=== PATIENT | male | born 1970 | race Caucasian/White ===

== ENCOUNTER 2022-01-10 11:32 | Outpatient (CLI) | payer OTHER, SELFPAY ==
[2022-01-10 14:01] LABS: Albumin* 4.3 g/dL (3.3-5.0); Chloride* 101 mmol/L (96-114); Sodium* 136 mmol/L (135-149)
[2022-01-10 14:02] LABS: Potassium* 4.6 mmol/L (3.6-5.1)
[2022-01-10 14:03] LABS: Cholesterol* 152 mg/dL (90-199)
[2022-01-10 14:04] LABS: Alanine Aminotransferase* 25 U/L (4-50); Alkaline Phosphatase* 61 U/L (40-150); Aspartate Amino Transferase* 29 U/L (12-35); Blood Urea Nitrogen* 14 mg/dL (7-30); Calcium* 9.6 mg/dL (8.4-10.6); Carbon Dioxide* 29 mmol/L (20-32); Glucose* 123 mg/dL (60-115); Total Protein* 6.8 g/dL (6.0-8.3); Triglycerides* 77 mg/dL (40-149)
[2022-01-10 14:05] LABS: HDL Cholesterol* 57 mg/dL (>=40); LDL Cholesterol Calculated 80 mg/dL (<100)
[2022-01-10 14:16] LABS: Creatinine Urine 93.7 mg/dL
[2022-01-10 14:21] LABS: Microalbumin Creatinine Ratio 10 mg/g (0-30); Microalbumin Urine < 1 mg/dL
== END 2022-01-10 11:33 | disposition home or self-care (01) ==
PROVIDERS: PCP Family Medicine; Visit Provider Family Medicine
DX: E11.9 Type 2 diabetes mellitus without complications (principal); R68.2 Dry mouth, unspecified; R63.5 Abnormal weight gain; I10 Essential (primary) hypertension; R39.15 Urgency of urination
CPT/HCPCS: 80053; 80061; 82043; 82570; 83036

== ENCOUNTER 2022-04-03 16:12 | Outpatient (CLI) | payer OTHER, SELFPAY ==
--- OUTSIDE RECORDS SUMMARY | 2022-04-03 16:15 | XMS_ITS | Encounter Summary ---
:1970 Author Organization [place] Address [address] [place] [address] Care Team Providers Name Role Phone Koby Hill MD Primary Care Provider Eloisa Owusu APRN DIABETES MANAGER Unavailable [phone] Encounter Details Date Type Department Care Team Description 07/31/2019 Travel Social History Tobacco Use Types Packs/Day Years Used Date Former Smoker Quit: 10/06/19 12 Smokeless Tobacco: Current User Chew Alcohol Use Standard Drinks/Week Comments Yes 0 (1 standard drink = 0.6 oz pure alcoho l) 2-3 drinks daily Alcohol Habits Answer Date Recorded How often do you have a drink containing alcohol? Not asked How many drinks containing alcohol do you have on a Not aske d typical day when you are drinking? How often do you have six or more drinks on one Not asked occasion? Comment: 2-3 drinks daily 10/14/2015 Sex Assigned at Date Recorded Not on file documented as of this encounter Plan of Treatment Not on filedocumented as of this encounter Visit Diagnoses Not on filedocumented in this encounter Additional Health Concerns Assessment Noted Time PHQ-9 Depression Total Score: 2 04/17/2016 7:19 AM CDT documented as of this encounter Care Teams Pearl Technician Relationship Specialty Start Date End Date Koby Hill MD PCP - General Internal Medicine 10/14/15 [address] [place] [address] Eloisa Owusu APRN DIABETES MANAGER Assigned PCP 07/16/19 01/11/21 [address] [place] [address] documented as of this encounter
--- OUTSIDE RECORDS SUMMARY | 2022-04-03 16:15 | XMS_ITS | Clinical Summary ---
:1970 Author Organization [place] Address [address] [place] [address] Care Team Providers Name Role Phone Koby Hill MD Primary Care Provider Allergies Active Allergy Reactions Severity Noted Date Comments Nadeem Inhibitors Cough 09/10/2011 Amoxicillin Hives 03/20/2011 Lisinopril Cough 05/03/2013 Penicillins Hives 11/15/2012 Medications Medication Sig Dispensed Refills Start Date End Date Status buPROPion (WELLBUTRIN Take 300 mg by 0 Active SR) 150 MG 12 hr mouth daily tablet omeprazole (PRILOSEC) Take by mouth 0 Active 40 MG capsule daily amphetamine-dextroamph Take by mouth 0 Active etamine (ADDERALL XR) daily 30 MG per capsule ibuprofen Take 200 mg by 0 Activ e (ADVIL,MOTRIN) 200 MG mouth every 4 tablet hours as needed for mild pain ARIPiprazole (ABILIFY) Take 1 tablet (5 30 tablet 1 11/12/2015 Active 5 MG tablet mg) by mouth At Bedtime eszopiclone (LUNESTA) Take 3 mg by mouth 0 6 Active 3 MG tablet At Bedtime VIAGRA 100 MG tablet 0 2016 Active NUVIGIL 250 MG TABS Take 250 mg by 0 01/07/2016 Active mouth as needed fluticasone (FLONASE) Gravelly 1-2 sprays 1 Bottle 11 07/14/2016 Active 50 MCG/ACT into both nostrils sprayIndications: daily Postnasal drip Additional Information Patient not taking. Reported on 01/18/2018 loratadine-pseudoePHEDrine Take 1 tablet by 14 tablet 0 2016 Active (CLARITIN-D 24-HOUR) 10-240 MG per mouth daily 24 hr tabletIndications: Postnasal drip, Dysfunction of Eustachian tube, right valsartan-hydrochlorothiazide TAKE 1 TABLET BY 30 tablet 0 12/2016 Active (DIOVAN-HCT) 320-12.5 MG per MOUTH DAILY tabletIndications: Essential hypertension amLODIPine (NORVASC) 5 MG TAKE 1 TABLET BY 90 tablet 0 017 Active tabletIndications: Essential MOUTH DAILY hypertension multivitamin, therapeutic with Take 1 tablet by 0 Active minerals (MULTI-VITAMIN) TABS tablet mouth daily azithromycin (ZITHROMAX) 250 MG Two tablets first 6 tablet 0 01/05/2018 Active tabletIndications: Upper respiratory day, then one tract infection, unspecified type, tablet daily for Cough four days. guaiFENesin-codeine (ROBITUSSIN AC) Take 10 mLs by 240 mL 1 01/05/2018 Active 100-10 MG/5ML SOLN mouth every 4 solutionIndications: Cough hours as needed Additional Information Patient not taking. Reported on 01/18/2018 amphetamine-dextroamphetamine TK 1 T PO BID 0 2016 Active (ADDERALL) 10 MG per tablet clonazePAM (KLONOPIN) 1 MG tablet 2 2016 Active topiramate (TOPAMAX) 25 MG tablet TK 1 T PO BID 3 Active tamsulosin (FLOMAX) 0.4 MG Take 1 capsule 30 capsule 0 019 Active capsuleIndications: Enlarged (0.4 mg) by prostate, Nocturia, Urinary urgency mouth daily Active Problems Patient Care Coordination Note Formatting of this note might be differe nt from the original. [email or web address] Problem Noted Date Right knee pain 04/16/2016 Major depressive disorder, recurrent episode, mild 10/2015 Essential hypertension 10/14/2015 Gastroesophageal reflux disease without esophagitis Attention deficit hyperactivity disorder (ADHD), combi ness type 10/14/2015 Immunizations Name Administration Dates Next Due Influenza Vaccine IM > 6 months Valent IIV4 04/16/2016 (Alfuria,Fluzone) Tdap (Adacel,Boostrix) 03/20/2013 Family History Medical History Relation Comments Hypertension Father Hypertension Mother Diabetes Sister Relation Status Comments Father Mother Alive Sister Social History Tobacco Use Types Packs/Day Years Used Date Former Smoker Quit: 10/06/19 12 Smokeless Tobacco: Current User Chew Tobacco Cessation: Ready to Quit: No; Co unseling Given: Yes Alcohol Use Standard Drinks/Week Comments Yes 0 [...] Assigned at Date Recorded Not on file Last Filed Vital Signs Vital Sign Reading Time Taken Comments Blood Pressure 130/80 01/18/2018 8:09 AM CDT Pulse 72 01/18/2018 8:09 AM CDT Temperature 37 ??C (98.6 ??F) 01/05/2018 10:45 AM CDT Respiratory Rate 20 01/05/2018 10:45 AM CDT Oxygen Saturation 95% 01/05/2018 10:45 AM CDT Inhaled Oxygen Concentration - - Weight 120.2 kg (265 lb) 01/18/2018 8:09 AM CDT Height 193 cm (6' 4) 01/18/2018 8:09 AM CDT Body Mass Index 32.26 01/18/2018 8:09 AM CDT Plan of Treatment Health Maintenance Due Date Last Done Comments ADVANCE CARE PLANNING 1968 ANNUAL REVIEW OF HM ORDERS 1968 CT COLONOGRAPHY 1968 FIT-DNA (Cologuard) 1968 FIT 1968 FLEX SIG 1968 PREVENTIVE CARE VISIT 1968 COVID-19 Vaccine (#1) 1968 COLONOSCOPY 1978 COLORECTAL CANCER SCREENING 1978 HIV SCREENING 1983 HEPATITIS C SCREENING 1986 PHQ-9 10/15/2016 04/16/2016, 11/12/2015 LUNG CANCER SCREENING 2018 ZOSTER IMMUNIZATION (1 of 2018 2) LIPID 10/17/2020 10/18/2015 INFLUENZA VACCINE (#1) 2022 03/29/2018, 04/16/2016, 05/07/2015, Additional history exists DTAP/TDAP/TD IMMUNIZATION 03/20/2023 03/20/2013, 09/03/2010 , (4 - Td or Tdap) 10/11/2006 HEPATITIS B IMMUNIZATION Aged Out 09/03/2010, 07/13/2008 No longer eligible based on patient 's age to complete this topic DEPRESSION ACTION PLAN Completed 02/18/2016 IPV IMMUNIZATION Aged Out No longer eligi ble based on patient 's age to complete this topic MENINGITIS IMMUNIZATION Aged Out No longe r eligible based on patient 's age to complete this topic Pneumococcal Vaccine: Aged Out No longer eligible Pediatrics (0 to 5 Years) based on patient's age and At-Risk Patients (6 to to co mplete this topic 64 Years) Insurance Payer Benefit Plan / Subscriber ID Effective Phone Address T ype Group Dates [facility] [id number] 2018-Pres [phone] [address] [facility] [phone] [place] [address] (Home) W [phone] [place] (Work) [phone] Care Teams General Ledger Bookkeeper Relationship Specialty Start Date End Date Koby Hill MD PCP - General Internal Medicine 10/14/15 [address] [place] [address]
--- OUTSIDE RECORDS SUMMARY | 2022-04-03 16:15 | XMS_ITS | Encounter Summary ---
:1970 Author Organization [place] Address [address] [place] [address] Care Team Providers Name Role Phone Koby Hill MD Primary Care Provider Koby Hill MD Unavailable Reason for Visit Reason Comments Medication Refill Encounter Details Date Type Department Care Team Description 04/25/2019 Refill [facility] Urology Arianne Vasquez, Medication Refill Clinic Fariha GRANT [address] [place] [address] [place] [address] [place] [id number] (Wo rk) Social History Tobacco Use Types Packs/Day Years [...] filedocumented as of this encounter Visit Diagnoses Diagnosis Enlarged prostate Hypertrophy of prostate without urinary obstruction and other lower urinary tract symptoms (LUTS) Nocturia Urinary urgency Urgency of urination documented in this encounter Additional Health Concerns Assessment Noted Time PHQ-9 Depression Total Score: 2 04/17/2016 7:19 AM CDT documented as of this encounter Care Teams Occupational Therapy Program Director Relationship Specialty Start Date End Date Koby Hill MD PCP - General Internal Medicine 10/14/15 [address] [address] oKby Hill MD Assigned PCP 04/02/19 07/15/19 [address] [address] documented as of this encounter
--- OUTSIDE RECORDS SUMMARY | 2022-04-03 16:15 | XMS_ITS | Encounter Summary ---
:1970 Author Organization [place] Address [address] [place] [address] Care Team Providers Name Role Phone Koby Hill MD Primary Care Provider Eloisa Owusu APRN VOIP TECHNICIAN Unavailable [phone] Encounter Details Date Type Department Care Team Description 08/07/2019 [facility] Lucy Mccray l segment dysfunction (Primary Dx); EDISON Garber DC Cervicalgia; [address] [facility] [employer] [facility] Thoracic segment dysfunction; [address] Right shoulder pain; [place], [place] [address] [address] Somatic dysfunction of upper extremities [address] [place] [address] Social History Tobacco Use Types Packs/Day Years [...] on file documented as of this encounter Progress Notes Lucy Mccray DC - 08/07/2019 3:00 PM CST Visit #: 2 of 4, based on treatment plan Subjective: Rubens Prieto is a 49 year old male who is seen in f/u up for: presenting with right shoulder, lower neck, upper back/shoulder blade pain. Patient reports that the onset was 8-9 months ago after falling on his back/shoulder blade region. Patient reports having difficulty raising his right arm over his head, states having achy/dull pain over the top and anterior shoulder and stiffness mid-back and neck Data Unavailable. Since last visit on 07/31/2019, Rubens Prieto reports the following changes: Pain immediately after last treatment: 08/21 and their pain level today 07/21. Patient reports a 80% improvement in neck andright shoulder pain. States he is able to easily reach above his head now. Driving is much easier. Area of chief complaint: Cervical and right shoulder : Symptoms are graded at 1/10. The quality is described as stiff, achey.Motion has increased, but is still not normal, C5, C6, T3, T5. Patient feels that they are improved due to a reduction in symptoms. Objective: The following was observed: P: palpatory tendernessTraps and supraspinatus, bicep tendon-mild now: R>>L A: static palpation demonstrates intersegmental asymmetry , cervical, right shoulder R: motion palpation notes restricted motion, C5 , C6 , T3 and T5 T: muscle spasm at level(s): T-spine paraspinal and Traps R>>L Assessment: Segmental spinal dysfunction/restrictions found at: C5 C6 T3 T4 T5 Diagnoses: No diagnosis found. Patient's condition: Patient had restrictions pre-manipulation Treatment effectiveness: Post manipulation there is better intersegmental movement and Patient claims to feel looser post manipulation Procedures: CMT: [id number] Chiropractic manipulative treatment 1-2 regions performed [id number] Chiropractic manipulative treatment extraspinal dysfunction/restriction Cervical: Diversified and Activator, C5 , C6, Supine Thoracic: Diversified, T3, T4, T5, Prone Extra-spinal: Extra-spinal, AtoP x3, Seated to right shoulder Modalities: Hypervolt to mid-thoracic paraspinals, pectoralis 3-4 minutes Therapeutic procedures: None Prognosis: Good Progress towards Goals: Patient is making progress towards the goal Response to Treatment: Reduction in symptoms as reported by patient Recommendations: Instructions: ice 20 minutes every other hour as needed Follow-up: Continue treatment PRN. GER TECHNICAL SALES documented in this encounter Plan of Treatment Not on filedocumented as of this encounter Procedures Procedure Name Priority Date/Time Associated Diagnosis Comme nts [facility] Routine 08/07/2019 4:25 PM MANAGER TECHNICAL SALES Right guanaco ulder pain MANIP,EXTRASPINAL,1+ Somatic dysfunction of REGNS upper extremities [facility] Routine 08/07/2019 4:25 PM MANAGER TECHNICAL SALES Cervical segment MANIP,SPINAL,1-2 dysfunction [facility]IONS Cervicalgia Thoracic segment dysfunction documented in this encounter Visit Diagnoses Diagnosis Cervical segment dysfunction - Primary Nonallopathic lesion of cervical region, not elsewhere classified Cervicalgia Thoracic segment dysfunction Nonallopathic lesion of thoracic region, not elsewhere classified Right shoulder pain Pain in joint, shoulder region Somatic dysfunction of upper extremities Nonallopathic lesion of upper extremitie s, not elsewhere classified documented in this encounter Additional Health Concerns Assessment Noted Time PHQ-9 Depression Total Score: 2 04/17/2016 7:19 AM CDT documented as of this encounter Care Teams As400 Developer Relationship Specialty Start Date End Date Koby Hill MD PCP - General Internal Medicine 10/14/[address] [place], [place] [address] Eloisa Owusu APRN VOIP TECHNICIAN Assigned PCP 07/16/19 01/11/21 [address] [place] [address] documented as of this encounter
--- OUTSIDE RECORDS SUMMARY | 2022-04-03 16:15 | XMS_ITS | Encounter Summary ---
:1970 Author Organization [facility] Address [address] [place] [address] Care Team Providers Name Role Phone Koby Hill MD Primary Care Provider Reason for Referral Diagnostic Imaging XR - Closed Specialty Diagnoses / Procedures Referred By Contact Refer red To Contact Diagnoses Decreased breath sounds at left lung base Cough Eloisa Owusu APRN Procedures XR Chest 2 Views RN DELIVERY [address] [place] [address] Referral ID Status Reason Start Date Expiration Date Visits Requ ested Visits Authorized [id number] Closed 01/05/2018 01/05/2019 1 1 Reason for Visit Reason Comments Cough patient c/o of cough x 3 day s. Per patient, coughing up once in awhile, no fever, feels achy and weak, cough is worse at night, complaining of chest pain from coughing Encounter Details Date Type Department Care Team Description 01/05/2018 Office Visit [facility] Eloisa Owusu Upper res piratory tract infection, unspecified type (Primary Dx); Clinic Chris Das APRN RN DELIVERY Decreased breath sounds at left lung bas e; [address] [place] [address] [place] [address] [phone] Social History Tobacco Use Types Packs/Day Years [...] on file documented as of this encounter Last Filed Vital Signs Vital Sign Reading Time Taken Comments Blood Pressure 120/72 01/05/2018 10:45 AM CDT Pulse 71 01/05/2018 10:45 AM CDT Temperature 37 ??C (98.6 ??F) 01/05/2018 10:45 AM CDT Respiratory Rate 20 01/05/2018 10:45 AM CDT Oxygen Saturation 95% 01/05/2018 10:45 AM CDT Inhaled Oxygen Concentration - - Weight 124.4 kg (274 lb 4.8 oz) 01/05/2018 10:45 AM CDT Height - - Body Mass Index 34.29 12/31/2017 11:21 AM CDT documented in this encounter Patient Instructions Patient InstructionsEloisa Owusu APRN CNP - 01/05/2018 11:00 AM CDT Chest x ray in [address] Will treat with Zithromax 250mg, 2 tabs by mouth day 1, then 1 tab by mouth days 2-5. He is to watchfor GI upset, diarrhea or rash. Robitussin with codeine as needed for cough Please, call or return to clinic if signs or symptoms worsen or fail to improve as anticipated documented in this encounter Progress Notes Eloisa Owusu APRN CNP - 01/05/2018 11:00 AM CDT SUBJECTIVE: Rubens Prieto is a 47 year old male who presents to clinic today for the following health issues: Chief complaint- Cough patient c/o of cough x 3 days. Per patient, coughing up once in awhile, no fever, feels achy and weak, cough is worse at night, complaining of chest pain from coughing Productive of whitish secretions No fever No history allergies Feels SOB - even talking is SOB Happened last year and was given a z pack for similar symptoms Negative chest x ray at the time Problem list and histories reviewed & adjusted, as indicated. Additional history: as documented Patient Active Problem List Diagnosis ??? Major depressive disorder, recurrent episode, mild (H) ??? Essential hypertension ??? Gastroesophageal reflux disease without esophagitis ??? Attention deficit hyperactivity disorder (ADHD), combined type ??? Right knee pain Past Surgical History: Procedure Laterality Date ??? ARTHROSCOPY KNEE Right 05/27/2016 Procedure: Arthroscopic partial medial meniscectomy, right knee. Surgeon: Dale Gambino MD Location: [facility] ??? KNEE SURGERY Left 2015 knee arthroplasty - total Social History Substance Use Topics ??? Smoking status: Former Smoker Quit date: 10/06/2011 ??? Smokeless tobacco: Current User Types: Chew ??? Alcohol use 0.0 oz/week 0 Standard drinks or equivalent per week Comment: 2-3 drinks daily Family History Problem Relation Age of Onset ??? Hypertension Mother ??? Hypertension Father ??? Diabetes Sister Reviewed and updated as needed this visit by clinical staff Tobacco Allergies Meds Med Hx Surg Hx Fam Hx Soc Hx Reviewed and updated as needed this visit by Provider ROS: Constitutional, HEENT, cardiovascular, pulmonary, gi and gu systems are negative, except as otherwise noted. OBJECTIVE: BP 120/72 (BP Location: Right arm, Patient Position: Sitting, Cuff Size: Adult Large) Pulse 71 Temp 98.6 ??F (37 ??C) (Oral) Resp 20 Wt 274 lb 4.8 oz (124.4 kg) SpO2 95% BMI 34.29 kg/m2 Body mass index is 34.29 kg/(m^2). GENERAL:alert and no distress HENT: ear canals and TM's normal, nose and mouth without ulcers or lesions RESP: lungs with decreased breath sounds LLL Cough with deep breath CV: regular rate and rhythm MS: no gross musculoskeletal defects noted, no edema NEURO: Normal strength and tone, mentation intact and speech normal PSYCH: mentation appears normal, affect normal/bright Diagnostic Test Results: CXR - negative ASSESSMENT/PLAN: 1. Upper respiratory tract infection, unspecified type - azithromycin (ZITHROMAX) 250 MG tablet; Two tablets first day, then one tablet daily for four days. Dispense: 6 tablet; Refill: 0 2. Decreased breath sounds at left lung base - XR Chest 2 Views; Future 3. Cough - XR Chest 2 Views; Future - azithromycin (ZITHROMAX) 250 MG tablet; Two tablets first day, then one tablet daily for four days. Dispense: 6 tablet; Refill: 0 - guaiFENesin-codeine (ROBITUSSIN AC) 100-10 MG/5ML SOLN solution; Take 10 mLs by mouth every 4 hours as needed Dispense: 240 mL; Refill: 1 Patient Instructions Chest x ray in [address] Will treat with Zithromax 250mg, 2 tabs by mouth day 1, then 1 tab by mouth days 2-5. He is to watchfor GI upset, diarrhea or rash. Robitussin with codeine as needed for cough Please, call or return to clinic if signs or symptoms worsen or fail to improve as anticipated Eloisa Owusu APRN CNP [facility] documented in this encounter Plan of Treatment Not on filedocumented as of this encounter Results XR Chest 2 Views (01/05/2018 11:31 AM CDT) Anatomical Region Laterality Modality Chest Computed Radiography Specimen (Source) Anatomical Location Collection Method / Collectio n Time Received Time / Laterality Volume Impressions 01/05/2018 1:33 PM CDT IMPRESSION: Since November 21, 2016, heart size is normal. No pleural effusion, pneumothorax, or abnormal area of consolidation. LAW HAINES MD Narrative 01/05/2018 1:33 PM CDT CHEST TWO VIEWS ??01/05/2018 11:31 AM HISTORY: 47-year-old with decreased lung sounds in left lower lobe. Patient also has cough. Procedure Note Law Haines MD - 01/05/2018 CHEST TWO VIEWS 01/05/2018 11:31 AM HISTORY: 47-year-old with decreased lung sounds in left lower lobe. Patient also has cough. IMPRESSION: Since November 21, 2016, heart si ze is normal. No pleural effusion, pneumothorax, or abnormal area of consolidation. LAW HAINES MD Eloisa Owusu ROUNDING AND BACKING MACHINE OPERATOR RN DELIVERY IMG DIAGNOSTIC IMAGING ORD ERABLES documented in this encounter Visit Diagnoses Diagnosis Upper respiratory tract infection, unspe cified type - Primary Decreased breath sounds at left lung bas e Cough Decreased breath sounds at left lung bas e Cough documented in this encounter Additional Health Concerns Assessment Noted Time PHQ-9 Depression Total Score: 2 04/17/2016 7:19 AM CDT documented as of this encounter Care Teams Computer Analyst Supervisor Relationship Specialty Start Date End Date Koby Hill MD PCP - General Internal Medicine 10/14/15 [address] [place] [address] documented as of this encounter
--- OUTSIDE RECORDS SUMMARY | 2022-04-03 16:15 | XMS_ITS | Encounter Summary ---
:1970 Author Organization [place] Address [address] [place] [address]. [place] [address] Care Team Providers Name Role Phone Koby Hill MD Primary Care Provider CreagaEloisa larkin APRN ELECTRICIAN APPRENTICE Unavailable [phone] ReyesagaEloisa larkin APRN ELECTRICIAN APPRENTICE Unavailable [phone] Encounter Details Date Type Department Care Team Description 2018 Orders Only [facility] [place] Vasquez y frequency Urology Clinic Fariha Maya MD (Primary Dx) [address] [place] [address] [place] [address] [place] [id number] Social History Tobacco Use Types Packs/Day Years [...] as of this encounter Visit Diagnoses Diagnosis Urinary frequency - Primary documented in this encounter Additional Health Concerns Assessment Noted Time PHQ-9 Depression Total Score: 2 04/17/2016 7:19 AM CDT documented as of this encounter Care Teams Director Broadcast Relationship Specialty Start Date End Date Koby Hill MD PCP - General Internal Medicine 10/14/15 [address] [place] [place] [address] Eloisa Owusu APRN PCP - Assigned PCP 01/16/18 09/13/18 ELECTRICIAN APPRENTICE [address] [place] [address] Eloisa Owusu APRN Assigned PCP 01/16/18 ELECTRICIAN APPRENTICE [address] [place] [address] documented as of this encounter
--- OUTSIDE RECORDS SUMMARY | 2022-04-03 16:15 | XMS_ITS | Encounter Summary ---
:1970 Author Organization [facility] Address [address] [place] [address] Care Team Providers Name Role Phone Koby Hill MD Primary Care Provider Reason for Visit Reason Onset Date Comments Refill Request 11/30/2016 valsartan-hydrochlor othiazide Encounter Details Date Type Department Care Team Description 11/30/2016 Refill [facility] Koby Hill, Ref ill Request Clinic Chris GRANT (valsartan-hydrochlorot [address] [place] [address] hiazide ) [place] [address] [place], [place] [phone] (Wo rk) [address] [phone] Social History Tobacco Use Types Packs/Day Years [...] on file documented as of this encounter Miscellaneous Notes Telephone Encounter - Magy Bragg - 11/30/2016 3:01 PM CDT Prescription approved per [facility] Refill Protocol, until due for labs in May. Telephone Encounter - Zoya He - 11/30/2016 12:20 PM CDT valsartan-hydrochlorothiazide Last Written Prescription Date: 10/14/15 Last Fill Quantity: 90, # refills: 3 Last Office Visit with [facility] or [facility] prescribing provider: 07/14/16 Potassium Date Value Ref Range Status 05/25/2016 3.8 3.4 - 5.3 mmol/L Final Creatinine Date Value Ref Range Status 05/25/2016 1.06 0.66 - 1.25 mg/dL Final BP Readings from Last 3 Encounters: 11/21/16 126/80 07/14/16 132/70 06/05/16 132/82 documented in this encounter Plan of Treatment Not on filedocumented as of this encounter Visit Diagnoses Diagnosis Essential hypertension Unspecified essential hypertension documented in this encounter Additional Health Concerns Assessment Noted Time PHQ-9 Depression Total Score: 2 04/17/2016 7:19 AM CDT documented as of this encounter Care Teams Weeder Relationship Specialty Start Date End Date Koby Hill MD PCP - General Internal Medicine 10/14/15 [place] [address] documented as of this encounter
--- OUTSIDE RECORDS SUMMARY | 2022-04-03 16:15 | XMS_ITS | Encounter Summary ---
:1970 Author Organization [facility] Address [address] [place] [address]. [place] [address] Care Team Providers Name Role Phone Koby Hill MD Primary Care Provider Eloisa Owusu APRN WORK STATION SUPPORT SPECIALIST Unavailable [phone] Reason for Visit Reason Onset Date Comments Refill Request 01/02/2019 tamsulosin Refill Request 01/02/2019 Encounter Details Date Type Department Care Team Description 01/02/2019 Refill M [facility] Ana Zarco Refi ll Request Urology Clinic Fariha GUY (tamsulosin); Refill [address] [facility] [address] [place] [address] Social History Tobacco Use Types Packs/Day Years [...] documented as of this encounter Miscellaneous Notes Addendum Note - Ana Zarco RN - 01/02/2019 1:46 PM CDT Addended by: ANA ZARCO on: 01/02/2019 01:59 PM Modules accepted: Orders documented in this encounter Plan of Treatment Not on filedocumented as of this encounter Visit Diagnoses Diagnosis Nocturia - Primary Enlarged prostate Hypertrophy of prostate without urinary obstruction and other lower urinary tract symptoms (LUTS) Urinary urgency Urgency of urination documented in this encounter Additional Health Concerns Assessment Noted Time PHQ-9 Depression Total Score: 2 04/17/2016 7:19 AM CDT documented as of this encounter Care Teams Flight Service Specialist Relationship Specialty Start Date End Date Koby Hill MD PCP - General Internal Medicine 10/14/15 [address] [place], [place] [id number] Eloisa Owusu APRN WORK STATION SUPPORT SPECIALIST Assigned PCP 01/16/18 01/07/19 [address] [place], [place] [id number] documented as of this encounter
--- OUTSIDE RECORDS SUMMARY | 2022-04-03 16:15 | XMS_ITS | Encounter Summary ---
:1970 Author Organization [facility] Address [address] [place] [address] Care Team Providers Name Role Phone Koby Hill MD Primary Care Provider Eloisa Owusu APRN DIVISION CONTROLLER Unavailable [phone] Eloisa Owusu APRN DIVISION CONTROLLER Unavailable [phone] Encounter Details Date Type Department Care Team Description 09/05/2018 Travel Social History Tobacco Use Types Packs/Day [...] documented as of this encounter Care Teams Field Care Coordinator Relationship Specialty Start Date End Date Koby Hill MD PCP - General Internal Medicine 10/14/15 [address] [place] [address] Eloisa Owusu APRN PCP - Assigned PCP 01/16/18 09/13/18 DIVISION CONTROLLER [address] [place], [place] [id number] Eloisa Owusu APRN Assigned PCP 01/16/18 DIVISION CONTROLLER [address] [place], [place] [id number] documented as of this encounter
--- OUTSIDE RECORDS SUMMARY | 2022-04-03 16:15 | XMS_ITS | Encounter Summary ---
:1970 Author Organization [facility] Address [address] [facility] [place] [address] Care Team Providers Name Role Phone Koby Hill MD Primary Care Provider CreaganEloisa APRN FINISHED GOODS PLANNER Unavailable [phone] CreaganEloisa APRN FINISHED GOODS PLANNER Unavailable [phone] Reason for Visit Reason Comments Consult New pt. is here due to urina ry frequecy and urgency Encounter Details Date Type Department Care Team Description 01/18/2018 Office Visit [facility] Vasquez, Leonard Melanie ed prostate (Primary Dx); Urology Clinic Dilcia Maya MD Urinary frequency; [address] Urinary urgency [address] [place] [address] [place] [address] [phone] Social History Tobacco Use Types Packs/Day Years [...] Pulse 72 01/18/2018 8:09 AM CDT Temperature - - Respiratory Rate - - Oxygen Saturation - - Inhaled Oxygen Concentration - - Weight 120.2 kg (265 lb) 01/18/2018 8:09 AM CDT Height 193 cm (6' 4) 01/18/2018 8:09 AM CDT Body Mass Index 32.26 01/18/2018 8:09 AM CDT documented in this encounter Progress Notes Leonard Vasquez MD - 01/18/2018 8:00 AM CDT [facility] Main Office: [address] [facility] [address] [place] [address] CHIEF COMPLAINT: Urinary urgency and nocturia HISTORY: This is a healthy 47-year-old gentleman who complains of bothersome urinary urgency and nocturia. Hesays that this has slowly progressed over the past year. His main complaint is that during the day he will suddenly have a strong urge to urinate and will need to find a bathroom immediately. He has some frequency during the day but he attributes this to high water intake. At night he gets up twice and this is a new development for him as well. He reports normal urinary stream. No history of gross hematuria or infections. There is no family history of prostate cancer to his knowledge. He has no smoking history but does use chewing tobacco PAST MEDICAL HISTORY: Past Medical History: Diagnosis Date ??? ADHD (attention deficit hyperactivity disorder) ??? Depression ??? GERD (gastroesophageal reflux disease) ??? Hernia, abdominal ??? HTN (hypertension) PAST SURGICAL HISTORY: Past Surgical History: Procedure Laterality Date ??? ARTHROSCOPY KNEE Right 05/27/2016 Procedure: Arthroscopic partial medial meniscectomy, right knee. Surgeon: Dale Gambino MD Location: [facility] ??? KNEE SURGERY Left 2014 knee arthroplasty - total ??? VASECTOMY FAMILY HISTORY: Family History Problem Relation Age of Onset ??? Hypertension Mother ??? Hypertension Father ??? Diabetes Sister SOCIAL HISTORY: Social History Substance Use Topics ??? Smoking status: Former Smoker Quit date: 10/06/2011 ??? Smokeless tobacco: Current User Types: Chew ??? Alcohol use 0.0 oz/week 0 Standard drinks or equivalent per week Comment: 2-3 drinks daily Allergies Allergen Reactions ??? Amoxicillin Current Outpatient Prescriptions: ??? amLODIPine (NORVASC) 5 MG tablet, TAKE 1 TABLET BY MOUTH DAILY, Disp: 90 tablet, Rfl: 0 ??? amphetamine-dextroamphetamine (ADDERALL XR) 30 MG per capsule, Take by mouth daily, Disp: , Rfl: ??? amphetamine-dextroamphetamine (ADDERALL) 10 MG per tablet, TK 1 T PO BID, Disp: , Rfl: 0 ??? azithromycin (ZITHROMAX) 250 MG tablet, Two tablets first day, then one tablet daily for four days., Disp: 6 tablet, Rfl: 0 ??? buPROPion (WELLBUTRIN SR) 150 MG 12 hr tablet, Take 300 mg by mouth daily, Disp: , Rfl: ??? clonazePAM (KLONOPIN) 1 MG tablet, , Disp: , Rfl: 2 ??? eszopiclone (LUNESTA) 3 MG tablet, Take 3 mg by mouth At Bedtime, Disp: , Rfl: 0 ??? ibuprofen (ADVIL,MOTRIN) 200 MG tablet, Take 200 mg by mouth every 4 hours as needed for mild pain, Disp: , Rfl: ??? loratadine-pseudoePHEDrine (CLARITIN-D 24-HOUR) 10-240 MG per 24 hr tablet, Take 1 tablet by mouth daily, Disp: 14 tablet, Rfl: 0 ??? multivitamin, therapeutic with minerals (MULTI-VITAMIN) TABS tablet, Take 1 tablet by mouth daily, Disp: , Rfl: ??? NUVIGIL 250 MG TABS, Take 250 mg by mouth as needed, Disp: , Rfl: 0 ??? omeprazole (PRILOSEC) 40 MG capsule, Take by mouth daily, Disp: , Rfl: ??? topiramate (TOPAMAX) 25 MG tablet, TK 1 T PO BID, Disp: , Rfl: 3 ??? valsartan-hydrochlorothiazide (DIOVAN-HCT) 320-12.5 MG per tablet, TAKE 1 TABLET BY MOUTH DAILY,Disp: 30 tablet, Rfl: 0 ??? ARIPiprazole (ABILIFY) 5 MG tablet, Take 1 tablet (5 mg) by mouth At Bedtime, Disp: 30 tablet, Rfl: 1 ??? fluticasone (FLONASE) 50 MCG/ACT spray, [place] 1-2 sprays into both nostrils daily (Patient not taking: Reported on 01/18/2018), Disp: 1 Bottle, Rfl: 11 ??? guaiFENesin-codeine (ROBITUSSIN AC) 100-10 MG/5ML SOLN solution, Take 10 mLs by mouth every 4 hours as needed (Patient not taking: Reported on 01/18/2018), Disp: 240 mL, Rfl: 1 ??? VIAGRA 100 MG tablet, , Disp: , Rfl: Review Of Systems: Skin: negative Eyes: negative Ears/Nose/Throat: negative Respiratory: No shortness of breath, dyspnea on exertion, cough, or hemoptysis Cardiovascular: negative Gastrointestinal: negative Genitourinary: negative Musculoskeletal: negative Neurologic: negative Psychiatric: negative Hematologic/Lymphatic/Immunologic: negative Endocrine: negative PHYSICAL EXAM: Pulse 72 Ht 1.93 m (6' 4) Wt 120.2 kg (265 lb) BMI 32.26 kg/m2 General appearance: In NAD, conversant HEENT: Normocephalic and atraumatic, anicteric sclera Cardiovascular: Not examined Respiratory: normal, non-labored breathing Gastrointestinal: negative, Abdomen soft, non-tender, and non-distended. Musculoskeletal: Not Examined Peripheral Vascular/extremity: No peripheral edema Skin: Normal temperature, turgor, and texture. No rash Psychiatric: Appropriate affect, alert and oriented to person, place, and time Penis: Normal Scrotal skin: Normal, no lesions Testicles: Normal to palpation bilaterally Epididymis: Normal to palpation bilaterally Lymphatic: Normal inguinal lymph nodes Digital Rectal Exam: his prostate is somewhat enlarged, benign and symmetric to palpation Cystoscopy: Not done PSA: UA RESULTS: Recent Labs Lab Test 12/31/17 1136 COLOR Yellow APPEARANCE Clear URINEGLC Negative URINEBILI Negative URINEKETONE Negative SG 1.010 UBLD Negative URINEPH 7.0 PROTEIN Negative UROBILINOGEN 0.2 NITRITE Negative LEUKEST Negative Bladder Scan: 35mL Other Labs: Imaging Studies: None CLINICAL IMPRESSION: Enlarged prostate, urinary urgency, nocturia PLAN: His symptoms are likely attributable to an enlarged prostate. His urinalysis is negative and he is emptying his bladder well. We discussed treatment options for enlarged prostate. I recommended a trialof Flomax. I prescribed medication and discussed essential side effects. He will take Flomax daily and I will see him back in 1 month. We will check a PSA at that point. If he shows no improvement withthe Flomax we will need to proceed with a cystoscopy. Leonard Vasquez MD documented in this encounter Plan of Treatment Not on filedocumented as of this encounter Procedures Procedure Name Priority Date/Time Associated Comments Diagnosis URINE MACROSCOPIC Routine 01/18/2018 8:14 AM Urinary frequency Results for this ONLY CDT procedure are i n the results section. documented in this encounter Results UA without Microscopic (01/18/2018 8:14 AM CDT) [facility] Method Time Signature Color Urine Yellow 01/18/2018 [facility] 8:18 AM CDT [facility] Appearance Urine Clear 01/18/2018 [facility] 8:18 AM CDT [facility] Glucose Urine Negative NEG^Negat 01/18/2018 [facility] [place] mg/dL 8:18 AM CDT [facility] Bilirubin Urine Negative NEG^Negat 01/18/2018 [facility] [place] 8:18 AM CDT [facility] Ketones Urine Negative NEG^Negat 01/18/2018 [facility] [place] mg/dL 8:18 AM CDT [facility] Specific [place] 1.020 1.003 - 01/18/2018 [facility] Urine 1.035 8:18 AM CDT [facility] Blood Urine Negative NEG^Negat 01/18/2018 [facility] [place] 8:18 AM CDT [facility] pH Urine 5.5 5.0 - 7.0 01/18/2018 [facility] pH 8:18 AM CDT [facility] Protein Albumin Negative NEG^Negat 01/18/2018 [facility] Urine [place] mg/dL 8:18 AM CDT [facility] Urobilinogen 0.2 0.2 - 1.0 01/18/2018 [facility] Urine EU/dL 8:18 AM CDT [facility] Nitrite Urine Negative NEG^Negat 01/18/2018 [facility] [place] 8:18 AM CDT [facility] Leukocyte Negative NEG^Negat 01/18/2018 [facility] Esterase Urine [place] 8:18 AM CDT [facility] Source Midstream 01/18/2018 [facility] Urine 8:18 AM CDT [facility] Specimen (Source) Anatomical Collection Method Collection Time Re ceived Time Location / / Volume Laterality Examination of 01/18/2018 8:14 01/18/2018 8:15 midstream urine AM CDT AM CDT specimen (procedure) Leonard Vasquez MD LAB - URINE ORDERABLES Performing Organization Address City/State/ZIP Code Phon e Number [facility] [address] [place] [address] CL[address] documented in this encounter Visit Diagnoses Diagnosis Enlarged prostate - Primary Hypertrophy of prostate without urinary obstruction and other lower urinary tract symptoms (LUTS) Urinary frequency Urinary urgency Urgency of urination documented in this encounter Additional Health Concerns Assessment Noted Time PHQ-9 Depression Total Score: 2 04/17/2016 7:19 AM CDT documented as of this encounter Care Teams Science Center Display Builder Relationship Specialty Start Date End Date Koby Hill MD PCP - General Internal Medicine 10/14/15 [address] [place] [address] Eloisa Owusu APRN PCP - Assigned PCP 01/16/18 09/13/18 FINISHED GOODS PLANNER [address] [place] [address] Eloisa Owusu APRN Assigned PCP 01/16/18 FINISHED GOODS PLANNER [address] [place] [address] documented as of this encounter
--- OUTSIDE RECORDS SUMMARY | 2022-04-03 16:15 | XMS_ITS | Encounter Summary ---
:1970 Author Organization [facility] Address [address] [place] [address] Care Team Providers Name Role Phone Koby Hill MD Primary Care Provider Eloisa Owusu APRN BUSINESS SOLUTIONS ANALYST Unavailable [phone] Eloisa Owusu APRN BUSINESS SOLUTIONS ANALYST Unavailable [phone] Reason for Visit Reason Comments Medication Refill [facility] Encounter Details Date Type Department Care Team Description 06/17/2017 Refill [facility] Koby Hill, Med ication Refill Clinic Chris GRANT (norvas) [address] [place] [address] [place], [place] [phone] (Wo rk) [address] [phone] Social History Tobacco Use Types Packs/Day Years [...] this encounter Miscellaneous Notes Telephone Encounter - Ashley Batista RN - 06/21/2017 10:30 AM CST Potassium Date Value Ref Range Status 05/25/2016 3.8 3.4 - 5.3 mmol/L Final Creatinine Date Value Ref Range Status 05/25/2016 1.06 0.66 - 1.25 mg/dL Final BP Readings from Last 3 Encounters: 11/21/16 126/80 07/14/16 132/70 06/05/16 132/82 Medication is being filled for 1 time refill only due to: Patient needs labs --bmp. Future labs ordered in chart. Getaround message sent. TH AND [employer]ARLAND MAKER HAND documented in this encounter Plan of Treatment Not on filedocumented as of this encounter Visit Diagnoses Diagnosis Essential hypertension Unspecified essential hypertension documented in this encounter Additional Health Concerns Assessment Noted Time PHQ-9 Depression Total Score: 2 04/17/2016 7:19 AM CDT documented as of this encounter Care Teams Carpentry Foreman Relationship Specialty Start Date End Date Koby Hill MD PCP - General Internal Medicine 10/14/15 [address] [place] [address] Eloisa Owusu APRN PCP - Assigned PCP 01/16/18 09/13/18 BUSINESS SOLUTIONS ANALYST [address] [place] [address] Eloisa Owusu APRN Assigned PCP 01/16/18 BUSINESS SOLUTIONS ANALYST [address] [place] [address] documented as of this encounter
--- OUTSIDE RECORDS SUMMARY | 2022-04-03 16:15 | XMS_ITS | Encounter Summary ---
:1970 Author Organization [facility] Address [address] [place] [address]. [place] [address] Care Team Providers Name Role Phone Koby Hill MD Primary Care Provider CreagaEloisa larkin APRN AIRCRAFT ORDNANCE SYSTEMS MECHANIC Unavailable [phone] ReyesagaEloisa larkin APRN AIRCRAFT ORDNANCE SYSTEMS MECHANIC Unavailable [phone] Encounter Details Date Type Department Care Team Description 01/17/2018 Orders Only M [facility] Leonard Vasquez Urinar y frequency Urology Clinic Dilcia Maya MD (Primary Dx) [address] [place] [address] [place] [address] Social History Tobacco Use Types Packs/Day Years [...] on filedocumented as of this encounter Results UA without Microscopic (01/18/2018 8:14 AM CDT) [facility] gist Method Time Signature Color Urine Yellow 01/18/2018 [...] 8:18 AM CDT [facility] Specific [place] 1.020 1.003 - 01/18/2018 [facility] Urine 1.035 [...] Number [facility] [address] [place] [id number] CLINIC [address] documented in this encounter Visit Diagnoses Diagnosis Urinary frequency - Primary documented in this encounter Additional Health Concerns Assessment Noted Time PHQ-9 Depression Total Score: 2 04/17/2016 7:19 AM CDT documented as of this encounter Care Teams Formulation Technician Relationship Specialty Start Date End Date Koby Hill MD PCP - General Internal Medicine 10/14/15 [address] [place], [place] [address] Eloisa Owusu APRN PCP - Assigned PCP 01/16/18 09/13/18 AIRCRAFT ORDNANCE SYSTEMS MECHANIC [address] [place], [place] [address] Eloisa Owusu APRN Assigned PCP 01/16/18 AIRCRAFT ORDNANCE SYSTEMS MECHANIC [address] [place], [place] [address] documented as of this encounter
--- OUTSIDE RECORDS SUMMARY | 2022-04-03 16:15 | XMS_ITS | Encounter Summary ---
:1970 Author Organization [facility] Address [address] [place] [address] Care Team Providers Name Role Phone Koby Hill MD Primary Care Provider Eloisa Owusu APRN CAR SHAKEOUT OPERATOR Unavailable [phone] Encounter Details Date Type Department Care Team Description 07/31/2019 Therapy Visit [facility] Lucy Mccray l segment dysfunction (Primary Dx); EDISON Garber DC Cervicalgia; [address] [place] [address] [employer] [facility] Thoracic segment dysfunction; [address] Chronic right shoulder pain; [place], [place] [address] Somatic dysfunction of upper extremities [id number] [place] [address] Social History Tobacco Use Types [...] encounter Progress Notes Lucy Mccray DC - 07/31/2019 3:00 PM CST Chiropractic Clinic Visit PCP: Koby Hill Rubens Prieto is a 49 year old male who is seen as a self referral presenting with right shoulder, lower neck, upper back/shoulder blade pain. Patient reports that the onset was 8-9 months ago afterfalling on his back/shoulder blade region. Patient reports having difficulty raising his right arm over his head, states having achy/dull pain over the top and anterior shoulder and stiffness mid-back and neck. Prior to onset, the patient was able to do activities over his head. Able to sleep 6-7 hours without right shoulder pain Patient notes that due to symptoms, they have difficulty sleeping on his right side. Rubens Prieto notes sleeping rated at a 3/10 difficulty and prior to this incident it was 0/10. Injury: Fell on his back 8-9 months ago Location of Pain: right superior and anterior shoulder, stiffness through the shoulder blade/mid-thoracic spine, and right lower neck at the following level(s) C5 , C6 , C7 , T2 , T3 and T5 Duration of Pain: 8-9 months Rating of Pain at worst: 6/10 Rating of Pain Currently: 3/10 Symptoms are better with: Rest Symptoms are worse with: overhead motions: reaching, lifting Additional Features: denies UE weakness or numbness Health History as reported by the patient: How does the patient rate their own health: Good Current or past medical history: Depression and High blood pressure Medical allergies None Past Traumas/Surgeries Orthopedic: knee replacement Family History This patient has no significant family history Medications: Anti-depressants, High blood pressure and Sleep 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 Past Medical History: Diagnosis Date ??? ADHD (attention deficit hyperactivity disorder) ??? Depression ??? GERD (gastroesophageal reflux disease) ??? Hernia, abdominal ??? HTN (hypertension) Past Surgical History: Procedure Laterality Date ??? ARTHROSCOPY KNEE Right 05/27/2016 Procedure: Arthroscopic partial medial meniscectomy, right knee. Surgeon: Dale Gambino MD Location: [facility] ??? KNEE SURGERY Left 2014 knee arthroplasty - total ??? VASECTOMY Objective There were no vitals taken for this visit. GENERAL APPEARANCE: healthy, alert and no distress GAIT: NORMAL SKIN: no suspicious lesions or rashes NEURO: Normal strength and tone, mentation intact and speech normal PSYCH: mentation appears normal and affect normal/bright Cervical Spine Exam Range of Motion: Full to slight reduction active and passive ROM forward flexion, extension, lateral rotation, lateral flexion. Mild neck pain in right lateral flexion, left rotation Shoulder ROM: Abduction slight limited- with right shoulder pain, int rotation mildly decreased with increased right shoulder soreness, all other motions were full and pain free Thoracic ROM: Left-slight reduction with stiffness noted. Right-full and pain free Inspection: No visible deformity normal lordotic curvature maintained Tender: upper border of trapezius Right supraspinatus Right bicep tendon Non-Tender: remainder of cervical spine area Muscle strength: C5 (shoulder abduction) symmetric 5/5 Normal C6 (elbow flexion) symmetric 5/5 Normal C7 (elbow extension) symmetric 5/5 Normal C8 (finger abduction, thumb flexion) symmetric 5/5 Normal Reflexes: C5 (biceps) symmetric 2 bilaterally C6 (supinator) symmetric 2 bilaterally C7 (triceps) symmetric 2 bilaterally Sensation: grossly intact througout bilateral upper extremities Special Tests: Cervical compression-Neg, foraminal compression left and right-Neg Distraction - negative Shoulder test: Painful arc-positive, empty can test-mildly painful Lymphatics: no edema noted in the upper extremities Segmental spinal dysfunction/restrictions found at: C5 , C6 , T3 and T5 The following soft tissue hypotonicities were observed:Traps: ache and stiff, referred pain: no Trigger points were found in:supraspinatus-right: Muscle spasm found in:Traps and supraspinatus, bicep: Radiology: none Assessment: 1. Cervical segment dysfunction 2. Cervicalgia 3. Thoracic segment dysfunction 4. Chronic right shoulder pain 5. Somatic dysfunction of upper extremities RX ordered/plan of care Anticipated outcomes Possible risks and side effects After discussing the risk and benefits of care, patient consented to treatment Patient's condition: Patient had restrictions pre-manipulation Treatment effectiveness: Post manipulation there is better intersegmental movement and Patient claims to feel looser post manipulation Plan: Procedures: Evaluation and Management: 36243 Moderate level exam 30 min CMT: [id number] Chiropractic manipulative treatment 3-4 regions performed Cervical: Diversified, C5 , C6, Supine-right side only Thoracic: Diversified, T3, T5, Prone Extra-spinal: PtoA mob's-x3, hypervolt STM to pectoralis minor, right shoulder, Supine Modalities: 32736: US: 2.0 Barahona/cm squared for 8 minutes at 1mhz cont pulsed, Location: right anterior shoulder Hypervolt massage to thoracic paraspinals, supraspinatus, pectoralis 3-4 minutes Therapeutic procedures: None Response to Treatment Patient tolerated the treatment well today Prognosis: Good Treatment plan and goals: Goals: SLEEPING: the patient specific goal is to attain his pre-injury status of 6-7 hours comfortably PAIN: the patient specific goal of thier symptoms is to attain the pre-inury state of 0-1/10 on the VAS Able to abduct his right arm fully without pain Frequency of care Duration of care is estimated to be 4 weeks, from the initial treatment. It is estimated that the patient will need a total of 3-4 visits to resolve this episode. For the initial therapeutic trial of care, the frequency is recommended at 1 X week, once daily. A reevaluation would be clinically appropriate in 4-5 visits, to determine progress and further course of care. In-Office Treatment Evaluation 53389 Chiropractic manipulative treatment 3-4 regions performed Cervical: Diversified, C5 , C6, Supine-right side only Thoracic: Diversified, T3, T5, Prone Extra-spinal: PtoA mob's-x3, hypervolt STM to pectoralis minor, right shoulder, Supine Modalities: 35487: US: 2.0 Barahona/cm squared for 8 minutes at 1mhz cont pulsed, Location: right anterior shoulder Hypervolt massage to thoracic paraspinals, supraspinatus, pectoralis 3-4 minutes Recommendations: Instructions: ice 20 minutes every other hour as needed Follow-up: Return to care in one week. Disclaimer: This note consists of symbols derived from keyboarding, dictation and/or voice recognition software. As a result, there may be errors in the script that have gone undetected. Please consider this when interpreting information found in this chart. PROJECT MANAGER documented in this encounter Plan of Treatment Not on filedocumented as of this encounter Procedures Procedure Name Priority Date/Time Associated Diagnosis Comme [facility] ULTRASOUND THERAPY Routine 07/31/2019 3:45 PM Cervical seg ment ERP PROJECT MANAGER dysfunction Cervicalgia Thoracic segment dysfunction Chronic right shoulder pain Somatic dysfunction of upper extremities [facility] CHIROPRAC Routine 07/31/2019 3:45 PM Chronic right shoulde r MANIP,EXTRASPINAL,1+ ERP PROJECT MANAGER pain REGNS Somatic dysfunction of upper extremities [facility] CHIROPRAC Routine 07/31/2019 3:45 PM Cervical segment MANIP,SPINAL,1-2 ERP PROJECT MANAGER dysfunction REGIONS Cervicalgia Thoracic segment dysfunction documented in this encounter Visit Diagnoses Diagnosis Cervical segment dysfunction - Primary Nonallopathic lesion of cervical region, not elsewhere classified Cervicalgia Thoracic segment dysfunction Nonallopathic lesion of thoracic region, not elsewhere classified Chronic right shoulder pain Pain in joint, shoulder region Somatic dysfunction of upper extremities Nonallopathic lesion of upper extremitie s, not elsewhere classified documented in this encounter Additional Health Concerns Assessment Noted Time PHQ-9 Depression Total Score: 2 04/17/2016 7:19 AM CDT documented as of this encounter Care Teams Tie Puller Relationship Specialty Start Date End Date Koby Hill MD PCP - General Internal Medicine 10/14/15 [address] [place] [address] Eloisa Owusu APRN CAR SHAKEOUT OPERATOR Assigned PCP 07/16/19 01/11/21 [address] [place] [address] documented as of this encounter
--- OUTSIDE RECORDS SUMMARY | 2022-04-03 16:15 | XMS_ITS | Encounter Summary ---
:1970 Author Organization [place] Address [address] [place] [address] Care Team Providers Name Role Phone Koby Hill MD Primary Care Provider Reason for Visit Reason Onset Date Comments Patient Request 03/24/2017 REFERRAL FOR SEXUAL MEDICINE Encounter Details Date Type Department Care Team Description 03/24/2017 Telephone [facility] Koby Hill, Pat ient Request Clinic Chris GRANT (REFERRAL FOR SEXUAL [address] [facility]) [place] [address] [place], [place] [phone] (Wo rk) [address] [phone] Social History Tobacco Use Types Packs/Day Years [...] Telephone Encounter - Ashley Batista RN - 03/24/2017 9:57 AM CDT Spoke with pt. [facility] needs referral to Taina Miles--therapist @ [place] with [facility]. States he's been seeing her x 3 yrs for sexual dysfunction and now this therapist/clinic will be out of network for him. Pt will call referral dept to see if can get a referral to a [facility] facility. Telephone Encounter - Tessa Howard - 03/24/2017 8:56 AM CDT (Reason for Call: Request for an order or referral: Order or referral being requested: SEXUAL MEDICINE [facility] Date needed: as soon as possible Has the patient been seen by the PCP for this problem? NO Additional comments: *NO Phone number Patient can be reached at: Cell number on file: Telephone Information: Best Time: ANY Can we leave a detailed message on this number? YES Call taken on 03/24/2017 at 8:56 AM by Tessa Howard documented in this encounter Plan of Treatment Not on filedocumented as of this encounter Visit Diagnoses Not on filedocumented in this encounter Additional Health Concerns Assessment Noted Time PHQ-9 Depression Total Score: 2 04/17/2016 7:19 AM CDT documented as of this encounter Care Teams Manager Employee Relations Relationship Specialty Start Date End Date Koby Hill MD PCP - General Internal Medicine 10/14/15 [place] [address] documented as of this encounter
--- OUTSIDE RECORDS SUMMARY | 2022-04-03 16:15 | XMS_ITS | Encounter Summary ---
:1970 Author Organization [facility] Address [address] [place] [address] Care Team Providers Name Role Phone Koby Hill MD Primary Care Provider Koby Hill MD Unavailable Reason for Visit Reason Comments Medication Refill Encounter Details Date Type Department Care Team Description 02/01/2019 Refill [facility] Urology Arianne Vasquez, Medication Refill Clinic Fariha GRANT [address] [place] [place] [address] [place] [id number] (Wo rk) Social History Tobacco Use Types [...] documented as of this encounter Care Teams Aerial Photogrammetrist Relationship Specialty Start Date End Date Koby Hill MD PCP - General Internal Medicine 10/14/15 [address] [place] [address] Koby Hill MD Assigned PCP 01/08/19 02/18/19 [address] [id number] documented as of this encounter
--- OUTSIDE RECORDS SUMMARY | 2022-04-03 16:15 | XMS_ITS | Encounter Summary ---
:1970 Author Organization [facility] Address [address] [place] [address] Care Team Providers Name Role Phone Koby Hill MD Primary Care Provider Reason for Visit Diagnostic Imaging XR - Closed Specialty Diagnoses / Procedures Referred By Contact Refer red To Contact Diagnoses Decreased breath sounds at left lung base Cough Eloisa Owusu APRN Procedures XR Chest 2 Views HAND GLASS CUTTER [address] [place] [address] Referral ID Status Reason Start Date Expiration Date Visits Requ ested Visits Authorized [id number] Closed 01/05/2018 01/05/2019 1 1 Encounter Details Date Type Department Care Team Description 01/05/2018 Radiant Appointment [facility] Eloisa Owusu creased breath sounds at left lung base; Clinic Chris Das APRN HAND GLASS CUTTER Cough [address] [place] [address] [phone] Social History Tobacco Use Types Packs/Day Years [...] Name Priority Date/Time Associated Diagnosis Comme nts XR CHEST 2 VIEWS Routine 01/05/2018 11:31 AM Decreased breath Results for this CDT sounds at left lung procedur e are in base the results Cough section. documented in this encounter Results XR Chest 2 Views [...] of consolidation. LAW HAINES MD Eloisa Owusu APRN HAND GLASS CUTTER IMG DIAGNOSTIC IMAGING ORD ERABLES documented in this encounter Visit Diagnoses Diagnosis Decreased breath sounds at left lung bas e Cough documented in this encounter Additional Health Concerns Assessment Noted Time PHQ-9 Depression Total Score: 2 04/17/2016 7:19 AM CDT documented as of this encounter Care Teams Career Technical Education Instructor Relationship Specialty Start Date End Date Koby Hill MD PCP - General Internal Medicine 10/14/15 [address] [place] [address] documented as of this encounter
--- OUTSIDE RECORDS SUMMARY | 2022-04-03 16:15 | XMS_ITS | Encounter Summary ---
:1970 Author Organization [facility] Address [address] [place] [address] Care Team Providers Name Role Phone Koby Hill MD Primary Care Provider Reason for Visit Reason Comments Medication Refill Encounter Details Date Type Department Care Team Description 06/07/2017 Refill [facility] Koby Hill MD Medication Refill [place] [address] [address] [facility] [place] [address] [phone] Social History Tobacco Use Types Packs/Day Years [...] this encounter Miscellaneous Notes Telephone Encounter - Susu Grider RN - 06/08/2017 10:00 AM CST Refill to soon and pt past due for appt P CLERK documented in this encounter Plan of Treatment Not on filedocumented as of this encounter Visit Diagnoses Diagnosis Essential hypertension Unspecified essential hypertension documented in this encounter Additional Health Concerns Assessment Noted Time PHQ-9 Depression Total Score: 2 04/17/2016 7:19 AM CDT documented as of this encounter Care Teams Brick Mason Relationship Specialty Start Date End Date Koby Hill MD PCP - General Internal Medicine 10/14/15 [address] [place] [address] documented as of this encounter
--- OUTSIDE RECORDS SUMMARY | 2022-04-03 16:15 | XMS_ITS | Encounter Summary ---
:1970 Author Organization [facility] Address [address] [place] [address] Care Team Providers Name Role Phone Koby Hill MD Primary Care Provider Eloisa Owusu APRN EMERGENCY DISPATCHER Unavailable [phone] Encounter Details Date Type Department Care Team Description 08/07/2019 Travel Social History Tobacco Use Types Packs/Day [...] documented as of this encounter Care Teams Production Sound Mixer Relationship Specialty Start Date End Date Koby Hill MD PCP - General Internal Medicine 10/14/15 [address] [place] [address] Eloisa Owusu APRN EMERGENCY DISPATCHER Assigned PCP 07/16/19 01/11/21 [address] [place] [address] documented as of this encounter
--- OUTSIDE RECORDS SUMMARY | 2022-04-03 16:15 | XMS_ITS | Encounter Summary ---
:1970 Author Organization [facility] Address [address] [place] [address] Care Team Providers Name Role Phone Koby Hill MD Primary Care Provider Reason for Visit Reason Comments Medication Refill Encounter Details Date Type Department Care Team Description 05/14/2017 Refill [facility] Koby Hill MD Medication Refill [place] [address] [facility] [address] [place] [address] [facility] [place] [address] [phone] Social History Tobacco Use Types Packs/Day Years [...] Telephone Encounter - Susu Grider RN - 05/17/2017 12:28 PM CST Pt past due for yearly appt/labs-sent pt a my chart message PRESSER documented in this encounter Plan of Treatment Not on filedocumented as of this encounter Visit Diagnoses Diagnosis Essential hypertension Unspecified essential hypertension documented in this encounter Additional Health Concerns Assessment Noted Time PHQ-9 Depression Total Score: 2 04/17/2016 7:19 AM CDT documented as of this encounter Care Teams Power Lineman Technician Relationship Specialty Start Date End Date Koby Hill MD PCP - General Internal Medicine 10/14/15 [address] [place] [address] documented as of this encounter
--- OUTSIDE RECORDS SUMMARY | 2022-04-03 16:15 | XMS_ITS | Encounter Summary ---
:1970 Author Organization [facility] Address [address] [place] [address] Care Team Providers Name Role Phone Koby Hill MD Primary Care Provider Reason for Referral Consultation - Closed Specialty Diagnoses / Procedures Referred By Contact Refer red To Contact Diagnoses Lower urinary tract symptoms Urinary urgency Raz Kaur, [facility] ([facility] [address] Physician) [place] [address] [address] [facility] [address] [place] [phone] Phone: [phone] Referral ID Status Reason Start Date Expiration Date Visits Requ ested Visits Authorized [id number] Closed 12/31/2017 12/31/2018 1 1 Reason for Visit Reason Comments UTI Encounter Details Date Type Department Care Team Description 12/31/2017 Office Visit [facility] [place], Lower urin arlette tract symptoms (Primary Dx); Clinic [facility] Raz Hearn MD Urinary urgency [address] [place] [address] [place], [place] [phone] (Wo rk) [address] [phone] Social History Tobacco Use Types Packs/Day Years [...] Sign Reading Time Taken Comments Blood Pressure 124/80 12/31/2017 11:21 AM CDT Pulse 77 12/31/2017 11:21 AM CDT Temperature 36.4 ??C (97.6 ??F) 12/31/2017 11:21 AM CDT Respiratory Rate 16 12/31/2017 11:21 AM CDT Oxygen Saturation 98% 12/31/2017 11:21 AM CDT Inhaled Oxygen Concentration - - Weight 123.4 kg (272 lb) 12/31/2017 11:21 AM CDT Height 190.5 cm (6' 3) 12/31/2017 11:21 AM CDT Body Mass Index 34 12/31/2017 11:21 AM CDT documented in this encounter Progress Notes Raz Kaur MD - 12/31/2017 11:20 AM CDT SUBJECTIVE: Rubens Prieto is a 47 year old male who presents to clinic today for the following health issues: Genitourinary symptoms ?? Duration: 6 mths ?? Description: frequency and urgency , no dysuria , has slow stream at times ?? Intensity: mode rate ?? Accompanying signs and symptoms (fever/discharge/nausea/vomiting/back or abdominal pain): None ?? History (frequent UTI's/kidney stones/prostate problems): None Sexually active: YES ?? Precipitating or alleviating factors: None ?? Therapies tried and outcome: none Outcome: Patient Active Problem List Diagnosis ??? Major depressive disorder, recurrent episode, mild (H) ??? Essential hypertension ??? Gastroesophageal reflux disease without esophagitis ??? Attention deficit hyperactivity disorder (ADHD), combined type ??? Right knee pain Past Surgical History: Procedure Laterality Date ??? ARTHROSCOPY KNEE Right 05/27/2016 Procedure: Arthroscopic partial medial meniscectomy, right knee. Surgeon: Dale Gambino MD Location: [facility] ??? KNEE SURGERY Left 2015 knee arthroplasty - total Social History Substance Use Topics ??? Smoking status: Former Smoker Quit date: 10/06/2011 ??? Smokeless tobacco: Current User Types: Chew ??? Alcohol use 0.0 oz/week 0 Standard drinks or equivalent per week Comment: 2-3 drinks daily Family History Problem Relation Age of Onset ??? Hypertension Mother ??? Hypertension Father ??? Diabetes Sister Current Outpatient Prescriptions Medication Sig Dispense Refill ??? amLODIPine (NORVASC) 5 MG tablet TAKE 1 TABLET BY MOUTH DAILY 90 tablet 0 ??? amphetamine-dextroamphetamine (ADDERALL XR) 30 MG per capsule Take by mouth daily ??? ARIPiprazole (ABILIFY) 5 MG tablet Take 1 tablet (5 mg) by mouth At Bedtime 30 tablet 1 ??? buPROPion (WELLBUTRIN SR) 150 MG 12 hr tablet Take 300 mg by mouth daily ??? eszopiclone (LUNESTA) 3 MG tablet Take 3 mg by mouth At Bedtime 0 ??? fluticasone (FLONASE) 50 MCG/ACT spray [place] 1-2 sprays into both nostrils daily 1 Bottle 11 ??? ibuprofen (ADVIL,MOTRIN) 200 MG tablet Take 200 mg by mouth every 4 hours as needed for mild pain ??? loratadine-pseudoePHEDrine (CLARITIN-D 24-HOUR) 10-240 MG per 24 hr tablet Take 1 tablet by mouth daily (Patient not taking: Reported on 12/31/2017) 14 tablet 0 ??? multivitamin, therapeutic with minerals (MULTI-VITAMIN) TABS tablet Take 1 tablet by mouth daily ??? NUVIGIL 250 MG TABS Take 250 mg by mouth as needed 0 ??? omeprazole (PRILOSEC) 40 MG capsule Take by mouth daily ??? valsartan-hydrochlorothiazide (DIOVAN-HCT) 320-12.5 MG per tablet TAKE 1 TABLET BY MOUTH DAILY 30 tablet 0 ??? VIAGRA 100 MG tablet Reviewed and updated as needed this visit by clinical staff Tobacco Allergies Meds Med Hx Surg Hx Fam Hx Soc Hx Reviewed and updated as needed this visit by Provider ROS: CONSTITUTIONAL: NEGATIVE for fever, chills, change in weight : frequency and urgency OBJECTIVE: BP 124/80 (BP Location: Right arm, Patient Position: Sitting, Cuff Size: Adult Large) Pulse 77 Temp 97.6 ??F (36.4 ??C) (Oral) Resp 16 Ht 6' 3 (1.905 m) Wt 272 lb (123.4 kg) SpO2 98% BMI34 kg/m2 Body mass index is 34 kg/(m^2). GENERAL: healthy, alert, well nourished, well hydrated, no distress ABDOMEN: soft, no tenderness, normal bowel sounds BACK: no CVA tenderness, no paralumbar tenderness UA; negative ASSESSMENT/PLAN: (R39.9) Lower urinary tract symptoms (primary encounter diagnosis) Plan: Most likely related to prostate, patient has been referred to see urologist UROLOGY ADULT REFERRAL (R39.15) Urinary urgency Plan: UA reflex to Microscopic and Culture- UA - negative, patient UROLOGY ADULT REFERRAL Raz Kaur MD [facility] documented in this encounter Plan of Treatment Scheduled Referrals Name Type Priority Associated Diagnoses Order S [facility] UROLOGY ADULT REFERRAL Referral Routine Lower urinary trac t Ordered: 12/31/2017 symptoms Urinary urgency documented as of this encounter Procedures Procedure Name Priority Date/Time Associated Comments Diagnosis UA MACROSCOPIC WITH MEENU 12/31/2017 11:36 Urinary urgency R esults for this REFLEX TO MICROSCOPIC AM CDT proced ure are in AND CULTURE the results section. documented in this encounter Results UA reflex to Microscopic and Culture (12/31/2017 11:36 AM CDT) [facility] Method Time Signature Color Urine Yellow 12/31/2017 [place] 11:52 AM [facility] Appearance Urine Clear 12/31/2017 [place] 11:52 AM [facility] Glucose Urine Negative NEG^Negat 12/31/2017 [place] mg/dL 11:52 AM [facility] Bilirubin Urine Negative NEG^Negat 12/31/2017 [place] 11:52 AM [facility] Ketones Urine Negative NEG^Negat 12/31/2017 [place] mg/dL 11:52 AM [facility] Specific [place] 1.010 1.003 - 12/31/2017 [place] Urine 1.035 11:52 AM [facility] Blood Urine Negative NEG^Negat 12/31/2017 [place] 11:52 AM [facility] pH Urine 7.0 5.0 - 7.0 12/31/2017 [place] pH 11:52 AM [facility] Protein Albumin Negative NEG^Negat 12/31/2017 [place] Urine [place] mg/dL 11:52 AM [facility] Urobilinogen 0.2 0.2 - 1.0 12/31/2017 [place] Urine EU/dL 11:52 AM [facility] Nitrite Urine Negative NEG^Negat 12/31/2017 [place] 11:52 AM [facility] Leukocyte Negative NEG^Negat 12/31/2017 [place] Esterase Urine [place] 11:52 AM [facility] Source Midstream 12/31/2017 [place] Urine 11:52 AM [facility] Specimen (Source) Anatomical Collection Method Collection Time Re ceived Time Location / / Volume Laterality Examination of 12/31/2017 11:36 8 midstream urine AM CDT 11:41 AM CDT specimen (procedure) Raz Kaur MD LAB - URINE ORDERABLES Performing Organization Address City/State/ZIP Code Phon e Number [facility] [address] [place] [address] [address] documented in this encounter Visit Diagnoses Diagnosis Lower urinary tract symptoms - Primary Other symptoms involving urinary system Urinary urgency Urgency of urination documented in this encounter Additional Health Concerns Assessment Noted Time PHQ-9 Depression Total Score: 2 04/17/2016 7:19 AM CDT documented as of this encounter Care Teams Plater Helper Relationship Specialty Start Date End Date Koby Hill MD PCP - General Internal Medicine 10/14/15 [address] [place] [address] documented as of this encounter
--- OUTSIDE RECORDS SUMMARY | 2022-04-03 16:15 | XMS_ITS | Encounter Summary ---
:1970 Author Organization [facility] Address [address] [place] [address]. [place] [address] Care Team Providers Name Role Phone Koby Hill MD Primary Care Provider Eloisa Owusu APRN FAMILY PHYSICIAN Unavailable [phone] Eloisa Owusu APRN FAMILY PHYSICIAN Unavailable [phone] Encounter Details Date Type Department Care Team Description 02/17/2018 Orders Only [facility] ed prostate Urology Clinic Fariha Maya MD (Primary Dx) [address] [place] [address] [place] [address] Social History Tobacco Use Types Packs/Day Years [...] and other lower urinary tract symptoms (LUTS) documented in this encounter Additional Health Concerns Assessment Noted Time PHQ-9 Depression Total Score: 2 04/17/2016 7:19 AM CDT documented as of this encounter Care Teams Slubber Frame Changer Relationship Specialty Start Date End Date Koby Hill MD PCP - General Internal Medicine 10/14/15 [address] [place], [place] [address] Eloisa Owusu APRN PCP - Assigned PCP 01/16/18 09/13/18 FAMILY PHYSICIAN [address] [place], [place] [address] Eloisa Owusu APRN Assigned PCP 01/16/18 FAMILY PHYSICIAN [address] [place], [place] [address] documented as of this encounter
--- OUTSIDE RECORDS SUMMARY | 2022-04-03 16:15 | XMS_ITS | Encounter Summary ---
:1970 Author Organization [place] Address [address] [place] [address] Care Team Providers Name Role Phone Koby Hill MD Primary Care Provider Reason for Visit Reason Onset Date Comments Refill Request 12/03/2016 Amlodipine Encounter Details Date Type Department Care Team Description 12/03/2016 Refill [facility] [place], Ref ill Request Clinic Chris GRANT (Amlodipine) [address] [place] [address] [place], [place] [phone] (Wo rk) [address] [phone] Social History Tobacco Use Types Packs/Day Years [...] this encounter Miscellaneous Notes Telephone Encounter - Anna Emery RN - 12/04/2016 4:35 PM CDT Prescription approved per [facility] Refill Protocol. Telephone Encounter - Zoya He - 12/03/2016 1:52 PM CDT Amlodipine Last Written Prescription Date: 10/14/15 Last Fill Quantity: 90, # refills: 3 Last Office Visit with G, P or [facility] prescribing provider: 07/14/16 Future Office Visit: BP Readings from Last 3 Encounters: 11/21/16 126/80 07/14/16 132/70 06/05/16 132/82 documented in this encounter Plan of Treatment Not on filedocumented as of this encounter Visit Diagnoses Diagnosis Essential hypertension Unspecified essential hypertension documented in this encounter Additional Health Concerns Assessment Noted Time PHQ-9 Depression Total Score: 2 04/17/2016 7:19 AM CDT documented as of this encounter Care Teams Auto Overhauler Relationship Specialty Start Date End Date Koby Hill MD PCP - General Internal Medicine 10/14/15 [place] [address] documented as of this encounter
--- OUTSIDE RECORDS SUMMARY | 2022-04-03 16:15 | XMS_ITS | Encounter Summary ---
:1970 Author Organization [facility] Address [address] [place] [address] Care Team Providers Name Role Phone Koby Hill MD Primary Care Provider ReyesagaEloisa larkin APRN PRODUCTION ADMINISTRATIVE ASSISTANT Unavailable [phone] Eloisa Owusu APRN PRODUCTION ADMINISTRATIVE ASSISTANT Unavailable [phone] Reason for Visit Reason Onset Date Comments Referral 03/07/2018 Encounter Details Date Type Department Care Team Description 03/07/2018 Telephone [facility] Luis Kaur, Referral [facility] [address] [place] [address] [place] [address] [phone] Social History Tobacco Use Types Packs/Day Years [...] this encounter Miscellaneous Notes Telephone Encounter - Sushila Palacios RN - 03/29/2018 7:24 AM CDT Patient advised. He isn't sure if he requested to change primary clinic to [facility] but it does state on his insurance card that [facility] is his current primary clinic. He will contact [facility] to resolve this issue and will call us back if he needs further assistance. Offered the [facility] reference number but patient declined. Roberto Palacios R.N. Telephone Encounter - Liza Zapata RN - 03/28/2018 1:47 PM CDT Patient calls, states that [facility] never received referral from Dr. Kaur for Urology Clinic. He states another RN told him the urology Clinic would be responsible for submitting insurance referral, but he called them and they said to call PCP clinic. This RN is unfamiliar with this process but will call [facility] to find out how to do this. Spoke to Jv at [facility], he states patient's primary care clinic changed from [facility] to [facility] on 08/12/2017, patient initiated this request (they show an additionalupdate on 12/10/17, but this still lists [facility] as primary care clinic). He states patient would have to request to have [facility] listed as primary care clinic to change this. Since [facility] is listed as the Primary Care Clinic, the Urology referral would have to come from [facility], our clinic is not authorized to make referrals for patient. He states 12/31/[address] Kaur was not covered under insurance plan. He states that if patient feels that [facility] incorrectly changed Primary Care Clinic to [facility] and it should be [facility], he would need to contact insurance. Member services phone number on back of form. Or patient would need to obtain a referral from [facility] to [facility] and then we would need to submit a copy of the Urology referral along with the referral from [facility]. [facility] Call Reference#: [id number] Attempted to contact patient. Left voice message to call back. Telephone Encounter - Judy Nails RN - 03/15/2018 10:20 AM CDT See message below. Will route to Referrals, for assistance. Telephone Encounter - Saundra Wang - 03/07/2018 4:05 PM CDT Reason for Call: Other Insurance referral Detailed comments: need [facility] . Ptsays insurance needs copy of referral because no referral wassent and pt was billed for specialty clinic (urology). Claim# [id number]. Pt called business office and was directed to our clinic for information. Phone Number Patient can be reached at: Other phone number: [facility] REGISTERED NURSE STEP DOWN , pt [phone] any further questions. Best Time: business hours Can we leave a detailed message on this number? NO Call taken on 03/07/2018 at 4:06 PM by Saundra Wang documented in this encounter Plan of Treatment Not on filedocumented as of this encounter Visit Diagnoses Not on filedocumented in this encounter Additional Health Concerns Assessment Noted Time PHQ-9 Depression Total Score: 2 04/17/2016 7:19 AM CDT documented as of this encounter Care Teams Teacher Cclc Relationship Specialty Start Date End Date Koby Hill MD PCP - General Internal Medicine 10/14/15 [address] [place], [place] [address] Eloisa Owusu APRN PCP - Assigned PCP 01/16/18 09/13/18 PRODUCTION ADMINISTRATIVE ASSISTANT [address] [place] [address] Eloisa Owusu APRN Assigned PCP 01/16/18 PRODUCTION ADMINISTRATIVE ASSISTANT [address] [place] [address] documented as of this encounter
--- OUTSIDE RECORDS SUMMARY | 2022-04-03 16:16 | XMS_ITS | Encounter Summary ---
:1970 Author Organization [place] Address [address] [place] [address] Care Team Providers Name Role Phone Koby Hill MD Primary Care Provider Reason for Visit Reason Comments Knee Pain Right knee Encounter Details Date Type Department Care Team Description 05/20/2016 Office Visit [facility] Dale Gambino Acute meniscal tear [facility] [id number] [facility] (Primary Dx) [address] [place] [address] [address] [place] [address] [place], [place] [phone] (Wo rk) Social History Tobacco Use Types [...] Sign Reading Time Taken Comments Blood Pressure 118/66 05/20/2016 1:07 PM PREPARATION PLANT SUPERVISOR Pulse - - Temperature - - Respiratory Rate - - Oxygen Saturation - - Inhaled Oxygen Concentration - - Weight 128.4 kg (283 lb) 05/20/2016 1:07 PM PREPARATION PLANT SUPERVISOR Height 193 cm (6' 4) 05/20/2016 1:07 PM PREPARATION PLANT SUPERVISOR Body Mass Index 34.45 05/20/2016 1:07 PM PREPARATION PLANT SUPERVISOR documented in this encounter Progress Notes Dale Gambino MD - 05/20/2016 1:07 PM CST HISTORY OF PRESENT ILLNESS: Rubens Prieto is a 46 year old male who is seen in consultation at the request of Dr. Brown for right knee pain. Present symptoms: Pt states right knee pain has been present for 3-4 months, pt does not recall any specific injury to the knee. Pt states pain is over the anterior-medial aspect of the knee, describespain as aching, sharp. Pt states standing, running will increase pain. Treatments tried to this point: MRI, ibuprofen, ice Orthopedic PMH: L TKA - 2014 Past Medical History Diagnosis Date ??? HTN (hypertension) ??? GERD (gastroesophageal reflux disease) ??? ADHD (attention deficit hyperactivity disorder) ??? Depression Past Surgical History Procedure Laterality Date ??? Knee surgery Left 2015 knee arthroplasty - total Family History Problem Relation Age of Onset ??? Hypertension Mother ??? DIABETES Sister ??? Hypertension Father Social History Social History ??? Marital Status: Spouse Name: N/A ??? Number of Children: N/A ??? Years of Education: N/A Occupational History ??? Not on file. Social History Main Topics ??? Smoking status: Former Smoker Quit date: 10/06/2011 ??? Smokeless tobacco: Current User Types: Chew ??? Alcohol Use: 0.0 oz/week 0 Standard drinks or equivalent per week Comment: 2-3 drinks daily ??? Drug Use: No ??? Sexual Activity: Partners: Female Other Topics Concern ??? Not on file Social History Narrative Current Outpatient Prescriptions Medication Sig Dispense Refill ??? eszopiclone (LUNESTA) 3 MG tablet Take 3 mg by mouth At Bedtime 0 ??? amLODIPine (NORVASC) 5 MG tablet Take 1 tablet (5 mg) by mouth daily 90 tablet 3 ??? valsartan-hydrochlorothiazide (DIOVAN-HCT) 320-12.5 MG per tablet Take 1 tablet by mouth daily 90 tablet 3 ??? buPROPion (WELLBUTRIN SR) 150 MG 12 hr tablet Take 300 mg by mouth daily ??? omeprazole (PRILOSEC) 40 MG capsule Take by mouth daily ??? amphetamine-dextroamphetamine (ADDERALL XR) 30 MG per capsule Take by mouth daily ??? VIAGRA 100 MG tablet ??? NUVIGIL 250 MG TABS Take 250 mg by mouth as needed 0 ??? order for DME Equipment being ordered: right knee sleeve-open patella. 1 Device 0 ??? ARIPiprazole (ABILIFY) 5 MG tablet Take 1 tablet (5 mg) by mouth At Bedtime 30 tablet 1 ??? ibuprofen (ADVIL,MOTRIN) 200 MG tablet Take 200 mg by mouth every 4 hours as needed for mild pain Allergies Allergen Reactions ??? Amoxicillin REVIEW OF SYSTEMS: CONSTITUTIONAL: NEGATIVE for fever, chills, change in weight INTEGUMENTARY/SKIN: NEGATIVE for worrisome rashes, moles or lesions EYES: NEGATIVE for vision changes or irritation ENT/MOUTH: NEGATIVE for ear, mouth and throat problems RESP: NEGATIVE for significant cough or SOB BREAST: NEGATIVE for masses, tenderness or discharge CV: NEGATIVE for chest pain, palpitations or peripheral edema GI: NEGATIVE for nausea, abdominal pain, heartburn, or change in bowel habits : Negative MUSCULOSKELETAL: See HPI above NEURO: NEGATIVE for weakness, dizziness or paresthesias ENDOCRINE: NEGATIVE for temperature intolerance, skin/hair changes HEME/ALLERGY/IMMUNE: NEGATIVE for bleeding problems PSYCHIATRIC: NEGATIVE for changes in mood or affect PHYSICAL EXAM: BP 118/66 mmHg Ht 6' 4 (1.93 m) Wt 283 lb (128.368 kg) BMI 34.46 kg/m2 Body mass index is 34.46 kg/(m^2). GENERAL APPEARANCE: healthy, alert and no distress SKIN: no suspicious lesions or rashes NEURO: Normal strength and tone, mentation intact and speech normal VASCULAR: Good pulses, and capillary refill LYMPH: no lymphadenopathy PSYCH: mentation appears normal and affect normal/bright MSK: A&OX3, NAD Neck supple, no lymphadenopathy The patient ambulates without an antalgic gait. The patient is able to get on and off the exam tablewithout difficulty. Examination of the spine reveals a normal lordosis to the cervical and lumbar spine, and a normal kyphosis to the thoracic spine. There is no clinical evidence of scoliosis. The pelvis is clinically level. Trendelenberg is negative. The patient is non- tender to palpation over the greater trochanteric bursal region or piriformis fossa. With the hip flexed to 90 degrees, internal and external rotation is 30/60 respectively, with no pain . KNEE: Examination of the right knee reveals the lower extremity to have a Normal anatomic alignment.There is no erythema, ecchymosis nor edema. There is minimal effusion present clinically. There is no significant warmth. Range of motion is 0 to 130 degrees, without crepitus. There is mild tendernessto palpation at the medial joint line. Juan's is positive without crepitus. The knee is ligamentously stable. Patello-femoral grind test is positive. The calves and thighs are symmetric, without atrophy and non-tender to palpation. Pete's sign is negative, bilaterally. CMS is intact to the toes. ASSESSMENT / PLAN: Right knee medial meniscus tear. I offered him an arthroscopic examination and possible partial medial meniscectomy. I described the potential risks as well as benefits of this including the possibility that some of his pain is due to a chondromalacia, which would not specifically be addressed by an arthroscopic procedure. He understands this and we'll proceed and schedule this at his convenience. Imaging Interpretation: Recent Results (from the past 744 hour(s)) MR Knee Right w/o Contrast Narrative MR KNEE RIGHT WITHOUT CONTRAST 04/24/2016 8:43 AM HISTORY: Pain in right knee. TECHNIQUE: Axial and coronal T2 with fat suppression. Coronal T1. Sagittal dual echo T2. FINDINGS: Medial Meniscus: There is tearing of the posterior horn and posterior portion of the body segment, with extension of both surfaces. There is moderate extrusion of the body segment. Lateral Meniscus: No tear, displaced fragment, or extrusion. Anterior Cruciate Ligament: Intact. Posterior Cruciate Ligament: Intact. Medial Collateral Ligament: Intact. Lateral Collateral Ligament Complex, Popliteus Tendon: The iliotibial band, fibular collateral ligament, biceps femoris tendon, and popliteus tendon are intact. Osseous and Cartilaginous Structures: There is mild-moderate subchondral edema of the medial tibial plateau and mild subchondral edema of the medial femoral condyle. The patient did not describe a recent injury and, therefore, this is felt to represent reactive edema. Within the distal femoral metadiaphyseal region, there is a 1.8 cm lesion. The appearance is typical for a low-grade cartilaginous tumor (often enchondroma), and has some endosteal scalloping posteriorly. This is not well appreciated on recent radiograph. There is grade II chondromalacia at the lateral aspect of the medial femoral condyle. There is patellar chondromalacia including a mild focal area of grade 4 involvement at the lateral aspect of the patellar apex. Extensor Mechanism: The quadriceps and patellar tendons are intact. The medial and lateral patellar retinacula appear unremarkable. Joint Space: Mild joint effusion. No definite loose bodies appreciated. Additional Findings: Synovitis. Mild Crawford's cyst. There is adjacent edema consistent with recent leakage/rupture. There is some nonspecific soft tissue edema. No semimembranosus-tibial collateral ligament or pes anserine bursitis. Impression IMPRESSION: 1. Medial meniscal tearing posteriorly. Adjacent reactive bone marrow edema. 2. 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 If the patient has increased symptoms in this region, follow-up imaging would be recommended. 3. Patellar and medial femoral condyle chondromalacia. 4. Synovitis and mild effusion. 5. Mild Crawford's cyst with leakage/rupture. MD Gino SOTO MD Department of Orthopedic Surgery Disclaimer: This note consists of symbols derived from keyboarding, dictation and/or voice recognition software. As a result, there may be errors in the script that have gone undetected. Please consider this when interpreting information found in this chart. ARATION PLANT SUPERVISOR documented in this encounter Nursing Notes Radha Valadez ATC - 05/20/2016 1:13 PM CST Chief Complaint Patient presents with ??? Knee Pain Right knee Initial BP 118/66 mmHg Ht 6' 4 (1.93 m) Wt 283 lb (128.368 kg) BMI 34.46 kg/m2 Estimated bodymass index is 34.46 kg/(m^2) as calculated from the following: Height as of this encounter: 6' 4 (1.93 m). Weight as of this encounter: 283 lb (128.368 kg). BP completed using cuff size: large ARATION PLANT SUPERVISOR documented in this encounter Plan of Treatment Not on filedocumented as of this encounter Visit Diagnoses Diagnosis Acute meniscal tear of right knee, initi al encounter - Primary documented in this encounter Additional Health Concerns Assessment Noted Time PHQ-9 Depression Total Score: 2 04/17/2016 7:19 AM CDT documented as of this encounter Care Teams Liquor Bridge Operator Helper Relationship Specialty Start Date End Date Koby Hill MD PCP - General Internal Medicine 10/14/15 [address] [place] [address] documented as of this encounter
--- OUTSIDE RECORDS SUMMARY | 2022-04-03 16:16 | XMS_ITS | Encounter Summary ---
:1970 Author Organization [facility] Address [address] [place] [address] Care Team Providers Name Role Phone Koby Hill MD Primary Care Provider Reason for Visit Reason Onset Date Comments Forms 05/28/2016 [facility] Encounter Details Date Type Department Care Team Description 05/28/2016 Telephone [facility] Emmanuel Gambino MD Forms ([facility]) Orthopedic Clinic [facility] OR[facility] [place] [id number] [address] [address] [place] [address] [phone] Social History Tobacco Use Types Packs/Day Years [...] this encounter Miscellaneous Notes Telephone Encounter - Briseida Campos RN - 05/29/2016 3:16 PM CST Received call from Angeline stating she received all 6 pages of the forms. Will let patient know. Phone call to patient and informed. He was appreciative of call and assistance. Damion Campos RN LOADER Telephone Encounter - Briseida Campos RN - 05/29/2016 2:57 PM CST Attempted to re-fax forms and they are not going through per [employer]. Contacted HR Angeline and she states she did receive the first 2 pages only. She asks if we can try to send back the last 4 pages, 2 at a time. Attempted to re-fax last 4 pages and rightfax shows it is not going through. Left message for Angeline to call if she does get them, otherwise will contact patient to pick them up. Phone call to patient and informed. He states he will come and get them. Forms left at front edger and copies sent to scan. Damion Campos RN LOADER Telephone Encounter - Briseida Campos RN - 05/29/2016 2:14 PM CST Fax came back as transmission error. Phone call to HR Angeline and she states they occasionally have trouble with their fax for an unknown reason. She will shut their machine off and turn back on andasks that we try to re-fax. Damion Campos RN LOADER Telephone Encounter - Briseida Campos RN - 05/29/2016 2:01 PM CST RICKY on forms already. Forms faxed to attn: nAgeline Howard [phone]. Patient informed. Damion Campos RN LOADER Telephone Encounter - Sivakumar Dewitt PA-C - 05/29/2016 1:44 PM PVC LOADER Forms completed for RTW 06/02/16 Without restrictions. Left with triage, check for RICKY? Sivakumar Dewitt PA-C [facility] - Surgery LOADER Telephone Encounter - Briseida Campos RN - 05/29/2016 11:27 AM CST Patient calls again checking status of forms. Informed Ivan Dewitt PA-C has been seeing patients this am and will be checking with him at the end of the morning. Will call patient back after speaking with Ivan Dewitt PA-C. He states his employer has been repeatedly contacting him for paperwork and is under the gun to get it to them. Damion Campos RN LOADER Telephone Encounter - Briseida Campos RN - 05/28/2016 2:38 PM CST Patient left another message at 2:23 pm. Phone call to patient and informed Ivan Dewitt PA-C had to leave early today. Will have him review tomorrow and complete meenu. Reminded we do ask for a 5-7 business day notice on forms. He states he is supposed to go back to work on 06/02/16 without restrictions. Type of form Requested: FMLA/workability/Fitness for Duty Certification Form requested by (include company): Juliana Wong Phone number for requestor: [phone] Date form is requested by: MEENU How will form be returned?: fax to [phone] Has the patient signed a consent form for release of information (may be included with form)? Yes Form was started and place in [facility] folder for provider review/ completion at [facility]. Routing to Ivan Dewitt PA-C. Damion Campos RN LOADER Telephone Encounter - Briseida Campos RN - 05/28/2016 11:35 AM CST Patient left voicemail stating he had surgery yesterday by Dr. Balderas. Gave FMLA forms to Ivan Dewitt PA-C yesterday for employer and is checking status of those. Please call meenu. Damion Campos RN LOADER documented in this encounter Plan of Treatment Not on filedocumented as of this encounter Visit Diagnoses Not on filedocumented in this encounter Additional Health Concerns Assessment Noted Time PHQ-9 Depression Total Score: 2 04/17/2016 7:19 AM CDT documented as of this encounter Care Teams Community Center Worker Relationship Specialty Start Date End Date Koby Hill MD PCP - General Internal Medicine 10/14/15 [address] [place] [address] documented as of this encounter
--- OUTSIDE RECORDS SUMMARY | 2022-04-03 16:16 | XMS_ITS | Encounter Summary ---
:1970 Author Organization [facility] Address [address] [place] [address] Care Team Providers Name Role Phone Koby Hill MD Primary Care Provider Reason for Visit Reason Onset Date Comments Referral 05/13/2016 Encounter Details Date Type Department Care Team Description 05/13/2016 Telephone [facility] Koby Hill MD Referral [place] [address] [place] [address] [place] [address] [phone] Social History Tobacco Use Types Packs/Day Years [...] this encounter Miscellaneous Notes Telephone Encounter - Betsy Hernandez RN - 05/13/2016 11:22 AM CDT Call from Keira Taveras requesting a referral. Pt was seen at [facility] previously and Jayy Taveras is requesting a referral for that visit. Advised that we generally refer within [facility] system. Outside referral requests are sent to the social media content specialist. resource protection specialist always advises that we are unable to do a retroactive referral as this is considered falsifying documents. documented in this encounter Plan of Treatment Not on filedocumented as of this encounter Visit Diagnoses Not on filedocumented in this encounter Additional Health Concerns Assessment Noted Time PHQ-9 Depression Total Score: 2 04/17/2016 7:19 AM CDT documented as of this encounter Care Teams Groundsman Relationship Specialty Start Date End Date Koby Hill MD PCP - General Internal Medicine 10/14/15 [address] [place] [address] documented as of this encounter
--- OUTSIDE RECORDS SUMMARY | 2022-04-03 16:16 | XMS_ITS | Encounter Summary ---
:1970 Author Organization [facility] Address [address] [place] [address] Care Team Providers Name Role Phone Koby Hill MD Primary Care Provider Encounter Details Date Type Department Care Team Description 2016 Radiant Appointment [facility] Trae Clayton cute pain of right [facility] MARY Loaiza knee [address] [place] [id number] [phone] Social History Tobacco Use Types Packs/Day Years [...] Priority Date/Time Associated Diagnosis Comme nts XR KNEE RIGHT 3 Routine 2016 12:01 PM Acute pain of righ t Results for this VIEWS CDT knee procedure are i n the results section. documented in this encounter Results XR Knee Right 3 Views (2016 12:01 PM CDT) Anatomical Region Laterality Modality Thigh, Knee, Leg Right Computed Radiography Specimen (Source) Anatomical Location Collection Method / Collectio n Time Received Time / Laterality Volume Impressions 2016 2:24 PM CDT IMPRESSION: No fractures identified in the right knee. Joint spaces are preserved. No significant soft tissu e swelling or knee effusion. CARLTON MOREIRA Narrative 2016 2:24 PM CDT XR KNEE RT 3 VW 2016 12:01 PM HISTORY: Right knee pain. COMPARISON: None Procedure Note Carlton Moreira MD - 2016 XR KNEE RT 3 VW 2016 12:01 PM HISTORY: Right knee pain. COMPARISON: None IMPRESSION: No fractures identified in t he right knee. Joint spaces are preserved. No significant soft tissu e swelling or knee effusion. CARLTON MOREIRA Trae Clayton PA-C [facility] DIAGNOSTIC IMAGING ORDER AZALIA documented in this encounter Visit Diagnoses Diagnosis Acute pain of right knee documented in this encounter Additional Health Concerns Assessment Noted Time PHQ-9 Depression Total Score: 2 11/13/2015 7:20 AM CDT documented as of this encounter Care Teams Torch Brazer Relationship Specialty Start Date End Date Koby Hill MD PCP - General Internal Medicine 10/14/15 [address] [place] [address] documented as of this encounter
--- OUTSIDE RECORDS SUMMARY | 2022-04-03 16:16 | XMS_ITS | Encounter Summary ---
:1970 Author Organization [facility] Address [address] [place] [address] Care Team Providers Name Role Phone Koby Hill MD Primary Care Provider Reason for Visit Reason Comments Surgical Followup Right knee scope, DOS 2015 - 11 days Encounter Details Date Type Department Care Team Description 06/05/2016 Office Visit [facility] Dale Gambino Acute meniscal tear Orthopedic Clinic MD Francesco of right knee, [facility] ORTHOPEDICS subsequent encounter [id number] [facility] (Primary Dx) [address] [facility] [address] [place] [address] [place], [place] [phone] (Wo rk) Social History Tobacco Use [...] Sign Reading Time Taken Comments Blood Pressure 132/82 06/05/2016 8:46 AM METAL FABRICATING SUPERVISOR Pulse - - Temperature - - Respiratory Rate - - Oxygen Saturation - - Inhaled Oxygen Concentration - - Weight 126.6 kg (279 lb) 06/05/2016 8:46 AM METAL FABRICATING SUPERVISOR Height 193 cm (6' 4) 06/05/2016 8:46 AM METAL FABRICATING SUPERVISOR Body Mass Index 33.96 06/05/2016 8:46 AM METAL FABRICATING SUPERVISOR documented in this encounter Progress Notes Dale Gambino MD - 06/05/2016 8:46 AM CST HISTORY OF PRESENT ILLNESS: Rubens Prieto is a 46 year old male who is seen in follow up for right knee scope, DOS 05/25/2016- 11 days ago. Present symptoms: Pt states knee is feeling good, pt states knee gets a little tight after standing for a few hours but overall has had very little pain. PHYSICAL EXAM: BP 132/82 mmHg Ht 6' 4 (1.93 m) Wt 279 lb (126.554 kg) BMI 33.98 kg/m2 Body mass index is 33.98 kg/(m^2). GENERAL APPEARANCE: healthy, alert and no distress SKIN: no suspicious lesions or rashes NEURO: Normal strength and tone, mentation intact and speech normal VASCULAR: good pulses, and cappillary refill LYMPH: no lymphadenopathy PSYCH: mentation appears normal and affect normal/bright MSK: Examination of his right knee reveals this surgical portals are well-healed. His sutures were removed without incident. His calves and thighs are soft and nontender and CMS is intact to his toes. IMAGING INTERPRETATION: ASSESSMENT / PLAN:2 weeks status post right knee arthroscopy, doing well. He is going to gradually resume his activities of daily living and return to see us on an as-needed basis. Return to clinic p.r.n. Gino Gambino MD Dept. Orthopedic Surgery [facility] L FABRICATING SUPERVISOR documented in this encounter Nursing Notes Radha Valadez ATC - 06/05/2016 8:50 AM CST Chief Complaint Patient presents with ??? Surgical Followup Right knee scope, DOS 05/25/2016 - 11 days Initial BP 132/82 mmHg Ht 6' 4 (1.93 m) Wt 279 lb (126.554 kg) BMI 33.98 kg/m2 Estimated bodymass index is 33.98 kg/(m^2) as calculated from the following: Height as of this encounter: 6' 4 (1.93 m). Weight as of this encounter: 279 lb (126.554 kg). BP completed using cuff size: large L FABRICATING SUPERVISOR documented in this encounter Plan of Treatment Not on filedocumented as of this encounter Visit Diagnoses Diagnosis Acute meniscal tear of right knee, subse quent encounter - Primary documented in this encounter Additional Health Concerns Assessment Noted Time PHQ-9 Depression Total Score: 2 04/17/2016 7:19 AM CDT documented as of this encounter Care Teams Strategic Development Manager Relationship Specialty Start Date End Date Koby Hill MD PCP - General Internal Medicine 10/14/[address] [place] [address] documented as of this encounter
--- OUTSIDE RECORDS SUMMARY | 2022-04-03 16:16 | XMS_ITS | Encounter Summary ---
:1970 Author Organization [facility] Address [address] [place] [address] Care Team Providers Name Role Phone Koby Hill MD Primary Care Provider Reason for Referral Consultation - Closed Specialty Diagnoses / Procedures Referred By Contact Refer red To Contact Diagnoses Acute pain of right knee Koby Hill MD [facility] [address] [place] [phone] Referral ID Status Reason Start Date Expiration Date Visits Requ ested Visits Authorized [id number] Closed 10/20/2016 10/20/2017 1 1 Reason for Visit Reason Onset Date Comments Patient Request 10/20/2016 ORDER - Referral Encounter Details Date Type Department Care Team Description 10/20/2016 Telephone [facility] Koby Hill Pat ient Request (ORDER [facility] MD - Referral) [address] [place] [address] [place], [place] [phone] (Wo rk) [phone] Social History Tobacco Use Types Packs/Day Years [...] this encounter Miscellaneous Notes Telephone Encounter - Judy Nails, RN - 10/21/2016 3:44 PM CDT Call to pt and left message that referral has been done. Left message to let clinic know if we need to fax referral to them. 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 Please advise, thanks. Telephone Encounter - Shivam Alamo - 10/20/2016 11:04 AM CDT Reason for Call: Request for an order or referral:Referral Order or referral being requested: Orthopaedic Keira Garg Date needed: as soon as possible Has the patient been seen by the PCP for this problem? YES Additional comments: Pt needs referral, previous TCOP no longer in patient's insurance plan. Need for 2yr f/u for L kneef Phone number Patient can be reached at: Cell number on file: Telephone Information: Best Time: anytime Can we leave a detailed message on this number? YES Call taken on 10/20/2016 at 11:04 AM by SHIVAM ALAMO documented in this encounter Plan of Treatment Pending Results Name Type Priority Associated Diagnoses Date/Ti la ORTHOPEDICS ADULT REFERRAL Referral Routine Acute pain of right knee 10/22/2016 documented as of this encounter Visit Diagnoses Diagnosis Acute pain of right knee - Primary documented in this encounter Additional Health Concerns Assessment Noted Time PHQ-9 Depression Total Score: 2 04/17/2016 7:19 AM CDT documented as of this encounter Care Teams Concessions Manager Relationship Specialty Start Date End Date Koby Hill MD PCP - General Internal Medicine 10/14/15 [address] [place] [address] documented as of this encounter
--- OUTSIDE RECORDS SUMMARY | 2022-04-03 16:16 | XMS_ITS | Encounter Summary ---
:1970 Author Organization [place] Address [address] [place] [address] Care Team Providers Name Role Phone Koby Hill MD Primary Care Provider Encounter Details Date Type Department Care Team Description 10/24/2015 Orders Only [facility] vated fasting glucose [facility] [address] [place] [address] Social History Tobacco Use Types Packs/Day Years [...] Name Priority Date/Time Associated Diagnosis Comme nts HEMOGLOBIN A1C Routine 10/24/2015 8:21 AM Elevated fasting Res ults for this CDT glucose procedure are i n the results section . documented in this encounter Results Hemoglobin A1c (10/24/2015 8:21 AM CDT) athologist Signature Hemoglobin A1C 5.6 4.3 - 6.0 [facility] Specimen Anatomical Collection Method Collection Time Receive d Time (Source) Location / / Volume Laterality Blood specimen 10/24/2015 8:21 AM 016 8:26 (specimen) CDT AM CDT Koby Hill MD LAB - BLOOD ORDERABLES Performing Organization Address City/State/[facility] Code Phon e Number [facility] [address] [place], [place] [address] [address] documented in this encounter Visit Diagnoses Diagnosis Elevated fasting glucose Impaired fasting glucose documented in this encounter Care Teams Volunteer Recruiter Relationship Specialty Start Date End Date Koby Hill MD PCP - General Internal Medicine 10/14/15 [address] [place] [address] documented as of this encounter
--- OUTSIDE RECORDS SUMMARY | 2022-04-03 16:16 | XMS_ITS | Encounter Summary ---
:1970 Author Organization [facility] Address [address] [place] [address] Care Team Providers Name Role Phone Koby Hill MD Primary Care Provider Reason for Visit Reason Comments RECHECK f/u on labs Encounter Details Date Type Department Care Team Description 11/12/2015 Office Visit [facility] Koby Hill hypertension (Primary Dx); Clinic Chris Hearn MD Gastroesophageal reflux disease without esophagitis; [address] Major depress bahman disorder, recurrent episode, mild (H) [place] [address] [phone] Social History Tobacco Use Types Packs/Day Years [...] Sign Reading Time Taken Comments Blood Pressure 122/70 11/12/2015 3:03 PM CDT Pulse 70 11/12/2015 3:03 PM CDT Temperature 36.7 ??C (98.1 ??F) 11/12/2015 3:03 PM CDT Respiratory Rate 16 11/12/2015 3:03 PM CDT Oxygen Saturation 100% 11/12/2015 3:03 PM CDT Inhaled Oxygen Concentration - - Weight 123.5 kg (272 lb 3.2 oz) 11/12/2015 3:03 PM CDT Height 188 cm (6' 2) 11/12/2015 3:03 PM CDT Body Mass Index 34.95 11/12/2015 3:03 PM CDT documented in this encounter Patient Instructions Patient InstructionsNicky Haywood LPN - 11/12/2015 3:07 PM CDT You can reach your [facility] Care Team any time of the day by calling [phone]. This number will put you in touch with the 24 hour nurse line even if the clinic is closed. The clinic hours for [facility] are: Wednesday through 7am to 6pm Wednesday 7am to 5pm Wednesday 8am to 12p for Pediatrics only. To contact your Sybase Developer please call [phone]. This is a direct number for your care team during clinic hours. [facility] is now open for your convenience: Wednesday through Wednesday 7:30am to 7pm Wednesday and Wednesday 9am to 3pm They are closed on all major holidays. documented in this encounter Progress Notes Koby Hill MD - 11/12/2015 3:06 PM CDT SUBJECTIVE: Rubens Prieto is a 45 year old male who presents to clinic today for the following health issues: F/U: on labs No acute complaints, no medication change or new medical conditions. Has h/o HTN. on medical treatment. BP has been controlled. No side effects from medications. No CP, FOSETR, dizziness. good compliance with medications and low salt diet. Has h/o GERD on PPI treatment. symptoms are controlled. No nausea, vomiting, heartburns, bloating. Has h/o depression. On medical treatment, controlled, no side effects. No depressive symptoms or suicidal ideation. Discussed recent results from lab work, normal. Problem list and histories reviewed & adjusted, as indicated. Additional history: as documented Problem list, Medication list, Allergies, and Medical/Social/Surgical histories reviewed in EPIC andupdated as appropriate. ROS: Constitutional, HEENT, cardiovascular, pulmonary, gi and gu systems are negative, except as otherwise noted. OBJECTIVE: BP 122/70 mmHg Pulse 70 Temp(Src) 98.1 ??F (36.7 ??C) (Oral) Resp 16 Ht 6' 2 (1.88 m) Wt 272 lb 3.2 oz (123.469 kg) BMI 34.93 kg/m2 SpO2 100% Body mass index is 34.93 kg/(m^2). GENERAL: healthy, alert and no distress MS: no gross musculoskeletal defects noted, no edema Diagnostic Test Results: none ASSESSMENT/PLAN: Problem List Items Addressed This Visit Major depressive disorder, recurrent episode, mild (HCC) Essential hypertension - Primary Gastroesophageal reflux disease without esophagitis Continue treatment Follow up with psychiatry Follow-Up: in 6 months Koby Hill MD [facility] documented in this encounter Nursing Notes Nicky Haywood LPN - 11/12/2015 3:06 PM CDT Chief Complaint Patient presents with ??? RECHECK f/u on labs Initial BP 122/70 mmHg Pulse 70 Temp(Src) 98.1 ??F (36.7 ??C) (Oral) Resp 16 Ht 6' 2 (1.88 m) Wt 272 lb 3.2 oz (123.469 kg) BMI 34.93 kg/m2 SpO2 100% Estimated body mass index is 34.93 kg/(m^2) as calculated from the following: Height as of this encounter: 6' 2 (1.88 m). Weight as of this encounter: 272 lb 3.2 oz (123.469 kg). BP completed using cuff size: large documented in this encounter Plan of Treatment Not on filedocumented as of this encounter Visit Diagnoses Diagnosis Essential hypertension - Primary Unspecified essential hypertension Gastroesophageal reflux disease without esophagitis Esophageal reflux Major depressive disorder, recurrent epi sode, mild (H) Major depressive disorder, recurrent epi sode, mild documented in this encounter Additional Health Concerns Assessment Noted Time PHQ-9 Depression Total Score: 2 11/13/2015 7:20 AM CDT documented as of this encounter Care Teams Coal Bagger Relationship Specialty Start Date End Date Koby Hill MD PCP - General Internal Medicine 10/14/15 [address] [place] [address] documented as of this encounter
--- OUTSIDE RECORDS SUMMARY | 2022-04-03 16:16 | XMS_ITS | Encounter Summary ---
:1970 Author Organization [facility] Address [address] [place] [address] Care Team Providers Name Role Phone Koby Hill MD Primary Care Provider Reason for Visit Reason Onset Date Comments Erroneous encounter-disregard 05/20/2016 Encounter Details Date Type Department Care Team Description 05/20/2016 Telephone [facility] Dale Gambino [facility] MD Francesco encounter-disregard [facility] ORTHOPEDICS [id number] [place] [address] [address] [place] [address] [place] [address] [place], [place] [phone] (Wo rk) Social History Tobacco Use [...] documented as of this encounter Care Teams Research Director Relationship Specialty Start Date End Date Koby Hill MD PCP - General Internal Medicine 10/14/15 [address] [place] [address] documented as of this encounter
--- OUTSIDE RECORDS SUMMARY | 2022-04-03 16:16 | XMS_ITS | Encounter Summary ---
:1970 Author Organization [facility] Address [address] [place] [address]. [place] [address] Care Team Providers Name Role Phone Koby Hill MD Primary Care Provider Reason for Visit (Routine) - Closed Specialty Diagnoses / Procedures Referred By Contact Refer red To Contact Radiology / Radiology. Diagnoses sb pt [place] [address] [address] [place] [address] Phone: Fax: Referral ID Status Reason Start Date Expiration Date Visits Requ ested Visits Authorized [id number] Closed 04/24/2016 04/16/2017 1 1 Encounter Details Date Type Department Care Team Description 04/24/2016 Hospital Encounter [facility] Trae Clayton ght knee pain, [facility] MARY Loaiza unspecified [id number] [facility] [address] [facility] [employer] [address] [place], [place] [phone] Social History Tobacco Use Types Packs/Day Years [...] on file documented as of this encounter Medications at Time of Discharge Medication Sig Dispensed Refills Start Date End Date amphetamine-dextroamphet Take by mouth daily 0 amine (ADDERALL XR) 30 MG per capsule ARIPiprazole (ABILIFY) 5 Take 1 tablet (5 mg) 30 tablet 1 0 11/12/2015 MG tablet by mouth At Bedtime buPROPion (WELLBUTRIN Take 300 mg by mouth 0 SR) 150 MG 12 hr tablet daily eszopiclone (LUNESTA) 3 Take 3 mg by mouth 0 02/10 MG tablet At Bedtime ibuprofen (ADVIL,MOTRIN) Take 200 mg by mouth 0 200 MG tablet every 4 hours as needed for mild pain NUVIGIL 250 MG TABS Take 250 mg by mouth 0 2015 as needed omeprazole (PRILOSEC) 40 Take by mouth daily 0 MG capsule VIAGRA 100 MG tablet 0 2016 amLODIPine (NORVASC) 5 Take 1 tablet (5 mg) 90 tablet 3 10/201512/03/2016 MG tabletIndications: by mouth daily Essential hypertension clindamycin (CLEOCIN) Take 1 capsule (150 15 capsule 0 02/1705/20/2016 150 MG mg) by mouth 3 times capsuleIndications: daily Major depressive disorder, recurrent episode, mild (H) diclofenac (VOLTAREN) 50 Take 1 tablet (50 60 tablet 1 03/1305/20/2016 MG EC tabletIndications: mg) by mouth 3 times Acute pain of right knee daily order for Equipment being 1 Device 0 2016 8 DMEIndications: Acute ordered: right knee pain of right knee sleeve-open patella. valsartan-hydrochlorothi Take 1 tablet by 90 tablet 3 10/1311/30/2016 azide (DIOVAN-HCT) mouth daily 320-12.5 MG per tabletIndications: Essential hypertension documented as of this encounter Plan of Treatment Not on filedocumented as of this encounter Procedures Procedure Name Priority Date/Time Associated Diagnosis Comme nts MR KNEE RIGHT W/O Routine 04/24/2016 8:43 AM Right knee pain, Results for this CONTRAST CDT unspecified procedure are i n chronicity the results section. documented in this encounter Results MR Knee Right w/o Contrast (04/24/2016 8:43 AM CDT) Anatomical Region Laterality Modality Right Knee, SUBRAD MR DIONNE, UMP MR DIONNE Ma gnetic Resonance Specimen (Source) Anatomical Location Collection Method / Collectio n Time Received Time / Laterality Volume Impressions 04/24/2016 11:32 AM CDT IMPRESSION: 1. Medial meniscal tearing posteriorly. Adjacent reactive bone marrow edema. 2. 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 If the patient has increased symptoms in this region, f ollow-up imaging would be recommended. 3. 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 4. Synovitis and mild effusion. 5. Mild Crawford's cyst with leakage/ruptur e. MJ VAUGHAN MD Narrative 04/24/2016 11:32 AM CDT MR KNEE RIGHT WITHOUT CONTRAST 04/24/2016 8:43 AM HISTORY: Pain in right knee. TECHNIQUE: Axial and coronal T2 with fat suppression. Coronal T1. Sagittal dual echo T2. FINDINGS: Medial Meniscus: There is tearing of the posterior horn and posterior portion of the body segment, with extens ion of both surfaces. There is moderate extrusion of the body segment. ?? Lateral Meniscus: No tear, displaced fra gment, or extrusion. ? Anterior Cruciate Ligament: Intact. Posterior Cruciate Ligament: Intact. Medial Collateral Ligament: Intact. Lateral Collateral Ligament Complex, Pop liteus Tendon: The iliotibial band, fibular collateral ligament, bicep s femoris tendon, and popliteus tendon are intact. Osseous and Cartilaginous Structures: Th ere is mild-moderate subchondral edema of the medial tibial p lateau and mild subchondral edema of the medial femoral condyle. The patient did not describe a recent injury and, therefore, this is fe lt to represent reactive edema. Within the distal femoral metadia physeal region, there is a 1.8 cm lesion. The appearance is typical for a low-grade cartilaginous tumor (often enchondroma), and has some endosteal scalloping posteriorly. This is not well appreciate d on recent radiograph. There is grade II chondromalacia at the latera l aspect of the medial femoral condyle. There is patellar chondromalaci a including a mild focal area of grade 4 involvement at the lateral as pect of the patellar apex. Extensor Mechanism: The quadriceps and p atellar tendons are intact. The medial and lateral patellar retinacu la appear unremarkable. Joint Space: Mild joint effusion. No def inite loose bodies appreciated. Additional Findings: Synovitis. Mild Xiang er's cyst. There is adjacent edema consistent with recent leakage/rup ture. There is some nonspecific soft tissue edema. No semime mbranosus-tibial collateral ligament or pes anserine bursitis. Procedure Note Mj Vaughan MD - 04/24/2016Formatting o f this note might be different from the original. MR KNEE RIGHT WITHOUT CONTRAST 6 8:43 AM HISTORY: Pain in right knee. TECHNIQUE: Axial and coronal T2 with fat suppression. Coronal T1. Sagittal dual echo T2. FINDINGS: Medial Meniscus: There is tearing of the posterior horn and posterior portion of the body segment, with extens ion of both surfaces. There is moderate extrusion of the body segment. Lateral Meniscus: No tear, displaced fra gment, or extrusion. Anterior Cruciate Ligament: Intact. Posterior Cruciate Ligament: Intact. Medial Collateral Ligament: Intact. Lateral Collateral Ligament Complex, Pop liteus Tendon: The iliotibial band, fibular collateral ligament, bicep s femoris tendon, and popliteus tendon are intact. Osseous and Cartilaginous Structures: Th ere is mild-moderate subchondral edema of the medial tibial p lateau and mild subchondral edema of the medial femoral condyle. The patient did not describe a recent injury and, therefore, this is fe lt to represent reactive edema. Within the distal femoral metadia physeal region, there is a 1.8 cm lesion. The appearance is typical for a low-grade cartilaginous tumor (often enchondroma), and has some endosteal scalloping posteriorly. This is not well appreciate d on recent radiograph. There is grade II chondromalacia at the latera l aspect of the medial femoral condyle. There is patellar chondromalaci a including a mild focal area of grade 4 involvement at the lateral as pect of the patellar apex. Extensor Mechanism: The quadriceps and p atellar tendons are intact. The medial and lateral patellar retinacu la appear unremarkable. Joint Space: Mild joint effusion. No def inite loose bodies appreciated. Additional Findings: Synovitis. Mild Xiang er's cyst. There is adjacent edema consistent with recent leakage/rup ture. There is some nonspecific soft tissue edema. No semime mbranosus-tibial collateral ligament or pes anserine bursitis. IMPRESSION: 1. Medial meniscal tearing posteriorly. Adjacent reactive bone marrow edema. 2. 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 If the patient has increased symptoms in this region, f ollow-up imaging would be recommended. 3. 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 4. Synovitis and mild effusion. 5. Mild Crawford's cyst with leakage/ruptur eCait VAUGHAN MD Trae Clayton PA-C [facility] ORDERABLES documented in this encounter Visit Diagnoses Diagnosis Right knee pain, unspecified chronicity documented in this encounter Additional Health Concerns Assessment Noted Time PHQ-9 Depression Total Score: 2 04/17/2016 7:19 AM CDT documented as of this encounter Care Teams Barrelhead Inspector Relationship Specialty Start Date End Date Koby Hill MD PCP - General Internal Medicine 10/14/15 [place] [address] documented as of this encounter
--- OUTSIDE RECORDS SUMMARY | 2022-04-03 16:16 | XMS_ITS | Encounter Summary ---
:1970 Author Organization [place] Address [address] [place] [id number] Care Team Providers Name Role Phone Koby Hill MD Primary Care Provider Reason for Visit Reason Comments ER F/U Encounter Details Date Type Department Care Team Description 10/14/2015 Office Visit [facility] Koby Hill hypertension (Primary Dx); Clinic Chris Hearn MD Chronic fatigue; [address] Major depress bahman disorder, recurrent episode, mild (H); [facility] Gastroesophageal reflux disease without esophagitis; [place], [place] Attention d eficit hyperactivity disorder (ADHD), combined type [id number] [phone] Social History Tobacco Use Types Packs/Day Years [...] Sign Reading Time Taken Comments Blood Pressure 110/60 10/14/2015 9:50 AM CDT Pulse 60 10/14/2015 9:50 AM CDT Temperature 36.8 ??C (98.2 ??F) 10/14/2015 9:50 AM CDT Respiratory Rate 12 10/14/2015 9:50 AM CDT Oxygen Saturation 98% 10/14/2015 9:50 AM CDT Inhaled Oxygen Concentration - - Weight 122.5 kg (270 lb) 10/14/2015 9:50 AM CDT Height 193 cm (6' 4) 10/14/2015 9:50 AM CDT Body Mass Index 32.87 10/14/2015 9:50 AM CDT documented in this encounter Progress Notes Koby Hill MD - 10/14/2015 9:49 AM CDT SUBJECTIVE: Rubens Prieto is a 45 year old male who presents to clinic today for the following health issues: ED/UC Followup: Facility: [facility] ED Date of visit: 10/09/15 Reason for visit: Peritonsillar Abscess Current Status: Improving Patient is seen for a follow up visit. No acute complaints, no medication change or new medical conditions. Has h/o HTN. on medical treatment. BP has been controlled. No side effects from medications. No CP, FOSTER, dizziness. good compliance with medications and low salt diet. Has h/o depression. On medical treatment, controlled, no side effects. No depressive symptoms or suicidal ideation. Has h/o ADHD- seeing psychiatry for follow up and medications. Has h/o GERD on PPI treatment. symptoms are controlled. No nausea, vomiting, heartburns, bloating. Has had recent peritonsillar abscess, seen ENT- has aspiration, worse the next day and went to ED, aspirated again with larger quantity of exudate removed, on Clindamycin. Improved, no fever, no pain. Problem list and histories reviewed & adjusted, as indicated. Additional history: none Problem list, Medication list, Allergies, and Medical/Social/Surgical histories reviewed in [facility] andupdated as appropriate. ROS: Constitutional, HEENT, cardiovascular, pulmonary, gi and gu systems are negative, except as otherwise noted. OBJECTIVE: BP 110/60 mmHg Pulse 60 Temp(Src) 98.2 ??F (36.8 ??C) (Oral) Resp 12 Ht 6' 4 (1.93 m) Wt 270 lb (122.471 kg) BMI 32.88 kg/m2 SpO2 98% Body mass index is 32.88 kg/(m^2). GENERAL: healthy, alert and no distress NECK: no adenopathy, no asymmetry, masses, or scars and thyroid normal to palpation RESP: lungs clear to auscultation - no rales, rhonchi or wheezes CV: regular rate and rhythm, normal S1 S2, no S3 or S4, no murmur, click or rub, no peripheral edemaand peripheral pulses strong ABDOMEN: soft, nontender, no hepatosplenomegaly, no masses and bowel sounds normal MS: no gross musculoskeletal defects noted, no edema Diagnostic Test Results: none ASSESSMENT/PLAN: Problem List Items Addressed This Visit Major depressive disorder, recurrent episode, mild (HCC) Essential hypertension - Primary Relevant Medications amLODIPine (NORVASC) tablet valsartan-hydrochlorothiazide (DIOVAN-HCT) 320-12.5 MG per tablet Other Relevant Orders Lipid panel reflex to direct LDL Comprehensive metabolic panel CBC with platelets Testosterone Free and Total TSH with free T4 reflex Gastroesophageal reflux disease without esophagitis Attention deficit hyperactivity disorder (ADHD), combined type Other Visit Diagnoses Chronic fatigue Relevant Orders Testosterone Free and Total TSH with free T4 reflex Controlled HTN Assess lab work Cont treatment Follow up with psychiatry Follow-Up:in 6 months Koby Hill MD [facility] documented in this encounter Nursing Notes Rachelle Castillo - 10/14/2015 9:52 AM CDT Chief Complaint Patient presents with ??? ER F/U Initial BP 110/60 mmHg Pulse 60 Temp(Src) 98.2 ??F (36.8 ??C) (Oral) Resp 12 Ht 6' 4 (1.93 m) Wt 270 lb (122.471 kg) BMI 32.88 kg/m2 SpO2 98% Estimated body mass index is 32.88 kg/(m^2) as calculated from the following: Height as of this encounter: 6' 4 (1.93 m). Weight as of this encounter: 270 lb (122.471 kg). BP completed using cuff size: bishop Chapa LPN documented in this encounter Plan of Treatment Not on filedocumented as of this encounter Results TSH with free T4 reflex (10/18/2015 8:56 AM CDT) athologist Signature TSH 2.32 0.40 - 4.00 [facility] mU/L [facility] Specimen Anatomical Collection Method Collection Time Receive d Time (Source) Location / / Volume Laterality Blood specimen 10/18/2015 8:56 AM 016 9:02 (specimen) CDT AM CDT Koby Hill MD LAB - BLOOD ORDERABLES Performing Organization Address City/State/ZIP Code Phon e Number [facility] [address] [place] [address] Testosterone Free and Total (10/18/2015 8:56 AM CDT) Analysis Performed At Patho logist Time Signature Testosterone 473 240 - 950 [facility] Total ng/dL [facility] Comment: This test was developed and its performa nce characteristics determined by the [facility], ??Special Chemistry Laboratory. It has not been cleared or approved by the FDA . The laboratory is regulated under CLIA as qualified to perform high-complexity testing. This test is used for clinical purposes. It should not be regarded as investigational or for research. Sex Hormone Binding Globulin 29 11 - 80 nmol/L [facility] Free Testosterone Calculated 10.59 4.7 - 24.4 ng/dL [facility] Specimen Anatomical Collection Method Collection Time Receive d Time (Source) Location / / Volume Laterality Blood specimen 10/18/2015 8:56 AM 016 9:02 (specimen) CDT AM CDT Koby Hill MD LAB - BLOOD ORDERABLES Performing Organization Address City/[facility]/ZIP Code Phon e Number [facility] [address] [place] [address] [facility] [address] [place] [address] [facility] CBC with platelets (10/18/2015 8:56 AM CDT) athologist Signature WBC 8.1 4.0 - 11.0 [place] [id number] [facility] RBC Count 4.86 4.4 - 5.9 [place] 10e12/L [facility] Hemoglobin 14.9 13.3 - [place] 17.7 g/dL [facility] Hematocrit 44.4 40.0 - [place] 53.0 % [facility] MCV 91 78 - [address] [place] [address] [facility] MCH 30.7 26.5 - [place] 33.[address] [facility] MCHC 33.6 31.5 - [place] 36.5 g/dL [facility] RDW 12.3 10.0 - [place] 15.0 % [facility] Platelet Count 229 150 - 450 [place] 10e9/L [facility] Specimen Anatomical Collection Method Collection Time Receive d Time (Source) Location / / Volume Laterality Blood specimen 10/18/2015 8:56 AM 016 9:02 (specimen) CDT AM CDT Koby Hill MD LAB - BLOOD ORDERABLES Performing Organization Address City/State/ZIP Code Phon e Number [facility] [address] [place], [place] [address] [address] (ABNORMAL) Comprehensive metabolic panel (10/18/2015 8:56 AM CDT) [facility] Method Time Signature Sodium 138 133 - 144 [place] mmol/L [facility] Potassium 4.2 3.4 - 5.3 [place] mmol/L [facility] Chloride 103 94 - 109 [place] mmol/L [facility] Carbon Dioxide 31 20 - 32 [place] mmol/L [facility] Anion Gap 4 3 - 14 [place] mmol/L [facility] Glucose 108 (H) 70 - 99 [place] mg/dL [facility] Urea Nitrogen 17 7 - 30 [place] mg/dL [facility] Creatinine 1.09 0.66 - [place] 1.25 mg/dL [facility] GFR Estimate 72 >60 [place] mL/min/1.7 [facility] m2 [facility] Comment: Non GFR Calc GFR Estimate If Black 88 >60 mL/min/1.7m2 F [facility] Comment: GFR Calc Calcium 9.1 8.5 - 10.1 mg/dL [place] CLIN ICS [facility] Bilirubin Total 0.7 0.2 - 1.3 mg/dL [facility] Albumin 4.0 3.4 - 5.0 g/dL [facility] S [facility] Protein Total 6.4 (L) 6.8 - 8.8 g/dL [place] [facility] INICS [facility] Alkaline Phosphatase 58 40 - 150 U/L [facility] ALT 56 0 - 70 U/L [facility] AST 20 0 - 45 U/L [facility] Specimen Anatomical Collection Method Collection Time Receive d Time (Source) Location / / Volume Laterality Blood specimen 10/18/2015 8:56 AM 016 9:02 (specimen) CDT AM CDT Koby Hill MD LAB - BLOOD ORDERABLES Performing Organization Address City/[facility]/ZIP Code Phon e Number [facility] [address] [place] [address] (ABNORMAL) Lipid panel reflex to direct LDL (10/18/2015 8:56 AM CDT) Analysis Performed At Patho logist Time Signature Cholesterol 180 <200 mg/dL [facility] Triglycerides 182 (H) <150 mg/dL [facility] Comment: Borderline high: ??150-199 mg/dl High: ? 200-499 mg/dl Very high: ? >499 mg/dl Fasting specimen HDL Cholesterol 59 >39 mg/dL [place] [facility] CS [facility] LDL Cholesterol Calculated 85 <100 mg/dL [facility] Comment: Desirable: <100 mg/dl Non HDL Cholesterol 121 <130 mg/dL [facility] Specimen Anatomical Collection Method Collection Time Receive d Time (Source) Location / / Volume Laterality Blood specimen 10/18/2015 8:56 AM 016 9:02 (specimen) CDT AM CDT Koby Hill MD LAB - BLOOD ORDERABLES Performing Organization Address City/[facility] Code Phon e Number [facility] [address] [place] [address] documented in this encounter Visit Diagnoses Diagnosis Essential hypertension - Primary Unspecified essential hypertension Chronic fatigue Other malaise and fatigue Major depressive disorder, recurrent epi sode, mild (H) Major depressive disorder, recurrent epi sode, mild Gastroesophageal reflux disease without esophagitis Esophageal reflux Attention deficit hyperactivity disorder (ADHD), combined type documented in this encounter Care Teams Motor Lodge Clerk Relationship Specialty Start Date End Date Koby Hill MD PCP - General Internal Medicine 10/14/[address] [place] [address] documented as of this encounter
--- OUTSIDE RECORDS SUMMARY | 2022-04-03 16:16 | XMS_ITS | Encounter Summary ---
:1970 Author Organization [place] Address [address] [place] [address] Care Team Providers Name Role Phone Koby Hill MD Primary Care Provider Encounter Details Date Type Department Care Team Description 11/21/2016 Radiant Appointment [facility] Jared Lara Cough [place] [id number] [phone] [place], [place] [phone] Social History Tobacco Use Types Packs/Day Years [...] Comme nts XR CHEST 2 VIEWS Routine 11/21/2016 11:51 AM Cough Resu lts for this CDT procedure are i n the results section. documented in this encounter Results XR Chest 2 Views (11/21/2016 11:51 AM CDT) Anatomical Region Laterality Modality Chest Computed Radiography Specimen (Source) Anatomical Location Collection Method / Collectio n Time Received Time / Laterality Volume Impressions 11/21/2016 4:21 PM CDT IMPRESSION: Heart size is normal. No pleural effusion, pneumothorax, or abnormal area of consolidation. No ac sisi osseous abnormality. JARET HAINES MD Narrative 11/21/2016 4:21 PM CDT CHEST TWO VIEWS ??11/21/2016 11:51 AM HISTORY: 46-year-old with cough. COMPARISON: None Procedure Note Jaret Haines MD - 11/21/2016 CHEST TWO VIEWS 11/21/2016 11:51 AM HISTORY: 46-year-old with cough. COMPARISON: None IMPRESSION: Heart size is normal. No ple ural effusion, pneumothorax, or abnormal area of consolidation. No ac sisi osseous abnormality. JARET HAINES MD Jared Lara MD IMG DIAGNOSTIC IMAGING ORDER [place]AL[place] documented in this encounter Visit Diagnoses Diagnosis Cough documented in this encounter Additional Health Concerns Assessment Noted Time PHQ-9 Depression Total Score: 2 04/17/2016 7:19 AM CDT documented as of this encounter Care Teams Dedicated Regional Driver Relationship Specialty Start Date End Date Koby Hill MD PCP - General Internal Medicine 10/14/15 [place] [address] documented as of this encounter
--- OUTSIDE RECORDS SUMMARY | 2022-04-03 16:16 | XMS_ITS | Encounter Summary ---
:1970 Author Organization [place] Address [address] [place] [address] Care Team Providers Name Role Phone Koby Hill MD Primary Care Provider Reason for Visit Reason Comments Musculoskeletal Problem Flu Shot Encounter Details Date Type Department Care Team Description 04/16/2016 Office Visit [facility] Trae Clayton Right kn ee pain, unspecified chronicity (Primary Dx); Clinic [place] MARY Loaiza Need for prophylactic vaccination and in oculation against influenza [address] [place] [phone] Social History Tobacco Use Types Packs/Day Years [...] Reading Time Taken Comments Blood Pressure 124/80 04/16/2016 9:01 AM CDT Pulse 76 04/16/2016 9:01 AM CDT Temperature 36.5 ??C (97.7 ??F) 04/16/2016 9:01 AM CDT Respiratory Rate 18 04/16/2016 9:01 AM CDT Oxygen Saturation - - Inhaled Oxygen Concentration - - Weight 128.4 kg (283 lb) 04/16/2016 9:01 AM CDT Height - - Body Mass Index 34.45 02/18/2016 3:21 PM CDT documented in this encounter Patient Instructions Patient InstructionsTrae Clayton PA-C - 04/16/2016 9:18 AM CDT Images from the original note were not included. Knee Pain with Possible Torn Meniscus The??meniscus??is a tough cartilage pad that cushions the inside of the knee joint. It helps absorb the shock from movement. It also spreads the weight of your body evenly across the knee joint. This prevents excess wear and tear to the bones of that joint. The most common causes of meniscal tears are injuries, especially related to sports and degenerativedisease that happens with aging. A meniscus tear commonly happens during a twisting injury when the knee is bent. This causes pain, swelling, reduced movement of the knee, and trouble walking. There may be popping, clicking, joint locking or inability to completely straighten the knee. Ligaments of the knee may also be injured. A torn meniscus is diagnosed by physical exam and X-rays. In the case of a severe injury, the knee may be too painful to examine fully. A more accurate exam can be done after the initial swelling goes down. An MRI may be ordered to make a final diagnosis. If your healthcare provider suspects a meniscal injury, you will treat your knee with ice and rest and preventing movement of the knee. A splint or??knee brace that keeps your leg straight??may be put on to protect the joint. Depending on the severity of the injury, surgery may be needed. A cartilage injury may take 4-12 weeks to heal depending on how bad it is. Home care ?? Stay off the injured leg as much as possible until you can walk on it without pain. If you have alot of pain when walking, crutches or a walker may be prescribed. (These can be rented or bought at many pharmacies and surgical or orthopedic supply stores). Follow your healthcare provider's advice about when to begin putting weight on that leg. ?? Keep your leg elevated to reduce pain and swelling. When sleeping, place a pillow under the injured leg. When sitting, support the injured leg so it is level with your waist. This is very important during the first 48 hours. ?? Apply an ice pack over the injured area for 15 to 20 minutes every??3 to 6??hours. You should do this for??the first??24 to 48 hours.??You can make an ice pack by filling a plastic bag that seals atthe top with ice cubes and then wrapping it with a thin towel. Continue to use ice packs for relief of pain and swelling as needed. As the ice melts, be careful to avoid getting your wrap, splint, or cast wet. After 48 hours, apply heat??(warm shower or??warm bath)??for 15 to 20 minutes several times a day, or alternate ice and heat.??You can place the ice pack directly over the splint. If you have to wear a qnvo-cpz-irag??knee brace, you can open it to apply the ice pack, or heat, directly to the knee. Never put ice directly on the skin. Always wrap the ice in a towel or other type of cloth. ?? You may use??nyew-xnv-ysrgbvu pain medicine??to control pain, unless another pain medicine was prescribed.??If you have chronic liver or kidney disease or ever had a stomach ulcer, talk with your healthcare provider??before??using these medicines. ?? If you were given a splint, keep it dry at all times. Bathe with your splint out of the water. Protect it with a large plastic bag that is rubber-banded at the top end. If a fiberglass splint gets wet, you can dry it with a electronics technology department chair. If you have a??cxhd-obl-ryep??knee brace, you can remove this to bathe, unless told otherwise. ?? Check with your healthcare provider before returning to sports or full work duties. Follow-up care Follow up with your healthcare provider, or as advised. This is usually within 1-2 weeks. Further testing may be required to check the extent of your injury. If X-rays were taken,??you will be??told??of any new findings that may affect your care. Call 911 Call 911 if you have:? Shortness of breath ?? Chest pain When to seek medical advice Call your healthcare provider right away if any of these occur: ?? Toes or foot gets swollen, cold, blue, numb, or tingly ?? Pain or swelling spreads over the knee or calf ?? Warmth or redness appears over the knee or calf ?? Fever of 100.4??F (38??C) or above lasting for 24 to 48 hours ?? [id number] [employer]. [address] [place] [address]. All rights reserved. This information is not intended as a substitute for professional medical care. Always follow your healthcare professional's instructions. documented in this encounter Progress Notes Irasema Laurent CMA - 04/16/2016 9:29 AM CDT Injectable Influenza Immunization Documentation 1. Is the person to be vaccinated sick today? No 2. Does the person to be vaccinated have an allergy to eggs or to a component of the vaccine? No 3. Has the person to be vaccinated today ever had a serious reaction to influenza vaccine in the past? No 4. Has the person to be vaccinated ever had Guillain-Ancram syndrome? No Form completed by pt Trae Clayton PA-C - 04/16/2016 9:01 AM CDT SUBJECTIVE: Rubens Prieto is a 46 year old male who presents to clinic today for the following health issues: Musculoskeletal problem/pain ?? Duration: follow up from 2016 visit ?? Description Location: R knee ?? Intensity: Severe-worsening. ?? Accompanying signs and symptoms: none ?? History Previous similar problem: YES Previous evaluation: x-ray ?? Precipitating or alleviating factors: Trauma or overuse: no Aggravating factors include: none ?? Therapies tried and outcome: physical therapy, knee brace, nsaids. No improvement. Problem list and histories reviewed & adjusted, as indicated. Additional history: as documented Problem list, Medication list, Allergies, and Medical/Social/Surgical histories reviewed in [facility] andupdated as appropriate. ROS: Constitutional, HEENT, cardiovascular, pulmonary, gi and gu systems are negative, except as otherwise noted. OBJECTIVE: BP 124/80 mmHg Pulse 76 Temp(Src) 97.7 ??F (36.5 ??C) (Oral) Resp 18 Wt 283 lb (128.368 kg) Body mass index is 34.46 kg/(m^2). GENERAL APPEARANCE: healthy, alert and no distress MS: full rom of right knee. Tenderness to palpation over medial joint line and mcl. No joint swelling. PSYCH: mentation appears normal, affect normal/bright and frustrated Diagnostic Test Results: none ASSESSMENT/PLAN: (M25.561) Right knee pain, unspecified chronicity (primary encounter diagnosis) Comment: Persistent pain. No clear history of trauma and exam from today and last visit unhelpful indiagnosis. Was orginally thought to be sprain of mcl vs arthritic flare. Last vist's radiographs were negative for arthritis, but mild flare is possible. Meniscal tear is also possible. Given extent ofpain, will order MRI for further evaluation. If arthritic, will consider joint injection. If normal or tear noted, will have patient see ortho for further evaluation. He would prefer to follow up with Dr. Zimmerman through porter abel who did his previous knee replacement. Plan: MR Knee Right w/o Contrast (Z23) Need for prophylactic vaccination and inoculation against influenza Comment: Plan: FLU VAC, SPLIT VIRUS IM > 3 YO (QUADRIVALENT) [86466], Vaccine Administration, Initial [44974] Follow up: pending mri. Trae Clayton PA-C [facility] documented in this encounter Nursing Notes Irasema Laurent, COMMUNICATIONS LEAD - 04/16/2016 9:05 AM CDT Chief Complaint Patient presents with ??? Musculoskeletal Problem ??? Flu Shot Initial BP 124/80 mmHg Pulse 76 Temp(Src) 97.7 ??F (36.5 ??C) (Oral) Resp 18 Wt 283 lb (128.368 kg) Estimated body mass index is 34.46 kg/(m^2) as calculated from the following: Height as of 16: 6' 4 (1.93 m). Weight as of this encounter: 283 lb (128.368 kg). BP completed using cuff size: large Irasema Laurent CMA documented in this encounter Plan of Treatment Not on filedocumented as of this encounter Results MR Knee Right w/o Contrast (04/24/2016 8:43 AM CDT) Anatomical Region Laterality Modality Right Knee, SUBRAD MR MSK, UMP MR MSK Ma gnetic Resonance Specimen (Source) Anatomical Location [...] cyst with leakage/ruptur e. MJ VAUGHAN MD Trae Clayton PA-C IMG MRI ORDERABLES documented in this encounter Visit Diagnoses Diagnosis Right knee pain, unspecified chronicity - Primary Need for prophylactic vaccination and in oculation against influenza Right knee pain, unspecified chronicity documented in this encounter Additional Health Concerns Assessment Noted Time PHQ-9 Depression Total Score: 2 04/17/2016 7:19 AM CDT documented as of this encounter Care Teams Grocery Associate Relationship Specialty Start Date End Date Koby Hill MD PCP - General Internal Medicine 10/14/15 [place] [address] documented as of this encounter
--- OUTSIDE RECORDS SUMMARY | 2022-04-03 16:16 | XMS_ITS | Encounter Summary ---
:1970 Author Organization [facility] Address [address] [place] [address] Care Team Providers Name Role Phone Koby Hill MD Primary Care Provider Reason for Visit Reason Comments Ear Problem right ear feels plugged Encounter Details Date Type Department Care Team Description 07/14/2016 Office Visit [facility] Koby Hill Postna betzaida drip (Primary Dx); Clinic Chris Hearn MD Dysfunction of eustachian tube, right; [address] Essential [place] [address] [id number] Social History Tobacco Use Types Packs/Day Years [...] Sign Reading Time Taken Comments Blood Pressure 132/70 07/14/2016 10:01 AM CAFETERIA ASSOCIATE Pulse 70 07/14/2016 10:01 AM CAFETERIA ASSOCIATE Temperature 36.8 ??C (98.2 ??F) 07/14/2016 10:01 AM CAFETERIA ASSOCIATE Respiratory Rate 16 07/14/2016 10:01 AM CAFETERIA ASSOCIATE Oxygen Saturation 100% 07/14/2016 10:01 AM CAFETERIA ASSOCIATE Inhaled Oxygen Concentration - - Weight 126.7 kg (279 lb 6.4 oz) 07/14/2016 10:01 AM CAFETERIA ASSOCIATE Height 190.5 cm (6' 3) 07/14/2016 10:01 AM CAFETERIA ASSOCIATE Body Mass Index 34.92 07/14/2016 10:01 AM CAFETERIA ASSOCIATE documented in this encounter Patient Instructions Patient InstructionsNicky Haywood LPN - 07/14/2016 10:03 AM CST You can reach your [facility] Care Team any time of the day by calling [phone]. This number will put you in touch with the 24 hour nurse line even if the clinic is closed. The clinic hours for [facility] are: Wednesday through 7am to 6pm Wednesday 7am to 5pm Wednesday 8am to 12p for Pediatrics only. To contact your Nursing Educator please call [phone]. This is a direct number for your care team during clinic hours. [facility] is now open for your convenience: Wednesday through Wednesday 7:30am to 7pm Wednesday and Wednesday 9am to 3pm They are closed on all major holidays. TERIA ASSOCIATE documented in this encounter Progress Notes Koby Hill MD - 07/14/2016 10:03 AM CST SUBJECTIVE: Rubens Prieto is a 46 year old male who presents to clinic today for the following health issues: Right ear plugged for last 5 days. Presents with feeling of right ear being plugged for 5 days. Has postnasal drainage of mucus, nasal congestion. No fever. No sore throat or cough. No ear Pain or ringing. Has h/o HTN. on medical treatment. BP has been controlled. No side effects from medications. No CP, FOSTER, dizziness. good compliance with medications and low salt diet. PROBLEMS TO ADD ON... Problem list and histories reviewed & adjusted, as indicated. Additional history: none Problem list, Medication list, Allergies, and Medical/Social/Surgical histories reviewed in [facility] andupdated as appropriate. ROS: Constitutional, HEENT, cardiovascular, pulmonary, gi and gu systems are negative, except as otherwise noted. OBJECTIVE: BP 132/70 mmHg Pulse 70 Temp(Src) 98.2 ??F (36.8 ??C) (Oral) Resp 16 Ht 6' 3 (1.905 m) Wt279 lb 6.4 oz (126.735 kg) BMI 34.92 kg/m2 SpO2 100% Body mass index is 34.92 kg/(m^2). GENERAL: healthy, alert and no distress HENT: ear canals- right with erythema and TM erythema, nose and mouth without ulcers or lesions, posterior pharyngeal wall thick mucus secretions NECK: no adenopathy, no asymmetry, masses, or [...] ASSESSMENT/PLAN: Problem List Items Addressed This Visit Essential hypertension Other Visit Diagnoses Postnasal drip - Primary Relevant Medications fluticasone (FLONASE) 50 MCG/ACT spray loratadine-pseudoePHEDrine (CLARITIN-D 24-HOUR) 10-240 MG per 24 hr tablet Dysfunction of eustachian tube, right Relevant Medications fluticasone (FLONASE) 50 MCG/ACT spray loratadine-pseudoePHEDrine (CLARITIN-D 24-HOUR) 10-240 MG per 24 hr tablet Start on decongestant and nasal steroid Reassess if signs of infection, fever, colored d/c Follow-Up: as needed Koby Hill MD [facility] TERIA ASSOCIATE documented in this encounter Nursing Notes Nicky Haywood LPN - 07/14/2016 10:03 AM CST Chief Complaint Patient presents with ??? Ear Problem right ear feels plugged Initial BP 132/70 mmHg Pulse 70 Temp(Src) 98.2 ??F (36.8 ??C) (Oral) Resp 16 Ht 6' 3 (1.905m) Wt 279 lb 6.4 oz (126.735 kg) BMI 34.92 kg/m2 SpO2 100% Estimated body mass index is 34.92 kg/(m^2) as calculated from the following: Height as of this encounter: 6' 3 (1.905 m). Weight as of this encounter: 279 lb 6.4 oz (126.735 kg). BP completed using cuff size: X-large TERIA ASSOCIATE documented in this encounter Plan of Treatment Not on filedocumented as of this encounter Visit Diagnoses Diagnosis Postnasal drip - Primary Dysfunction of Eustachian tube, right Essential hypertension Unspecified essential hypertension documented in this encounter Additional Health Concerns Assessment Noted Time PHQ-9 Depression Total Score: 2 04/17/2016 7:19 AM CDT documented as of this encounter Care Teams Electric Truck Operator Relationship Specialty Start Date End Date Koby Hill MD PCP - General Internal Medicine 10/14/15 [address] [place] [address] documented as of this encounter
--- OUTSIDE RECORDS SUMMARY | 2022-04-03 16:16 | XMS_ITS | Encounter Summary ---
:1970 Author Organization [facility] Address [address] [place] [address] Care Team Providers Name Role Phone Koby Hill MD Primary Care Provider Reason for Referral Consultation - Closed Specialty Diagnoses / Procedures Referred By Contact Refer red To Contact Diagnoses Sore of penis Koby Hill MD [facility] [address] [facility] [address] [place] [address] [address] [place] [address] Phone: [phone] Referral ID Status Reason Start Date Expiration Date Visits Requ ested Visits Authorized [id number] Closed 02/14/2016 02/13/2017 1 1 Reason for Visit Reason Comments Other feels raw around head of pen is x1 month Encounter Details Date Type Department Care Team Description 02/14/2016 Office Visit [facility] Koby Hill, Sor e of penis Clinic Chris GRANT (Primary Dx) [address] [place] [id number] [phone] Social History Tobacco Use Types Packs/Day Years [...] Sign Reading Time Taken Comments Blood Pressure 136/84 02/14/2016 10:45 AM CDT Pulse 89 02/14/2016 10:45 AM CDT Temperature 37.2 ??C (98.9 ??F) 02/14/2016 10:45 AM CDT Respiratory Rate - - Oxygen Saturation 99% 02/14/2016 10:45 AM CDT Inhaled Oxygen Concentration - - Weight 123.4 kg (272 lb 1.6 oz) 02/14/2016 10:45 AM CDT Height 193 cm (6' 4) 02/14/2016 10:45 AM CDT Body Mass Index 33.12 02/14/2016 10:45 AM CDT documented in this encounter Progress Notes Koby Hill MD - 02/14/2016 10:44 AM CDT SUBJECTIVE: Rubens Prieto is a 45 year old male who presents to clinic today for the following health issues: PT is here c/o rawness around the head of the penis x1 month no burning when urinating, no discharge, pain when it gets to raw. Presents with a sore on the penis. For a month , unable to heal. Gets open with pulling of the foreskin, on the right base of the penis head. No urethral discharge, no LA. PROBLEMS TO ADD ON... Problem list and histories reviewed & adjusted, as indicated. Additional history: none Problem list, Medication list, Allergies, and Medical/Social/Surgical histories reviewed in [facility] andupdated as appropriate. ROS: Constitutional, HEENT, cardiovascular, pulmonary, gi and gu systems are negative, except as otherwise noted. OBJECTIVE: BP 136/84 mmHg Pulse 89 Temp(Src) 98.9 ??F (37.2 ??C) (Oral) Ht 6' 4 (1.93 m) Wt 272 lb 1.6oz (123.424 kg) BMI 33.13 kg/m2 SpO2 99% Body mass index is 33.13 kg/(m^2). GENERAL: healthy, alert and no distress (male): normal male genitalia , no urethral discharge, no hernia, ulcer on the right penis side at the joya of the head area MS: no gross musculoskeletal defects noted, no edema Diagnostic Test Results: none ASSESSMENT/PLAN: Problem List Items Addressed This Visit None Visit Diagnoses Sore of penis - Primary Relevant Orders UROLOGY ADULT REFERRAL Anti Treponema (Completed) NEISSERIA GONORRHOEA PCR (Completed) CHLAMYDIA TRACHOMATIS PCR (Completed) Assess for STD Refer to urology Symptomatic topical vaseline application Follow-Up:as needed Koby Hill MD [facility] documented in this encounter Nursing Notes Anshu Tyler - 02/14/2016 10:46 AM CDT Chief Complaint Patient presents with ??? Other feels raw around head of penis x1 month Initial BP 136/84 mmHg Pulse 89 Temp(Src) 98.9 ??F (37.2 ??C) (Oral) Ht 6' 4 (1.93 m) Wt 272 lb 1.6 oz (123.424 kg) BMI 33.13 kg/m2 SpO2 99% Estimated body mass index is 33.13 kg/(m^2) as calculated from the following: Height as of this encounter: 6' 4 (1.93 m). Weight as of this encounter: 272 lb 1.6 oz (123.424 kg). BP completed using cuff size: large Anshu Tyler MA documented in this encounter Plan of Treatment Scheduled Referrals Name Type Priority Associated Diagnoses Order S chedule UROLOGY ADULT REFERRAL Referral Routine Sore of penis Orde red: 02/14/2016 documented as of this encounter Procedures Procedure Name Priority Date/Time Associated Comments Diagnosis NEISSERIA GONORRHOEAE Routine 02/14/2016 11:11 Sore of penis R esults for this PCR AM CDT procedure are i n the results section. CHLAMYDIA TRACHOMATIS Routine 02/14/2016 11:11 Sore of penis R esults for this PCR AM CDT procedure are i n the results section. ANTI TREPONEMA Routine 02/14/2016 11:11 Sore of penis Results for this AM CDT procedure are i n the results section. documented in this encounter Results CHLAMYDIA TRACHOMATIS PCR (02/14/2016 11:11 AM CDT) Component Value Ref Test Analysis Performed At [facility] Method Time Signature Specimen Urine [facility] Chlamydia Negative NEG [facility] Trachomatis Negative for C. trachomatis rRNA by open hearth helper mediated amplification. [facility] A negative result by transc ription mediated amplification does not preclude the [facility] presence of C. trachomatis infection because re sults are dependent on proper BANK and adequate collection, absence of inhibitors, and suffici ent rRNA to be detected. Specimen Anatomical Collection Method Collection Time Receive d Time (Source) Location / / Volume Laterality Urine specimen 02/14/2016 11:11 6 (specimen) AM CDT 11:17 AM CDT Koby Hill MD LAB - MICRO GENERAL ORDERABL ES Performing Organization Address City/[facility]/ZIP Code Phon e Number [place] [address] [place], [place] [address] [address] NEISSERIA GONORRHOEA PCR (02/14/2016 11:11 AM CDT) Component Value Ref Test Analysis Performed At [facility] Method Time Signature Specimen Urine [facility] N Gonorrhea Negative NEG [facility] PCR Negative for N. gonorrhoeae rRNA by transcripti on mediated amplification. [facility] A negative result by transc ription mediated amplification does not preclude the [facility] presence of N. gonorrhoeae infection because re sults are dependent on proper BANK and adequate collection, absence of inhibitors, and suffici ent rRNA to be detected. Specimen Anatomical Collection Method Collection Time Receive d Time (Source) Location / / Volume Laterality Urine specimen 02/14/2016 11:11 6 (specimen) AM CDT 11:17 AM CDT Koby Hill MD LAB - MICRO GENERAL ORDERABL ES Performing Organization Address City/[facility] Phon e Number [id number] [place] [address] [address] [place], [place] [address] [address] Anti Treponema (02/14/2016 11:11 AM CDT) Analysis Performed At Patho logist Time Signature Treponema Negative NEG [facility] Specimen Anatomical Collection Method Collection Time Receive d Time (Source) Location / / Volume Laterality Blood specimen 02/14/2016 11:11 6 (specimen) AM CDT 11:16 AM CDT Koby Hill MD LAB - BLOOD ORDERABLES Performing Organization Address City/State/ZIP Code Phon e Number [facility] [address] [place], [place] [phone] [place] [address] documented in this encounter Visit Diagnoses Diagnosis Sore of penis - Primary Other specified disorder of penis documented in this encounter Additional Health Concerns Assessment Noted Time PHQ-9 Depression Total Score: 2 11/13/2015 7:20 AM CDT documented as of this encounter Care Teams Hood Maker Relationship Specialty Start Date End Date Koby Hill MD PCP - General Internal Medicine 10/14/15 [address] [place] [address] documented as of this encounter
--- OUTSIDE RECORDS SUMMARY | 2022-04-03 16:16 | XMS_ITS | Encounter Summary ---
:1970 Author Organization [facility] Address [address] [place] [address] Care Team Providers Name Role Phone Koby Hill MD Primary Care Provider Encounter Details Date Type Department Care Team Description 10/18/[address] [facility] vated fasting glucose (Primary Dx); [facility] Essential hypertension; [address] [place] [address] Social History Tobacco Use [...] this encounter Miscellaneous Notes Addendum Note - Polly Warner CMA - 10/22/2015 3:36 PM CDT Addended by: POLLY WARNER on: 10/22/2015 03:36 PM Modules accepted: Orders documented in this encounter Plan of Treatment Not on filedocumented as of this encounter Procedures Procedure Name Priority Date/Time Associated Diagnosis Comme nts TESTOSTERONE FREE AND Routine 10/18/2015 8:56 Essential Res ults for this TOTAL AM CDT hypertension procedure are in Chronic fatigue the results section. TSH WITH FREE T4 Routine 10/18/2015 8:56 Essential Results for this REFLEX AM CDT hypertension procedure are in Chronic fatigue the results section. LIPID REFLEX TO DIRECT Routine 10/18/2015 8:56 Essential Re sults for this LDL PANEL AM CDT hypertension procedure are i n the results section. COMPREHENSIVE Routine 10/18/2015 8:56 Essential Results for this METABOLIC PANEL AM CDT hypertension procedure ar e in the results section. CBC WITH PLATELETS Routine 10/18/2015 8:56 Essential Result s for this AM CDT hypertension procedure are i n the results section. documented in this encounter Results Hemoglobin A1c (10/24/2015 8:21 AM CDT) athologist Signature Hemoglobin A1C 5.6 4.3 - 6.0 [facility] Specimen Anatomical Collection Method Collection Time Receive d Time (Source) Location / / Volume Laterality Blood specimen 10/24/2015 8:21 AM 016 8:26 (specimen) CDT AM CDT Koby Hill MD LAB - BLOOD ORDERABLES Performing Organization Address City/[facility]/ZIP Code Phon e Number [facility] [address] [place], [place] [address] [address] TSH with free T4 reflex (10/18/2015 8:56 AM CDT) athologist Signature TSH 2.32 0.40 - 4.00 [facility] mU/L [facility] Specimen Anatomical Collection Method Collection Time Receive d Time (Source) Location / / Volume Laterality Blood specimen 10/18/2015 8:56 AM 016 9:02 (specimen) CDT AM CDT Koby Hill MD LAB - BLOOD ORDERABLES Performing Organization Address City/[facility]/ZIP Code Phon e Number [facility] [address] [place] [address] Testosterone Free and Total (10/18/2015 8:56 AM CDT) Analysis Performed At [facility] logist Time Signature Testosterone 473 240 - 950 [facility] Total ng/dL [facility] Comment: This test was developed and its performa nce characteristics determined by the [facility], ??Special Chemistry Laboratory. It has not been cleared or approved by the FDA . The laboratory is regulated under CLIA as qualified to perform high-complexity testing. This test is used for clinical purposes. It should not be regarded as investigational or for research. Sex Hormone Binding Globulin 29 11 - 80 nmol/L [facility] Free Testosterone Calculated 10.59 4.7 - 24.4 ng/dL [facility] Specimen Anatomical Collection Method Collection Time Receive d Time (Source) Location / / Volume Laterality Blood specimen 10/18/2015 8:56 AM 016 9:02 (specimen) CDT AM CDT Koby Hill MD LAB - BLOOD ORDERABLES Performing Organization Address City/State/ZIP Code Phon e Number [address] [address] [facility] CBC with platelets (10/18/2015 8:56 AM CDT) athologist Signature WBC 8.1 4.0 - 11.0 [place] 10e9/L [facility] RBC Count 4.86 4.4 - 5.9 [place] 10e12/L [facility] Hemoglobin 14.9 13.3 - [place] 17.7 g/dL [facility] Hematocrit 44.4 40.0 - [facility] 53.0 % [facility] MCV 91 78 - 100 [place] fl [facility] MCH 30.7 26.5 - [facility] 33.0 pg [facility] MCHC 33.6 31.5 - [facility] 36.5 g/dL [facility] RDW 12.3 10.0 - [facility] 15.0 % [facility] Platelet Count 229 150 - 450 [place] 10e9/L [facility] Specimen Anatomical Collection Method Collection Time Receive d Time (Source) Location / / Volume Laterality Blood specimen 10/18/2015 8:56 AM 016 9:02 (specimen) CDT AM CDT Koby Hill MD LAB - BLOOD ORDERABLES Performing Organization Address City/State/ZIP Code Phon e Number [facility] [address] [place], [place] [address] [address] (ABNORMAL) Comprehensive metabolic panel (10/18/2015 8:56 AM CDT) [facility] Method Time Signature Sodium 138 133 - 144 [place] mmol/L [facility] Potassium 4.2 3.4 - 5.3 [place] mmol/L [facility] Chloride 103 94 - 109 [place] mmol/L [facility] Carbon Dioxide 31 20 - 32 [place] mmol/L [facility] Anion Gap 4 3 - 14 [place] mmol/L [facility] Glucose 108 (H) 70 - 99 [place] mg/dL [facility] Urea Nitrogen 17 7 - 30 [place] mg/dL [facility] Creatinine 1.09 0.66 - [place] 1.25 mg/dL [facility] GFR Estimate 72 >60 [place] mL/min/1.7 CLINICS m2 [facility] Comment: Non GFR Calc GFR Estimate If Black 88 >60 mL/min/1.7m2 [facility] Comment: GFR Calc Calcium 9.1 8.5 - 10.1 mg/dL [place] CLIN ICS [facility] Bilirubin Total 0.7 0.2 - 1.3 mg/dL [facility] Albumin 4.0 3.4 - 5.0 g/dL [facility] Protein Total 6.4 (L) 6.8 - 8.8 g/dL [place] CL INICS [facility] Alkaline Phosphatase 58 40 - 150 U/L [facility] ALT 56 0 - 70 U/L [facility] AST 20 0 - 45 U/L [facility] Specimen Anatomical Collection Method Collection Time Receive d Time (Source) Location / / Volume Laterality Blood specimen 10/18/2015 8:56 AM 016 9:02 (specimen) CDT AM CDT Koby Hill MD LAB - BLOOD ORDERABLES Performing Organization Address City/State/ZIP Code Phon e Number [facility] [address] [place] [address] (ABNORMAL) Lipid panel reflex to direct LDL (10/18/2015 8:56 AM CDT) Analysis Performed At Patho logist Time Signature Cholesterol 180 <200 mg/dL [facility] Triglycerides 182 (H) <150 mg/dL [facility] Comment: Borderline high: ??150-199 mg/dl High: ? 200-499 mg/dl Very high: ? >499 mg/dl Fasting specimen HDL Cholesterol 59 >39 mg/dL [place] CLINI CS [facility] LDL Cholesterol Calculated 85 <100 mg/dL FA [facility] Comment: Desirable: <100 mg/dl Non HDL Cholesterol 121 <130 mg/dL [facility] Specimen Anatomical Collection Method Collection Time Receive d Time (Source) Location / / Volume Laterality Blood specimen 10/18/2015 8:56 AM 016 9:02 (specimen) CDT AM CDT Koby Hill MD LAB - BLOOD ORDERABLES Performing Organization Address City/State/ZIP Code Phon e Number [facility] [address] [place] [address] documented in this encounter Visit Diagnoses Diagnosis Elevated fasting glucose - Primary Impaired fasting glucose Essential hypertension Unspecified essential hypertension Chronic fatigue Other malaise and fatigue documented in this encounter Care Teams Stone Sawyer Relationship Specialty Start Date End Date Koby Hill MD PCP - General Internal Medicine 10/14/15 [address] [place] [address] documented as of this encounter
--- OUTSIDE RECORDS SUMMARY | 2022-04-03 16:16 | XMS_ITS | Encounter Summary ---
:1970 Author Organization [place] Address [address] [place] [id number] Care Team Providers Name Role Phone [facility] Primary Care Provider Unavailable Reason for Visit Reason Comments Wound Infection Encounter Details Date Type Department Care Team Description 10/09/2015 Emergency [facility] Estuardo Soto P eritonsillar abscess [facility] Emergency Dep t [address] [facility] [id number] [address] [facility] [phone] [place], [place] [address] (Wo rk) Social History Tobacco Use Types Packs/Day Years Used Date Former Smoker Quit: 10/06/19 12 Smokeless Tobacco: Current User Chew Alcohol Use Standard Drinks/Week Comments Yes 0 (1 standard drink = 0.6 oz pure alcoho l) Sex Assigned at Date Recorded Not on file documented as of this encounter Last Filed Vital Signs Vital Sign Reading Time Taken Comments Blood Pressure 146/92 10/09/2015 8:45 PM CDT Pulse 83 10/09/2015 9:00 PM CDT Temperature 36.4 ??C (97.6 ??F) 10/09/2015 8:46 PM CDT Respiratory Rate 18 10/09/2015 9:27 PM CDT Oxygen Saturation 96% 10/09/2015 8:46 PM CDT Inhaled Oxygen Concentration - - Weight - - Height - - Body Mass Index - - documented in this encounter Discharge Instructions Discharge InstructionsMattEstuardo domínguez MD - 10/09/2015 9:22 PM CDT Images from the original note were not included. Please make an appointment to follow up with [facility] in 2 days even if entirely better. Peritonsillar Abscess A peritonsillar abscess is a collection of pus that forms near the tonsils. It is a complication of bacterial infection of the tonsils (tonsillitis). The abscess causes one or both tonsils to swell. The infection and swelling may spread to nearby tissues. If tissues swell enough to block the throat, the condition can become life threatening. It is also dangerous if the abscess bursts and the infection spreads or is breathed into the lungs. The goal is to treat a peritonsillar abscess before it worsens and threatens your health. Signs and Symptoms of Peritonsillar Abscess ?? Severe sore throat (often worse on one side) ?? Swollen and enlarged tonsils ?? Fever and chills ?? Pain when swallowing or trouble opening the mouth ?? Voice changes? Drooling ?? Swollen or tender glands in the neck Diagnosing Peritonsillar Abscess Your doctor will examine you and look inside your mouth and throat. You will be asked about your symptoms and health history. Tests or procedures may be done as well, including those listed below. ?? Throat swab. This test checks for infection. It is done by wiping a sterile cotton swab in the back of the throat. The swab is then sent to a lab for study. ?? Blood tests. These might be done to check how your body is responding to the infection. ?? Ultrasound or computed tomography (CT) scans. These tests provide images of the abscess. They also help rule out other problems. ?? Needle aspiration. This procedure removes a sample of pus from the abscess with a needle. The sample is then sent to a lab to check for infection. In some cases, all of the pus is removed from the abscess. Treating Peritonsillar Abscess The abscess itself can be treated. Treatment of the underlying infection is also needed. Common treatments are listed below. ?? Medications. Antibiotics are needed to treat the underlying infection. These may be taken by mouth or given by IV. Pain relievers may also be given, if needed. ?? Drainage of the abscess. A procedure may be needed to drain the pus from the abscess. Pus may be removed from the abscess with a needle (needle aspiration). Or, a small incision is made in the abscess. The pus is then drained and suctioned from the throat and mouth. This is called incision and drainage. ?? Tonsillectomy. This is surgery to remove the tonsils. It may be done if the abscess does not improve with medications. It may also be done if you have frequent tonsil infections or abscesses. Recovery and Follow-Up Treating the bacterial infection generally relieves the problem. Once the infection resolves you should recover completely. Follow up with your doctor as directed. And if you develop another throat infection, see your doctor promptly. ?? [id number] [employer]. [address] [place] [address], [place] [address]. All rights reserved. This information is not intended as a substitute for professional medical care. Always follow your healthcare professional's instructions. Opioid Medication You have been given a prescription for an opioid (narcotic) pain medicine and/or have received a pain medicine while here in the emergency department. These medicines can make you drowsy or impaired. You must not drive, operate dangerous equipment, or engage in any other dangerous activities while taking these medications. If you drive while taking these medications, you could be arrested for DUI, ordriving under the influence. Do not drink any alcohol while you are taking these medications. Opioid pain medications can cause addiction. If you have a history of chemical dependency of any type, you are at a higher risk of becoming addicted to pain medications. Only take these prescribed medications to treat your pain when all other options have been tried. Take it for as short a time and asfew doses as possible. Store your pain pills in a secure place, as they are frequently stolen and provide a dangerous opportunity for children or visitors in your house to start abusing these powerful medications. We will not replace any lost or stolen medicine. As soon as your pain is better, you should flush all your remaining medication. Many prescription pain medications contain Tylenol (acetaminophen), including Vicodin, Tylenol #3, Donie, Lortab, and Percocet. You should not take any extra pills of Tylenol if you are using these prescription medications or you can get very sick. Do not ever take more than 4000 mg of acetaminophen in any 24 hour period. All opioids tend to cause constipation. Drink plenty of water and eat foods that have a lot of fiber, such as fruits, vegetables, prune juice, apple juice and high fiber cereal. Take a laxative if you don???t move your bowels at least every other day. Miralax, Milk of Magnesia, Colace, or Senna can beused to keep you regular. documented in this encounter Medications at Time of Discharge Medication Sig Dispensed Refills Start Date End Date amphetamine-dextroampheta Take by mouth daily 0 mine (ADDERALL XR) 30 MG per capsule buPROPion (WELLBUTRIN SR) Take 300 mg by 0 150 MG 12 hr tablet mouth daily ibuprofen (ADVIL,MOTRIN) Take 200 mg by 0 200 MG tablet mouth every 4 hours as needed for mild pain omeprazole (PRILOSEC) 40 Take by mouth daily 0 MG capsule amLODIPine (NORVASC) 5 MG Take 5 mg by mouth 0 10/14/2015 tablet daily clindamycin (CLEOCIN) 300 Take 1 capsule (300 30 capsule 0 0 10/06/2015 11/12/2015 MG capsuleIndications: mg) by mouth 3 Peritonsillar abscess times daily HYDROcodone-acetaminophen Take 1 tablet by 20 tablet 0 09/1011/12/2015 (NORCO) 5-325 MG per mouth every 6 hours tabletIndications: as needed Peritonsillar abscess oxyCODONE-acetaminophen Take 1-2 tablets by 15 tablet 0 10/14/2015 (PERCOCET) 5-325 MG per mouth every 4 hours tablet as needed for pain predniSONE (DELTASONE) 20 Take two tablets (= 10 tablet 0 0 10/09/2015 11/12/2015 MG tablet 40mg) each day for 5 (five) days valsartan-hydrochlorothia Take 1 tablet by 0 10/14/2015 zide (DIOVAN-HCT) mouth daily 320-12.5 MG per tablet documented as of this encounter ED Notes Kailyn Carlisle RN - 10/09/2015 8:45 PM CDT Pt with sore throat since Wednesday, has known peritonsillar abscess, saw ENT Wednesday and last night in ED for drainage. Pain initially better but worse throughout the day. Denies fevers. ABC's intact, alert and oriented X3. Estuardo Soto MD - 10/09/2015 8:45 PM CDT History Chief Complaint: Sore Throat HPI Rubens Prieto is a 45 year old male who presents with sore throat. The patient states he began experiencing a sore throat on 10/04/2015. He states he went to an urgent care clinic on 10/05 and was told he had an abscessed tonsil. He was given antibiotics and steroids. The patient went to his ENT on 10/06 and states they were able to drain a small amount of his abscess but not too much. He states thatyesterday his pain was so unbearable and that swallowing was so difficult that he presented to the ED last night. The patient states they drained a syringe full of fluid from the abscess. He was given decadron last night and states that he felt better last night and this morning. The patient states that at 1530 today his sore throat returned. He stated that his pain is about fpc to where it waslast night but decided to present to the ED before it got as bad as it did last night. The patient states he is having some difficulty swallowing and can only swallow foods that are soft. The patient st ates he could taste some drainage this morning, but denies any current drainage. The patient denies fever and chills. Allergies: Amoxicillin/ Penicillins Medications: Percocet Norvasc Diovan Wellbutrin Prilosec Adderall Ibuprofen Cleocin Donie Deltasone Past Medical History: History reviewed. No significant past medical history. Past Surgical History: History reviewed. No significant past surgical history. Family History: Mother: HTN Social History: Relationship status: The patient is a former smoker. Quit date 2011. The patient current uses chewing tobacco. The patient denies alcohol use. Review of Systems Constitutional: Negative for fever and chills. HENT: Positive for mouth sores, sore throat and trouble swallowing. All other systems reviewed and are negative. Physical Exam First Vitals: Patient Vitals for the past 24 hrs: BP Temp Temp src Pulse Heart Rate Resp SpO2 10/09/15 2127 - - - - - 18 - 10/09/15 2100 - - - 83 - - - 10/09/152045 - 97.6 ??F (36.4 ??C) Oral 103 103 18 96 % 10/09/152044 (!) 146/92 mmHg - - - - - 98 % Physical Exam GEN: Pleasant, age appropriate. Resting comfortably in the bed. HEENT: Tympanic membranes are clear bilaterally. Oropharynx is moist. Bilateral tonsillar erythema without exudate. Mild asymmetric edema of the left tonsil; no active drainage. No deviation of the uvula. Left tonsil palpated with tenderness but no fluctuance or focal mass. No pooling of secretions, trismus or sublingual edema. Eyes: Conjunctiva normal, PERRL Neck: Supple, no meningismus. No pain with manipulation of the hyoid. CV: Regular rate and rhythm, no murmurs, rubs or gallops. PULM: Clear to auscultation bilaterally. No respiratory distress. No stridor. ABD: Soft, non-tender, non-distended. No rebound or guarding. No splenomegaly. MSK: No gross deformity to all four extremities. LYMPH: No cervical lymphadenopathy. NEURO: Alert. Normal muscular tone, no atrophy. Skin: Warm, dry and intact. PSYCH: Mood is good and affect is appropriate. Emergency Department Course Procedures: [facility] Procedure Note Limited Bedside ED Ultrasound of Soft Tissue: PROCEDURE: PERFORMED BY: Dr. Estuardo Soto INDICATIONS/SYMPTOM: Sore throat PROBE: High frequency linear probe BODY LOCATION: Soft tissue located on Left tonsil FINDINGS: Cobblestoning of soft tissue: absent Hypoechoic fluid (ie abscess) identified: absent INTERPRETATION: The soft tissue and muscle layers were evaluated. Findings indicate No residual abscess IMAGE DOCUMENTATION: Images were archived to hard drive. Interventions: 2100 Lidocaine, 3 mL, Nebulization ED Course: Nursing notes and vitals reviewed. I performed an exam of the patient as documented above. I explained the plan with the patient who consents to this. A bedside ultrasound was performed as documented above I personally reviewed the imaging results with the Patient and answered all related questions prior to discharge. Findings and plan explained to the Patient. Patient discharged home with instructions regarding supportive care, medications, and reasons to return. The importance of close follow-up was reviewed. Impression & Plan Medical Decision Making: Rubens Prieto is a 45 year old male with recent diagnosis of left peritonsillar abscess. The patient was recently in the ED in which he underwent incision and drainage. The patient returns because his pain has worsened but is certainly not back at the level for which he presented yesterday. He doeshave some mild asymmetric edema to the left tonsillar pillar. I recommended ultrasound to evaluate for residual abscess. The patient underwent soft tissue ultrasound which reveals no residual or recurrent abscess at this time. Thus there is no indication for a repeat incision and drainage or aspiration. The patient will have his steroids continued for an additional few days along with a refill of hispercocet. The patient is encouraged to urgently follow up with ENT Diagnosis: ICD-10-CM 1. Peritonsillar abscess J36 Disposition: Discharge to home with ENT follow up. Mina Presley, olvin serving as a scribe on 10/09/2015 at 8:45 PM to personally document services performed by Estuardo Soto MD, based on my observations and the provider's statements to me. Estuardo Soto MD 10/10/15 0002 documented in this encounter Plan of Treatment Not on filedocumented as of this encounter Visit Diagnoses Diagnosis Peritonsillar abscess documented in this encounter Administered Medications Inactive Administered Medications - up to 3 most recent administrations Medication Order MAR Action Action Date Dose Rate Site lidocaine inhalant 4% nebulizer Given 10/09/2015 9:00 PM CDT 3 m Ls solution 3 mL 3 mL, Nebulization, ONCE, On Wed10/09/15 at 2054, For 1 dose documented in this encounter Active and Recently Administered Medications Times are shown in CDT. Scheduled Medication Order 10/07/2015 10/08/2015 10/09/2015 lidocaine inhalant 4% nebulizer solution 3 mL (COMPLETED) 2100 (Given - Provider: Can Luis RN) 3 mL, Nebulization, ONCE, Wed10/09/15 at 2054, For 1 dose documented in this encounter Care Teams Computer Network Engineer Relationship Specialty Start Date End Date [facility] PCP - General 10/09/15 documented as of this encounter
--- OUTSIDE RECORDS SUMMARY | 2022-04-03 16:16 | XMS_ITS | Encounter Summary ---
:1970 Author Organization [place] Address [address] [place] [address] Care Team Providers Name Role Phone Koby Hill MD Primary Care Provider Reason for Visit Reason Comments Hand Injury Puncture wound left index fi nger, drill slipped while he was using it (see 02/17/[address]). Finger is sore, swollen, and was weeping this morning. Encounter Details Date Type Department Care Team Description 02/18/[address] [facility] Koby Hill, Nadir nd infection (Primary Dx); Clinic [facility] Major depressive disorder, recurrent epi sode, mild (H) [address] [place] [address] [place] [phone] Social History Tobacco Use Types Packs/Day Years [...] Sign Reading Time Taken Comments Blood Pressure 132/74 02/18/2016 3:21 PM CDT Pulse 84 02/18/2016 3:21 PM CDT Temperature 37.1 ??C (98.8 ??F) 02/18/2016 3:21 PM CDT Respiratory Rate - - Oxygen Saturation 97% 02/18/2016 3:21 PM CDT Inhaled Oxygen Concentration - - Weight 125.2 kg (276 lb) 02/18/2016 3:21 PM CDT Height 193 cm (6' 4) 02/18/2016 3:21 PM CDT Body Mass Index 33.6 02/18/2016 3:21 PM CDT documented in this encounter Progress Notes Koby Hill MD - 02/18/2016 3:18 PM CDT SUBJECTIVE: Rubens Prieto is a 45 year old male who presents to clinic today for the following health issues: Finger injury Presents with left index finger puncture wound. Sustained 2 days ago , drilled his finger incidentally while working with wood. Has pain, swelling. No wound drainage, no fever Had an X ray done , no evidence of foreign bodies or bone involvement. Up to date on Td. PROBLEMS TO ADD ON... Has h/o depression. On medical treatment, controlled, no side effects. No depressive symptoms or suicidal ideation. Problem list and histories reviewed & adjusted, as indicated. Additional history: none Problem list, Medication list, Allergies, and Medical/Social/Surgical histories reviewed in [facility] andupdated as appropriate. ROS: Constitutional, HEENT, cardiovascular, pulmonary, gi and gu systems are negative, except as otherwise noted. OBJECTIVE: BP 132/74 mmHg Pulse 84 Temp(Src) 98.8 ??F (37.1 ??C) (Oral) Ht 6' 4 (1.93 m) Wt 276 lb (125.193 kg) BMI 33.61 kg/m2 SpO2 97% Body mass index is 33.61 kg/(m^2). GENERAL: healthy, alert and no distress MS: no gross musculoskeletal defects noted, no edema Left index finger distal phalanx , adjacent to the DIP joint skin perforation on the flexor surface,surrounding erythema, mild edema. Palpatory tender, no drainage. Diagnostic Test Results: Results for orders placed or performed in visit on 02/17/16 XR Finger Left G/E 2 Views Narrative XR FINGER LT G/E 2 VW 02/17/2016 2:57 PM HISTORY: Unspecified injury of unspecified wrist, hand and finger(s), initial encounter Impression IMPRESSION: No apparent fracture or dislocation. CATHY PINEDA MD ASSESSMENT/PLAN: Problem List Items Addressed This Visit Major depressive disorder, recurrent episode, mild (H) Relevant Medications clindamycin (CLEOCIN) 150 MG capsule Other Relevant Orders DEPRESSION ACTION PLAN (DAP) (Completed) Other Visit Diagnoses Wound infection - Primary Clinically mild cellulitis, start on antibiotic, topical dressing/ bacitracin, watch for increased redness, swelling, drainage. Cont rest of medications Medications side effects advised Follow-Up:if not improved in 2-3 days Koby Hill MD [facility] documented in this encounter Nursing Notes Polly Garcia CMA - 02/18/2016 3:24 PM CDT Chief Complaint Patient presents with ??? Hand Injury Puncture wound left index finger, drill slipped while he was using it (see 02/17/16 telephone encounter). Finger is sore, swollen, and was weeping this morning. Initial BP 132/74 mmHg Pulse 84 Temp(Src) 98.8 ??F (37.1 ??C) (Oral) Ht 6' 4 (1.93 m) Wt 276 lb (125.193 kg) BMI 33.61 kg/m2 SpO2 97% Estimated body mass index is 33.61 kg/(m^2) as calculated from the following: Height as of this encounter: 6' 4 (1.93 m). Weight as of this encounter: 276 lb (125.193 kg). BP completed using cuff size: large Polly Garcia CMA documented in this encounter Plan of Treatment Not on filedocumented as of this encounter Visit Diagnoses Diagnosis Wound infection - Primary Posttraumatic wound infection not elsewh ere classified Major depressive disorder, recurrent epi sode, mild (H) Major depressive disorder, recurrent epi sode, mild documented in this encounter Additional Health Concerns Assessment Noted Time PHQ-9 Depression Total Score: 2 11/13/2015 7:20 AM CDT documented as of this encounter Care Teams Sound Mixer Relationship Specialty Start Date End Date Koby Hill MD PCP - General Internal Medicine 10/14/15 [address] [place] [address] documented as of this encounter
--- OUTSIDE RECORDS SUMMARY | 2022-04-03 16:16 | XMS_ITS | Encounter Summary ---
:1970 Author Organization [facility] Address [address] [place] [address] Care Team Providers Name Role Phone Koby Hill MD Primary Care Provider Reason for Visit Reason Comments Pre-Op Exam rt knee Encounter Details Date Type Department Care Team Description 05/25/[address] [facility] Daya Salcido Preop [facility] PAIGE Carlos physical exam [address] (Primary Dx) [place] [id number] [phone] Social History Tobacco Use Types Packs/Day Years Used Date Former Smoker Quit: 10/06/19 12 Smokeless Tobacco: Current User Chew Tobacco Cessation: Ready to Quit: No; Co unseling Given: No Alcohol Use Standard Drinks/Week Comments Yes 0 [...] Sign Reading Time Taken Comments Blood Pressure 128/72 05/25/2016 9:59 AM BLANKET WINDER OPERATOR Pulse 101 05/25/2016 9:59 AM BLANKET WINDER OPERATOR Temperature 36.8 ??C (98.3 ??F) 05/25/2016 9:59 AM BLANKET WINDER OPERATOR Respiratory Rate 16 05/25/2016 9:59 AM BLANKET WINDER OPERATOR Oxygen Saturation 99% 05/25/2016 9:59 AM BLANKET WINDER OPERATOR Inhaled Oxygen Concentration - - Weight 126.8 kg (279 lb 8 oz) 05/25/2016 9:59 AM BLANKET WINDER OPERATOR Height 193 cm (6' 4) 05/25/2016 9:59 AM BLANKET WINDER OPERATOR Body Mass Index 34.02 05/25/2016 9:59 AM BLANKET WINDER OPERATOR documented in this encounter Patient Instructions Patient InstructionsAntonieta Mercado MA - 05/25/2016 10:00 AM CST Before Your Surgery ??? Call your surgeon if there is any change in your health. This includes signs of a cold or flu (such as a sore throat, runny nose, cough, rash or fever). ??? Do not smoke, drink alcohol or take over the counter medicine (unless your surgeon or primary care doctor tells you to) for the 24 hours before and after surgery. ??? If you take prescribed drugs: Follow your doctor???s orders about which medicines to take and which to stop until after surgery. ??? Eating and drinking prior to surgery: follow the instructions from your surgeon ??? Take a shower or bath the night before surgery. Use the soap your surgeon gave you to gently clean your skin. If you do not have soap from your surgeon, use your regular soap. Do not shave or scrubthe surgery site. Wear clean pajamas and have clean sheets on yo ??? ur bed. Daya Salcido OUTSIDE LABORER KET WINDER OPERATOR documented in this encounter Progress Notes Daya Salcido NP - 05/25/2016 10:00 AM CST [address] [address] Dept: [phone] PRE-OP EVALUATION: Today's date: 05/25/2016 Rubens Prieto (: 1970) presents for pre-operative evaluation assessment as requested by Dr. Gambino. He requires evaluation and anesthesia risk assessment prior to undergoing surgery/procedure for treatment of Rt knee meniscus tear. Proposed procedure: R knee arthroscopy Date of Surgery/ Procedure: 05/27/16 Time of Surgery/ Procedure: 940am Hospital/Surgical Facility: [facility] Specialty Primary Physician: Koby Hill Type of Anesthesia Anticipated: General Patient has a Health Care Directive or Living Will: NO 1. NO - Do you have a history of heart attack, stroke, stent, bypass or surgery on an artery in the head, neck, heart or legs? 2. NO - Do you ever have any pain or discomfort in your chest? 3. NO - Do you have a history of Heart Failure? 4. NO - Are you troubled by shortness of breath when: walking on the level, up a slight hill or at night? 5. NO - Do you currently have a cold, bronchitis or other respiratory infection? 6. NO - Do you have a cough, shortness of breath or wheezing? 7. NO - Do you sometimes get pains in the calves of your legs when you walk? 8. NO - Do you or anyone in your family have previous history of blood clots? 9. NO - Do you or does anyone in your family have a serious bleeding problem such as prolonged bleeding following surgeries or cuts? 10. NO - Have you ever had problems with anemia or been told to take iron pills? 11. NO - Have you had any abnormal blood loss such as black, tarry or bloody stools, or abnormal vaginal bleeding? 12. NO - Have you ever had a blood transfusion? 13. NO - Have you or any of your relatives ever had problems with anesthesia? 14. NO - Do you have sleep apnea, excessive snoring or daytime drowsiness? 15. NO - Do you have any prosthetic heart valves? 16. Yes - Do you have prosthetic joints? L knee total replacement 17. NO - Is there any chance that you may be ? HPI: Brief HPI related to upcoming procedure: R knee meniscal tear HYPERTENSION - Patient has longstanding history of mod-severe HTN , currently denies any symptoms referable to elevated blood pressure. Specifically denies chest pain, palpitations, dyspnea, orthopnea,PND or peripheral edema. Blood pressure readings have been in normal range. Current medication regimen is as listed below. Patient denies any side effects of medication. . MEDICAL HISTORY: Patient Active Problem List Diagnosis Date Noted ??? Right knee pain 04/16/2016 Priority: Medium ??? Major depressive disorder, recurrent episode, mild (H) 10/14/2015 Priority: Medium ??? Essential hypertension 10/14/2015 Priority: Medium ??? Gastroesophageal reflux disease without esophagitis 10/14/2015 Priority: Medium ??? Attention deficit hyperactivity disorder (ADHD), combined type 10/14/2015 Priority: Medium Past Medical History Diagnosis Date ??? HTN (hypertension) ??? GERD (gastroesophageal reflux disease) ??? ADHD (attention deficit hyperactivity disorder) ??? Depression Past Surgical History Procedure Laterality Date ??? Knee surgery Left 2015 knee arthroplasty - total Current Outpatient Prescriptions Medication Sig Dispense Refill ??? eszopiclone (LUNESTA) 3 MG tablet Take 3 mg by mouth At Bedtime 0 ??? VIAGRA 100 MG tablet ??? NUVIGIL 250 MG TABS Take 250 mg by mouth as needed 0 ??? ARIPiprazole (ABILIFY) 5 MG tablet Take 1 tablet (5 mg) by mouth At Bedtime 30 tablet 1 ??? amLODIPine (NORVASC) 5 MG tablet Take [...] per capsule Take by mouth daily ??? ibuprofen (ADVIL,MOTRIN) 200 MG tablet Take 200 mg by mouth every 4 hours as needed for mild pain ??? order for DME Equipment being ordered: right knee sleeve-open patella. 1 Device 0 OTC products: None, except as noted above Allergies Allergen Reactions ??? Amoxicillin Latex Allergy: NO Social History Substance Use Topics ??? Smoking status: Former Smoker Quit date: 10/06/2011 ??? Smokeless tobacco: Current User Types: Chew ??? Alcohol Use: 0.0 oz/week 0 Standard drinks or equivalent per week Comment: 2-3 drinks daily History Drug Use No REVIEW OF SYSTEMS: C: NEGATIVE for fever, chills, change in weight E/M: NEGATIVE for ear, mouth and throat problems R: NEGATIVE for significant cough or SOB CV: NEGATIVE for chest pain, palpitations or peripheral edema GI: NEGATIVE for nausea, abdominal pain, heartburn, or change in bowel habits M: NEGATIVE for significant arthralgias or myalgia H: NEGATIVE for bleeding problems EXAM: BP 128/72 mmHg Pulse 101 Temp(Src) 98.3 ??F (36.8 ??C) (Oral) Resp 16 Ht 6' 4 (1.93 m) Wt279 lb 8 oz (126.78 kg) BMI 34.04 kg/m2 SpO2 99% GENERAL APPEARANCE: healthy, alert and no distress HENT: ear canals and TM's normal and nose and mouth without ulcers or lesions NECK: no adenopathy, no asymmetry, masses, or scars and thyroid normal to palpation RESP: lungs clear to auscultation - no rales, rhonchi or wheezes CV: regular rates and rhythm, normal S1 S2, no S3 or S4 and no murmur, click or rub - ABDOMEN: soft, nontender, no HSM or masses and bowel sounds normal MS: extremities normal- no gross deformities noted, no evidence of inflammation in joints, FROM in all extremities. NEURO: Normal strength and tone, sensory exam grossly normal, mentation intact and speech normal PSYCH: mentation appears normal. and affect normal/bright LYMPHATICS: No axillary, cervical, inguinal, or supraclavicular nodes DIAGNOSTICS: EKG: Not indicated due to non-vascular surgery and low risk of event (age <65 and without cardiacrisk factors) Recent Labs Lab Test 10/24/15 0821 10/18/15 0856 HGB -- 14.9 PLT -- 229 NA -- 138 POTASSIUM -- 4.2 CR -- 1.09 A1C 5.6 -- IMPRESSION: Reason for surgery/procedure: R knee meniscal tear The proposed surgical procedure is considered LOW risk. REVISED CARDIAC RISK INDEX The patient has the following serious cardiovascular risks for perioperative complications such as (FL, PE, VFib and 3?? AV Block): No serious cardiac risks INTERPRETATION: 0 risks: Class I (very low risk - 0.4% complication rate) The patient has the following additional risks for perioperative complications: No identified additional risks (Z01.818) Preop general physical exam (primary encounter diagnosis) Comment: Plan: CBC with platelets, Basic metabolic panel RECOMMENDATIONS: Signed Electronically by: Daya Salcido NP Copy of this evaluation report is provided to requesting physician. Mac Preop Guidelines KET WINDER OPERATOR documented in this encounter Nursing Notes Antonieta Mercado MA - 05/25/2016 10:00 AM CST Chief Complaint Patient presents with ??? Pre-Op Exam rt knee Initial BP 128/72 mmHg Pulse 101 Temp(Src) 98.3 ??F (36.8 ??C) (Oral) Resp 16 Ht 6' 4 (1.93m) Wt 279 lb 8 oz (126.78 kg) BMI 34.04 kg/m2 SpO2 99% Estimated body mass index is 34.04 kg/(m^2) as calculated from the following: Height as of this encounter: 6' 4 (1.93 m). Weight as of this encounter: 279 lb 8 oz (126.78 kg). BP completed using cuff size: large KET WINDER OPERATOR documented in this encounter Plan of Treatment Not on filedocumented as of this encounter Procedures Procedure Name Priority Date/Time Associated Diagnosis Comme nts BASIC METABOLIC Routine 05/25/2016 10:39 AM Preop general Resu lts for this PANEL BLANKET WINDER OPERATOR physical exam procedure are in the results section. CBC WITH PLATELETS Routine 05/25/2016 10:39 AM Preop general R esults for this BLANKET WINDER OPERATOR physical exam procedure are in the results section. documented in this encounter Results (ABNORMAL) Basic metabolic panel (05/25/2016 10:39 AM BLANKET WINDER OPERATOR) Analysis Performed At [facility] logis Time Signature Sodium 139 133 - 144 [place] mmol/L [facility] Potassium 3.8 3.4 - 5.3 [place] mmol/L [facility] Chloride 105 94 - 109 [place] mmol/L [facility] Carbon Dioxide 27 20 - 32 [place] mmol/L [facility] Anion Gap 7 3 - 14 [place] mmol/L [facility] Glucose 164 (H) 70 - 99 [place] mg/dL [facility] Comment: Non Fasting Urea Nitrogen 12 7 - 30 mg/dL [place] [facility] Creatinine 1.06 0.66 - 1.25 mg/dL [place] [facility] GFR Estimate 75 >60 mL/min/1.7m2 [facility] C [facility] Comment: Non GFR Calc GFR Estimate If >90 >60 mL/min/1.7m2 [facility] Black GFR Calc [facility] Calcium 9.3 8.5 - 10.1 mg/dL [place] [facility] Specimen Anatomical Collection Method Collection Time Receive d Time (Source) Location / / Volume Laterality Blood specimen 05/25/2016 10:39 6 (specimen) AM BLANKET WINDER OPERATOR 10:44 AM BLANKET WINDER OPERATOR Daya Salcido QA SOFTWARE TESTER LAB - BLOOD ORDERABLES Performing Organization Address City/State/ZIP Code Phon e Number [facility] [address] [place] [address] CBC with platelets (05/25/2016 10:39 AM BLANKET WINDER OPERATOR) P athologist Signature WBC 6.5 4.0 - 11.0 [place] 10e9/L [facility] RBC Count 4.93 4.4 - 5.9 [place] 10e12/L [facility] Hemoglobin 15.3 13.3 - [place] 17.7 g/dL [facility] Hematocrit 44.9 40.0 - [place] 53.0 % [facility] MCV 91 78 - 100 [facility] MCH 31.0 26.5 - [place] 33.0 pg [facility] MCHC 34.1 31.5 - [place] 36.5 g/dL [facility] RDW 12.6 10.0 - [place] 15.0 % [facility] Platelet Count 192 150 - 450 [place] 10e9/L [facility] Specimen Anatomical Collection Method Collection Time Receive d Time (Source) Location / / Volume Laterality Blood specimen 05/25/2016 10:39 6 (specimen) AM BLANKET WINDER OPERATOR 10:44 AM BLANKET WINDER OPERATOR Daya Salcido QA SOFTWARE TESTER LAB - BLOOD ORDERABLES Performing Organization Address City/[facility]/ZIP Code Phon e Number [facility] [address] [place], [place] [address] [address] documented in this encounter Visit Diagnoses Diagnosis Preop general physical exam - Primary Other specified pre-operative examinatio n documented in this encounter Additional Health Concerns Assessment Noted Time PHQ-9 Depression Total Score: 2 04/17/2016 7:19 AM CDT documented as of this encounter Care Teams Mason Apprentice Relationship Specialty Start Date End Date Koby Hill MD PCP - General Internal Medicine 10/14/15 [address] [place] [address] documented as of this encounter
--- OUTSIDE RECORDS SUMMARY | 2022-04-03 16:16 | XMS_ITS | Encounter Summary ---
:1970 Author Organization [facility] Address [address] [place] [address] Care Team Providers Name Role Phone Koby Hill MD Primary Care Provider Reason for Referral Consultation - Closed Specialty Diagnoses / Procedures Referred By Contact Refer red To Contact Diagnoses Other unilateral secondary osteoarthritis of knee Acute medial meniscus tear of left knee, initial encounter Hany Brown DO NON [facility] [address] [place] [phone] [place] [address] Referral ID Status Reason Start Date Expiration Date Visits Requ ested Visits Authorized [id number] Closed 04/29/2016 04/29/2017 1 1 Reason for Visit Reason Comments Musculoskeletal Problem right knee pain Encounter Details Date Type Department Care Team Description 04/29/2016 Office Visit [facility] Hany Brown Acute medi al meniscus tear of left knee, initial encounter (Primary Dx); Sports Medicine DO Gustavo Other unilateral secondary osteoarthriti s of knee; [facility] [place] [address] [place] [address] Non morbid obesity, unspecified obesity type [address] [place], [place] [address] [phone] [place] [address] Social History Tobacco Use Types Packs/Day Years [...] Reading Time Taken Comments Blood Pressure 124/80 04/29/2016 10:16 AM CDT Pulse - - Temperature - - Respiratory Rate - - Oxygen Saturation - - Inhaled Oxygen Concentration - - Weight 128.4 kg (283 lb) 04/29/2016 10:16 AM CDT Height 193 cm (6' 4) 04/29/2016 10:16 AM CDT Body Mass Index 34.45 04/29/2016 10:16 AM CDT documented in this encounter Patient Instructions Patient InstructionsBoPravin venegas - 04/29/2016 10:41 AM CDT We addressed the following today: 1. Right knee arthritis 2. Right medial meniscus tear 3. Obesity Activity modification as discussed Topical Treatments: Ice Over the counter medication: Acetaminophen (Tylenol) 1000 mg every 6 hours with food (Maximum of 3000 mg/day) Ibuprofen (Advil) maximum of 800 mg four times a day with food Discussed importance of weight loss, including decreased oral intake and increased physical activityincluding aqua therapy, biking activities as tolerated, etc. Referral to Dr. Zimmerman at [facility] for consideration of surgical intervention for further treatment purposes Follow-up as needed for further evaluation/medical care (call direct clinic number [[phone]] atany time with questions or concerns) documented in this encounter Progress Notes Hany Brown DO - 04/29/2016 10:15 AM CDT [facility] Visit s Apr 29, 2016 Subjective: Rubens Prieto is a 46 year old male who is seen in consultation at the request of Dr. Alonso for evaluation of right knee pain. Symptoms began 2 months ago. Reports insidious onset without acute precipitating event. Reports right knee pain that is located medial with radiation absent. Pain is 6/10 in maximal severity and 4/10 currently. Symptoms are worse with any physical activities, kneeling, and at night and better with activity modification. Other treatment has consisted of ice and Voltaren with no relief. Reports weakness of the right knee. Denies any locking, popping, catching, clicking, bruising, or swelling of the right knee. Denies any previous right knee injuries/surgeries. Reports history of left total knee replacement with Dr. Chace Zimmerman at [facility] approximately 1.5 years ago. Patient's past medical, surgical, social, and family histories are reviewed today. Significant medical history includes obesity Past Medical History Diagnosis Date ??? HTN (hypertension) ??? GERD (gastroesophageal reflux disease) ??? ADHD (attention deficit hyperactivity disorder) ??? Depression Review of Systems: Constitutional: NEGATIVE for fever, chills, or change in weight Skin: NEGATIVE for worrisome rashes, moles, or lesions Neuro: POSITIVE for weakness of the right knee MSK: see HPI Additional 10 point ROS is negative other than symptoms noted above and in HPI Objective: BP 124/80 mmHg Ht 6' 4 (1.93 m) Wt 283 lb (128.368 kg) BMI 34.46 kg/m2 General: healthy, alert, obese, and in no distress Skin: no suspicious lesions or rashes Psych: mentation appears normal and affect normal/bright HEENT: no scleral icterus CV: no pedal edema Resp: normal respiratory effort without conversational dyspnea Neuro: motor strength as noted below Lymph: no palpable lymphadenopathy MSK: RIGHT KNEE Inspection: Swelling present with no erythrema or ecchymosis Palpation: Not tender over the patellar tendon, distal quadriceps insertion, prepatellar bursa, medial joint line, lateral joint line, medial tibial plateau, lateral tibial plateau, medial femoral condyle, lateral femoral condyle, or pes bursa. Patellofemoral crepitus is absent Active Range of Motion: 00 extension to 1300 flexion Strength: Quadriceps: 5/5 Hamstrings: 5/5 Extensor mechanism intact Special Tests: Positive: Patellar grind, patellar apprehension, quadriceps active test , Juan's, ballottement,and bounce home Negative: Apley's Contralateral knee: no overlying skin change, observable deformity, or effusion Imaging: No x-rays indicated during today's clinical visit Previous films were reviewed today, independent visualization of images was performed, and results were discussed with the patient MRI of the Right Knee without Contrast - 04/24/2016 IMPRESSION: 1. Medial meniscal tearing posteriorly. Adjacent reactive bone marrow edema. 2. 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 If the patient has increased symptoms in this region, follow-up imaging would be recommended. 3. Patellar and medial femoral condyle chondromalacia. 4. Synovitis and mild effusion. 5. Mild Crawford's cyst with leakage/rupture. ASSESSMENT: 1. Right medial meniscal tear 2. Secondary right knee osteoarthrosis 3. Obesity PLAN: 1. Acetaminophen/Ibuprofen/ice as needed for improved pain control. 2. Activity modification as discussed, including limitation of activities that cause pain/discomfort. 3. Discussed importance of weight loss, including decreased oral intake and increased physical activity including aqua therapy, biking activities as tolerated, etc. 4. Referral to orthopedic surgery for consideration of right knee arthroscopy (recommended) versus total knee arthroplasty for further treatment purposes. 5. Follow-up as needed for further evaluation/medical care. Instructed to follow-up if change of symptoms arise. If no improvement of symptoms consider right knee intra-articular corticosteroid injection/aspiration with ultrasound guidance, knee brace, formal physical therapy, etc as deemed appropriate moving forward.?? Instructed to contact our office should the condition evolve or worsen. Patient's conditions were thoroughly discussed during today's visit with greater than 50% of the visit spent counseling the patient with total time spent [id number] with the patient being 15 minutes. Hany Brown DO, [facility] Disclaimer: This note consists of symbols derived from keyboarding, dictation and/or voice recognition software. As a result, there may be errors in the script that have gone undetected. Please consider this when interpreting information found in this chart. This document serves as a record of the services and decisions personally performed and made by Hany Brown DO. It was created on his behalf by Pravin Rueda, a trained medical staff services manager. The creation of this document is based on the provider's statements to the medical staff services manager. Pravin Rueda April 29, 2016 10:37 AM documented in this encounter Nursing Notes Rubens Juarez ATC - 04/29/2016 10:17 AM CDT Chief Complaint Patient presents with ??? Musculoskeletal Problem right knee pain Initial BP 124/80 mmHg Ht 6' 4 (1.93 m) Wt 283 lb (128.368 kg) BMI 34.46 kg/m2 Estimated bodymass index is 34.46 kg/(m^2) as calculated from the following: Height as of this encounter: 6' 4 (1.93 m). Weight as of this encounter: 283 lb (128.368 kg). BP completed using cuff size: regular Rubens Juarez ATC/R documented in this encounter Plan of Treatment Pending Results Name Type Priority Associated Diagnoses Date/Ti ny ORTHO TIMBER FRAMER HELPER REFERRAL Referral Routine Other unilateral secondary 05/12/2016 osteoarthritis o f knee Acute medial meniscus tear o f left knee, initial encounter documented as of this encounter Visit Diagnoses Diagnosis Acute medial meniscus tear of left knee, initial encounter - Primary Other unilateral secondary osteoarthriti s of knee Non morbid obesity, unspecified obesity type documented in this encounter Additional Health Concerns Assessment Noted Time PHQ-9 Depression Total Score: 2 04/17/2016 7:19 AM CDT documented as of this encounter Care Teams Plaster Maker Relationship Specialty Start Date End Date Koby Hill MD PCP - General Internal Medicine 10/14/15 [address] [place] [address] documented as of this encounter
--- OUTSIDE RECORDS SUMMARY | 2022-04-03 16:16 | XMS_ITS | Encounter Summary ---
:1970 Author Organization [facility] Address [address] [place] [id number] Care Team Providers Name Role Phone Koby Hill MD Primary Care Provider Reason for Referral Consultation - Closed Specialty Diagnoses / Procedures Referred By Contact Refer red To Contact Orthopedics Diagnoses Acute medial meniscus tear of left knee, initial encounter Other unilateral secondary osteoarthritis of knee Hany Brown DO [facility] [address] [phone] [facility] [address] [place] [address] Phone: Fax: Referral ID Status Reason Start Date Expiration Date Visits Requ ested Visits Authorized [id number] Closed 05/07/2016 05/07/2017 1 1 Reason for Visit Reason Onset Date Comments Referral 05/06/2016 Encounter Details Date Type Department Care Team Description 05/06/2016 Telephone [facility] [place] Brown DO Referral Medicine Clinic [facility] [address] [facility] [place] [address] [place] [address] [address] [place] [address] Social History Tobacco Use Types [...] this encounter Miscellaneous Notes Telephone Encounter - Rubens Juarez ATC - 05/11/2016 10:17 AM CDT Appointment has been made with Dr. Gambino on the 20 of May. Rubens Juarez ATC/R Telephone Encounter - Rubens Juarez ATC - 05/07/2016 1:13 PM CDT Called and left message with the below information. Will call again in a couple days if an appointment has not been made. Rubens Juarez ATC/R Telephone Encounter - Hany Brown DO - 05/07/2016 1:04 PM CDT Referral placed to see Dr. Gambino for consideration of surgical intervention for further treatment purposes. Please call patient to inform. Hany Brown DO, CAM [facility] Telephone Encounter - Briseida Campos RN - 05/07/2016 11:44 AM CDT Patient returned call. He previously saw Dr. Lopez and he had examined his right knee, but has not done surgery on it. He did however, perform left TKA. Patient wants to insure that insurance is going to pay for out of network provider, possible surgeryand after care and that the proper referral is done. He had previous issues last year when he had seen Dr. Lopez after his insurance changed to [facility] and had to get a retro active referral as he did not realize Dr. Lopez was out of network. He is trying to avoid that from happening again. If it is not possible for him to see Dr. Lopez, he wants a referral to an in network provider within [facility]. Discussed with Angeline Chin. If patient requested he return to see Dr. Lopez, patient shouldcontact PCP to see if they are willing to do referral. Otherwise if not, patient should consider [facility] provider. Phone call to patient and he has an appointment scheduled next week with Dr. Lopez. He is feeling atthis point it is going to take another appointment with PCP and with timeframe and cost would like Dr. Brown to refer to in network surgeon. Suggested he could also call PCP to see if they would do referral over the phone as an option as well. He states he would like the referral. Patient is best reached today before 1:45 pm at [phone] , ok to leave message. Please advise. Do you want him to see Dr. Balderas or Dr. Gambino? Damion Campos RN Telephone Encounter - Briseida Campos RN - 05/07/2016 8:25 AM CDT Attempted to reach patient on home phone. A male answered but was not able to hear selling underwriter. Call disconnected. Called back and left voicemail (consent to communicate on file) for patient to return call regarding his question about the referral from Dr. Brown to Dr. Lopez. Damion Campos RN Telephone Encounter - Hany Brown DO - 05/06/2016 10:26 PM CDT Referral placed to patient's requested orthopedic surgical provider at clinical appointment at [facility]. Please call patient to obtain additional information regarding request. Hany Brown DO, [facility] Telephone Encounter - Monty Ennis - 05/06/2016 2:54 PM CDT Fredis called and was wondering on the status of his referral to his insurance company for the surgeonthat Dr. Brown wanted Fredis to see at [facility]. I called him back and left a brief message indicating that there is a difference between a referral from one doctor to another and an insurance referral. I explained that typically insurance require a referral from the Primary Care Physician that he chose to the provider that he needs to see. I requested that he call back and discuss this in more depth with myself or Fredis Ennis ATC documented in this encounter Plan of Treatment Pending Results Name Type Priority Associated Diagnoses Date/Ti al ORTHO RED CROSS EXECUTIVE DIRECTOR REFERRAL Referral Routine Acute medial men iscus tear of 05/13/2016 left knee, initi al encounter Other unilateral secondary osteoarthritis of knee documented as of this encounter Visit Diagnoses Diagnosis Acute medial meniscus tear of left knee, initial encounter - Primary Other unilateral secondary osteoarthriti s of knee documented in this encounter Additional Health Concerns Assessment Noted Time PHQ-9 Depression Total Score: 2 04/17/2016 7:19 AM CDT documented as of this encounter Care Teams Group Work Program Director Relationship Specialty Start Date End Date Koby Hill MD PCP - General Internal Medicine 10/14/15 [address] [place] [address] documented as of this encounter
--- OUTSIDE RECORDS SUMMARY | 2022-04-03 16:16 | XMS_ITS | Encounter Summary ---
:1970 Author Organization [facility] Address [address] [place] [address]. [place] [address] Care Team Providers Name Role Phone Koby Hill MD Primary Care Provider Reason for Visit [facility] (Routine) - Closed Specialty Diagnoses / Procedures Referred By Contact Refer red To Contact Trae Clayton M [facility] Physical Therapy - [address] [place] [address] [phone] [facility] [place] [address] Phone: Fax: Referral ID Status Reason Start Date Expiration Date Visits V isits Requested Authorized SAT[facility]/NAGI/DEBORAH Closed 04/13/2016 07/11/2016 20 18 E Encounter Details Date Type Department Care Team Description 04/16/2016 Therapy Visit [facility] de[facility]ah [facility] Yuri Nash PT (Primary Dx) [address] [phone] Social History Tobacco Use Types Packs/Day Years [...] documented as of this encounter Progress Notes Yuri Nova, PT - 05/29/2016 7:32 AM CST Subjective: HPI Knee Activity of Daily Living Score: 41.43 Objective: System Physical Exam General ROS Assessment/Plan: DISCHARGE REPORT Progress reporting period is from 04/16/2016 to 05/29/2016. SUBJECTIVE Patient's current status is unknown. He did not complete therapy as planned. He has not returned since the initial evaluation and treatment on 04/16/2016. Medical record indicates he is scheduled to have knee surgery. OBJECTIVE Changes noted in objective findings: Patient has failed to return to therapy so current objective findings are unknown. ASSESSMENT/PLAN Updated problem list and treatment plan: Diagnosis 1: Knee pain Assessment of Progress: The patient has not returned to therapy. Current status is unknown. Self Management Plans: Patient has been instructed in a home treatment program. D/C PT since Rubens has not returned. HOUSE ATTENDANT Maya Carvajal PTA - 04/16/2016 8:31 AM CDT Subjective: Pertinent medical history includes: Overweight, high blood pressure and depression. Medical allergies: amoxicillin. Other surgeries include: Orthopedic surgery (knee replacement). Current medications:Sleep medication, anti- inflammatory and high blood pressure medication. 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 Primary job tasks include: Prolonged standing. Red flags: walking, running. Objective: System Physical Exam General ROS Assessment/Plan: Yuri Nova, PT - 04/16/2016 7:37 AM CDT [facility] Initial Evaluation Subjective: Rubens Prieto is a 46 year old male with a right knee condition. Condition occurred with: Insidious onset. Condition occurred: for unknown reasons. This is a new condition Patient reports onset on knee pain possibly from running at work 2 months ago. No specific injury. Patient c/o pain with walking, standing, running, and stairs. Patient had the left knee replaced 1.5 years ago, and it is doing well. Patient reports pain: Medial. Pain is described as sharp, aching and stabbing (like someone is driving a knife in the side of my knee) and is constant and reported as 5/10. Associated symptoms: Loss of motion/stiffness and loss of strength. Pain is the same all the time (varies). Symptoms are exacerbated by activity, walking, ascending stairs, descending stairs, standing and running and relieved byrest (ice, brace, and NSAID have not helped). Since onset symptoms are unchanged. Special tests: X-ray (normal). Previous treatment: none. General health as reported by patient is fair. Objective: Standing Alignment: Knee: Normal Gait: Gait Type: Antalgic Assistive Devices: None Knee Evaluation: ROM: AROM Extension: Left: Right: 0 Flexion: Left: Right: 120 PROM Extension: Left: Right: 0 Flexion: Left: Right: 120 Endfeel: Flexion - Empty Strength: Extension: Right: 5/5 Pain:- Flexion: Right: 5/5 Pain:- Quad Set Right: Good Pain: - Ligament Testing: Normal Palpation: Palpation of knee: (+) Tenderness medial tibial plateau. Right knee tenderness not present at: Medial Joint Line; Lateral Joint Line; Patellar Tendon; Popliteal; Patellar Medial; Patellar Lateral; Patellar Superior and Patellar Inferior Edema: Edema of the knee: Mini-effusion. General ROS Assessment/Plan: Patient is a 46 year old male with right side knee complaints. Patient has the following significant findings with corresponding treatment plan. Diagnosis 1: Knee pain - early stage degenerative changes Pain - self management, education and homeprogram Decreased ROM/flexibility - therapeutic exercise, therapeutic activity and home program Edema - self management/home program Impaired muscle performance - neuro re-education and home program Decreased function - therapeutic activities and home program Previous and current functional limitations: (See Goal Flow Sheet for this information) Short term and intermediate frame tender goals: (See Goal Flow Sheet for this information) Communication ability: Patient appears to be able to clearly communicate and understand verbal and written communication and follow directions correctly. Treatment Explanation - The following has been discussed with the patient: RX ordered/plan of care Anticipated outcomes Possible risks and side effects This patient would benefit from PT intervention to resume normal activities. Rehab potential is good. Frequency: 1 X week, once daily Duration: for 6 weeks Discharge Plan: Achieve all LTG. Independent in home treatment program. Reach maximal therapeutic benefit. Please refer to the daily flowsheet for treatment today, total treatment time and time spent performing 1:1 timed codes. documented in this encounter Miscellaneous Notes Addendum Note - Yuri Nova, PT - 05/29/2016 7:35 AM CLUBHOUSE ATTENDANT Addended by: YURI NOVA on: 05/29/2016 07:35 AM Modules accepted: Orders HOUSE ATTENDANT documented in this encounter Plan of Treatment Not on filedocumented as of this encounter Procedures Procedure Name Priority Date/Time Associated Diagnosis Comme [facility] THERAPEUTIC Routine 04/16/2016 8:07 AM CDT Right knee pain EXERCISES documented in this encounter Visit Diagnoses Diagnosis Right knee pain - Primary Pain in joint, lower leg documented in this encounter Additional Health Concerns Assessment Noted Time PHQ-9 Depression Total Score: 2 04/17/2016 7:19 AM CDT documented as of this encounter Care Teams Composition Floor Setter Relationship Specialty Start Date End Date Koby Hill MD PCP - General Internal Medicine 10/14/15 [address] [place] [address] documented as of this encounter
--- OUTSIDE RECORDS SUMMARY | 2022-04-03 16:16 | XMS_ITS | Encounter Summary ---
:1970 Author Organization [facility] Address [address] [place] [address] Care Team Providers Name Role Phone Koby Hill MD Primary Care Provider Reason for Referral [facility] - Closed Specialty Diagnoses / Procedures Referred By Contact Refer red To Contact Diagnoses Acute pain of right knee Trae Clayton [facility] [id number] [place] [address] [phone] [place] [address] Phone: [phone] Referral ID Status Reason Start Date Expiration Date Visits Requ ested Visits Authorized [id number] Closed 2016 2017 1 1 Reason for Visit Reason Comments Knee Pain Encounter Details Date Type Department Care Team Description 2016 Office Visit [facility] Trae Clayton pa in of right Clinic [place] [address] [facility] [id number] [place] [id number] Social History Tobacco Use Types Packs/Day Years [...] Sign Reading Time Taken Comments Blood Pressure 129/80 2016 11:14 AM CDT Pulse 81 2016 11:14 AM CDT Temperature 36.8 ??C (98.2 ??F) 2016 11:14 AM CDT Respiratory Rate 14 2016 11:14 AM CDT Oxygen Saturation - - Inhaled Oxygen Concentration - - Weight 125.6 kg (277 lb) 2016 11:14 AM CDT Height - - Body Mass Index 33.72 02/18/2016 3:21 PM CDT documented in this encounter Patient Instructions Patient InstructionsTrae Clayton PA-C - 2016 12:18 PM CDT Images from the original note were not included. Knee Sprain of the Collateral Ligaments The knee is a hinge joint supported by four strong ligaments. The two ligaments inside the knee protect this joint from excess forward and backward movement. The ligaments on the outside of the joint prevent pzay-bi-ftzv motion. These are called the collateral ligaments. The medial collateral ligament is located on the inner side of the joint; and the lateral collateralligament is on the outer side of the joint. You have sprained one or both collateral ligaments. A sprain is a tearing of a ligament. The tear may be partial or complete. Diagnosis is made by physical exam. In the case of an acute injury, the knee may be too swollen or painful to examine fully. A more accurate exam can be done after the initial swelling goes down. Symptoms of a knee sprain include immediate knee swelling, pain, and difficulty walking.??Initial treatment includes rest, splinting the knee to reduce movement of the joint, and icing the knee to reduce swelling and pain.??You may use??suud-icy-pphucxh pain medicine??to control pain, unless another medicine was prescribed.??Most sprains will heal in??3 to 6??weeks.??A severe injury can take 3 to 4 months to heal. You will also need rehab exercises. Surgery is usually not required for sprains involving only the collateral ligaments. Home care ?? Stay off the injured leg as much as possible until you can walk on it without pain. If you have alot of pain while walking, crutches, or a walker may be prescribed. These can be rented or purchasedat many pharmacies and surgical or orthopedic supply stores. Follow your healthcare provider???s advice about when to begin bearing weight on that leg.? If you were given a axzg-ryd-jnxd closure knee brace, you can remove it to bathe. But leave it inplace when walking, sitting, or lying down unless told otherwise. ?? Apply an ice pack over the injured area for 15 to 20 minutes every??3 to 6??hours. You should do this for??the first??24 to 48 hours.??You can make an ice pack by filling a plastic bag that seals atthe top with ice cubes and then wrapping it with a thin towel.??Continue to use ice packs for reliefof pain and swelling as needed. As the ice melts, be careful to avoid getting your wrap, splint, or cast wet. After 48 hours, apply heat??(warm shower or??warm bath)??for 15 to 20 minutes several timesa day, or alternate ice and heat.??You can place the ice pack directly over the splint. If you have to wear a oexk-xzv-resn??knee brace, you can open it to apply the ice pack, or heat, directly to the knee. Never put ice directly on the skin. Always wrap the ice in a towel or other type of cloth. ?? You may use??cofm-jkk-wgpcxzk pain medicine??to control pain, unless another pain medicine was prescribed.??Anti-inflammatory pain medicines, such as ibuprofen or naproxen may be more effective thanacetaminophen.??If you have chronic liver or kidney disease or ever had a stomach ulcer or GI bleeding, talk with your healthcare provider before??using these medicines. Follow-up care Follow up with your healthcare provider as advised. Any X-rays you had today don???t show any brokenbones, breaks, or fractures. Sometimes fractures don???t show up on the first X-ray. Bruises and sprains can sometimes hurt as much as a fracture. These injuries can take time to heal completely. If your symptoms don???t improve or they get worse, talk with your healthcare provider. You may need a repeat X-ray.??If X-rays were taken, you will be told of any new findings that may affect your care. Call 911 Call 911 if you have: ?Shortness of breath ?Chest pain When to seek medical advice Call your healthcare provider right away??if any of these occur: ?? Pain or swelling increases ?? Swelling, redness, or pain in the calf or thigh ?? [phone] [employer]. [address] [place] [address]. All rights reserved. This information is not intended as a substitute for professional medical care. Always follow your healthcare professional's instructions. documented in this encounter Progress Notes Trae Clayton PA-C - 2016 9:36 AM CDT SUBJECTIVE: Rubens Prieto is a 46 year old male who presents to clinic today for the following health issues: Joint Pain ?? Onset: 2 wks ?? Description: Location: right knee Character: Sharp and Gnawing ?? Intensity: 4/10 ?? Progression of Symptoms: worse ?? Accompanying Signs & Symptoms: Other symptoms: none ?? History: Previous similar pain: no ?? Precipitating factors: Trauma or overuse: no ?? Alleviating factors: Improved by: rest/inactivity ?? Therapies Tried and outcome: advil, ice Problem list and histories reviewed & adjusted, as indicated. Additional history: as documented Problem list, Medication list, Allergies, and Medical/Social/Surgical histories reviewed in EPIC andupdated as appropriate. ROS: Constitutional, HEENT, cardiovascular, pulmonary, gi and gu systems are negative, except as otherwise noted. OBJECTIVE: BP 129/80 mmHg Pulse 81 Temp(Src) 98.2 ??F (36.8 ??C) (Oral) Resp 14 Wt 277 lb (125.646 kg) Body mass index is 33.73 kg/(m^2). GENERAL APPEARANCE: healthy, alert and no distress ORTHO: R Knee Exam: Inspection: small effusion Tender: MCL Non-tender: lateral patellar facet, medial patellar facet, inferior pole patella, patella tendon, quadriceps insertion, LCL, lateral joint line, medial joint line, medial tibial plateau, lateral tibialplateau, medial femoral condyle, lateral femoral condyle, distal IT band, prepatellar bursa, popliteal region, pes anserine bursa Active Range of Motion: full flexion, full extension Strength: quad 5/5, Hamstrings 5/5, Gastroc 5/5, Tibialis anterior 5/5 and Peroneals 5/5 Special tests: normal Valgus stress test, normal Varus, negative Maureen's test, negative posterior drawer, negative Juan's , no apprehension with lateral stress of the patella PSYCH: mentation appears normal and affect normal/bright Diagnostic Test Results: Xray - right knee 3 views. AP weightbearing: negative. ASSESSMENT/PLAN: (M25.561) Acute pain of right knee Comment: unclear cause of symptoms. Radiographs normal. Patient's pain localized over MCL. Without known trauma and normal valgus stress, a tear is less likely. Exam also makes a meniscal tear less likely. A MCL sprain is felt the most likely differential. With severity of symptoms, will attempt bracing, scheduled nsaids, ice, and physical therapy. If symptoms fail to improve in 2-4 weeks, will consider MRI. Plan: XR Knee Right 3 Views, diclofenac (VOLTAREN) 50 MG EC tablet, order for DME, [facility] PT, HAND, AND CHIROPRACTIC REFERRAL -Medication use and side effects discussed with the patient. Patient is in complete understanding and agreement with plan. Follow up: as above Trae Clayton PA-C [facility] documented in this encounter Nursing Notes Lesly Virk, LUIS ANTONIO - 2016 11:14 AM CDT Chief Complaint Patient presents with ??? Knee Pain Initial BP 129/80 mmHg Pulse 81 Temp(Src) 98.2 ??F (36.8 ??C) (Oral) Resp 14 Wt 277 lb (125.646 kg) Estimated body mass index is 33.73 kg/(m^2) as calculated from the following: Height as of 02/18/16: 6' 4 (1.93 m). Weight as of this encounter: 277 lb (125.646 kg).. BP completed using cuff size large HEALTH MAINTENANCE REVIEWED. Lesly Virk CMA documented in this encounter Plan of Treatment Scheduled Referrals Name Type Priority Associated Diagnoses Order S chedule [facility] PT, HAND, AND Referral Routine Acute pain of right Ord ered: 2016 CHIROPRACTIC REFERRAL knee documented as of this encounter Results XR Knee Right 3 [...] Diagnoses Diagnosis Acute pain of right knee Acute pain of right knee documented in this encounter Additional Health Concerns Assessment Noted Time PHQ-9 Depression Total Score: 2 11/13/2015 7:20 AM CDT documented as of this encounter Care Teams Cuff Slitter Relationship Specialty Start Date End Date Koby Hill MD PCP - General Internal Medicine 10/14/15 [address] [place] [address] documented as of this encounter
--- OUTSIDE RECORDS SUMMARY | 2022-04-03 16:16 | XMS_ITS | Encounter Summary ---
:1970 Author Organization [place] Address [address] [place] [address] Care Team Providers Name Role Phone Koby Hill MD Primary Care Provider Reason for Visit Reason Onset Date Comments Finger 02/17/2016 Encounter Details Date Type Department Care Team Description 02/17/2016 Telephone [facility] Koby Hill MD [facility] [address] [facility] [address] [place] [address] [place] [address] [phone] Social History Tobacco Use Types Packs/Day Years [...] Telephone Encounter - Susu Grider RN - 02/17/2016 2:14 PM CDT Cld pt-relayed below. Transferred to [facility] Telephone Encounter - Koby Hill MD - 02/17/2016 2:10 PM CDT No need for Td. If he punctured the skin suggest to get an X rays for possible foreign bodies. Monitor for infection. Telephone Encounter - Susu Grider RN - 02/17/2016 9:47 AM CDT Pt transferred to triage-Yesterday pt was drilling something and the drill slipped and hit his pointer finger on L hand. Pt stated it bleed a lot and it did puncture his finger. Pt cleaned area out andthis am would is closed, but still very sore. Pt can bend finger, and no temp change. Pt wanted to know if he should get a tetanus-relayed he had a TDAP on 03/20/13, but relayed I will send message to Sergio to see if he rec anything. Sergio-just monitor? I will go over signs of infect, and when he should be seen when I call him back, ,but just wanted to see if you rec anything? documented in this encounter Plan of Treatment Not on filedocumented as of this encounter Results XR Finger Left G/E 2 Views (02/17/2016 2:57 PM CDT) Anatomical Region Laterality Modality Left Hand Left Computed Radiography Specimen (Source) Anatomical Location Collection Method / Collectio n Time Received Time / Laterality Volume Impressions 02/17/2016 3:37 PM CDT IMPRESSION: No apparent fracture or dislocation. CATHY PINEDA MD Narrative 02/17/2016 3:37 PM CDT XR FINGER LT G/E 2 VW 02/17/2016 2:57 PM HISTORY: Unspecified injury of unspecifi ed wrist, hand and finger(s), initial encounter Procedure Note Dominguez Pineda MD - 02/17/2016Formatt ing of this note might be different from the original. XR FINGER LT G/E 2 VW 02/17/2016 2:57 PM HISTORY: Unspecified injury of unspecifi ed wrist, hand and finger(s), initial encounter IMPRESSION: No apparent fracture or disl ocation. CATHY PINEDA MD Koby Hill MD IMG DIAGNOSTIC IMAGING ORDER AZALIA documented in this encounter Visit Diagnoses Diagnosis Finger injury - Primary Injury, other and unspecified, finger Finger injury Injury, other and unspecified, finger documented in this encounter Additional Health Concerns Assessment Noted Time PHQ-9 Depression Total Score: 2 11/13/2015 7:20 AM CDT documented as of this encounter Care Teams Automotive Light Mechanic Relationship Specialty Start Date End Date Koby Hill MD PCP - General Internal Medicine 10/14/15 [address] [place] [address] documented as of this encounter
--- OUTSIDE RECORDS SUMMARY | 2022-04-03 16:16 | XMS_ITS | Encounter Summary ---
:1970 Author Organization [facility] Address [address] [place] [address] Care Team Providers Name Role Phone Koby Hill MD Primary Care Provider Reason for Visit Reason Comments Urgent Care URI Encounter Details Date Type Department Care Team Description 11/21/2016 Office Visit [facility] Jared Lara, Cough (Primary Dx); Urgent Care Jay Jay jorge MD Acute bronchitis, unspecified organism [address] [address] [place] [address] [phone] Social History Tobacco Use Types Packs/Day Years [...] Sign Reading Time Taken Comments Blood Pressure 126/80 11/21/2016 11:19 AM CDT Pulse 85 11/21/2016 11:19 AM CDT Temperature 36.7 ??C (98 ??F) 11/21/2016 11:19 AM CDT Respiratory Rate - - Oxygen Saturation 95% 11/21/2016 11:19 AM CDT Inhaled Oxygen Concentration - - Weight 126.6 kg (279 lb) 11/21/2016 11:19 AM CDT Height - - Body Mass Index 34.87 07/14/2016 10:01 AM CORRECTIONAL NURSE documented in this encounter Progress Notes Jared Lara MD - 11/21/2016 11:15 AM CDT SUBJECTIVE: Rubens Prieto is a 46 year old male who presents to clinic today for the following health issues: RESPIRATORY SYMPTOMS ?? Duration: 5-6 days ?? Description Nasal drip, cough that's worse at night, hoarse voice ?? Severity: moderate ?? Accompanying signs and symptoms: headache, sore throat, post-nasal drip, SOB, fatigue, blood-tinged nasal drainage ?? History (predisposing factors): none ?? Precipitating or alleviating factors: None ?? Therapies tried and outcome: Antihistamine, nasal spray/wash, flonase, claritin ROS: Constitutional, HEENT, cardiovascular, pulmonary, gi and gu systems are negative, except as otherwise noted. OBJECTIVE: BP 126/80 Pulse 85 Temp 98 ??F (36.7 ??C) (Oral) Wt 279 lb (126.6 kg) SpO2 95% BMI 34.87 kg/m2 Body mass index is 34.87 kg/(m^2). GENERAL: healthy, alert and no distress HENT: ear canals and TM's normal, nose and mouth without ulcers or lesions, rhinorrhea white, oropharynx clear and oral mucous membranes moist NECK: no adenopathy RESP: lungs clear to auscultation - no rales, rhonchi or wheezes and decreased breath sounds throughout CV: regular rate and rhythm, normal S1 S2, no S3 or S4, no murmur, click or rub Diagnostic Test Results: CXR - unremarkable ASSESSMENT/PLAN: ICD-10-CM 1. Cough R05 INHALATION/NEBULIZER TREATMENT, INITIAL XR Chest 2 Views azithromycin (ZITHROMAX) 250 MG tablet albuterol (PROAIR HFA/PROVENTIL HFA/VENTOLIN HFA) 108 (90 BASE) MCG/ACT Inhaler guaiFENesin-codeine (ROBITUSSIN AC) 100-10 MG/5ML SOLN solution 2. Bronchitis 3. Bloody nose Plan: 1) Nebulizer given in clinic, patient reexamined and breath sounds increased, patient reports feeling less short of breath 2) Prescriptions sent as ordered 3) Follow up if symptoms worsen or do not improve Jared Lara MD [facility] documented in this encounter Nursing Notes Pattie Cage MA - 11/21/2016 11:15 AM CDT Chief Complaint Patient presents with ??? Urgent Care ??? URI Initial BP 126/80 Pulse 85 Temp 98 ??F (36.7 ??C) (Oral) Wt 279 lb (126.6 kg) SpO2 95% BMI34.87 kg/m2 Estimated body mass index is 34.87 kg/(m^2) as calculated from the following: Height as of 07/14/16: 6' 3 (1.905 m). Weight as of this encounter: 279 lb (126.6 kg). Medication Reconciliation: complete Pattie Cage LABOR ARBITRATOR HEARING OFFICE documented in this encounter Plan of Treatment Not on filedocumented as of this encounter Procedures Procedure Name Priority Date/Time Associated Diagnosis Comme nts HC INHALATION/NEBULIZER Routine 11/21/2016 11:39 AM CDT Cough TREATMENT, INITIAL documented in this encounter Results XR Chest 2 Views (11/21/2016 11:51 AM CDT) Anatomical Region Laterality Modality Chest Computed Radiography Specimen (Source) Anatomical Location Collection Method / Collectio n Time Received Time / Laterality Volume Impressions 11/21/2016 4:21 PM CDT IMPRESSION: Heart size is normal. No pleural effusion, pneumothorax, or abnormal area of consolidation. No ac kiana osseous abnormality. JARET HAINES MD Narrative 11/21/2016 4:21 PM CDT CHEST TWO VIEWS ??11/21/2016 11:51 AM HISTORY: 46-year-old with cough. COMPARISON: None Procedure Note Jaret Haines MD - 11/21/2016 CHEST TWO VIEWS 11/21/2016 11:51 AM HISTORY: 46-year-old with cough. COMPARISON: None IMPRESSION: Heart size is normal. No ple ural effusion, pneumothorax, or abnormal area of consolidation. No ac kiana osseous abnormality. JARET HAINES MD Jared Lara MD IMG DIAGNOSTIC IMAGING ORDER AZALIA documented in this encounter Visit Diagnoses Diagnosis Cough - Primary Acute bronchitis, unspecified organism Cough documented in this encounter Additional Health Concerns Assessment Noted Time PHQ-9 Depression Total Score: 2 04/17/2016 7:19 AM CDT documented as of this encounter Care Teams Honey Extractor Relationship Specialty Start Date End Date Koby Hill MD PCP - General Internal Medicine 10/14/15 [address] [place] [address] documented as of this encounter
--- OUTSIDE RECORDS SUMMARY | 2022-04-03 16:16 | XMS_ITS | Encounter Summary ---
:1970 Author Organization [facility] [place] Address [address] [place] [address] Care Team Providers Name Role Phone Koby Hill MD Primary Care Provider Encounter Details Date Type Department Care Team Description 02/17/2016 Radiant Appointment [facility] Koby Hill, Finger injury Clinic [place] [address] [place] [address] [place], [place] [address] [phone] Social History Tobacco Use Types Packs/Day Years [...] Priority Date/Time Associated Diagnosis Comme nts XR FINGER LEFT G/E Routine 02/17/2016 2:57 PM Finger injury Re sults for this 2 VIEWS CDT procedure are i n the results section. documented in this encounter Results XR Finger Left G/E [...] this encounter Visit Diagnoses Diagnosis Finger injury Injury, other and unspecified, finger documented in this encounter Additional Health Concerns Assessment Noted Time PHQ-9 Depression Total Score: 2 11/13/2015 7:20 AM CDT documented as of this encounter Care Teams X Ray Equipment Servicer Relationship Specialty Start Date End Date Koby Hill MD PCP - General Internal Medicine 10/14/15 [address] [place] [address] documented as of this encounter
--- OUTSIDE RECORDS SUMMARY | 2022-04-03 16:16 | XMS_ITS | Encounter Summary ---
:1970 Author Organization [facility] Address [address] [place] [address] Care Team Providers Name Role Phone Koby Hill MD Primary Care Provider Reason for Visit Reason Onset Date Comments Schedule Surgery 05/20/2016 Encounter Details Date Type Department Care Team Description [facility] [place] [id number] [place] [address] [place] [phone] (Wo rk) Social History Tobacco Use Types [...] this encounter Miscellaneous Notes Telephone Encounter - Susan King - 05/20/2016 2:36 PM CST Scheduled a right knee arthroscopy 05/27/[address] Gambino at [facility]. CAPPER documented in this encounter Plan of Treatment Not on filedocumented as of this encounter Visit Diagnoses Not on filedocumented in this encounter Additional Health Concerns Assessment Noted Time PHQ-9 Depression Total Score: 2 04/17/2016 7:19 AM CDT documented as of this encounter Care Teams Snack Bar Attendant Relationship Specialty Start Date End Date Koby Hill MD PCP - General Internal Medicine 10/14/15 [address] [place] [address] documented as of this encounter
--- OUTSIDE RECORDS SUMMARY | 2022-04-03 16:16 | XMS_ITS | Encounter Summary ---
:1970 Author Organization [facility] Address [address] [place] [address]. [place] [address] Care Team Providers Name Role Phone Koby Hill MD Primary Care Provider Reason for Referral Consultation - Closed Specialty Diagnoses / Procedures Referred By Contact Refer red To Contact Orthopedics and Sports Diagnoses Peripheral tear of medial meniscus of right knee, unspecified whether old or current tear, initial encounter Nayan Alonso MD [facility] [address] [facility] [address] [facility] [address] [place] [address] Phone: Fax: Referral ID Status Reason Start Date Expiration Date Visits Requ ested Visits Authorized [id number] Closed 04/24/2016 04/24/2017 1 1 Encounter Details Date Type Department Care Team Description 04/24/2016 Orders Only [facility] Nayan Alonso MD Peripheral tear of [facility] [place] [address] [facility] [place] [place] [address] [place], [place] right [place], [place] [address] whether old or current [phone] tear, initial encounter (Primary Dx) Social History Tobacco Use Types Packs/Day Years [...] as of this encounter Visit Diagnoses Diagnosis Peripheral tear of medial meniscus of ri ght knee, unspecified whether old or current tear, initial encounter - Primary documented in this encounter Additional Health Concerns Assessment Noted Time PHQ-9 Depression Total Score: 2 04/17/2016 7:19 AM CDT documented as of this encounter Care Teams Travel Writer Relationship Specialty Start Date End Date Koby Hill MD PCP - General Internal Medicine 10/14/[address] [place] [address] documented as of this encounter
--- OUTSIDE RECORDS SUMMARY | 2022-04-03 16:17 | XMS_ITS | Encounter Summary ---
:1970 Author Organization [facility] Address [address] [place] [address] Care Team Providers Name Role Phone Konstantin Milian MD Primary Care Provider Reason for Visit Reason Comments Knee Problem Encounter Details Date Type Department Care Team Description 10/29/2014 Office Visit [facility] Lavon Leblanc Pr imarlette osteoarthritis of left knee (Primary Dx); Therapy PT Knee joint replacement by other means [address] [place] [address] [place], [place] [phone] [address] Social History Tobacco Use Types Packs/Day Years Used Date Smoking Tobacco: Never Assessed Sex Assigned at Date Recorded Not on file documented as of this encounter Progress Notes Lavon Leblanc, PT - 10/29/2014 1:49 PM CDT Encounter date: 10/29/2014 Pt : 1970 [facility] [facility] Progress Note Visit Number: 3 Initial Certification Period: 10/19/2014 - 12/18/2014 Referring Provider: Chace Zimmerman Visit Diagnosis: Diagnosis (ICD9) ICD-9-CM ICD-10-CM 1. Primary osteoarthritis of left knee 715.16 M17.12 2. Knee joint replacement by other means V43.65 [id number] Precautions: none SUBJECTIVE: Reports improvement in symptoms since OBJECTIVE Current Objective Findings: Knee score: (initial 11.4%) CGI: (initial 4) Ambulating with a cane with an obvious limp AROM: knee flexion: 105 degrees, extension: missing 12 degrees Treatment/Education Today: 1. Therapeutic exercise (27 minutes): - passive stretching into flexion and extension AROM post Rx: ext: missing 8 degrees, flexion: 115 degrees. Passive was missing 5 degrees of extension - bike: resistance of 10 - standing knee extension against T-band 3 x 10 - bilateral hamstring curls: 70 lbs 3 x 10 - bilateral leg presses: 7 bands 3 x 10 Rx was tolerated well. Timed Code Treatment Minutes: 27 Total Treatment Minutes: 27 Current Home Exercise Program List: ?? ankle pumps x 10 reps ?? quad sets x 10 reps; education on 50% max contraction with 8 second hold ?? hamstring set x 5 reps; education on 50% max contraction with 8 second hold ?? short arc quads x 10 reps ?? long arc quads x 10 reps ?? straight leg raises with no assist x 10 reps ?? heel slides x 5 reps ?? instruction on seated knee flexion and extension stretches Discussed importance of icing to help control edema and pain ASSESSMENT/PROGRESS TOWARD GOALS: Improvement in pain, function and ROM. Functional Goals/Outcomes: HEP/Independent Management: Demonstrate independence with HEP and self- management following each treatment session ADL's: Resume previous sleep pattern without awakening due to symptoms in 2-4 weeks. Perform home management tasks with ease in 4-6 weeks. Driving: Drive with ease and safety in 4-6 weeks. Ambulation: Ambulate unlimited distances with minimal to no symptoms/limp in 6-8 weeks. Ascend/descend stairs independently with reciprocal pattern with minimal to no symptoms and improvedlower extremity alignment in 6-8 weeks. Work: Return to work with restrictions in 4-8 weeks. Plan: Con't to work on improving strength and function. documented in this encounter Plan of Treatment Not on filedocumented as of this encounter Visit Diagnoses Diagnosis Primary osteoarthritis of left knee - Pr imary Primary localized osteoarthrosis, lower leg Knee joint replacement by other means documented in this encounter Care Teams Gardener Relationship Specialty Start Date End Date Konstantin Milian MD PCP - General 08/03/13 [address] [address] [place] [phone] documented as of this encounter
--- OUTSIDE RECORDS SUMMARY | 2022-04-03 16:17 | XMS_ITS | Encounter Summary ---
:1970 Author Organization [facility] Address [address], [place] [address] Care Team Providers Name Role Phone Konstantin Singh MD Primary Care Provider Reason for Visit Reason Comments Refill Encounter Details Date Type Department Care Team Description 05/15/2015 Refill [facility] iciKonstantin Mary MD Refill [address] [address] [place] [address] [place], [place] [phone] (Wo rk) Social History Tobacco Use Types Packs/Day Years Used Date Smoking Tobacco: Never Assessed Sex Assigned at Date Recorded Not on file documented as of this encounter Nursing Notes Julia Anguiano RN - 05/16/2015 12:01 PM CST Renewed medication per medication refill protocol. Requested Prescriptions Signed Prescriptions Disp Refills ??? vardenafil (LEVITRA) 20 mg tablet 6 tablet 5 Sig: Take 1 tablet by mouth as needed (TAKE 1 HOUR PRIOR TO SEXUAL INTERCOURSE. MAX 1 DOSE/24 HOURS). Authorizing Provider: KONSTANTIN SINGH Ordering User: JULIA ANGUIANO RAPHY FACULTY MEMBER User, Nely - 05/16/2015 12:01 PM CST LEVITRA 20 mg tablet [Pharmacy Med Name: LEVITRA 20MG TABLETS] - MEDICATION STARTED: 03/20/2013 - LAST REFILLED ON: 05/28/2014, QTY: 6, Refills: 5, Sig: take 1 tablet by mouth as needed. take 1 hour prior to sexual intercourse. max 1 dose/24 hours. (changed) - WARNING: This medication may not have been authorized by the requested provider. - REFILL: 6 months (if warnings resolved; manual update required, due to unreadable sig) - RATIONALE: This refill should last until the patient is due for an office visit. - LAST QUALIFYING VISIT WITH KONSTANTIN SINGH: 10/24/2014 - NEXT SCHEDULED VISIT: None Powered by [employer], Reference: [id number], 05/15/2015 4:23:33 PM [place]: REJI REFILL ([id number]) documented in this encounter Plan of Treatment Not on filedocumented as of this encounter Visit Diagnoses Not on filedocumented in this encounter Care Teams Police Department Secretary Relationship Specialty Start Date End Date Konstantin Singh MD PCP - General 08/03/13 [address] [place] [address] documented as of this encounter
--- OUTSIDE RECORDS SUMMARY | 2022-04-03 16:17 | XMS_ITS | Encounter Summary ---
:1970 Author Organization [facility] Address [address], [place] [address] Care Team Providers Name Role Phone Konstantin Milian MD Primary Care Provider Reason for Visit Reason Comments Knee Problem Encounter Details Date Type Department Care Team Description 10/26/2014 Office Visit [facility] Lavon Leblanc Pr imarlette osteoarthritis of left knee (Primary Dx); Therapy PT Knee joint replacement by other means [address] [place] [address] [place], [place] [phone] [address] Social History Tobacco Use Types Packs/Day Years Used Date Smoking Tobacco: Never Assessed Sex Assigned at Date Recorded Not on file documented as of this encounter Progress Notes Lavon Leblanc, PT - 10/26/2014 12:55 PM CDT Encounter date: 10/26/2014 Pt : 1970 [facility] Physical Therapy Progress Note Visit Number: 2 Initial Certification Period: 10/19/2014 - 12/18/2014 Referring Provider: Chace Zimmerman Visit Diagnosis: Diagnosis (ICD9) ICD-9-CM ICD-10-CM 1. Primary osteoarthritis of left knee 715.16 M17.12 2. Knee joint replacement by other means V43.65 [id number] Precautions: none SUBJECTIVE: The patient returns for his follow up visit. I am in a lot of pain. States that has been active and walking quite a bit. I try to move around and be active. The patient was instructed to avoid prolong WB as the knee is still sensitive and very easily irritable. For that reason he shoulder be walking, but avoiding too much activity and listen to his body. The patient has been stretching the knee and icing it as instructed. OBJECTIVE Current Objective Findings: Knee score: (initial 11.4%) CGI: (initial 4) Ambulating with a cane with an obvious limp AROM: knee flexion: 105 degrees, extension: missing 20 degrees Treatment/Education Today: 1. Therapeutic exercise (25 minutes): - reviewing patient's symptoms, advised to work on improving especially knee extension and avoid prolong WB to allow the knee to heal properly - passive stretching into flexion and extension AROM post Rx: ext: missing 15 degrees, flexion: 115 degrees. Passive was missing 10 degrees of extension Rx was tolerated well. Timed Code Treatment Minutes: 25 Total Treatment Minutes: 27 Current Home Exercise [...] control edema and pain ASSESSMENT/PROGRESS TOWARD GOALS: Some improvement in ROM, but the knee con't to be irritable and sensitive to prolong WB. Functional Goals/Outcomes: HEP/Independent Management: Demonstrate independence with [...] means documented in this encounter Care Teams Underwater Welder Relationship Specialty Start Date End Date Konstantin Milian MD PCP - General 08/03/13 [address] [place] [address] documented as of this encounter
--- OUTSIDE RECORDS SUMMARY | 2022-04-03 16:17 | XMS_ITS | Encounter Summary ---
:1970 Author Organization [employer] Address [address], [place] [address] Care Team Providers Name Role Phone Konstantin Milian MD Primary Care Provider Reason for Visit Reason Comments Cough Encounter Details Date Type Department Care Team Description 10/10/2014 Hospital Encounter [facility] Reuben Gutierrez MD Acute pharyngitis, Care [address] Brad unspecified [address] [facility] [place] [address] [phone] Social History Tobacco Use Types Packs/Day Years Used Date Smoking Tobacco: Never Assessed Sex Assigned at Date Recorded Not on file documented as of this encounter Last Filed Vital Signs Vital Sign Reading Time Taken Comments Blood Pressure 132/87 10/10/2014 8:53 AM CDT Pulse 79 10/10/2014 8:53 AM CDT Temperature 36.9 ??C (98.4 ??F) 10/10/2014 8:53 AM CDT Respiratory Rate 18 10/10/2014 8:53 AM CDT Oxygen Saturation 97% 10/10/2014 8:53 AM CDT Inhaled Oxygen Concentration - - Weight - - Height - - Body Mass Index - - documented in this encounter Medications at Time of Discharge Medication Sig Dispensed Refills Start Date End Date buPROPion Take 450 mg by mouth 0 03/20/2013 (WELLBUTRINXL) 150 MG every morning. 24 hour release tablet omeprazole (PRILOSEC) Take 40 mg by mouth 0 03/20 40 MG capsule daily (every 24 hours). amLODIPine (AKA Take 1 tablet by mouth 90 tablet 3 08/06/19 15 07/17/2015 NORVASC) 5 MG daily (every 24 tabletIndications: hours). Indications: Essential HYPERTENSION hypertension (HRC) amphetamine-dextroamp Take 20 mg by mouth 0 03/2003/25/2017 hetamine (ADDERALL every morning. XR) 20 MG 24 hour release capsule ARIPiprazole Indications: PN: 3 07/19/20142016 (ABILIFY) 2 MG MECHE CLARK Wed tabletIndications: Jul 27, 2014 10:15 AM MECHE CLARK Received from: WedJul 27, 2014 External Pharmacy 10:15 AM Received from: External Pharmacy COMPOUNDED Take as instructed as 5 mL 8 08/03/201303/2015 PRESCRIPTION needed for Other. Prostin 20 mcg/ml and phentolamine 5 mg/5ml. Inject 4- 40 units as directed. Insulin Inject subcutaneously 100 Syringe 8 09/26/2013 Syringe-Needle U-100 as needed. (INSULIN SYRINGE .5CC/29GX1/2) 29G X 1/2 0.5 ML Tadalafil (AKA Take 1 tablet by mouth 30 tablet 0 5 01/17/2015 CIALIS) 5 MG tablet nightly. Valsartan-Hydrochloro Take 1 tablet by mouth 90 tablet 1 03/17/2015 thiazide (AKA daily (every 24 DIOVAN-HCT) 320-12.5 hours). MG tablet vardenafil (AKA Take 1 tablet by mouth 6 tablet 5 05/28/20 14 05/15/2015 LEVITRA) 20 MG as needed. Take 1 hour tabletIndications: ED prior to sexual (erectile intercourse. Max 1 dysfunction) dose/24 hours. documented as of this encounter ED Notes Jeniffer Gutierrez MD - 10/10/2014 2:45 PM CDT ED Provider Notes signed by Jeniffer Gutierrez MD at 10/11/14 5026 Author: Jeniffer Gutierrez MD Service: (none) Author Type: Physician Filed: 10/11/14 3481 Note Time: 10/10/14 2843 Status: Signed Carpenter Supervisor [employer] Ship: Jeniffer Gutierrez MD (Physician) NAME: MAYA FU MR#: [id number] CSN: [id number] AUTHENTICATING CLINICIAN: Jeniffer Gutierrez MD CONFIRM #: [id number] LOC: 520 URGENT CARE PROGRESS NOTE DATE OF VISIT: 10/10/2014 : 1970 SUBJECTIVE: Rfljh-[id number]-[id number]-old male is coming today to clinic. He has kind of cough, congestion, postnasal drip. He lost his voice, and according to patient, and he will have surgery in the next 2 days. He wants to be sure that he does not have strep. He denies any fever or chills. REVIEW OF SYSTEMS: As above. Otherwise, his HEENT, neck, lungs, cardiovascular, GI, skeletal, muscle, urinary tract, skin, lymph node, neurological negative. OBJECTIVE: VITAL SIGNS: Stable. His blood pressure is 132/87. Temperature 98.5. O2 saturation room air 97. Respiration 18. Alert, oriented, no distress. The patient generally obese. He has also large neck. He admits possible sleep apnea. HEENT: Negative. NECK: Supple. LUNGS: Clear. HEART: S1, S2 without murmur. ABDOMEN: Benign. Rapid strep negative. ASSESSMENT: Nonspecific symptoms, possible viral. I do not see indication of any infection. PLAN: At this time, supportive care. Watch and see. If he develops fever, he will call and inform his primary doctor regarding to his surgery. If no problem, no further evaluation needed and follow up as needed. He agreed. YO:MEDQ C: CONFIRM #: [id number] documented in this encounter Plan of Treatment Not on filedocumented as of this encounter Procedures Procedure Name Priority Date/Time Associated Diagnosis Comme nts BETA STREP FOLLOWUP Routine 10/10/2014 10:30 AM R esults for this CDT procedure are i n the results section. GROUP A STREP STAT 10/10/2014 9:57 AM Acute pharyngitis, Re sults for this ANTIGEN SCREEN CDT unspecified procedure are in pharyngitis type the results section. documented in this encounter Results BETA STREP FOLLOWUP (10/10/2014 10:30 AM CDT) Patholo gist Method Time Signature Source Throat HP CONVERSION Site HP CONVERSION Strep Screen No beta HP CONVERSION hemolytic Strep Group A isolated. Specimen (Source) Anatomical Collection Method Collection Time Re ceived Time Location / / Volume Laterality Throat: 10/10/2014 10:30 AM CDT Narrative HP CONVERSION - 10/11/2014 9:07 AM CDT Performed at [facility] , ??[address] [place] [address], [place] [address], ?? CLIA Number [id number] Jeniffer Gutierrez MD LAB_1 Performing Organization Address [facility] Code Phon e Number HP CONVERSION RAPID STREP GROUP A WAIVED (10/10/2014 9:57 AM CDT) Analysis Performed At Patho logist Time Signature Strep A Negative Negative HP CONVERSION Antigen Strep A Source Throat: HP CONVERSION Specimen Anatomical Collection Method Collection Time Receive d Time (Source) Location / / Volume Laterality 10/10/2014 9:57 AM 5 CDT 10:30 AM CDT Narrative HP CONVERSION - 10/10/2014 10:41 AM CDT Performed at [facility], [address] [place] [address] Jeniffer Gutierrez MD LAB_1 Performing Organization Address City/[facility] Code Phon e Number HP CONVERSION documented in this encounter Visit Diagnoses Diagnosis Acute pharyngitis, unspecified pharyngit is type Triage Assessment Note - Harish Samayoa RN - 10/10/2014 8:52 AM CDT Pt c/o cough, fever, and loss of voice, onset x 2 days. documented in this encounter Care Teams Cognos Bi Administrator Relationship Specialty Start Date End Date Konstantin Milian MD PCP - General 08/03/[address] [place] [address] [place] [address] documented as of this encounter
--- OUTSIDE RECORDS SUMMARY | 2022-04-03 16:17 | XMS_ITS | Encounter Summary ---
:1970 Author Organization [employer] Address [address] [address] Care Team Providers Name Role Phone Konstantin Milian MD Primary Care Provider Reason for Visit Reason Comments Medication Request Encounter Details Date Type Department Care Team Description 10/24/2014 Telephone [facility] Chace Zimmerman Joe, Medication Request [address] [place] [address] [phone] FLOOR [place], [place] [address] (Wo rk) Social History Tobacco Use Types Packs/Day Years Used Date Smoking Tobacco: Never Assessed Sex Assigned at Date Recorded Not on file documented as of this encounter Nursing Notes Justin Wang OA - 10/24/2014 11:[address] Zimmerman printed out a new pres, and he picked it up at [facility] today. Sonia Victor RN - 10/24/2014 9:27 AM CDT DOS=10/16/14 L TKA. Pt calling to request a refill of oxycodone stating he took his last tablet this a.m. If approved, he would like to pick this up in [place] this morning. Please call him at [phone] updates. Thanks! documented in this encounter Plan of Treatment Not on filedocumented as of this encounter Visit Diagnoses Not on filedocumented in this encounter Care Teams Seeing Eye Dog Trainer Relationship Specialty Start Date End Date Konstantin Milian MD PCP - General 08/03/13 [address] [place] [phone] documented as of this encounter
--- OUTSIDE RECORDS SUMMARY | 2022-04-03 16:17 | XMS_ITS | Encounter Summary ---
:1970 Author Organization [employer] Address [address] [place] [address] Care Team Providers Name Role Phone Konstantin Milian MD Primary Care Provider Reason for Visit Reason Comments Knee Problem Encounter Details Date Type Department Care Team Description 11/08/2014 Office Visit [facility] Lavon Leblanc Pr imary osteoarthritis of left knee (Primary Dx); Therapy PT Knee joint replacement by other means [address] [place] [address] [place], [place] [phone] [address] Social History Tobacco Use Types Packs/Day Years Used Date Smoking Tobacco: Never Assessed Sex Assigned at Date Recorded Not on file documented as of this encounter Progress Notes Lavon Leblanc, PT - 11/08/2014 11:24 AM CDT Encounter date: 11/08/2014 Pt : 1970 [facility] Physical Therapy Progress Note Visit Number: 6 Initial Certification Period: 10/19/2014 - 12/18/2014 Referring Provider: Chace Zimmerman Visit Diagnosis: Diagnosis (ICD9) ICD-9-CM ICD-10-CM 1. Primary osteoarthritis of left knee 715.16 M17.12 2. Knee joint replacement by other means V43.65 [id number] Precautions: none SUBJECTIVE: Reports slow, but steady improvement. Still some pain and weakness, but improving. The patient went to the gym the other day and spent a few minutes on the bike. Has not done any strengthening yet. OBJECTIVE Current Objective Findings: Knee score: 50% (initial 11.4%) CGI: 3 (initial 4) Ambulating with a cane with a slight limp Treatment/Education Today: 1. Therapeutic exercise (28 minutes): - bike: resistance of 15 - standing knee extension against T-band 3 x 10 - bilateral hamstring curls: 70 lbs 3 x 10 - bilateral leg presses: 7 bands 3 x 10 - bike: resistance of 15 Rx was tolerated well. Timed Code Treatment Minutes: 25 Total Treatment Minutes: 25 Current Home Exercise Program List: ?? ankle [...] icing to help control edema and pain - CKC strengthening: stepping up/down and bilateral mini-squats. ASSESSMENT/PROGRESS TOWARD GOALS: Slow, but steady improvement. Good ROM, but still some weakness and pain. Functional Goals/Outcomes: HEP/Independent Management: Demonstrate independence with [...] work with restrictions in 4-8 weeks. Plan: Recheck in a week. documented in this encounter Plan of Treatment Not on filedocumented as of this encounter Visit Diagnoses Diagnosis Primary osteoarthritis of left knee - Pr imary Primary localized osteoarthrosis, lower leg Knee joint replacement by other means documented in this encounter Care Teams Manager Graphic Relationship Specialty Start Date End Date Konstantin Milian MD PCP - General 08/03/[address] [place] [address] documented as of this encounter
--- OUTSIDE RECORDS SUMMARY | 2022-04-03 16:17 | XMS_ITS | Encounter Summary ---
:1970 Author Organization [employer] Address [address] [place] [address] Care Team Providers Name Role Phone Konstantin Singh MD Primary Care Provider Reason for Visit Reason Comments Refill VIAGRA 100 MG tablet [Pharma cy Med Name: VIAGRA 100MG TABLETS] Encounter Details Date Type Department Care Team Description 10/05/2016 Refill [facility] Konstantin Singh MD Refill (VIAGRA 100 MG Medicine [address] [facility] tablet [Pharmacy Med [address] [place] [address] Name: [place] 100[place] [address] TABLETS]) [phone] Social History Tobacco Use Types Packs/Day Years Used Date Smoking Tobacco: Former Cigarettes 4 07/2000 - 07/12/2010 Smokeless Tobacco: Current Chew Comments: chews tobacco Alcohol Use Standard Drinks/Week Comments Yes 0 (1 standard drink = 0.6 oz pure alcoho l) 12-15 beers/week Alcohol Habits Answer Date Recorded How often do you have a drink containing alcohol? Not asked How many drinks containing alcohol do you have on a Not aske d typical day when you are drinking? How often do you have six or more drinks on one Not asked occasion? Comment: 12-15 beers/week 02/29/2016 Sex Assigned at Date Recorded Not on file documented as of this encounter Nursing Notes Olivia Forbes LPN - 10/07/2016 10:50 AM CDT I will forward note to Dr. Niño. I left a for pharmacy letting them know you are not prescribing MD. Konstantin Singh MD - 10/07/2016 10:47 AM CDT I did not refill the Viagra, as I have not seen the patient in 2 years. He should direct us refill request to Dr. Niño, as he has been seeing her in the sexual health clinic, most recently in February. Additionally, his medication list indicates he is taking daily Cialis. I'm not sure whether heis still taking that at present. Mari Ellsworth RN - 10/07/2016 10:27 AM CDT Further assistance needed to complete refill request Reason: Pt overdue for qualifying visit. Next Steps: Review pended order for accuracy. Sign. Route to frontline pool to schedule appt. Requested Prescriptions Pending Prescriptions Disp Refills ??? VIAGRA 100 MG tablet [Pharmacy Med Name: VIAGRA 100MG TABLETS] 6 Tab 0 Sig: TAKE 1/2 TO 1 TABLET BY MOUTH NEEDED FOR ERECTILE DYSFUNCTION Interface, Out Surescripts Prov Query - 10/05/2016 10:46 AM CDT VIAGRA 100 MG tablet [Pharmacy Med Name: VIAGRA 100MG TABLETS] Medication started: 09/10/2015 Last ordered by KONSTANTIN SINGH: 09/10/2015 (391 days ago) QTY: 6, Refills: 12, Sig: take 0.5-1 tablets by mouth as needed for erectile dysfunction. (changed) -> This medication may not have been authorized by the requested provider. -> The requested sig has changed from the last order. -> An office visit is overdue (performed 24 months ago, required every 12 months). Last qualifying visit: 10/24/2014 (with KONSTANTIN SINGH) Next scheduled visit: None Powered by [employer], Reference: [id number], 10/05/2016 10:46:28 AM CDT, Pool: [facility] REFILL ([id number]) documented in this encounter Plan of Treatment Not on filedocumented as of this encounter Visit Diagnoses Not on filedocumented in this encounter Care Teams Truck Rental Manager Relationship Specialty Start Date End Date Konstantin Singh MD PCP - General 08/03/[address] [place], [place] [address] documented as of this encounter
--- OUTSIDE RECORDS SUMMARY | 2022-04-03 16:17 | XMS_ITS | Encounter Summary ---
:1970 Author Organization [employer] Address [address] [address] Care Team Providers Name Role Phone Konstantin Singh MD Primary Care Provider Reason for Visit Reason Comments Refill Encounter Details Date Type Department Care Team Description 07/17/2015 Refill [facility] Konstantin Singh MD Refill [address] [facility] . [address] [place] [address] [place], [place] 3[address] (Wo rk) Social History Tobacco Use Types Packs/Day Years Used Date Smoking Tobacco: Never Assessed Sex Assigned at Date Recorded Not on file documented as of this encounter Nursing Notes Julia Anguiano, RN - 07/17/2015 3:37 PM CST Renewed medication per medication refill protocol. Requested Prescriptions Signed Prescriptions Disp Refills ??? amLODIPine (NORVASC) 5 mg tablet 90 tablet 1 Sig: TAKE 1 TABLET BY MOUTH DAILY( EVERY 24 HOURS) Authorizing Provider: KONSTANTIN SINGH Ordering User: JULIA ANGUIANO WATER HEATER INSTALLER User, Nely - 07/17/2015 3:37 PM CST amLODIPine (NORVASC) 5 mg tablet [Pharmacy Med Name: AMLODIPINE BESYLATE 5MG TABLETS] - MEDICATION STARTED: 06/10/2014 - LAST REFILLED ON: 08/06/2014, QTY: 90, Refills: 3, Sig: take 1 tablet by mouth daily (every 24 hours). indications: hypertension (changed but equivalent) - REFILL: 6 months - RATIONALE: This refill should last until the patient is due for an office visit. - LAST QUALIFYING VISIT WITH KONSTANTIN SINGH: 10/24/2014 - NEXT SCHEDULED VISIT: None - SBP: 112.0mm Hg on 10/24/2014 - DBP: 68.0mm Hg on 10/24/2014 Powered by [employer], Reference: [id number], 07/17/2015 12:08:53 PM HOT WATER HEATER INSTALLER, Pool: [place]O REFILL ([id number]) WATER HEATER INSTALLER documented in this encounter Plan of Treatment Not on filedocumented as of this encounter Visit Diagnoses Not on filedocumented in this encounter Care Teams Dovetailer Relationship Specialty Start Date End Date Konstantin Singh MD PCP - General 08/03/13 [address] [place] [address] documented as of this encounter
--- OUTSIDE RECORDS SUMMARY | 2022-04-03 16:17 | XMS_ITS | Encounter Summary ---
:1970 Author Organization [employer] Address [address], [place] [address] Care Team Providers Name Role Phone Konstantin Milian MD Primary Care Provider Reason for Referral Specialty Diagnoses / Procedures Referred By Contact Refer [place] [address] [place] [address] Referral ID Status Reason Start Date Expiration Date Visits Requ ested Visits Authorized Reason for Visit Reason Comments Knee Problem Encounter Details Date Type Department Care Team Description 10/19/2014 Initial Consult [facility], Left knee pain (Primary Dx); Therapy Hay Garber, PT Primary osteoarthritis of left knee [address] [address] [place] [id number] Social History Tobacco Use Types Packs/Day Years Used Date Smoking Tobacco: Never Assessed Sex Assigned at Date Recorded Not on file documented as of this encounter Progress Notes Hay Puentes, PT - 10/19/2014 12:43 PM CDT Date of Service: 10/19/2014 Pt : 1970 [facility] Physical Therapy-operative Knee Evaluation/Plan of Care Initial Certification Period: 10/19/2014 to 12/18/14 Referring Provider: Chace Zimmerman Surgical Procedure: Left TKA Surgical Date: 10/16/14 Visit Diagnosis: Diagnosis (ICD9) ICD-9-CM ICD-10-CM 1. 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 Original plan, per patient, was partial knee replacement, but it was found that patient did not have enough good cartilage for only a partial. Patient Therapy Goals:Return to work, biking, and ADLs without pain Past Medical History: Past medical history, medication, and allergies were reviewed in the electronic medical record. History is unremarkable. 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 OBJECTIVE Observation: Patient presents to clinic with front wheeled walker, accompanied by spouse. Tubi-him tech on lower leg and knee on left. Gait Exam: Antalgic, Decreased heel strike, Decreased terminal knee extension and increased use of upper extremities on walker Edema:Circumference: 47.8 cm - left; 44.7 cm - right ROM: PROM Left Extension ROM: lacking 12 degrees Flexion ROM: 96 degrees Strength: Quad set: Good SLR: Good, without extensor lag Joint Mobility: Not tested Knee Outcome Score: 11.4% Today's Intervention/Charges: Physical Therapy Evaluation was completed and the patient was educated on the condition, planned therapy intervention and expectations from treatment. Therapeutic exercise x 28 minutes: Patient instructed in TKA exercises: ankle pumps x 10 reps quad sets x 10 reps; education on 50% max contraction with 8 second hold hamstring set x 5 reps; education on 50% max contraction with 8 second hold short arc quads x 10 reps long arc quads x 10 reps straight leg raises with no assist x 10 reps heelslides x 5 reps instruction on seated knee flexion and extension stretches Discussed importance of icing to help control edema and pain Education/Handouts: Diagnosis Education, Post-op restrictions, RICE principles Timed Code Treatment Minutes: 28 minutes Total Treatment Minutes: 45 minutes ASSESSMENT Therapist Impression/Summary: Exam findings consistent with referral diagnosis of left TKA. Skilled services of a physical therapist required to decrease pain, increase strength, and increase ROM to obtain optimal level of function. Patient is at risk for ongoing pain, decreased ability to perform work, ADLs, and household duties. Recommendations/Equipment: No additional recommendations at this time Significant Impairments: Pain, Muscle tightness/decreased flexibility, Muscle weakness, Edema, ROM Limitation, Proprioception deficits, Joint replacement aftercare Functional Limitations: difficulty sleeping, difficulty dressing, difficulty with household tasks, difficulty meeting work demands, difficulty with sports/leisure activities, difficulty with driving, difficulty with gait and difficulty with stairs Goals/Functional Outcomes: HEP/Independent Management: Demonstrate independence with HEP and [...] to work with restrictions in 4-8 weeks. Barriers to Goal Achievement or Learning: none Prognosis: Good PLAN Planned Intervention/Education: ADL/Self Management, Education, Electrical Stimulation, Gait training, Heat/ice, Manual Therapy, Neuromuscular Re- education, Therapeutic Activities, Therapeutic Exercise Frequency: 2 x week Duration: 60 days Discharge Plan: Patient will be discharged from therapy when goals are achieved or patient plateaus in progress. Informed Consent: Patient and/or family in agreement with the care plan. Plan for Next Treatment: Progress home program and in-clinic strengthening as appropriate The oxyacetylene burner is completed by the therapist and the referring clinician's electronic signature certifies medical necessity for the plan above. documented in this encounter Plan of Treatment Scheduled Referrals Name Type Priority Associated Diagnoses [facility] Referral Routine Primary osteoarthritis o f Ordered: 10/19/2014, left knee Expires: 2014 documented as of this encounter Visit Diagnoses Diagnosis Left knee pain - Primary Pain in joint, lower leg Primary osteoarthritis of left knee Primary localized osteoarthrosis, lower leg documented in this encounter Care Teams Electrical Transmission Engineer Relationship Specialty Start Date End Date Konstantin Milian MD PCP - General 08/03/[address] [place] [address] documented as of this encounter
--- OUTSIDE RECORDS SUMMARY | 2022-04-03 16:17 | XMS_ITS | Encounter Summary ---
:1970 Author Organization [facility] Address [address], [place] [address] Care Team Providers Name Role Phone Konstantin Milian MD Primary Care Provider Encounter Details Date Type Department Care Team Description 03/05/2015 Notes/Orders [facility] [address] [facility] [address] [place] [address] Social History Tobacco Use Types Packs/Day Years Used Date Smoking Tobacco: Never Assessed Sex Assigned at Date Recorded Not on file documented as of this encounter Plan of Treatment Not on filedocumented as of this encounter Visit Diagnoses Not on filedocumented in this encounter Care Teams Dental Appliance Mechanic Relationship Specialty Start Date End Date Konstantin Milian MD PCP - General 08/03/13 [address] [place] [address] documented as of this encounter
--- OUTSIDE RECORDS SUMMARY | 2022-04-03 16:17 | XMS_ITS | Encounter Summary ---
:1970 Author Organization [employer] Address [address], [place] [address] Care Team Providers Name Role Phone Konstantin Milian MD Primary Care Provider Reason for Visit Procedure/Equipment (Routine) - Incomplete Specialty Diagnoses / Procedures Referred By Contact Refer red To Contact Diagnoses History of total knee arthroplasty, left Chace Zimmerman MD Procedures XR Knee Lt 3 Views [id number] [place] [address] Referral ID Status Reason Start Date Expiration Date Visits V isits Requested Authorized [id number] Incomplete 10/26/2016 01/25/2018 1 1 Encounter Details Date Type Department Care Team Description 10/26/2016 Imaging [facility] Chace Zimmerman, History of total knee [address] arthroplasty, [place] [address] [phone] [address] [place], [place] [address] (Wo rk) Social History [...] Date/Time Associated Diagnosis Comme nts XR KNEE LT 3 VIEWS Routine 10/26/2016 3:44 PM History of tota l Results for this CDT knee arthroplasty, procedure are in left the results section. documented in this encounter Results XR Knee Lt 3 Views (10/26/2016 3:44 PM CDT) Anatomical Region Laterality Modality Lower Extremity, Knee Computed Radiograp hy Specimen (Source) Anatomical Collection Method Collection Time Re ceived Time Location / / Volume Laterality 10/26/2016 3:29 PM CDT Narrative 10/26/2016 3:59 PM CDT COMPARISON: ??None. FINDINGS: ??Left total knee replacement in good alignment and position. Procedure Note Tavo Wagner MD - 10/26/2016 COMPARISON: None. FINDINGS: Left total knee replacement in good alignment and position. Chace Zimmerman MD RAD GD documented in this encounter Visit Diagnoses Diagnosis History of total knee arthroplasty, left documented in this encounter Care Teams Rn Flight Relationship Specialty Start Date End Date Konstantin Milian MD PCP - General 08/03/13 [address] [place] [phone] documented as of this encounter
--- OUTSIDE RECORDS SUMMARY | 2022-04-03 16:17 | XMS_ITS | Encounter Summary ---
:1970 Author Organization [employer] Address [address] [place] [address] Care Team Providers Name Role Phone Konstantin Milian MD Primary Care Provider Reason for Visit Reason Comments Knee Problem Encounter Details Date Type Department Care Team Description 11/14/2014 Office Visit [facility] Lavon Leblanc Pr imarlette osteoarthritis of left knee (Primary Dx); Therapy PT Knee joint replacement by other means [address] [place] [address] [place], [place] [phone] [address] Social History Tobacco Use Types Packs/Day Years Used Date Smoking Tobacco: Never Assessed Sex Assigned at Date Recorded Not on file documented as of this encounter Progress Notes Lavon Leblanc, PT - 03/13/2015 9:40 AM CDT Encounter Date: 11/14/2014 Pt : 1970 [facility] Services Physical Therapy Discharge Summary Patient was seen for therapy from 10/10/14 through 11/14/14. Patient was compliant with attendance and therapy recommendations. Outcomes: PT Program:Musculoskeletal - Knee Knee Outcome Survey - ADL (0-100%, 100 being best): 63 % (11) Goal Achievement: Overall doing quite well. No longer uses a cane for ambulation. Started going to the gym and that isgoing well. Still some pain, but improving. He is still having some difficulty with doing stairs, but has been doing CKC strengthening and that has been helping. Only slight limitations in ROM. Discharge Summary Total Visits: 7 Reason for discharge: Therapy goals met, or therapist expects patient to meet goals through home program. Primary Therapist: Discharging therapist Discharge recommendations: Patient will continue to work independently with home program/self management strategies. Lavon Leblanc, PT - 11/14/2014 2:23 PM CDT Encounter date: 11/14/2014 Pt : 1970 [facility] Physical Therapy Progress Note Visit Number: 7 Initial Certification Period: 10/19/2014 - 12/18/2014 Referring Provider: Chace Zimmerman Visit Diagnosis: Diagnosis (ICD9) ICD-9-CM ICD-10-CM 1. Primary osteoarthritis of left knee 715.16 M17.12 2. Knee joint replacement by other means V43.65 [id number] Precautions: none SUBJECTIVE: Overall doing quite well. No longer uses a cane for ambulation. Started going to the gym and that isgoing well. Still some pain, but improving. He is still having some difficulty with doing stairs, but has been doing CKC strengthening and that has been helping. OBJECTIVE Current Objective Findings: Knee score: 63% (initial 11.4%) CGI: 2 (initial 4) Still ambulating with a slight limp; AROM: full extension, flexion: 115 degrees. Treatment/Education Today: 1. Therapeutic exercise (28 minutes): - bike: resistance of 15 - standing knee extension against T-band 3 x 10 - bilateral hamstring curls: 70 lbs 3 x 10 - bilateral leg presses: 8 bands 3 x 10 - stepping up on a 4 inch step 3 x 10 - stepping down on a 3 inch step 3 x 10 - bike: resistance of [...] up/down and bilateral mini-squats. ASSESSMENT/PROGRESS TOWARD GOALS: Good ROM and improving function. Still some difficulty with doing stairs. Functional Goals/Outcomes: HEP/Independent Management: Demonstrate independence with [...] work with restrictions in 4-8 weeks. 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 documented in this encounter Plan of Treatment Not on filedocumented as of this encounter Visit Diagnoses Diagnosis Primary osteoarthritis of left knee - Pr imary Primary localized osteoarthrosis, lower leg Knee joint replacement by other means documented in this encounter Care Teams Repeater Chief Relationship Specialty Start Date End Date Konstantin Milian MD PCP - General 08/03/13 [address] [place] [phone] documented as of this encounter
--- OUTSIDE RECORDS SUMMARY | 2022-04-03 16:17 | XMS_ITS | Encounter Summary ---
:1970 Author Organization [employer] Address [address], [place] [address] Care Team Providers Name Role Phone Konstantin Milian MD Primary Care Provider Reason for Visit Reason Comments Refill Encounter Details Date Type Department Care Team Description 11/27/2014 Telephone [facility] Chace Zimmerman MD Refill [address] [address] FLO[address] [phone] [place], [place] [address] (Wo rk) Social History Tobacco Use Types Packs/Day Years Used Date Smoking Tobacco: Never Assessed Sex Assigned at Date Recorded Not on file documented as of this encounter Nursing Notes Justin Wang OA - 11/28/2014 3:51 PM CDT I called and left a message for him to page me so I can speak to him about his pain pill management. Aquilino Barriga LPN - 11/27/2014 10:39 AM CDT Pt was last seen on november 15. Pt wondering if provider would refill his oxycodone for pain. Pt only uses normally 1-3 a day if needed but not everyday. please advise documented in this encounter Plan of Treatment Not on filedocumented as of this encounter Visit Diagnoses Not on filedocumented in this encounter Care Teams Inpatient Services Director Relationship Specialty Start Date End Date Konstantin Milian MD PCP - General 08/03/13 [address] [address] [place] [phone] documented as of this encounter
--- OUTSIDE RECORDS SUMMARY | 2022-04-03 16:17 | XMS_ITS | Encounter Summary ---
:1970 Author Organization [employer] Address [address] [place] [address] Care Team Providers Name Role Phone Konstantin Milian MD Primary Care Provider Reason for Visit Reason Comments Knee Problem Encounter Details Date Type Department Care Team Description 11/05/2014 Office Visit [facility] Lavon Leblanc Pr imary osteoarthritis of left knee (Primary Dx); Therapy PT Knee joint replacement by other means [address] [place] [address] [place], [place] [phone] [address] Social History Tobacco Use Types Packs/Day Years Used Date Smoking Tobacco: Never Assessed Sex Assigned at Date Recorded Not on file documented as of this encounter Progress Notes Lavon Leblanc, PT - 11/05/2014 12:00 PM CDT Encounter date: 11/05/2014 Pt : 1970 [facility] Services Physical Therapy Progress Note Visit Number: 5 Initial Certification Period: 10/19/2014 - 12/18/2014 Referring Provider: Chace Zimmerman Visit Diagnosis: Diagnosis (ICD9) ICD-9-CM ICD-10-CM 1. Primary osteoarthritis of left knee 715.16 M17.12 2. Knee joint replacement by other means V43.65 [id number] Precautions: none SUBJECTIVE: Still some pain, but improving. Biggest issue is still stiffness and weakness. The patient did go to the gym over the weekend where he did a stationary bike and some weights. OBJECTIVE Current Objective Findings: Knee score: 33% (initial 11.4%) CGI: 3 (initial 4) Ambulating with a cane with a slight limp Treatment/Education Today: 1. Therapeutic exercise (28 minutes): - passive stretching into extension - bike: resistance of 15 - standing knee extension against T-band 3 x 10 - bilateral hamstring curls: 70 lbs 3 x 10 - bilateral leg presses: 7 bands 3 x 10 - provided with CKC strengthening: stepping up/down and bilateral mini-squats. Rx was tolerated well. Timed Code Treatment Minutes: 28 Total Treatment Minutes: 28 Current Home Exercise Program List: ?? ankle [...] up/down and bilateral mini-squats. ASSESSMENT/PROGRESS TOWARD GOALS: Overall improving ROM and pain, but still difficulty with stiffness and strength. Functional Goals/Outcomes: HEP/Independent Management: Demonstrate independence with [...] with restrictions in 4-8 weeks. Plan: Recheck later this week. documented in this encounter Plan of Treatment Not on filedocumented as of this encounter Visit Diagnoses Diagnosis Primary osteoarthritis of left knee - Pr imary Primary localized osteoarthrosis, lower leg Knee joint replacement by other means documented in this encounter Care Teams Strain Technician Relationship Specialty Start Date End Date Konstantin Milian MD PCP - General [id number] [place] [phone] documented as of this encounter
--- OUTSIDE RECORDS SUMMARY | 2022-04-03 16:17 | XMS_ITS | Encounter Summary ---
:1970 Author Organization [employer] Address [address], [place] [address] Care Team Providers Name Role Phone Konstantin Milian MD Primary Care Provider Reason for Visit Reason Comments Refill Encounter Details Date Type Department Care Team Description 11/08/2014 Refill [facility] Chace Zimmerman MD Refill [address] [address] FLOOR [phone] [place], [place] [address] (Wo rk) Social History Tobacco Use Types Packs/Day Years Used Date Smoking Tobacco: Never Assessed Sex Assigned at Date Recorded Not on file documented as of this encounter Nursing Notes Ana Wang PA-C - 11/08/2014 2:00 PM CDT Rx refilled. Put rx at urgent care. Pt notified. Sonia Whitmore OA - 11/08/2014 10:26 AM CDT Patient had left TKA on 10/[address] Zimmerman. He is calling requesting a refill of his oxycodone. last fill was 60 tabs on 10/29/14. Patient states he is weaning off, he is taking 1 sometimes 2 every 8 hours or as needed. Patient does have a PT appt in [place] from 11-11:45am. Patient was hoping to pickup script around this time, I did tell him that Ana Wang is not in until this afternoon. He is ok coming back to get script. Please call [phone], it is ok to leave a message. documented in this encounter Plan of Treatment Not on filedocumented as of this encounter Visit Diagnoses Diagnosis Primary osteoarthritis of both knees - P rimary Primary localized osteoarthrosis, lower leg documented in this encounter Care Teams Compressor Technician Relationship Specialty Start Date End Date Konstantin Milian MD PCP - General 08/03/13 [address] [address] [place] [phone] documented as of this encounter
--- OUTSIDE RECORDS SUMMARY | 2022-04-03 16:17 | XMS_ITS | Encounter Summary ---
:1970 Author Organization [email or web address] Address [address], [place] [address] Care Team Providers Name Role Phone Konstantin Milian MD Primary Care Provider Encounter Details Date Type Department Care Team Description 11/15/2014 Imaging [place] [facility] [place] [address] [facility] [address] Social History Tobacco Use Types Packs/Day Years Used Date Smoking Tobacco: Never Assessed Sex Assigned at Date Recorded Not on file documented as of this encounter Plan of Treatment Not on filedocumented as of this encounter Procedures Procedure Name Priority Date/Time Associated Diagnosis Comme nts XR KNEE LT 3 VIEWS Routine 11/15/2014 10:11 Primary osteoarthr itis Results for this AM CDT of left knee procedure are i n the results section. documented in this encounter Results XR Knee Lt 3 Views (11/15/2014 10:11 AM CDT) Anatomical Region Laterality Modality Lower Extremity, Knee Other Specimen (Source) Anatomical Location Collection Method / Collectio n Time Received Time / Laterality Volume Narrative 11/15/2014 10:29 AM CDT COMPARISON: ??09/10/2014. FINDINGS: ??There is a new left total kn ee prosthesis. There is very minimal lucency adjacent to the medial tibial component. Elsewhere there is no loosening. There is no fracture or other acute complication. Procedure Note Bladimir Decker MD - 12/29/2015Forma tting of this note might be different from the original. COMPARISON: 09/10/2014. FINDINGS: There is a new left total knee prosthesis. There is very minimal lucency adjacent to the medial tibial component. Elsewhere there is no loosening. There is no fracture or other acute complication. Chace Zimmerman MD RAD GD documented in this encounter Visit Diagnoses Diagnosis Primary osteoarthritis of left knee Primary localized osteoarthrosis, lower leg documented in this encounter Care Teams Manager Access Relationship Specialty Start Date End Date Konstantin Milian MD PCP - General 08/03/13 [address] [place] [address] [place] [phone] documented as of this encounter
--- OUTSIDE RECORDS SUMMARY | 2022-04-03 16:17 | XMS_ITS | Encounter Summary ---
:1970 Author Organization [employer] Address [address], [place] [address] Care Team Providers Name Role Phone Konstantin Singh MD Primary Care Provider Reason for Referral Procedure/Equipment (Routine) - Incomplete Specialty Diagnoses / Procedures Referred By Contact Refer red To Contact Diagnoses History of total knee arthroplasty, left Chace Zimmerman MD Procedures XR Knee Lt 3 Views [address] [place] [address] Referral ID Status Reason Start Date Expiration Date Visits V isits Requested Authorized [id number] Incomplete 10/26/2016 01/25/2018 1 1 Reason for Visit Reason Comments Knee Pain or Injury Encounter Details Date Type Department Care Team Description 10/26/2016 Office Visit Chace Sears History of to helder knee arthroplasty, left (Primary Dx); Orthopedics MD Joe Primary osteoarthritis of left knee [address] [place] [address] [address] FLO[address] [phone] [place] [address] Social History Tobacco Use Types [...] documented as of this encounter Progress Notes Chace Zimmerman MD - 10/28/2016 6:40 PM CDT NAME: MAYA FU MR#: [id number] CSN: [id number] AUTHENTICATING CLINICIAN: Chace Zimmerman MD CONFIRM #: [id number] LOC: 511 CLINIC PROGRESS NOTE DATE OF VISIT: 10/26/2016 : 1970 CHIEF COMPLAINT: Left knee pain. HISTORY OF PRESENT ILLNESS: Fredis is here for followup of his left total knee arthroplasty. He is doing fairly well with that. Hehas occasional mild discomfort, but nothing dramatic. He feels like his strength is coming along fine. Range of motion is 0-135. Mild AP laxity, but nothing dramatic. Radiographs taken today reveal good alignment and fixation of left total knee arthroplasty with no evidence for complications. DIAGNOSIS: Two years status post left total knee arthroplasty, doing well. PLAN: Fredis can follow up at the 5-year vinicius. No antibiotic prophylaxis is required any longer unless he develops diabetes. I will wait to hear from him if he has any difficulty in the interim. He is pleased with the results of the operation to date. CC: [place] [address] [place] [address] KDO:MEDQ C: CONFIRM #: [id number] documented in this encounter Plan of Treatment Not on filedocumented as of this encounter Results XR Knee Lt 3 [...] Diagnosis History of total knee arthroplasty, left - Primary Primary osteoarthritis of left knee Primary localized osteoarthrosis, lower leg History of total knee arthroplasty, left documented in this encounter Care Teams Quality Control Scientist Relationship Specialty Start Date End Date Konstantin Singh MD PCP - General 08/03/13 [address] [place] [phone] documented as of this encounter
--- OUTSIDE RECORDS SUMMARY | 2022-04-03 16:17 | XMS_ITS | Encounter Summary ---
:1970 Author Organization [facility] Address [address], [place] [address] Care Team Providers Name Role Phone Konstantin Milian MD Primary Care Provider Encounter Details Date Type Department Care Team Description 10/24/2014 Notes/Orders Chace Sears Primary osteo arthritis Orthopedics JoeMD of both knees (Primary [address] [address] [place] Dx) [place] [address] [address] FLOOR [phone] [place], [place] 5[address]67 Social History Tobacco Use Types Packs/Day Years Used Date Smoking Tobacco: Never Assessed Sex Assigned at Date Recorded Not on file documented as of this encounter Plan of Treatment Not on filedocumented as of this encounter Visit Diagnoses Diagnosis Primary osteoarthritis of both knees - P rimary Primary localized osteoarthrosis, lower leg documented in this encounter Care Teams Material Manager Relationship Specialty Start Date End Date Konstantin Milian MD PCP - General 08/03/[address] [place] [address] documented as of this encounter
--- OUTSIDE RECORDS SUMMARY | 2022-04-03 16:17 | XMS_ITS | Encounter Summary ---
:1970 Author Organization [employer] Address [address] [place] [address] Care Team Providers Name Role Phone Unavailable Primary Care Provider Unavailable Reason for Referral Consultation - Closed Specialty Diagnoses / Procedures Referred By Contact Refer red To Contact Diagnoses Tonsillitis Koby Hill MD [facility] [address] [address] [place] [address] Fax: Referral ID Status Reason Start Date Expiration Date Visits Requ ested Visits Authorized [id number] Closed 10/07/2015 10/06/2016 1 1 Reason for Visit Reason Comments RECHECK uc f/u Encounter Details Date Type Department Care Team Description 10/07/2015 Office Visit [facility] Koby Hill Ton sillitis (Primary [facility] [place] Dx) [address] [place] [address] [phone] Social History Tobacco Use Types Packs/Day Years Used Date Former Smoker Quit: 10/06/19 12 Smokeless Tobacco: Current User Chew Alcohol Use Standard Drinks/Week Comments Yes 0 (1 standard drink = 0.6 oz pure alcoho l) Sex Assigned at Date Recorded Not on file documented as of this encounter Last Filed Vital Signs Vital Sign Reading Time Taken Comments Blood Pressure 126/70 10/07/2015 11:17 AM CDT Pulse 88 10/07/2015 11:17 AM CDT Temperature 36.6 ??C (97.8 ??F) 10/07/2015 11:17 AM CDT Respiratory Rate - - Oxygen Saturation 93% 10/07/2015 11:17 AM CDT Inhaled Oxygen Concentration - - Weight 123.5 kg (272 lb 3.2 oz) 10/07/2015 11:17 AM CDT Height 195.6 cm (6' 5) 10/07/2015 11:17 AM CDT Body Mass Index 32.28 10/07/2015 11:17 AM CDT documented in this encounter Progress Notes Koby Hill MD - 10/07/2015 11:19 AM CDT SUBJECTIVE: Rubens Prieto is a 45 year old male who presents to clinic today for the following health issues: ED/UC Followup: Facility: [facility] Date of visit: 10/06/15 Reason for visit: cyst near tonsils Current Status: still in pain needs referral to ent Patient is seen for a follow up visit. Seen in UC for left peritonsillar abscess, started on Clindamycin, Prednisone. Improved. Still has pain with swallowing. No fever, no difficulty breathing. Has h/o strep infections as a child , but no recent infections. Strep test was negative. Needs ENT referral. Problem list and histories reviewed & adjusted, as indicated. Additional history: none Problem list, Medication list, Allergies, and Medical/Social/Surgical histories reviewed in [facility] andupdated as appropriate. ROS: C: NEGATIVE for fever, chills, change in weight ENT/MOUTH: POSITIVE for sore throat and swollen glands R: NEGATIVE for significant cough or SOB CV: NEGATIVE for chest pain, palpitations or peripheral edema OBJECTIVE: BP 126/70 mmHg Pulse 88 Temp(Src) 97.8 ??F (36.6 ??C) (Oral) Ht 6' 5 (1.956 m) Wt 272 lb 3.2 oz (123.469 kg) BMI 32.27 kg/m2 SpO2 93% Body mass index is 32.27 kg/(m^2). GENERAL: healthy, alert and no distress HENT: ear canals and TM's normal, nose and mouth without ulcers or lesions, left tonsillar erythema and edema, posterior pharyngeal yellow exudate NECK: no adenopathy, no asymmetry, masses, or scars and thyroid normal to palpation, palpatory tender left submandibular area RESP: lungs clear to auscultation - no [...] Items Addressed This Visit None Visit Diagnoses Tonsillitis - Primary Relevant Orders OTOLARYNGOLOGY REFERRAL Cont current treatment,ENT will see in am Follow-Up:as needed Koby Hill MD [facility] documented in this encounter Nursing Notes Anshu Tyler - 10/07/2015 11:19 AM CDT Chief Complaint Patient presents with ??? RECHECK uc f/u Initial BP 126/70 mmHg Pulse 88 Temp(Src) 97.8 ??F (36.6 ??C) (Oral) Ht 6' 5 (1.956 m) Wt 272 lb 3.2 oz (123.469 kg) BMI 32.27 kg/m2 SpO2 93% Estimated body mass index is 32.27 kg/(m^2) ascalculated from the following: Height as of this encounter: 6' 5 (1.956 m). Weight as of this encounter: 272 lb 3.2 oz (123.469 kg). BP completed using cuff size: large Anshu Tyler MA documented in this encounter Plan of Treatment Scheduled Referrals Name Type Priority Associated Diagnoses Order S chedule OTOLARYNGOLOGY REFERRAL Referral Routine Tonsillitis Orde red: 10/07/2015 documented as of this encounter Visit Diagnoses Diagnosis Tonsillitis - Primary Acute tonsillitis documented in this encounter
--- OUTSIDE RECORDS SUMMARY | 2022-04-03 16:17 | XMS_ITS | Encounter Summary ---
:1970 Author Organization [place] Address [address] [place] [address] Care Team Providers Name Role Phone [facility] Primary Care Provider Unavailable Reason for Visit Reason Comments Other peritonsilar abscess Encounter Details Date Type Department Care Team Description 10/08/2015 - Emergency [facility] Teja Costello MD Peritonsillar abscess 10/09/2015 [facility] Emergency EMERGENCY Dept PHYSICIANS CECILE Finley E Nitin [facility] [address] [place] [id number] [phone] (Wo rk) Social History Tobacco Use Types Packs/Day Years Used Date Former Smoker Quit: 10/06/19 12 Smokeless Tobacco: Current User Chew Alcohol Use Standard Drinks/Week Comments Yes 0 (1 standard drink = 0.6 oz pure alcoho l) Sex Assigned at Date Recorded Not on file documented as of this encounter Last Filed Vital Signs Vital Sign Reading Time Taken Comments Blood Pressure 129/82 10/09/2015 12:42 AM CDT Pulse 81 10/09/2015 12:42 AM CDT Temperature 37.4 ??C (99.4 ??F) 10/08/2015 11:45 PM CDT Respiratory Rate 18 10/09/2015 12:42 AM CDT Oxygen Saturation 99% 10/09/2015 12:42 AM CDT Inhaled Oxygen Concentration - - Weight 122.5 kg (270 lb) 10/08/2015 11:45 PM CDT Height 193 cm (6' 3.98) 10/08/2015 11:45 PM CDT Body Mass Index 32.88 10/08/2015 11:45 PM CDT documented in this encounter Discharge Instructions Discharge InstructionsTeja Costello MD - 10/09/2015 12:28 AM CDT Images from the original note were not included. Peritonsillar Abscess A peritonsillar abscess is a [...] throat infection, see your doctor promptly. ?? [id number] [employer]. [address] [place] [address], [place] [address]. All rights reserved. This information is not intended as a substitute for professional medical care. Always follow your healthcare professional's instructions. documented in this encounter Medications at Time [...] Take 1-2 tablets by 15 tablet 0 10/09/2015 (PERCOCET) 5-325 MG per mouth every 4 hours tablet as needed for pain predniSONE (DELTASONE) 20 Take 2 tablets (40 10 tablet 0 10/09/2015 MG tabletIndications: mg) by mouth daily Peritonsillar abscess for 5 days valsartan-hydrochlorothia Take 1 tablet by 0 10/14/2015 zide (DIOVAN-HCT) mouth daily 320-12.5 MG per tablet documented as of this encounter ED Notes Teja Costello MD - 10/08/2015 11:59 PM CDT History Chief Complaint: Throat Pain HPI Rubens Prieto is a 45 year old male, accompanied by his , with a history of GERD, hypertension, and ADD and a recently diagnosed peritonsillar abscess who presents for evaluation of throat pain.On 10/03, the patient began to develop left-sided throat pain. On 10/05, he was seen in an Urgent Carefor this and diagnosed with a peritonsillar abscess based on exam and prescribed a course of clindamycin, prednisone, and norco. On 10/06, he was seen by an ENT physician who drained the abscess with a needle but was unable to get much drainage. Currently, the patient complains primarily of pain in histhroat, which he rates at a severity of 4/10, as well as difficulty swallowing secondary to pain. He denies any fever in association with his current pain. Allergies: Amoxicillin Medications: amLODIPine (NORVASC) 5 MG tablet valsartan-hydrochlorothiazide (DIOVAN-HCT) 320-12.5 MG per tablet buPROPion (WELLBUTRIN SR) 150 MG 12 hr tablet omeprazole (PRILOSEC) 40 MG capsule amphetamine-dextroamphetamine (ADDERALL XR) 30 MG per capsule Rx 10/06/15: clindamycin (CLEOCIN) 300 MG capsule HYDROcodone-acetaminophen (NORCO) 5-325 MG per tablet predniSONE (DELTASONE) 20 MG tablet Past Medical History: ADD GERD Hypertension Past Surgical History: History reviewed. No pertinent past surgical history. Family History: Hypertension - Mother Social History: Tobacco use: Former smoker, quit 10/06/2011, current chewing tobacco use Alcohol use: Positive Marital status: Accompanied to ED by: Review of Systems Constitutional: Negative for fever. HENT: Positive for sore throat and trouble swallowing (secondary to pain). All other systems reviewed and are negative. Physical Exam First Vitals: BP: 139/87 mmHg Pulse: 99 Temp: 99.4 ??F (37.4 ??C) Resp: 17 Height: 193 cm (6' 3.98) Weight: 122.471 kg (270 lb) SpO2: 99 % Physical Exam Nursing note and vitals reviewed. Constitutional: Cooperative. HENT: Mouth/Throat: Mucous membranes are normal. Large Left peritonsillar abscess with uvular deviation tothe right. Cardiovascular: Normal rate, regular rhythm and normal heart sounds. No murmur. Pulmonary/Chest: Effort normal and breath sounds normal. No respiratory distress. Neurological: Alert. Skin: Skin is warm and dry. Psychiatric: Normal mood and affect. Emergency Department Course Laboratory: Abscess culture aerobic bacterial: Pending Procedures: Procedure: Incision and Drainage LOCATIONS: Left Peritonsillar Abscess ANESTHESIA: Local field block using Hurricane spray and infiltration of Lidocaine 2% with epinephrine, total of 3 mLs PROCEDURE: Area was aspirated with a 19 gauge needle and then incised using a #11 Blade (Sharp [place]) with a Single Straight incision in the track after successful aspiration of 3+cc of purulent drainage. Wound treatment included Purulent Drainage. Patient Status: Patient tolerated the procedure well. There were no complications. Interventions: 0035 Decadron 10 mg PO Emergency Department Course: Nursing notes and vitals reviewed. 0000: I performed an exam of the patient as documented above. 0020: A incision and drainage was performed as outlined in the procedure note above. The patient tolerated well and there were no complications. 3+ cc's of purulent fluid were expressed and sent for culture. Findings and plan explained to the Patient and spouse. Patient discharged home with instructions regarding supportive care, medications, and reasons to return. The importance of close follow-up was reviewed. The patient was prescribed Percocet. Impression & Plan Medical Decision Making: Rubens Prieto is a 45 year old male with a left peritonsillar abscess. Attempted drainage by ENT yesterday did not result in much aspirate. I was able to aspirate approximately 3 cc's of purulent drainage and then extended to puncture with an #11 blade. Following this I used a curved forceps to perform blunt dissection to hopefully open up this tract and prevent it from resealing off. The patient had immediate relief of his symptoms. He is afebrile. He has been given a dose of decadron and I willhave him continue on the prednisone that he is taking. We will keep his on the clindamycin pending an abscess culture which was sent from here. I have also added percocet to his pain regimen as the hydrocodone is not helping his symptoms though with larger aspirate today I think he will do much better. Diagnosis: ICD-10-CM 1. Peritonsillar abscess J36 left Disposition: Discharge Discharge Medications: New Prescriptions OXYCODONE-ACETAMINOPHEN (PERCOCET) 5-325 MG PER TABLET Take 1-2 tablets by mouth every 4 hours as needed for pain I, Cali Shen, am serving as a scribe at 12:00 AM on 10/09/2015 to document services personally performed by Dr. Costello, based on my observations and the provider's statements to me. [facility] EMERGENCY DEPARTMENT Teja Costello MD 10/09/15 0450 Eli Brown RN - 10/08/2015 11:43 PM CDT Pain in throat started Wednesday Seen sun Dx peritonsillar abscess Given EES Prednisone Vicodin F/u with ENT Was able to have some drained but pain and now feels Increase in pain Here for eval documented in this encounter Plan of Treatment Not on filedocumented as of this encounter Procedures Procedure Name Priority Date/Time Associated Diagnosis Comme nts ABSCESS CULTURE Routine 10/09/2015 12:20 Peritonsillar abscess Results for this AEROBIC BACTERIAL AM CDT procedure are in the results section. documented in this encounter Results (ABNORMAL) Abscess Culture Aerobic Bacterial (10/09/2015 12:20 AM CDT) Component Value Ref Test Analysis Performed At [facility] Range Method Time Signature Specimen Left WILD ROSE Description Peritonsillar [facility] Culture Micro Heavy growth Streptococcus anginosus INFECTIOUS On day 1, isolated in broth only: Gram n egative rods Organism failed to thrive DISEASE for identification DIAGNOSTIC On day 1, isolated in broth only: Veillonella species No further identification LABORATORY Susceptibility testing not routinely done (A) Micro Report FINAL 10/15/2015 INFECTIOUS Status DISEASE DIAGNOSTIC LABORATORY Organism: Heavy growth INFECTIOUS Streptococcus DISEASE anginosus DIAGNOSTIC LABORATORY Specimen Anatomical Collection Method Collection Time Receive d Time (Source) Location / / Volume Laterality Specimen from LEFT FAUCIAL 10/09/2015 12:20 10/09/2015 abscess TONSIL STRUCTURE / AM CDT 12:50 AM CDT (specimen) Unknown Organism Antibiotic Method Susceptibility Heavy growth streptococcus anginosus Ampicillin 0.12 Susceptible ug/mL (komal gram pos panel) Heavy growth streptococcus anginosus Penicillin 0.06 Susceptible ug/mL (komal gram pos panel) Heavy growth streptococcus anginosus Vancomycin 0.5 Susceptible ug/mL (komal gram pos panel) Heavy growth streptococcus anginosus Cefotaxime <=0.25 Susceptible ug/mL (komal gram pos panel) Heavy growth streptococcus anginosus Ceftriaxone <=0.25 Susceptible ug/mL (komal gram pos panel) Heavy growth streptococcus anginosus Erythromycin >0.5 Resistant ug/mL (komal gram pos panel) Heavy growth streptococcus anginosus Clindamycin >0.5 Resistant ug/mL (komal gram pos panel) Teja Costello MD LAB - MICRO GENERAL ORDERABL ES Performing Organization Address City/State/ZIP Code Phon e Number INFECTIOUS DISEASES [address] [place] [address] DIAGNOSTIC LABORATORY, [facility] [address] [phone] INFECTIOUS DISEASE [address] [place], [place] [id number] [place] [address] DIAGNOSTIC LABORATORY documented in this encounter Visit Diagnoses Diagnosis Peritonsillar abscess documented in this encounter Administered Medications Inactive Administered Medications - up to 3 most recent administrations Medication Order MAR Action Action Date Dose Rate Site dexamethasone (DECADRON) solution Given 10/09/2015 12:35 AM CDT 10 mg 10 mg 10 mg, Oral, ONCE, On Wed10/09/15 at 0036, For 1 dose documented in this encounter Active and Recently Administered Medications Times are shown in CDT. Scheduled Medication Order 10/07/2015 10/08/2015 10/09/2015 dexamethasone (DECADRON) solution 10 mg (COMPLETED) 0035 (Given - Provider: Irasema Manrique RN) 10 mg, Oral, ONCE, Wed10/09/15 at 0036, For 1 dose documented in this encounter Care Teams Architectural Technologist Relationship Specialty Start Date End Date [facility] PCP - General 10/09/15 documented as of this encounter
--- OUTSIDE RECORDS SUMMARY | 2022-04-03 16:17 | XMS_ITS | Encounter Summary ---
:1970 [facility] [address], [place] [address] Care Team Providers Name Role Phone Konstantin Singh MD Primary Care Provider Reason for Visit Reason Comments Post Op Exam Encounter Details Date Type Department Care Team Description 10/29/2014 Office Visit Chace Sears Primary osteo arthritis of both knees (Primary Dx); Orthopedics MD Joe Knee joint replacement by other means [address] [place] [address] 1ST FLOOR [phone] [place] [address] Social History Tobacco Use Types Packs/Day Years Used Date Smoking Tobacco: Never Assessed Sex Assigned at Date Recorded Not on file documented as of this encounter Progress Notes Chace Zimmerman MD - 10/29/2014 6:39 PM CDT Progress Notes signed by Chace Zimmerman MD at 11/05/1428 Author: Chace Zimmerman MD Service: (none) Author Type: Physician Filed: 11/05/1428 Note Time: 10/30/14 1030 Status: Signed Livestock Rancher: Chace Zimmerman MD (Physician) NAME: MAYA FU MR#: [id number] CSN: [id number] AUTHENTICATING CLINICIAN: Chace Zimmerman MD CONFIRM #: [id number] LOC: 511 CLINIC PROGRESS NOTE DATE OF VISIT: 10/29/2014 : 1970 CHIEF COMPLAINT: Left knee pain. HISTORY OF PRESENT ILLNESS: Fredis is here for followup of his first visit after his total knee arthroplasty on the left side. He is doing fairly well. Pain is under good control. EXAMINATION: He has moderate swelling in the knee. The leg does not look too swollen. His wound is healing well. No evidence for infection is noted. He flexes easily to 95 and extends to about 5. The pain pills seem to be effective for him. DIAGNOSIS: Status post left total knee arthroplasty. PLAN: Fredis is on target for his progress. I refilled his oxycodone today. We are going to have him follow up with me at the 6-week vinicius as previously scheduled. At which point, new x-rays of the left knee should be taken. He is pleased with the results of the operation to date, as am I. CC: [place] [id number] [address] [place] [address] KDO:MEDQ C: CONFIRM #: [id number] documented in this encounter Plan of Treatment Not on filedocumented as of this encounter Visit Diagnoses Diagnosis Primary osteoarthritis of both knees - P rimary Primary localized osteoarthrosis, lower leg Knee joint replacement by other means documented in this encounter Care Teams Thread Drawer Relationship Specialty Start Date End Date Konstantin Singh MD PCP - General 08/03/[address] [place] [id number] documented as of this encounter
--- OUTSIDE RECORDS SUMMARY | 2022-04-03 16:17 | XMS_ITS | Encounter Summary ---
:1970 [facility] Address [address], [place] [address] Care Team Providers Name Role Phone Kosntantin Milian MD Primary Care Provider Reason for Visit Reason Comments Dental Procedure Antibiotic Prophlaxis Encounter Details Date Type Department Care Team Description 04/08/2015 Telephone [facility] Chcae Zimmerman, Dental Procedure [address] [address] Crowell [place] [address] [address] GUI[address]EN [phone] 1ST FLOOR [place], [place] [address] (Wo rk) Social History Tobacco Use Types Packs/Day Years Used Date Smoking Tobacco: Never Assessed Sex Assigned at Date Recorded Not on file documented as of this encounter Nursing Notes Eloisa Kaplan, RN - 04/08/2015 10:52 AM CDT Per antibiotic prophylaxis protocol, clindamycin issued. documented in this encounter Plan of Treatment Not on filedocumented as of this encounter Visit Diagnoses Not on filedocumented in this encounter Care Teams Hand Flesher Relationship Specialty Start Date End Date Konstantin Milian MD PCP - General 08/03/13 [address] [place] [address] documented as of this encounter
--- OUTSIDE RECORDS SUMMARY | 2022-04-03 16:17 | XMS_ITS | Encounter Summary ---
:1970 Author Organization [place] Address [address] [place] [address] Care Team Providers Name Role Phone [facility] Primary Care Provider Unavailable Reason for Visit Reason Comments Pharyngitis Pt c/o sore throat X 48 hour s. Urgent Care Encounter Details Date Type Department Care Team Description 10/06/2015 Office Visit [facility] Leonor Durantt onsillar abscess (Primary Dx); Urgent Care Jhoana Potts PA-C Throat pain [address] [address] [phone] Social History Tobacco Use Types Packs/Day Years Used Date Former Smoker Quit: 10/06/19 12 Smokeless Tobacco: Current User Chew Alcohol Use Standard Drinks/Week Comments Not Asked 0 (1 standard drink = 0.6 oz pure alcoho l) Sex Assigned at Date Recorded Not on file documented as of this encounter Last Filed Vital Signs Vital Sign Reading Time Taken Comments Blood Pressure 138/70 10/06/2015 10:20 AM CDT Pulse 79 10/06/2015 10:20 AM CDT Temperature 36.6 ??C (97.9 ??F) 10/06/2015 10:20 AM CDT Respiratory Rate - - Oxygen Saturation 100% 10/06/2015 10:20 AM CDT Inhaled Oxygen Concentration - - Weight 124.7 kg (275 lb) 10/06/2015 10:20 AM CDT Height - - Body Mass Index - - documented in this encounter Patient Instructions Patient InstructionsMilvia Durant PA-C - 10/06/2015 11:08 AM CDT (J36) Peritonsillar abscess (primary encounter diagnosis) Comment: Plan: clindamycin (CLEOCIN) 300 MG capsule, HYDROcodone-acetaminophen (NORCO) 5-325 MG per tablet, predniSONE (DELTASONE) 20 MG tablet Contact ENT for follow up within 48 hours. TO ED should symptoms worsen in ANY way! (R07.0) Throat pain Comment: Plan: Strep, Rapid Screen, Beta strep group A culture documented in this encounter Progress Notes Milvia Durant PA-C - 10/06/2015 10:59 AM CDT SUBJECTIVE: Rubens Prieto is a 45 year old male presenting with a chief complaint of: 1) sore throat since 10/04/15, worsening, on left side only Denies any runny nose or fevers. 2) malaise Denies any cough or body aches. Onset of symptoms was as above. Course of illness is worsening. Severity moderate Current and Associated symptoms: as above Treatment measures tried include OTC meds. Predisposing factors include NONE, did have a flu vaccination this season. No past medical history on file. HTN ADHD GERD There is no problem list on file for this patient. History Substance Use Topics ??? Smoking status: Former Smoker Quit date: 10/06/2011 ??? Smokeless tobacco: Current User Types: Chew ??? Alcohol Use: Not on file ROS: CONSTITUTIONAL:NEGATIVE for fever, chills, change in weight INTEGUMENTARY/SKIN: NEGATIVE for worrisome rashes, moles or lesions EYES: NEGATIVE for vision changes or irritation ENT/MOUTH: NEGATIVE for ear, mouth and throat problems RESP:NEGATIVE for significant cough or SOB CV: NEGATIVE for chest pain, palpitations or peripheral edema GI: NEGATIVE for nausea, abdominal pain, heartburn, or change in bowel habits : negative for dysuria, hematuria, decreased urinary stream, erectile dysfunction MUSCULOSKELETAL: NEGATIVE for significant arthralgias or myalgia NEURO: NEGATIVE for weakness, dizziness or paresthesias OBJECTIVE :BP 138/70 mmHg Pulse 79 Temp(Src) 97.9 ??F (36.6 ??C) Wt 275 lb (124.739 kg) SpO2 100% GENERAL APPEARANCE: healthy, alert and no distress EYES: EOMI, PERRL, conjunctiva clear HENT: ear canals and TM's normal. Nose and mouth without ulcers, erythema or lesions HENT: OP: left tonsil is erythematous and edematous with edema posterior to tonsil NECK: supple, with tender anterior cervical lymphadenopathy RESP: lungs clear to auscultation - no rales, rhonchi or wheezes CV: regular rates and rhythm, normal S1 S2, no murmur noted NEURO: Normal strength and tone, sensory exam grossly normal, normal speech and mentation SKIN: no suspicious lesions or rashes (J36) Peritonsillar abscess (primary encounter diagnosis) Comment: Plan: clindamycin (CLEOCIN) 300 MG capsule, HYDROcodone-acetaminophen (NORCO) 5-325 MG per tablet, predniSONE (DELTASONE) 20 MG tablet Salt water gargles. F/U with ENT within 48 hours, patient given clinic information. TO ED should symptoms worsen in ANY way. (R07.0) Throat pain Comment: Plan: Strep, Rapid Screen, Beta strep group A culture Patient expresses understanding and agreement with the assessment and plan as above. documented in this encounter Nursing Notes Rachel Sanchez RN - 10/06/2015 10:26 AM CDT Chief Complaint Patient presents with ??? Pharyngitis Pt c/o sore throat X 48 hours. ??? Urgent Care Initial BP 138/70 mmHg Pulse 79 Temp(Src) 97.9 ??F (36.6 ??C) Wt 275 lb (124.739 kg) SpO2 100% There is no height on file to calculate BMI. BP completed using cuff size: large documented in this encounter Plan of Treatment Not on filedocumented as of this encounter Procedures Procedure Name Priority Date/Time Associated Diagnosis Comme nts RAPID STREP SCREEN Routine 10/06/2015 10:27 AM Throat pain Re sults for this THROAT SWAB CDT procedure are i n the results section. BETA HEMOLYTIC Routine 10/06/2015 10:27 AM Throat pain Result s for this STREP GROUP A CDT procedure are in CULTURE the results section. documented in this encounter Results Beta strep group A culture (10/06/2015 10:27 AM CDT) Component Value Ref Test Analysis Performed At Patholo gist Range Method Time Signature Specimen Throat [facility] Culture Micro No Beta [place] Streptococcus [facility]IN[facility] Micro Report FINAL 10/08/2015 [place] Status [facility] Specimen Anatomical Collection Method Collection Time Receive d Time (Source) Location / / Volume Laterality Specimen from 10/06/2015 10:27 10/06/2015 throat AM CDT 10:42 AM CDT (specimen) Milvia Mijares PA-C LAB - MICRO GENERAL [place] Performing Organization Address City/[facility]/ZIP Code Phon e Number [facility] [address], [place] [address] Strep, Rapid Screen (10/06/2015 10:27 AM CDT) Component Value Ref Test Analysis Performed At [facility] Range Method Time Signature Specimen Throat [facility] Rapid Strep A NEGATIVE: No Group A strepto coccal antigen detected by immunoassay, await [place] Screen culture report. [facility] Micro Report FINAL 10/06/2015 [facility] Specimen Anatomical Collection Method Collection Time Receive d Time (Source) Location / / Volume Laterality Specimen from 10/06/2015 10:27 10/06/2015 throat AM CDT 10:42 AM CDT (specimen) Milvia Mijares PA-C LAB - MICRO GENERAL [place] Performing Organization Address City/[facility]/ZIP Code Phon e Number [facility] [address] [place] [address] documented in this encounter Visit Diagnoses Diagnosis Peritonsillar abscess - Primary Throat pain documented in this encounter Care Teams Cutting Inspector Relationship Specialty Start Date End Date [facility] PCP - General 10/09/15 documented as of this encounter
--- OUTSIDE RECORDS SUMMARY | 2022-04-03 16:17 | XMS_ITS | Encounter Summary ---
:1970 Author Organization [place] Address [address], [place] [address] Care Team Providers Name Role Phone Konstantin Singh MD Primary Care Provider Reason for Visit Reason Comments Refill Encounter Details Date Type Department Care Team Description 03/17/2015 Refill [facility] Konstantin Clark MD Refill [address] [address] [place] [address] [place], [place] [phone] (Wo rk) Social History Tobacco Use Types Packs/Day Years Used Date Smoking Tobacco: Never Assessed Sex Assigned at Date Recorded Not on file documented as of this encounter Nursing Notes UserNeyl - 03/19/2015 10:57 AM CDT valsartan-hydrochlorothiazide (DIOVAN-HCT) 320-12.5 mg per tablet [Pharmacy Med Name: VALSARTAN/[id number]/12.5MG TABLETS] - MEDICATION STARTED: 05/03/2013 - LAST REFILLED ON: 09/11/2014, QTY: 90, Refills: 1, Sig: take 1 tablet by mouth daily (every 24 hours). (changed but equivalent) - REFILL: 9 months - RATIONALE: This refill should last until the patient is due for a(n) Cr check, K check and Na check. - LAST QUALIFYING VISIT WITH KONSTANTIN SINGH: 10/24/2014 - NEXT SCHEDULED VISIT: None - SBP: 122.0mm Hg on 01/17/2015 - DBP: 64.0mm Hg on 01/17/2015 - Cr: 1.1mg/dL on 10/03/2014 - Na: 140.0mEq/L on 10/03/2014 - K: 4.3mEq/L on 10/03/2014 Powered by [facility], Reference: [id number], 03/17/2015 10:59:36 AM CDT, Pool: REJI REFILL ([id number]) Hayde Looney RN - 03/19/2015 10:57 AM CDT Renewed medication per medication refill protocol. Requested Prescriptions Signed Prescriptions Disp Refills ??? valsartan-hydrochlorothiazide (DIOVAN-HCT) 320-12.5 mg per tablet 90 tablet 2 Sig: TAKE 1 TABLET BY MOUTH DAILY( EVERY 24 HOURS) Authorizing Provider: KONSTANTIN SINGH Ordering User: HAYDE LOONEY documented in this encounter Plan of Treatment Not on filedocumented as of this encounter Visit Diagnoses Not on filedocumented in this encounter Care Teams Electrician Outside Relationship Specialty Start Date End Date Konstantin Singh MD PCP - General 08/03/13 [id number] [place] [id number] documented as of this encounter
--- OUTSIDE RECORDS SUMMARY | 2022-04-03 16:17 | XMS_ITS | Encounter Summary ---
:1970 Author Organization [employer] Address [address], [place] [address] Care Team Providers Name Role Phone Konstantin Milian MD Primary Care Provider Reason for Visit Reason Comments Knee Problem Encounter Details Date Type Department Care Team Description 11/01/2014 Office Visit Chris Physical Lavon Leblanc Pr imary osteoarthritis of left knee (Primary Dx); Therapy PT Knee joint replacement by other means [id number] [place] [address] [place], [place] [phone] [address] Social History Tobacco Use Types Packs/Day Years Used Date Smoking Tobacco: Never Assessed Sex Assigned at Date Recorded Not on file documented as of this encounter Progress Notes Lavon Leblanc, PT - 11/01/2014 8:34 AM CDT Encounter date: 11/01/2014 Pt : 1970 [facility] Physical Therapy Progress Note Visit Number: 4 Initial Certification Period: 10/19/2014 - 12/18/2014 Referring Provider: Cahce Zimmerman Visit Diagnosis: Diagnosis (ICD9) ICD-9-CM ICD-10-CM 1. Primary osteoarthritis of left knee 715.16 M17.12 2. Knee joint replacement by other means V43.65 [id number] Precautions: none SUBJECTIVE: Still reporting some pain and feeling tired, but overall happy with progress as he is more active and the pain is improving. Has done some walking without the cane. OBJECTIVE Current Objective Findings: Knee score: 53% (initial 11.4%) CGI: 3 (initial 4) Ambulating with a cane with a slight limp Treatment/Education Today: 1. Therapeutic exercise (28 minutes): - passive stretching into extension AROM post Rx: ext: missing 8 degrees, flexion: 115 degrees. Passive was missing 5 degrees of extension - bike: resistance of 15 - standing knee extension against T-band 3 x 10 - bilateral hamstring curls: 70 lbs 3 x 10 - bilateral leg presses: 7 bands 3 x 10 - discussed proper gait to limit limping. Rx was tolerated well. Timed Code Treatment [...] control edema and pain ASSESSMENT/PROGRESS TOWARD GOALS: Slow, but steady improvement. Good ROM and improving strength and function. Functional Goals/Outcomes: HEP/Independent Management: Demonstrate independence with [...] means documented in this encounter Care Teams Warping Machine Operator Relationship Specialty Start Date End Date Konstantin Milian MD PCP - General 08/03/13 [address] [place] [phone] documented as of this encounter
--- OUTSIDE RECORDS SUMMARY | 2022-04-03 16:17 | XMS_ITS | Encounter Summary ---
:1970 Author Organization [facility] Address [address], [place] [address] Care Team Providers Name Role Phone Konstantin Milian MD Primary Care Provider Reason for Visit Reason Comments Forms Encounter Details Date Type Department Care Team Description 11/15/2015 Telephone [facility] Rachelle Tang MD [facility] [address] [place] [address], [address] [place] [address] Social History Tobacco Use Types Packs/Day Years Used Date Smoking Tobacco: Never Assessed Sex Assigned at Date Recorded Not on file documented as of this encounter Plan of Treatment Not on filedocumented as of this encounter Visit Diagnoses Not on filedocumented in this encounter Care Teams Engine Installer Relationship Specialty Start Date End Date Konstantin Milian MD PCP - General 08/03/13 [address] [place] [phone] documented as of this encounter
--- OUTSIDE RECORDS SUMMARY | 2022-04-03 16:17 | XMS_ITS | Encounter Summary ---
:1970 Author Organization [employer] Address [address] [place] [address] Care Team Providers Name Role Phone Konstantin Milian MD Primary Care Provider Reason for Visit Reason Comments Follow-up Encounter Details Date Type Department Care Team Description 10/24/2014 Office Visit [facility] Konstantin Milian MD Status post total Medicine [address] [facility] left knee replacement [address] [place], [place] (Primary Dx) [place] [address] [phone] (Wo rk) Social History Tobacco Use Types Packs/Day Years Used Date Smoking Tobacco: Never Assessed Sex Assigned at Date Recorded Not on file documented as of this encounter Last Filed Vital Signs Vital Sign Reading Time Taken Comments Blood Pressure 112/68 10/24/2014 4:39 PM CDT Pulse 84 10/24/2014 4:39 PM CDT Temperature - - Respiratory Rate - - Oxygen Saturation - - Inhaled Oxygen Concentration - - Weight 119.9 kg (264 lb 5 oz) 10/24/2014 4:39 PM CDT Height - - Body Mass Index 31.34 10/03/2014 9:26 AM CDT documented in this encounter Progress Notes Konstantin Milian MD - 10/24/2014 5:27 PM CDT SUBJECTIVE: This 44-year-old male presents after recent left TKA on 10/16/14. He is doing well postoperatively. He is using oxycodone and acetaminophen for pain control, which is well-controlled. No fevers. No chest pain, dyspnea or cough. No dysuria. Medications: Current Outpatient Prescriptions Medication Sig Note Dispense Refill ??? ABILIFY 2 mg tablet 07/27/2014: Received from: External Pharmacy 3 ??? amLODIPine (NORVASC) 5 mg tablet Take 1 tablet by mouth daily (every 24 hours). Indications: HYPERTENSION 90 tablet 3 ??? buPROPion (WELLBUTRIN XL) 150 mg XL 24 hour tablet Take 450 mg by mouth every morning. ??? dextroamphetamine-amphetamine (ADDERALL XR) 20 mg 24 hr capsule Take 20 mg by mouth every morning. ??? insulin syringe U-100 short (BD INSULIN SYRINGE ULT-FINE II) 1/2 mL 31 x 516 Inject subcutaneously as needed. 100 Syringe 8 ??? omeprazole (PRILOSEC) 40 mg capsule Take 40 mg by mouth daily (every 24 hours). ??? oxyCODONE (ROXICODONE) 5 mg immediate release tablet Take 1-2 tablets by mouth every 6 hours as needed for Pain. 70 tablet 0 ??? tadalafil (CIALIS) 5 mg tablet Take 1 tablet by mouth nightly. 30 tablet 0 ??? terbutaline (BRETHINE) 5 mg tablet At 3 hrs of erection , take 1 tab. At 3 1/2 hrs, take 1 tab. At 4 hrs go to ER. 10 tablet 10 ??? valsartan-hydrochlorothiazide (DIOVAN-HCT) 320-12.5 mg per tablet Take 1 tablet by mouth daily (every 24 hours). 90 tablet 1 ??? vardenafil (LEVITRA) 20 mg tablet Take 1 tablet by mouth as needed. Take 1 hour prior to sexual intercourse. Max 1 dose/24 hours. 6 tablet 5 No current facility-administered medications for this visit. Adverse Drug Reactions: Amoxicillin; Lisinopril; and Metoprolol Social History: History Social History ??? Marital Status: Spouse Name: N/A Number of Children: N/A ??? 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 Smoking status: Former Smoker -- 4 years Types: Cigarettes Start date: 07/12/2000 Quit date: 07/12/2010 ??? Smokeless tobacco: Current User Types: Chew Comment: chews tobacco ??? Alcohol Use: 0.0 oz/week 12-15 Cans of beer per week Comment: 12-15 beers/week ??? Drug Use: No ??? Sexual Activity: Partners: Female Other Topics Concern ??? Bike Helmet No ??? City Water Yes ??? Exercise No ??? Guns In Home No ??? Seat Belt Yes ??? Special Diet No ??? Weight Concern Not Asked some ,but not much. Social History Narrative OBJECTIVE: Vital Signs: BP 112/68 Pulse 84 Wt 264 lb 5 oz (119.891 kg) General: Alert. Appears well. Breathing comfortably. Extremities: The left knee is diffusely swollen, and there is diffuse bruising throughout the left leg and swelling distal to the knee, all of which would be expected this soon after the surgery. No discharge. Skin: No jaundice or acute rash. ASSESSMENT: Diagnosis (ICD9) and Associated Orders ICD-9-CM ICD-10-CM 1. Status post total left knee replacement V43.65 Z96.652 PLAN: He will wean off the pain medication as tolerated. Followup with Dr. Zimmerman for postop check in5 days. Otherwise resume routine followup. documented in this encounter Plan of Treatment Not on filedocumented as of this encounter Visit Diagnoses Diagnosis Status post total left knee replacement - Primary documented in this encounter Care Teams Java Enterprise Architect Relationship Specialty Start Date End Date Konstantin Milian MD PCP - General 08/03/13 [address] [place] [phone] documented as of this encounter
--- OUTSIDE RECORDS SUMMARY | 2022-04-03 16:17 | XMS_ITS | Encounter Summary ---
:1970 Author Organization [employer] Address [address] [place] [address] Care Team Providers Name Role Phone Konstantin Singh MD Primary Care Provider Reason for Visit Reason Onset Date Comments Refill 10/30/2016 vardenafil (LEVITRA) 20 MG tablet Encounter Details Date Type Department Care Team Description 10/30/2016 Refill [facility] Konstantin Singh MD Refill (vardenafil Medicine [address] [place] [address] (LEVITRA) 20 MG tablet) [address] [place] [address] [place] [address] [phone] Social History Tobacco Use Types Packs/Day Years [...] documented as of this encounter Nursing Notes Konstantin Singh MD - 11/02/2016 1:31 PM CDT Please send refill request to Dr. [facility] where this issue is managed.I haven't seen patient in 2 years. Donna Morgan RN - 11/02/2016 9:37 AM CDT Further assistance needed to complete refill request Reason: Pt overdue for qualifying visit. Next Steps: Review pended order for accuracy. Sign. Route to frontline pool to schedule appt. Requested Prescriptions Pending Prescriptions Disp Refills ??? vardenafil (LEVITRA) 20 MG tablet 6 Tab 0 Sig: Take 1 Tab by mouth as needed ((TAKE 1 HOUR PRIOR TO SEXUAL INTERCOURSE. MAX 1 DOSE/24 HOURS).). Interface, Out Surescripts Prov Query - 10/30/2016 12:30 PM CDT vardenafil (LEVITRA) 20 MG tablet Medication started: 03/20/2013 Last ordered by KONSTANTIN SINGH: 05/16/2015 (533 days ago) QTY: 6, Refills: 5, Sig: take 1 tablet bymouth as needed (take 1 hour prior to sexual intercourse. max 1 dose/24 hours). (changed) -> This medication was discontinued on 09/10/2015. -> The requested sig has changed from the last order. -> A qualifying visit was not found within the last 2 years. Last qualifying visit: None Next scheduled visit: None Powered by [employer], Reference: [id number], 10/30/2016 12:30:48 PM CDTSavage: MAINE PRESTON REFILL ([id number]) documented in this encounter Plan of Treatment Not on filedocumented as of this encounter Visit Diagnoses Not on filedocumented in this encounter Care Teams Inspector Scales Relationship Specialty Start Date End Date Konstantin Singh MD PCP - General 08/03/[address] [place] [address] documented as of this encounter
--- OUTSIDE RECORDS SUMMARY | 2022-04-03 16:17 | XMS_ITS | Clinical Summary ---
:1970 Author Organization [employer] Address [address], [place] [address] Care Team Providers Name Role Phone Konstantin Milian MD Primary Care Provider Source Comments You are receiving this document as you are listed as the primary care provider,follow-up provider, or the patient has been referred to you for consultation.This is in compliance with the Medicare and Medicaid EHR Incentive Program,which states Providers who transition their patient to another setting of careor provider of care or refers their patient to another provider of care shouldprovide summarycare record for each transition of care or referral. [employer] Allergies Active Allergy Reactions Severity Noted Date Comments Amoxicillin Hives 03/20/2013 Lisinopril Cough 05/03/2013 Metoprolol Other, see comments 05/03/2013 PN: erec tile dysfunction Medications Medication Sig Dispensed Refills Start Date End Date Status buPROPion Take 450 mg by mouth 0 03/20/2013 Active (WELLBUTRINXL) 150 every morning. MG 24 hour release tablet omeprazole Take 40 mg by mouth 0 03/20/2013 Active (PRILOSEC) 40 MG daily (every 24 capsule hours). terbutaline (AKA At 3 hrs of erection 10 tablet 10 08/03/2013 Active BRETHINE) 5 MG , take 1 tab. At 3 tablet 1/2 hrs, take 1 tab. At 4 hrs go to ER. Valsartan-Hydrochlo Take 1 tablet by 90 tablet 2 09/10/2015 Active rothiazide mouth daily (every 24 (DIOVAN-HCT) hours). Indications: 320-12.5 MG HYPERTENSION tabletIndications: Essential hypertension (HRC) amLODIPine Take 1 tablet by 90 tablet 1 09/10/2015 A ctive (NORVASC) 5 MG mouth daily (every 24 tabletIndications: hours). Indications: Essential HYPERTENSION hypertension (HRC) clindamycin Take 2 capsules by 4 capsule 0 10/23/2015 Active (CLEOCIN) 300 MG mouth once as needed capsule for Other for up to 1 dose. Take 600 mg one hour prior to dental procedure. armodafinil Take 250 mg by mouth. 0 01/07/2016 Active (NUVIGIL) 250 MG tabletIndications: KATIA MOSER WedMar 06, 2016 1:37 PM Received from: [facility] clonazePAM Take 1 mg by mouth. 0 03/06/2016 Active (KLONOPIN) 1 MG tabletIndications: KATIA MOSER WedMar 06, 2016 1:37 PM Received from: [facility] amphetamine-dextroa Take 30 mg by mouth. 0 6 Active mphetamine (ADDERALLXR) 30 MG 24 hour release capsuleIndications: KATIA MOSER WedMar 06, 2016 1:38 PM Received from: [facility] ARIPiprazole Take 2.5-5 mg by 0 01/07/2016 Active (ABILIFY) 5 MG mouth. tabletIndications: KATIA MOSER WedMar 06, 2016 1:38 PM Received from: [facility] clotrimazole Apply topically 2 30 g 3 03/06/2016 Active (LOTRIMIN) 1 % times daily. cream insulin Inject subcutaneously 25 Each 8 03/25/2017 Active syringe-needle 31G as needed. X 5/16 inch 1 mL (BD INSULIN SYRINGE ULTRAFINE) compounded Papaverine 30 mg/ml + 5 Each 11 01/28/2018 Active prescription phentolamine 1 mg/ml + Prostin 10 mcg/mL. Inject 10-50 units as directed. sildenafil (VIAGRA) TAKE 1 TABLET BY 6 Tablet 0 04/18/2018 Active 100 MG tablet MOUTH ONCE DAILY NEEDED Active Problems Problem Noted Date Osteoarthritis of left knee 08/17/2014 Sensorimotor neuropathy 07/14/2013 Essential hypertension 05/03/2013 ADD (attention deficit disorder) without hyperactivity 05/03/2013 GERD (gastroesophageal reflux disease) 05/03/2013 Impaired fasting glucose 05/03/2013 Obesity 05/03/2013 ED (erectile dysfunction) 03/20/2013 Mixed anxiety and depressive disorder 03/20/2013 Overview: Mixed anxiety and depressive disorder (A CG) Chews tobacco 03/20/2013 Immunizations Name Administration Dates Next Due Influenza IIV4 (Quadrivalent) 0.5mL (83393) 03/20/2013 Influenza, Unspecified Formulation 05/07/2015 TDAP (BOOSTRIX) 03/20/2013 Family History Medical History Relation Name Comments Cancer Father leukemia Hypertension Mother Osteoarthritis Mother Hypertension Sister 3 Relation Name Status Comments Father (Age 46) Mother Alive Sister 1 Alive Sister 2 Alive Sister 3 Social History Tobacco Use Types Packs/Day Years [...] Sign Reading Time Taken Comments Blood Pressure 134/76 03/25/2017 10:07 AM CDT Pulse 78 03/25/2017 10:07 AM CDT Temperature 36.9 ??C (98.4 ??F) 10/10/2014 8:53 AM CDT Respiratory Rate 14 03/25/2017 10:07 AM CDT Oxygen Saturation 97% 10/10/2014 8:53 AM CDT Inhaled Oxygen Concentration - - Weight 119.9 kg (264 lb 5 oz) 10/24/2014 4:39 PM CDT Height 195.6 cm (6' 5) 10/03/2014 9:26 AM CDT Body Mass Index 31.34 10/03/2014 9:26 AM CDT Plan of Treatment Health Maintenance Due Date Last Done Comments Colon Cancer Screening Plan 1970 Due Hep C Screening (Preventive 1970 Services) HepB (1) 1970 COVID-19 Vaccine (#1) 1970 HIV Screening (Preventive 1984 Services) Adult Preventive Visit 1986 Zoster/Shingles (1 of 2) 2018 Cholesterol 07/20/2019 07/20/2014, 03/20/2013 Influenza (#1) 2022 05/07/2015, 05/07/2015 (Completed), 03/20/2013, Additional history exists DTaP/Tdap/Td (3 - Tdap) 03/20/2023 03/20/2013, 03/20/2013 (Completed), 09/03/2010 HepA Aged Out No longer eligib le based on patient 's age to complete this topic Hib Aged Out No longer eligib le based on patient 's age to complete this topic IPV (Polio) Aged Out No longer eligib le based on patient 's age to complete this topic MCV4 Aged Out No longer eligib le based on patient 's age to complete this topic Pneumococcal Aged Out No longer eligib le based on patient 's age to complete this topic Insurance Payer Benefit Plan / Subscriber ID Effective Dates Phone Addre ss Type Group BCBS BCBS BLUE [id number] 2016-Present [address] [address] [place] [address] Conner, Personal/Famil Self 1970 [id number] [facility] [address] [place] [id number] Care Teams Python Consultant Relationship Specialty Start Date End Date Konstantin Milian MD PCP - General 08/03/13 [address] [place] [phone]
--- OUTSIDE RECORDS SUMMARY | 2022-04-03 16:17 | XMS_ITS | Encounter Summary ---
:1970 Author Organization [facility] Address [address], [place] [address] Care Team Providers Name Role Phone Konstantin Milian MD Primary Care Provider Reason for Visit Reason Comments Dental Procedure Antibiotic Prophlaxis Encounter Details Date Type Department Care Team Description 06/27/2019 Telephone [facility] [address] Joe , Dental Procedure [facility] [address] [facility] [address] [address] [place], [place] [address] [address] [place] [address] [phone] (Wo rk) Social History Tobacco Use Types [...] documented as of this encounter Nursing Notes Tessa Guardado, RN - 06/28/2019 9:56 AM CST Patient requests pre-dental antibiotic prophylaxis due to history of total joint replacement. Patient had a left total knee that was greater than 6 months ago. DOS: 10/16/14 Prophylaxis indication is: None. Patient DENIES all high risk questions Medication allergies: Allergies Allergen Reactions ??? Amoxicillin Hives ??? Lisinopril Cough ??? Metoprolol Other, see comments PN: erectile dysfunction Plan: Advised antibiotic is not needed at this time, but to check back yearly or if has any new diagnoses to see if antibiotics are needed. Patient states understanding and agrees with plan. Patient will call back with dental provider's name and phone number for us to fax the Dental form to. MOTIVE LIGHT MECHANIC Hetal Jang RN - 06/28/2019 8:59 AM CST Left message for patient to call back. Please inform patient of below message. He requires dental protocol screening. L TKA 10/16/14. MOTIVE LIGHT MECHANIC Wilder Carrasco - 06/27/2019 3:16 PM CST Has the patient recently had surgery or an injury? Yes. Date of Surgery: October 16, 2014 Type of Surgery: Left TKA Rubens calling to inquire if he still needs an antibiotic when going to the dentist. If so, Rubensis requesting Dr. Zimmerman prescribe him for an upcoming dentist apointment. Rubens can be reached at: [phone]. MOTIVE LIGHT MECHANIC documented in this encounter Plan of Treatment Not on filedocumented as of this encounter Visit Diagnoses Not on filedocumented in this encounter Care Teams Sales Assistant Displays Relationship Specialty Start Date End Date Konstantin Milian MD PCP - General 08/03/13 [address] [place] [phone] documented as of this encounter
--- OUTSIDE RECORDS SUMMARY | 2022-04-03 16:17 | XMS_ITS | Encounter Summary ---
:1970 Author Organization [facility] Address [address], [place] [address] Care Team Providers Name Role Phone Konstantin Milian MD Primary Care Provider Encounter Details Date Type Department Care Team Description 11/08/2015 Notes/Orders [facility] [address] [facility] [address] [place] [address] Social History Tobacco Use Types Packs/Day Years Used Date Smoking Tobacco: Never Assessed Sex Assigned at Date Recorded Not on file documented as of this encounter Plan of Treatment Not on filedocumented as of this encounter Visit Diagnoses Not on filedocumented in this encounter Care Teams Pilot Teacher Relationship Specialty Start Date End Date Konstantin Milian MD PCP - General 08/03/13 [address] [place] [phone] documented as of this encounter
--- OUTSIDE RECORDS SUMMARY | 2022-04-03 16:17 | XMS_ITS | Encounter Summary ---
:1970 Author Organization [facility] [employer] Address [address], [place] [address] Care Team Providers Name Role Phone Konstantin Milian MD Primary Care Provider Encounter Details Date Type Department Care Team Description 10/03/2014 Lab Visit [facility] Essential hypertension; [address] [employer] [address] [place] [address] Social History Tobacco Use Types Packs/Day Years Used Date Smoking Tobacco: Never Assessed Sex Assigned at Date Recorded Not on file documented as of this encounter Plan of Treatment Not on filedocumented as of this encounter Procedures Procedure Name Priority Date/Time Associated Diagnosis Comme nts URINE MICROSCOPIC Routine 10/03/2014 10:16 Essential Result s for this AM CDT hypertension procedure are i n the results section. URINALYSIS ROUTINE, Routine 10/03/2014 10:16 Essential Resu lts for this MICRO/CULTURE IF POS AM CDT hypertension procedu re are in the results section. URINE CULTURE Routine 10/03/2014 10:16 Pre-op evaluation Resul ts for this AM CDT procedure are i n the results section. ANTIBODY SCREEN Routine 10/03/2014 10:05 Pre-op evaluation Res ults for this AM CDT procedure are i n the results section. CREATININE / GFR Routine 10/03/2014 10:05 Essential Results for this AM CDT hypertension procedure are i n the results section. HEMOGLOBIN, BLOOD Routine 10/03/2014 10:05 Pre-op evaluation R esults for this AM CDT procedure are i n the results section. ELECTROLYTE PANEL Routine 10/03/2014 10:05 Essential Result s for this AM CDT hypertension procedure are i n the results section. BUN Routine 10/03/2014 10:05 Essential Results for this AM CDT hypertension procedure are i n the results section. documented in this encounter Results Urine Culture (10/03/2014 10:16 AM CDT) [facility] Method Time Signature Source Urine HP CONVERSION Site clean catch HP CONVERSION Urine Culture No growth HP CONVERSION Specimen (Source) Anatomical Collection Method Collection Time Re ceived Time Location / / Volume Laterality Urine:clean catch 10/03/2014 10:16 AM CDT Narrative HP CONVERSION - 10/04/2014 10:56 AM CDT Performed at [facility] , ??[address] [place] [address], ?? CLIA Number [id number] Konstantin Milian MD LAB_1 Performing Organization Address City/[facility] Code Phon e Number HP CONVERSION (ABNORMAL) URINE MICROSCOPIC (10/03/2014 10:16 AM CDT) [facility] Method Time Signature Urine WBC None seen 0 - 4 HP CONVERSION /HPF Urine RBC None seen 0 - 2 HP CONVERSION /HPF Bacteria Urine Occasional (A) /HPF HP CONVERS ION Epithelial Occasional /HPF HP CONVERSION Cells Specimen Anatomical Collection Method Collection Time Receive d Time (Source) Location / / Volume Laterality 10/03/2014 10:16 10/03/2014 AM CDT 10:16 AM CDT Narrative HP CONVERSION - 10/03/2014 10:48 AM CDT Performed at [facility], [address] [place] [address] Konstantin Milian MD LAB_1 Performing Organization Address City/[facility] Code Phon e Number HP CONVERSION URINALYSIS ROUTINE, MICRO/CULTURE IF POS (10/03/2014 10:16 AM CDT) [facility] Method Time Signature Urine Type Urine:clean HP CONVERSION cat Turbidity Clear Clear HP CONVERSION U BILI Negative Negative HP CONVERSION Blood Urine Negative Negative HP CONVERSION Glucose, Negative Neg-30 HP CONVERSION Qualitative U mg/dL Ketones Negative Negative HP CONVERSION Leukocyte Negative Negative HP CONVERSION Esterase Urine Nitrite Urine Negative Negative HP CONVERSION pH Urine 6.5 5.0 - 8.0 HP CONVERSION Protein Urine Negative Neg - Trace HP CONVERSION mg/dL U Specific 1.010 1.005 - HP CONVERSION Dalton 1.030 Urobilinogen Negative Negative HP CONVERSION Urine Eu/dL Specimen Anatomical Collection Method Collection Time Receive d Time (Source) Location / / Volume Laterality 10/03/2014 10:16 10/03/2014 AM CDT 10:16 AM CDT Narrative HP CONVERSION - 10/03/2014 10:19 AM CDT Performed at [facility], [address] [place] [address] Konstantin Milian MD LAB_1 Performing Organization Address [facility] Phon e Number HP CONVERSION ANTIBODY SCREEN (10/03/2014 10:05 AM CDT) athologist Signature Antibody Screen NEG HP CONVERSION Specimen Anatomical Collection Method Collection Time Receive d Time (Source) Location / / Volume Laterality 10/03/2014 10:05 10/03/2014 AM CDT 12:21 PM CDT Narrative HP CONVERSION - 10/03/2014 3:02 [place] [address] Konstantin Milian MD PN BLOOD BANK ORDERS Performing Organization Address [facility] Phon e Number HP CONVERSION Hemoglobin, Blood (10/03/2014 10:05 AM CDT) athologist Signature Hemoglobin 16.0 13.4 - 17.5 HP CONVERSION g/dL Specimen Anatomical Collection Method Collection Time Receive d Time (Source) Location / / Volume Laterality 10/03/2014 10:05 10/03/2014 AM CDT 10:05 AM CDT Narrative HP CONVERSION - 10/03/2014 10:12 AM CDT Performed at [facility], [address] [place] [address] Konstantin Milian MD LAB_1 Performing Organization Address [facility] Phon e Number HP CONVERSION BUN (10/03/2014 10:05 AM CDT) athologist Signature Blood Urea 12 5 - 26 HP CONVERSION Nitrogen mg/dL Specimen Anatomical Collection Method Collection Time Receive d Time (Source) Location / / Volume Laterality 10/03/2014 10:05 10/03/2014 AM CDT 10:05 AM CDT Narrative HP CONVERSION - 10/03/2014 10:53 AM CDT Performed at [facility], [address] [place] [address] Konstantin Milian MD LAB_1 Performing Organization Address City/[facility] Code Phon e Number HP CONVERSION Creatinine / GFR (10/03/2014 10:05 AM CDT) athologist Signature Creatinine 1.1 0.4 - 1.3 HP CONVERSION Serum mg/dL Est GFR >60 >60 HP CONVERSION Am mL/min/1.7 3m2 Est GFR Non-Afr >60 >60 HP CONVERSION Am mL/min/1.7 3m2 Comment: Normal>60, moderate decrease 30 - 59, se caty decrease 15 - 29, renal failure <15 mL/min/1.73 m2 NOTE: ??Choose the eGFR result above kvng ropriate for the race of the patient. Specimen Anatomical Collection Method Collection Time Receive d Time (Source) Location / / Volume Laterality 10/03/2014 10:05 10/03/2014 AM CDT 10:05 AM CDT Narrative HP CONVERSION - 10/03/2014 10:53 AM CDT Performed at [facility], [address] [place] [address] Konstantin Milian MD LAB_1 Performing Organization Address [facility] Phon e Number HP CONVERSION Electrolyte Panel (10/03/2014 10:05 AM CDT) athologist Signature Sodium 140 137 - 147 HP CONVERSION mEq/L Potassium 4.3 3.5 - 5.2 HP CONVERSION mEq/L Chloride 99 98 - 110 HP CONVERSION mEq/L Bicarbonate 31 23 - 33 HP CONVERSION mmol/L Specimen Anatomical Collection Method Collection Time Receive d Time (Source) Location / / Volume Laterality 10/03/2014 10:05 10/03/2014 AM CDT 10:05 AM CDT Narrative HP CONVERSION - 10/03/2014 10:53 AM CDT Performed at [facility], [address] [place] [address] Konstantin Milian MD LAB_1 Performing Organization Address [facility] Phon e Number HP CONVERSION documented in this encounter Visit Diagnoses Diagnosis Essential hypertension (HRC) Unspecified essential hypertension Pre-op evaluation Preoperative examination, unspecified documented in this encounter Care Teams Guest Relation Officer Relationship Specialty Start Date End Date Konstantin Milian MD PCP - General 08/03/[address] [place] [address] [place] [phone] documented as of this encounter
--- OUTSIDE RECORDS SUMMARY | 2022-04-03 16:17 | XMS_ITS | Encounter Summary ---
:1970 Author Organization [facility] Address [address], [place] [address] Care Team Providers Name Role Phone Konstantin Milian MD Primary Care Provider Encounter Details Date Type Department Care Team Description 10/23/2015 Imaging [place] [facility] History of total knee [address] arthroplasty, [place] [address] Social History Tobacco Use Types Packs/Day Years Used Date Smoking Tobacco: Never Assessed Sex Assigned at Date Recorded Not on file documented as of this encounter Plan of Treatment Not on filedocumented as of this encounter Procedures Procedure Name Priority Date/Time Associated Diagnosis Comme nts XR KNEE LT 3 VIEWS Routine 10/23/2015 8:49 AM History of total Results for this CDT knee arthroplasty, procedure are in left the results section. documented in this encounter Results XR Knee Lt 3 Views (10/23/2015 8:49 AM CDT) Anatomical Region Laterality Modality Lower Extremity, Knee Other Specimen (Source) Anatomical Location Collection Method / Collectio n Time Received Time / Laterality Volume Narrative 10/23/2015 8:55 AM CDT COMPARISON: ??11/15/2014 FINDINGS: ??Total knee arthroplasty. Sma ll effusion. Good alignment. Procedure Note Donavan Almaraz MD - 12/29/2015Format ting of this note might be different from the original. COMPARISON: 11/15/2014 FINDINGS: Total knee arthroplasty. Small effusion. Good alignment. Chace Zimmerman MD RAD GD documented in this encounter Visit Diagnoses Diagnosis History of total knee arthroplasty, left documented in this encounter Care Teams Associate Professor Of Medicine Relationship Specialty Start Date End Date Konstantin Milian MD PCP - General 08/03/13 [address] [place] [phone] documented as of this encounter
--- OUTSIDE RECORDS SUMMARY | 2022-04-03 16:17 | XMS_ITS | Encounter Summary ---
:1970 Author Organization [facility] Address [address], [place] [address] Care Team Providers Name Role Phone Konstantin Singh MD Primary Care Provider Reason for Visit Reason Comments Knee Pain or Injury Encounter Details Date Type Department Care Team Description 10/23/2015 Office Visit Chace Sears History of to helder knee arthroplasty, left (Primary Dx); Orthopedics MD Joe Primary osteoarthritis of left knee [address] [place] [address] 1ST FLOOR [phone] [place] [address] Social History Tobacco Use Types Packs/Day Years Used Date Smoking Tobacco: Never Assessed Sex Assigned at Date Recorded Not on file documented as of this encounter Progress Notes Chace Zimmerman MD - 10/23/2015 9:04 AM CDT Progress Notes signed by Chace Zimmerman MD at 10/23/15 1547 Author: Chace Zimmerman MD Service: (none) Author Type: Physician Filed: 10/23/15 1547 Note Time: 10/23/15 1411 Status: Signed Bowling Ball Assembler: Chace Zimmerman MD (Physician) NAME: MAYA FU MR#: [id number] CSN: [id number] AUTHENTICATING CLINICIAN: Chace Zimmerman MD CONFIRM #: [id number] LOC: 511 CLINIC PROGRESS NOTE DATE OF VISIT: 10/23/2015 : 1970 CHIEF COMPLAINT: Left knee pain. HISTORY OF PRESENT ILLNESS: Fredis is here 1 year out from his left total knee arthroplasty. He is doing quite well. He has had nopain. He had a little bit of noise until about 2 months ago when things seemed to calm down. He works a very active job at the [employer]. PHYSICAL EXAMINATION: Reveals range of motion from 0-125/30. He has a little bit of AP laxity, but no medial lateral laxity is noted. Small effusion noted. Skin is well healed. No evidence for tenderness. Radiographs taken today demonstrate good alignment and fixation of the total knee arthroplasty, leftside. There is 1 small radiolucent line to the medial tibial plateau which bears watching, but is not clinically significant at this time. DIAGNOSIS: Status post total knee arthroplasty, left side. PLAN: Recommended to Fredis that he do some quad and hamstring strengthening. I have given him a couple exercises he can do at work, so he can mix them into his normal day. He is to follow up in 1 year's time.Antibiotic prophylaxis for 1 more year was discussed. He will contact me should he have any difficulty in the interim. He is very pleased with the results of the operation today, as am I. CC: [place] [address] [place] [address] KDO:MEDQ C: CONFIRM #: [id number] documented in this encounter Plan of Treatment Not on filedocumented as of this encounter Visit Diagnoses Diagnosis History of total knee arthroplasty, left - Primary Primary osteoarthritis of left knee Primary localized osteoarthrosis, lower leg documented in this encounter Care Teams .Net Programmer Relationship Specialty Start Date End Date Konstantin Singh MD PCP - General 08/03/[address] [place] [address] documented as of this encounter
--- OUTSIDE RECORDS SUMMARY | 2022-04-03 16:17 | XMS_ITS | Encounter Summary ---
:1970 Author Organization [facility] Address [address], [place] [address] Care Team Providers Name Role Phone Konstantin Milian MD Primary Care Provider Encounter Details Date Type Department Care Team Description 10/18/2014 Notes/Orders Chace Sears Primary osteo arthritis Orthopedics JoeMD of left knee (Primary [address] [address] [address]) [place] [address] 1ST FLOOR [phone] [place], [place] [address] Social History Tobacco Use Types Packs/Day Years Used Date Smoking Tobacco: Never Assessed Sex Assigned at Date Recorded Not on file documented as of this encounter Plan of Treatment Not on filedocumented as of this encounter Visit Diagnoses Diagnosis Primary osteoarthritis of left knee - Pr imary Primary localized osteoarthrosis, lower leg documented in this encounter Care Teams Insurance Assistant Relationship Specialty Start Date End Date Konstantin Milian MD PCP - General 08/03/[address] [place] [address] documented as of this encounter
--- OUTSIDE RECORDS SUMMARY | 2022-04-03 16:17 | XMS_ITS | Encounter Summary ---
:1970 Author Organization [facility] Address [address], [place] [address] Care Team Providers Name Role Phone Konstantin Milian MD Primary Care Provider Encounter Details Date Type Department Care Team Description 11/12/2015 Correspondence Occupational and Rachelle Tang RESPIRAT OR CLEARANCE Environmental Medici ne MD Janet EVALUATION FOR DOC [address] [place], [place] [phone] Social History Tobacco Use Types Packs/Day Years Used Date Smoking Tobacco: Never Assessed Sex Assigned at Date Recorded Not on file documented as of this encounter Plan of Treatment Not on filedocumented as of this encounter Visit Diagnoses Not on filedocumented in this encounter Care Teams Helminthologist Relationship Specialty Start Date End Date Konstantin Milian MD PCP - General 08/03/13 [address] [place] [phone] documented as of this encounter
--- OUTSIDE RECORDS SUMMARY | 2022-04-03 16:17 | XMS_ITS | Encounter Summary ---
:1970 Author Organization [facility] Address [address], [place] [address] Care Team Providers Name Role Phone Konstantin Singh MD Primary Care Provider Reason for Visit Reason Comments Knee Pain or Injury Encounter Details Date Type Department Care Team Description 11/15/2014 Office Visit Chace Sears Primary osteo arthritis of left knee (Primary Dx); Orthopedics MD Joe Knee joint replacement by other means; [address] [address] [facility] Primary osteoarthritis [place] [address] 1ST FLOOR [phone] [place], [place] [phone] Social History Tobacco Use Types Packs/Day Years Used Date Smoking Tobacco: Never Assessed Sex Assigned at Date Recorded Not on file documented as of this encounter Progress Notes Chace Zimmerman MD - 11/19/2014 7:26 PM CDT Progress Notes signed by Chace Zimmerman MD at 11/26/14 0834 Author: Chace Zimmerman MD Service: (none) Author Type: Physician Filed: 11/26/14 0834 Note Time: 11/20/141451 Status: Signed Cloth Shrinker: Chace Zimmerman MD (Physician) NAME: MAYA FU MR#: [id number] CSN: [id number] AUTHENTICATING CLINICIAN: Chace Zimmerman MD CONFIRM #: [id number] LOC: 511 CLINIC PROGRESS NOTE DATE OF VISIT: 11/15/2014 : 1970 CHIEF COMPLAINT: Left knee. HISTORY OF PRESENT ILLNESS: Fredis is here for followup of his left total knee arthroplasty. He is making good progress now. He has minimal discomfort. It is still somewhat swollen and his motion continues to improve. Overall, he is very pleased with the results. EXAMINATION: Reveals a small, moderate-sized effusion. Range of motion is almost 0-115. Radiographs taken today demonstrate good alignment and fixation of a left total knee arthroplasty, with no evidence for complications. DIAGNOSIS: Status post left total knee arthroplasty, doing fairly well. PLAN: Fredis is making good progress. We are going to look at returning him to full work on the 27 of November.If he continues to do well, he can follow up at the 1-year vinicisu, at which point new x-rays of the left knee should be taken. CC: [place] [address] [place] [place] [address] KDO:MEDQ C: CONFIRM #: [id number] documented in this encounter Plan of Treatment Not on filedocumented as of this encounter Visit Diagnoses Diagnosis Primary osteoarthritis of left knee - Pr imary Primary localized osteoarthrosis, lower leg Knee joint replacement by other means Primary osteoarthritis of both knees Primary localized osteoarthrosis, lower leg documented in this encounter Care Teams Aircraft Motor Mechanic Relationship Specialty Start Date End Date Konstantin Singh MD PCP - General 08/03/[address] [place] [place] [address] documented as of this encounter
--- OUTSIDE RECORDS SUMMARY | 2022-04-03 16:17 | XMS_ITS | Encounter Summary ---
:1970 Author Organization [facility] Address [address] [place] [address] Care Team Providers Name Role Phone Konstantin Milian MD Primary Care Provider Reason for Visit Reason Comments Prior Authorization Request Encounter Details Date Type Department Care Team Description 09/10/2015 Telephone [facility] Konstantin Milian MD Prior Authorization [facility] [address] [facility] Request [address] [place] [address] [phone] (Wo rk) Social History Tobacco Use Types Packs/Day Years Used Date Smoking Tobacco: Never Assessed Sex Assigned at Date Recorded Not on file documented as of this encounter Nursing Notes Tessa Read LPN - 09/10/2015 3:27 PM CST Full message given to patient. He understands new directions. Konstantin Melo MD - 09/10/2015 3:09 PM CST Please call patient. Evidently his insurance does not cover Levitra. Viagra is the covered option, and they will pay for 6 tablets per month. I sent a new prescription for Viagra, for the highest strength of 100 mg. Recommend he start by trying half-tablet and see whether that is effective. No more than one dose to be taken within 24 hours. Olivia Vidales LPN - 09/10/2015 2:59 PM CST I called and spoke with pt's insurance and this drug is not covered at all. Pt would have to pay outof pocket. Pt would have coverage for Viagra. With a quantity of 6 tabs in a 30 day period. Do you want to switch script for pt to viagra? WORKER Konstantin Milian MD - 09/10/2015 2:43 PM CST Yes, please. WORKER Olivia Forbes LPN - 09/10/2015 2:21 PM CST Received fax from [employer] stating pt's insurance does not cover Levitra. Do you want to initiate a PA? WORKER documented in this encounter Plan of Treatment Not on filedocumented as of this encounter Visit Diagnoses Diagnosis Essential hypertension (HRC) - Primary Unspecified essential hypertension Erectile dysfunction, unspecified erecti le dysfunction type documented in this encounter Care Teams Inventory Control Assistant Relationship Specialty Start Date End Date Konstantin Milian MD PCP - General 08/03/13 [address] [place] [phone] documented as of this encounter
--- OUTSIDE RECORDS SUMMARY | 2022-04-03 16:18 | XMS_ITS | Encounter Summary ---
:1970 Author Organization [facility] Address [address] [address] Care Team Providers Name Role Phone Konstantin Milian MD Primary Care Provider Reason for Visit Reason Comments Diarrhea Encounter Details Date Type Department Care Team Description 06/19/2014 Nurse Triage [facility] Konstantin Sotelo MD Diarrhea [address] [address] [place] [address] [place], [place] [phone] (Wo rk) Social History Tobacco Use Types Packs/Day Years Used Date Smoking Tobacco: Never Assessed Sex Assigned at Date Recorded Not on file documented as of this encounter Nursing Notes Kevin Hernandez RN - 06/19/2014 2:21 PM CST Protocol: [id number] Affirmative: Age < 60 years and has had > 15 diarrhea stools in past 24 hours Disposition of Schedule appt within 2 hrs, Triage to contact Primary office stat, or Go to UC suggested. Spoke with pt. Pt has had diarrhea every 30 minutes since Wednesday. Has mild fever 100.4. Denies abdominal pain or N/V. Pt is able to urinate but mouth is dry. Denies dizziness. Pt has been drinking. No openings available at clinic. Advised to go to . Pt agreed. [employer] Jazlyn Solares - 06/19/2014 2:10 PM CST Patient states has diarrhea and wants to speak with nurse. documented in this encounter Plan of Treatment Not on filedocumented as of this encounter Visit Diagnoses Not on filedocumented in this encounter Care Teams Electronics Hardware Design Engineer Relationship Specialty Start Date End Date Konstantin Milian MD PCP - General 08/03/13 [address] [place] [phone] documented as of this encounter
--- OUTSIDE RECORDS SUMMARY | 2022-04-03 16:18 | XMS_ITS | Encounter Summary ---
:1970 Author Organization [facility] Address [address], [place] [address] Care Team Providers Name Role Phone Konstantin Milian MD Primary Care Provider Reason for Visit Reason Comments Refill Encounter Details Date Type Department Care Team Description 05/25/2014 Refill [facility] Jeniffer Gage MD Refill [id number] [address] [place] [address] [place], [place] [phone] (Wo rk) Social History Tobacco Use Types Packs/Day Years Used Date Smoking Tobacco: Never Assessed Sex Assigned at Date Recorded Not on file documented as of this encounter Nursing Notes Liza Goldman RN - 05/28/2014 11:42 AM CST RN Reviewed--Needing signed order in [facility] for pended medication. Last visit with PCP on 03/02/14 Requested Prescriptions Pending Prescriptions Disp Refills ??? vardenafil (LEVITRA) 20 mg tablet [Pharmacy Med Name: LEVITRA 20MG TABLETS] 6 tablet 5 Sig: Take 1 tablet by mouth as needed for Other. Take 1 hour prior to sexual intercourse. Max 1 dose/24 hours. ORATOR documented in this encounter Plan of Treatment Not on filedocumented as of this encounter Visit Diagnoses Diagnosis ED (erectile dysfunction) - Primary Impotence of organic origin documented in this encounter Care Teams Truck Shop Supervisor Relationship Specialty Start Date End Date Konstantin Milian MD PCP - General 08/03/13 [address] [place] [address] [place] [phone] documented as of this encounter
--- OUTSIDE RECORDS SUMMARY | 2022-04-03 16:18 | XMS_ITS | Encounter Summary ---
:1970 Author Organization [email or web address] Address [address] [address] Care Team Providers Name Role Phone Konstantin Milian MD Primary Care Provider Reason for Visit Reason Comments Refill Encounter Details Date Type Department Care Team Description 04/05/2014 Refill [facility] Konstantin Sotelo MD Refill [address] [address] [place] [address] [place] [phone] (Wo rk) Social History Tobacco Use Types Packs/Day Years Used Date Smoking Tobacco: Never Assessed Sex Assigned at Date Recorded Not on file documented as of this encounter Nursing Notes Julia Givens RN - 04/05/2014 2:14 PM CDT Previously pended medication(s) have been addressed or refilled in another encounter or office visit. No further action is needed. Requested Prescriptions No prescriptions requested or ordered in this encounter documented in this encounter Plan of Treatment Not on filedocumented as of this encounter Visit Diagnoses Not on filedocumented in this encounter Care Teams Second Hand Paper Machine Relationship Specialty Start Date End Date Konstantin Milian MD PCP - General 08/03/13 [address] [place] [phone] documented as of this encounter
--- OUTSIDE RECORDS SUMMARY | 2022-04-03 16:18 | XMS_ITS | Encounter Summary ---
:1970 Author Organization [facility] Address [address] [address] Care Team Providers Name Role Phone Konstantin Singh MD Primary Care Provider Reason for Visit Reason Comments Knee Pain or Injury Encounter Details Date Type Department Care Team Description 09/10/2014 Surgical Consult Chace Sears Osteoarth ritis of [facility] Orthopedics MD Joe knee (Primary Dx) [address] [address] [facility] [address] [place] [id number] Social History Tobacco Use Types Packs/Day Years Used Date Smoking Tobacco: Never Assessed Sex Assigned at Date Recorded Not on file documented as of this encounter Progress Notes Chace Zimmerman MD - 09/10/2014 1:40 PM CST Progress Notes signed by Chace Zimmerman MD at 09/10/14 1800 Author: Chace Zimmerman MD Service: (none) Author Type: Physician Filed: 09/10/14 1800 Note Time: 09/10/141658 Status: Signed Electronics Processor: Chace Zimmerman MD (Physician) NAME: MAYA FU MR#: [id number] CSN: [id number] AUTHENTICATING CLINICIAN: Chace Zimmerman MD CONFIRM #: [id number] LOC: 511 CLINIC PROGRESS NOTE DATE OF VISIT: 09/10/2014 : 1970 CHIEF COMPLAINT: Left knee pain. HISTORY OF PRESENT ILLNESS: Fredis is a 44-year-old male who works in the long term in [place]. He notes significant persistent leftknee pain. He complains of anterolateral discomfort. He has had a prior knee arthroscopy and partialmedial meniscectomy, perhaps back in 2010. A 3 Radha MRI scan in 2012 done at [facility] demonstrates bare bone arthritic change in the medial compartment and no findings laterally. There is also a tearing ofthe residual medial meniscus. It is, fortunately, not bothering his sleep but it is an all encompassing pain. It is also just globally sore throughout the day. The more he stands on it, the worse it gets. He has had viscosupplementation, as well as cortisone. His last cortisone shot was with Ana Wang, and had perhaps 2 days of relief. He has become very debilitated by this pain and he would very much like to consider surgical intervention. PHYSICAL EXAMINATION: Reveals genu varum deformity of the left knee with pseudolaxity to valgus stress. He is tender medially and slightly laterally. Skin and neurovascular status are intact. He has a full range of motion of the knee. The strength is normal. No focal lateral tenderness noted. Some medial tenderness is seen. Moderate-sized effusion. X-rays taken today are personally reviewed and compared to x-rays from a month ago. These demonstrate genu varum deformity with significant joint space loss medially. Lateral side looks fine on the oldx-rays, but with the valgus stress view, I wonder if it actually collapses down a little bit. The medial side opens up nicely. The patellofemoral joint has mild arthritic change. It is more medial thananything. DIAGNOSIS: Severe medial compartment knee osteoarthritis left side. PLAN: I told Fredis that I am a little concerned about the lateral compartment here and whether or not it isclosing down. He may well be a candidate for a partial knee replacement or an osteotomy. He needs a new MRI, however, so we can evaluate the lateral side more readily. He also has some lateral pain. Weneed to look for lateral meniscal pathology, as well as any advancement of a lateral compartment disease. I have told him that recovery from an osteotomy is fairly prolonged and he may need to be out of the vigorous aspects of his job for up to 3 months. He states he cannot really afford to do that, and he will lose his benefits in the process. Therefore, more than likely, if his MRI scan looks fine,he is an [place] hemiarthroplasty candidate, but I will wait and see how things go with the MRI and then proceed accordingly. 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
--- OUTSIDE RECORDS SUMMARY | 2022-04-03 16:18 | XMS_ITS | Encounter Summary ---
:1970 Author Organization [facility] Address [address] [address] Care Team Providers Name Role Phone Konstantin Milian MD Primary Care Provider Encounter Details Date Type Department Care Team Description 09/10/2014 Imaging [facility] Osteoarthritis of left knee [address] [place] [address] Social History Tobacco Use Types Packs/Day Years Used Date Smoking Tobacco: Never Assessed Sex Assigned at Date Recorded Not on file documented as of this encounter Plan of Treatment Not on filedocumented as of this encounter Procedures Procedure Name Priority Date/Time Associated Diagnosis Comme nts XR KNEE LT 2 VIEWS Routine 09/10/2014 10:57 Osteoarthritis of left Results for this AM FORMULA CHECKER knee procedure are i n the results section. documented in this encounter Results XR Knee Lt 2 Views (09/10/2014 10:57 AM FORMULA CHECKER) Anatomical Region Laterality Modality Lower Extremity, Knee Other Specimen (Source) Anatomical Location Collection Method / Collectio n Time Received Time / Laterality Volume Narrative 09/10/2014 11:12 AM FORMULA CHECKER COMPARISON: 08/17/2014 FINDINGS: ??Mild widening of the medial compartment to 0.6 cm on the stressed view. Medial compartment measures 0.3 cm on ??previous neutral standing view. Procedure Note Cody Drummond MD - 12/29/2015For matting of this note might be different from the original. COMPARISON: 08/17/2014 FINDINGS: Mild widening of the medial co mpartment to 0.6 cm on the stressed view. Medial compartment measures 0.3 cm on previous neutral standing view. Chace Zimmerman MD RAD GD documented in this encounter Visit Diagnoses Diagnosis Osteoarthritis of left knee Osteoarthrosis, unspecified whether gene ralized or localized, lower leg documented in this encounter Care Teams Crystal Grower Relationship Specialty Start Date End Date Konstantin Milian MD PCP - General 08/03/13 [address] [place] [phone] documented as of this encounter
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
--- OUTSIDE RECORDS SUMMARY | 2022-04-03 16:18 | XMS_ITS | Encounter Summary ---
:1970 Author Organization [employer] Address [address], [place] [address] Care Team Providers Name Role Phone Konstantin Milian MD Primary Care Provider Encounter Details Date Type Department Care Team Description 07/20/2014 Lab Visit [facility] Essential hypertension; [address] [facility] Screening cholesterol level; [place] [address] Impaired fasting glucose [phone] Social History Tobacco Use Types Packs/Day Years Used Date Smoking Tobacco: Never Assessed Sex Assigned at Date Recorded Not on file documented as of this encounter Plan of Treatment Not on filedocumented as of this encounter Procedures Procedure Name Priority Date/Time Associated Diagnosis Comme nts GLUCOSE Routine 07/20/2014 7:47 AM Impaired fasting Resul ts for this BIODIESEL PRODUCTION ASSOCIATE glucose procedure are i n the results section. LIPID PANEL AND Routine 07/20/2014 7:47 AM Screening cholester ol Results for this DIRECT LDL(IF BIODIESEL PRODUCTION ASSOCIATE level procedure are in NEEDED) the results section. CREATININE / GFR Routine 07/20/2014 7:47 AM Essential Resul ts for this BIODIESEL PRODUCTION ASSOCIATE hypertension procedure are i n the results section. ELECTROLYTE PANEL Routine 07/20/2014 7:47 AM Essential Resu lts for this BIODIESEL PRODUCTION ASSOCIATE hypertension procedure are i n the results section. HGB A1C Routine 07/20/2014 7:47 AM Impaired fasting Resul ts for this BIODIESEL PRODUCTION ASSOCIATE glucose procedure are i n the results section. BUN Routine 07/20/2014 7:47 AM Essential Results f or this BIODIESEL PRODUCTION ASSOCIATE hypertension procedure are i n the results section. documented in this encounter Results Hgb A1c (07/20/2014 7:47 AM BIODIESEL PRODUCTION ASSOCIATE) P athologist Signature HGB A1C 5.1 4.0 - 5.6 % HP CONVERSION Specimen Anatomical Collection Method Collection Time Receive d Time (Source) Location / / Volume Laterality 07/20/2014 7:47 AM 5 9:28 BIODIESEL PRODUCTION ASSOCIATE AM BIODIESEL PRODUCTION ASSOCIATE Narrative HP CONVERSION - 07/20/2014 12:08 PM BIODIESEL PRODUCTION ASSOCI[place] [address] Konstantin Milian MD LAB_1 Performing Organization Address City/[facility]/ZIP Code Phon e Number HP CONVERSION (ABNORMAL) GLUCOSE (07/20/2014 7:47 AM BIODIESEL PRODUCTION ASSOCIATE) athologist Signature Lab Glucose 113 (H) 60 - 100 HP CONVERSION mg/dL Specimen Anatomical Collection Method Collection Time Receive d Time (Source) Location / / Volume Laterality 07/20/2014 7:47 AM 5 7:47 BIODIESEL PRODUCTION ASSOCIATE AM BIODIESEL PRODUCTION ASSOCIATE Narrative HP CONVERSION - 07/20/2014 9:21 AM BIODIESEL PRODUCTION ASSOCIATE Performed at [facility], [address] [place] [address] Konstantin Milian MD LAB_1 Performing Organization Address City/[facility] Phon e Number HP CONVERSION Lipid Panel and Direct LDL(If Needed) (07/20/2014 7:47 AM BIODIESEL PRODUCTION ASSOCIATE) [facility] Method Time Signature Cholesterol 189 0 - 200 HP CONVERSION mg/dL Triglycerides 113 0 - 149 HP CONVERSION mg/dL HDL Cholesterol 58 >39 mg/dL HP CONVERSION Cholesterol/HDL 3.3 HP CONVERSION Ratio Screen LDL Calculated 108 19 - 130 HP CONVERSION mg/dL Length Of Fast 12.0 HP CONVERSION Specimen Anatomical Collection Method Collection Time Receive d Time (Source) Location / / Volume Laterality 07/20/2014 7:47 AM 5 7:47 BIODIESEL PRODUCTION ASSOCIATE AM BIODIESEL PRODUCTION ASSOCIATE Narrative HP CONVERSION - 07/20/2014 9:21 AM BIODIESEL PRODUCTION ASSOCIATE Performed at [facility], [address] [place] [address] Konstantin Milian MD LAB_1 Performing Organization Address City/[facility] Phon e Number HP CONVERSION BUN (07/20/2014 7:47 AM BIODIESEL PRODUCTION ASSOCIATE) athologist Signature Blood Urea 16 5 - 26 HP CONVERSION Nitrogen mg/dL Specimen Anatomical Collection Method Collection Time Receive d Time (Source) Location / / Volume Laterality 07/20/2014 7:47 AM 5 7:47 BIODIESEL PRODUCTION ASSOCIATE AM BIODIESEL PRODUCTION ASSOCIATE Narrative HP CONVERSION - 07/20/2014 9:21 AM BIODIESEL PRODUCTION ASSOCIATE Performed at [facility], [address] [place] [address] Konstantin Milian MD LAB_1 Performing Organization Address [facility] Phon e Number HP CONVERSION Creatinine / GFR (07/20/2014 7:47 AM BIODIESEL PRODUCTION ASSOCIATE) athologist Signature Creatinine 1.2 0.4 - 1.3 HP CONVERSION Serum mg/dL [...] Time (Source) Location / / Volume Laterality 07/20/2014 7:47 AM 5 7:47 BIODIESEL PRODUCTION ASSOCIATE AM BIODIESEL PRODUCTION ASSOCIATE Narrative HP CONVERSION - 07/20/2014 9:21 AM BIODIESEL PRODUCTION ASSOCIATE Performed at [facility], [address] [place] [address] Konstantin Milian MD LAB_1 Performing Organization Address [facility] Phon e Number HP CONVERSION Electrolyte Panel (07/20/2014 7:47 AM BIODIESEL PRODUCTION ASSOCIATE) athologist Signature Sodium 139 137 - 147 HP CONVERSION mEq/L Potassium 3.9 3.5 - 5.2 HP CONVERSION mEq/L Chloride 104 98 - 110 HP CONVERSION mEq/L Bicarbonate 31 23 - 33 HP CONVERSION mmol/L Specimen Anatomical Collection Method Collection Time Receive d Time (Source) Location / / Volume Laterality 07/20/2014 7:47 AM 5 7:47 BIODIESEL PRODUCTION ASSOCIATE AM BIODIESEL PRODUCTION ASSOCIATE Narrative HP CONVERSION - 07/20/2014 9:21 AM BIODIESEL PRODUCTION ASSOCIATE Performed at [facility], [address] [place] [address] Konstantin Milian MD LAB_1 Performing Organization Address [facility] Phon e Number HP CONVERSION documented in this encounter Visit Diagnoses Diagnosis Essential hypertension ([facility]) Unspecified essential hypertension Screening cholesterol level Screening for lipoid disorders Impaired fasting glucose documented in this encounter Care Teams Area Safety Manager Relationship Specialty Start Date End Date Konstantin Milian MD PCP - General 08/03/13 [address] [place] [place] [phone] documented as of this encounter
--- OUTSIDE RECORDS SUMMARY | 2022-04-03 16:18 | XMS_ITS | Encounter Summary ---
:1970 Author Organization [employer] Address [address] [address] Care Team Providers Name Role Phone Konstantin Milian MD Primary Care Provider Reason for Visit Reason Comments Refill Encounter Details Date Type Department Care Team Description 05/08/2014 Refill [facility] Jeniffer Gage MD Refill [address] [facility]. [id number] [place] [phone] [place] [address] (Wo rk) Social History Tobacco Use Types Packs/Day Years Used Date Smoking Tobacco: Never Assessed Sex Assigned at Date Recorded Not on file documented as of this encounter Nursing Notes Jerica Granados - 05/13/2014 12:55 PM CST Appointment reminder letter sent. Rachel Apodaca RN - 05/11/2014 9:12 PM CDT REFILL APPOINTMENT NEEDED Please call patient and schedule appointment within 30 days. Medication has been renewed and sent to pharmacy for a 30 day supply Comment: documented in this encounter Miscellaneous Notes Letter - Jeniffer Gutierrez MD - 05/08/2014 12:00 AM CDT Images from the original note were not included. [facility] [address] [facility] [address] Rubens Prieto [address] [address] [facility] [address] May 13, 2014 Dear Rubens Prieto, We received your request for the following prescription(s): Orders Placed This Encounter Medications ??? LEVITRA 20 mg tablet Sig: TAKE 1 TABLET BY MOUTH NEEDED. TAKE ONE HOUR PRIOR TO SEXUAL INTERCOURSE. MAX OF 1 DOSE PER24 HOURS. Dispense: 6 tablet Refill: 0 needs appt Your request was approved. You will need an appointment with your provider before your next refill. Please call [facility] at [phone] to schedule an appointment within 30 days. Thank you for choosing [facility] for your health care needs. Your [facility] Primary Care Team WARDEN documented in this encounter Plan of Treatment Not on filedocumented as of this encounter Visit Diagnoses Not on filedocumented in this encounter Care Teams Heavy Cleaner Relationship Specialty Start Date End Date Konstantin Milian MD PCP - General 08/03/13 [address] [place] [phone] documented as of this encounter
--- OUTSIDE RECORDS SUMMARY | 2022-04-03 16:18 | XMS_ITS | Encounter Summary ---
:1970 Author Organization [employer] Address [address] [place] [address] Care Team Providers Name Role Phone Konstantin Milian MD Primary Care Provider Reason for Visit Reason Comments WRIST PAIN Encounter Details Date Type Department Care Team Description 03/02/2014 Office Visit [facility] Konstantin Milian MD Wrist tendonitis (Primary Dx); Medicine [address] [facility] Foot pain [address] [place] [address] [phone] (Wo rk) Social History Tobacco Use Types Packs/Day Years Used Date Smoking Tobacco: Never Assessed Sex Assigned at Date Recorded Not on file documented as of this encounter Last Filed Vital Signs Vital Sign Reading Time Taken Comments Blood Pressure 116/74 03/02/2014 2:18 PM CDT Pulse 90 03/02/2014 2:18 PM CDT Temperature - - Respiratory Rate - - Oxygen Saturation - - Inhaled Oxygen Concentration - - Weight 108.4 kg (239 lb) 03/02/2014 2:18 PM CDT Height - - Body Mass Index 29.87 03/20/2013 9:13 AM CDT documented in this encounter Patient Instructions Patient InstructionsKonstantin Milian MD - 03/02/2014 2:51 PM CDT Images from the original note were not included. Wrist Tendinitis: Exercises Your Care Instructions Here are some examples of typical rehabilitation exercises for your condition. Start each exercise slowly. Ease off the exercise if you start to have pain. Your doctor or physical therapist will tell you when you can start these exercises and which ones will work best for you. How to do the exercises Wrist flexion and extension 1. Place your forearm on a table, with your hand and affected wrist extended beyond the table, palm down. 2. Bend your wrist to move your hand upward and allow your hand to close into a fist, then lower your hand and allow your fingers to relax. Hold each position for about 6 seconds. 3. Repeat 8 to 12 times. Hand flips 1. While seated, place your forearm and affected wrist on your thigh, palm down. 2. Flip your hand over so the back of your hand rests on your thigh and your palm is up. Alternate between palm up and palm down while keeping your forearm on your thigh. 3. Repeat 8 to 12 times. Wrist radial and ulnar deviation 1. Hold your affected hand out in front of you, palm down. 2. Slowly bend your wrist as far as you can from side to side. Hold each position for about 6 seconds. 3. Repeat 8 to 12 times. Wrist extensor stretch 1. Extend the arm with the affected wrist in front of you and point your fingers toward the floor. 2. With your other hand, gently bend your wrist farther until you feel a mild to moderate stretch inyour forearm. 3. Hold the stretch for at least 15 to 30 seconds. 4. Repeat 2 to 4 times. 5. When you can do this stretch with ease and no pain, repeat steps 1 through 4. But this time extend your affected arm in front of you and make a fist with your palm facing down. Then bend your wrist,pointing your fist toward the floor. Wrist flexor stretch 1. Extend the arm with the affected wrist in front of you with your palm facing away from your body. 2. Bend back your wrist, pointing your hand up toward the ceiling. 3. With your other hand, gently bend your wrist farther until you feel a mild to moderate stretch inyour forearm. 4. Hold the stretch for at least 15 to 30 seconds. 5. Repeat 2 to 4 times. 6. Repeat steps 1 through 5, but this time extend your affected arm in front of you with your palm facing up. Then bend back your wrist, pointing your hand toward the floor. Follow-up care is a garcia part of your treatment and safety. Be sure to make and go to all appointments, and call your doctor if you are having problems. It's also a good idea to know your test results and keep a list of the medicines you take. Where can you learn more? Go to www.[employer].net/patiented. Enter V785 in the search box to learn more about Wrist Tendinitis: Exercises. Last Revised: May 26, 2013 ?? [id number] [employer]. Care instructions adapted under license by your healthcare professional. If you have questions about a medical condition or this instruction, always ask your healthcare professional. [employer] disclaims any warranty or liability for your use of this information. documented in this encounter Progress Notes Konstantin Milian MD - 03/02/2014 2:59 PM CDT SUBJECTIVE: This 43-year-old male presents with intermittent sharp right wrist pain over the past 2 months, approximately. He does not have pain at rest. He has sharp twinges of pain that occur with certain movements of the wrist. He thinks this may have started after he was doing quite a bit of work with his hands, including using a drill. No numbness in the hand. Medications: Current Outpatient Prescriptions Medication Sig Dispense Refill ??? buPROPion (WELLBUTRIN XL) 150 mg XL 24 hour tablet Take 450 mg by mouth every morning. ??? compounded prescription Take as instructed as needed for Other. Prostin 20 mcg/ml and phentolamine 5 mg/5ml. Inject 4- 40 units as directed. 5 mL 8 ??? dextroamphetamine-amphetamine (ADDERALL XR) 20 mg 24 hr capsule Take 20 mg by mouth every morning. ??? insulin syringe U-100 short (BD INSULIN SYRINGE ULT-FINE II) 1/2 mL 31 x 5/16 Inject subcutaneously as needed. 100 Syringe 8 ??? naproxen (NAPROSYN) 500 mg tablet Take 1 tablet by mouth 2 times daily (with meals) for 10 days.20 tablet 0 ??? omeprazole (PRILOSEC) 40 mg capsule Take 40 mg by mouth daily (every 24 hours). ??? tadalafil (CIALIS) 20 mg tablet Take 0.5-1 tablets by mouth as needed for Erectile Dysfunction. Take 60 minutes prior to sexual activity 6 tablet 12 ??? tadalafil (CIALIS) 5 mg tablet Take [...] hours). Indications: HYPERTENSION 90 tablet 3 ??? vardenafil (LEVITRA) 20 mg tablet Take 1 tablet by mouth as needed for Other. Take 1 hour prior to sexual intercourse. Max 1 dose/24 hours. 6 tablet 5 No current facility-administered medications for this visit. Adverse Drug Reactions: Amoxicillin; Lisinopril; and Metoprolol Social History: History Social History ??? Marital Status: Spouse Name: N/A Number of Children: N/A ??? Years of Education: N/A Occupational History ??? [employer] Social History Main Topics ??? Smoking status: Current Some Day Smoker -- 4 years Types: Cigarettes ??? Smokeless tobacco: Current User Types: Chew ??? Alcohol Use: 0.0 oz/week 12-15 Cans [...] Social History Narrative OBJECTIVE: Vital Signs: BP 116/74 Pulse 90 Wt 239 lb (108.41 kg) BMI 29.87 kg/m2 General: Alert. Extremities: Exam of the right wrist hand and fingers shows no swelling, discoloration, erythema or warmth. He has full active and passive range of motion at the wrist. No deformity. Samantha's testnegative. ASSESSMENT: Diagnosis (ICD9) and Associated Orders ICD-9-CM 1. Wrist tendonitis 727.05 naproxen (NAPROSYN) 500 mg tablet 2. Foot pain 729.5 PODIATRY CONSULT ADULT (AMB) PLAN: Recommend occupational therapy for further treatment of the wrist, but he declines. I wrote for a small quantity of Naprosyn to use for the next 7-10 days, then stop for the anti-inflammatory effect. Recommend frequent icing. If he changes his mind about OT he can call me. At the end of the visit he also mentioned a vague uncomfortable feeling on the bottom of the feet. He would like to see Dr. Hollis again, he has seen in the past for plantar fasciitis. A new referral was placed. Due to time constraints we were not able to investigate this more fully here today. documented in this encounter Plan of Treatment Not on filedocumented as of this encounter Visit Diagnoses Diagnosis Wrist tendonitis - Primary Enthesopathy of wrist and carpus Foot pain Pain in limb documented in this encounter Care Teams De Icer Relationship Specialty Start Date End Date Konstantin Milian MD PCP - General 08/03/13 [address] [address] [place] [phone] documented as of this encounter
--- OUTSIDE RECORDS SUMMARY | 2022-04-03 16:18 | XMS_ITS | Encounter Summary ---
:1970 Author Organization [employer] Address [address], [place] [address] Care Team Providers Name Role Phone Konstantin Milian MD Primary Care Provider Reason for Visit Reason Comments Refill Encounter Details Date Type Department Care Team Description 08/02/2014 Refill [place] [facility] [address] [facility] [address] [place] [phone] (Wo rk) Social History Tobacco Use Types Packs/Day Years Used Date Smoking Tobacco: Never Assessed Sex Assigned at Date Recorded Not on file documented as of this encounter Nursing Notes User, Nely - 08/06/2014 11:11 AM CST amLODIPine (NORVASC) 5 mg tablet [Pharmacy Med Name: AMLODIPINE BESYLATE 5MG TABLETS] - WARNING: This medication may be for short term use. - REFILL: 12 months (if warnings resolved) - RATIONALE: This refill should last until the patient is due for an office visit. - LAST QUALIFYING VISIT WITH WILLIAM HENRY: 07/10/2014 - NEXT SCHEDULED VISIT: None - MEDICATION STARTED: 06/10/2014 - LAST REFILLED ON: 07/10/2014, QTY: 30, Refills: 0, Sig: take 1 tablet by mouth daily (every 24 hours). (changed but equivalent) Powered by [employer], Reference: [id number], 08/02/2014 11:04:41 AM PRODUCT SAFETY TECHNICAL ASSISTANT, Pool: APOLLO REFILL ([id number]) Sarah Helms, RN - 08/05/2014 7:30 PM CST DOES NOT MEET REQUIREMENTS FOR REFILL Reason: Unable to refill .Amlodipine. Rx ordered for 30 days by William Henry. Patient was suppose to follow up with PCP and increase dose if BP did not return to normal after Rx was restarted Last visit with PCP: Dr Milian 03/02/14 Provider action required: Forwarding to Dr Milian Requested Prescriptions Pending Prescriptions Disp Refills ??? amLODIPine (NORVASC) 5 mg tablet [Pharmacy Med Name: AMLODIPINE BESYLATE 5MG TABLETS] 30 tablet 0 Sig: TAKE 1 TABLET BY MOUTH DAILY UCT SAFETY TECHNICAL ASSISTANT documented in this encounter Plan of Treatment Not on filedocumented as of this encounter Visit Diagnoses Diagnosis Essential hypertension (HRC) - Primary Unspecified essential hypertension documented in this encounter Care Teams Candy Supervisor Relationship Specialty Start Date End Date Konstantin Milian MD PCP - General 08/03/13 [address] [address] [place] [phone] documented as of this encounter
--- OUTSIDE RECORDS SUMMARY | 2022-04-03 16:18 | XMS_ITS | Encounter Summary ---
:1970 Author Organization [employer] Address [address], [place] [address] Care Team Providers Name Role Phone Konstantin Singh MD Primary Care Provider Reason for Visit Reason Comments Refill Encounter Details Date Type Department Care Team Description 09/10/2014 Refill [facility] Konstantin Clark MD Refill [address] [address] [place] [address] [place], [place] [phone] (Wo rk) Social History Tobacco Use Types Packs/Day Years Used Date Smoking Tobacco: Never Assessed Sex Assigned at Date Recorded Not on file documented as of this encounter Nursing Notes UserNely - 09/11/2014 10:59 AM CST The following lab order(s) may be associated with the following Patient Result Comment (Entered by Konstantin Singh MD at 07/20/2014 12:17 PM): LAB ELECTROLYTES (NA, K, CL, BICARB) The glucose level is a little higher than normal ( not diabetic range), but the other sugar test (A1c) is normal, so this is reassuring. The other labs look good. The labs should be rechecked in 1 year. User, Nely - 09/11/2014 10:59 AM CST valsartan-hydrochlorothiazide (DIOVAN-HCT) 320-12.5 mg per tablet [Pharmacy Med Name: VALSARTAN/DOUX313FW/12.5MG TABLETS] - REFILL: 6 months - RATIONALE: This refill should last until the patient is due for an office visit. - LAST QUALIFYING VISIT WITH KONSTANTIN SINGH: 03/02/2014 (A more recent visit in family medicine wasfound) - NEXT SCHEDULED VISIT: None - MEDICATION STARTED: 05/03/2013 - LAST REFILLED ON: 07/06/2014, QTY: 90, Refills: 0, Sig: take 1 tablet by mouth daily (every 24 hours). (changed but equivalent) - Cr: 1.2mg/dL on 07/20/2014 - Na: 139.0mEq/L on 07/20/2014 - K: 3.9mEq/L on 07/20/2014 Powered by [employer], Reference: [id number], 09/10/2014 9:29:15 AM [place]: REJI REFILL ([id number]) Nely Conrad - 09/11/2014 10:59 AM CST The following lab order(s) may be associated with the following Patient Result Comment (Entered by Konstantin Singh MD at 07/20/2014 12:17 PM): LAB CREATININE The glucose level is a little higher than normal ( not diabetic range), but the other sugar test (A1c) is normal, so this is reassuring. The other labs look good. The labs should be rechecked in 1 year. Sophia Pastrana, RN - 09/11/2014 10:59 AM CST Renewed medication per medication refill protocol. Requested Prescriptions Signed Prescriptions Disp Refills ??? valsartan-hydrochlorothiazide (DIOVAN-HCT) 320-12.5 mg per tablet 90 tablet 1 Sig: Take 1 tablet by mouth daily (every 24 hours). Authorizing Provider: KONSTANTIN SINGH Ordering User: SOPHIA PASTRANA GAGE CONSULTANT documented in this encounter Plan of Treatment Not on filedocumented as of this encounter Visit Diagnoses Not on filedocumented in this encounter Care Teams Work Environment Safety Inspector Relationship Specialty Start Date End Date Konstantin Singh MD PCP - General 08/03/13 [address] [address] [place] [phone] documented as of this encounter
--- OUTSIDE RECORDS SUMMARY | 2022-04-03 16:18 | XMS_ITS | Encounter Summary ---
:1970 Author Organization [facility] Address [address], [place] [address] Care Team Providers Name Role Phone Konstantin Milian MD Primary Care Provider Reason for Visit Reason Comments Knee Pain or Injury Encounter Details Date Type Department Care Team Description 09/07/2014 Office Visit Ana Cox, Osteoarthri tis of left Orthopedics MARY knee (Primary Dx) [address] [place] [address] [place] [phone] [address] Social History Tobacco Use Types Packs/Day Years Used Date Smoking Tobacco: Never Assessed Sex Assigned at Date Recorded Not on file documented as of this encounter Progress Notes Ana Wang PA-C - 09/07/2014 9:59 AM CST Progress Notes signed by Ana Wang PA-C at 09/07/14 1129 Author: Ana Wang PA-C Service: (none) Author Type: Physician Family And Consumer Sciences Teacher Filed: [id number]/[id number] Note Time: 09/07/14 1109 Status: Signed Bunch Maker: Ana Wang PA-C (Physician Family And Consumer Sciences Teacher) NAME: MAYA FU MR#: [id number] CSN: [id number] AUTHENTICATING CLINICIAN: Ana Wang PA-C CONFIRM #: [id number] LOC: 511 CLINIC PROGRESS NOTE DATE OF VISIT: 09/07/2014 : 1970 REASON FOR VISIT: Left knee pain followup. The patient is a pleasant 44-year-old male who has had left knee pain going on for 4+ years. He has been treated by Dr. Calderón at [facility] previously. He has known DJD in the medial jointline. The patient brought in an MRI, with the images and the report from 06/17/2012, which demonstrated broad full-thickness and near full-thickness cartilage loss in the mid to posterior weightbearingsurface of the medial femoral condyle, with a 1.3 x 1.6 cm loss of the cartilage in the mid to peripheral weightbearing surface of the medial tibial plateau. He had some surgical changes in the medial meniscus, and tearing of the residual posterior horn. At that time, there was really no lateral change s. The patient has had multiple treatments, including an cinnamon grinder brace, anti- inflammatories. He hashad multiple cortisone injections and hyaluronic acid injections without any relief. My last visit with him, on August 17, I did reinject him with cortisone, and he got maybe a couple of days of relief, but then the pain came right back. It is not to the point where he states it is all encompassingin terms of affecting his life. He is not able to do much and he feels like he is just at the end ofhis rope in terms of treatment options. PAST MEDICAL/SOCIAL/SURGICAL/FAMILY/REVIEW OF SYSTEMS/MEDICATIONS/ALLERGIES: Reviewed per my previous note and unchanged. EXAM: GENERAL: He is a well-developed, well-nourished adult male in no acute distress. Gait is normal heel-to-toe. VASCULAR: Exam is deferred. MRI report, as listed above, and was reviewed. IMPRESSION: Left knee medial osteoarthritis, moderately severe. PLAN: I discussed with Fredis that he may be a candidate for a partial knee replacement, recommended surgical consultation with Dr. Bhagat. At this point, his images were sent to C-file. Hopefully, they will bescanned by the time he sees Dr. Bhagat. All of his questions were answered. Total Time: Spent with patient was 10 minutes, all in counseling and coordinating of care. [place]: [place] [address] [place] [address] EMS:[facility] C: CONFIRM #: [id number] ING SUPERVISOR documented in this encounter Plan of Treatment Not on filedocumented as of this encounter Visit Diagnoses Diagnosis Osteoarthritis of left knee - Primary Osteoarthrosis, unspecified whether gene ralized or localized, lower leg documented in this encounter Care Teams Hospice Care Transitions Coordinator Relationship Specialty Start Date End Date Konstantin Milian MD PCP - General 08/03/13 [address] [place] [phone] documented as of this encounter
--- OUTSIDE RECORDS SUMMARY | 2022-04-03 16:18 | XMS_ITS | Encounter Summary ---
:1970 Author Organization [employer] Address [address] [place] [address] Care Team Providers Name Role Phone Konstantin Milian MD Primary Care Provider Reason for Visit Reason Comments PRE-OP EXAM Encounter Details Date Type Department Care Team Description 10/03/2014 Pre-Op Visit [facility] Konstantin Milian, Pre-op evaluation (Primary Dx); Medicine MD Primary osteoarthritis of left knee; [address] [address] [place] Essential hypertension; [place] [address] [place], [place] Sensorimotor neuropathy [phone] [id number] Social History Tobacco Use Types Packs/Day Years Used Date Smoking Tobacco: Never Assessed Sex Assigned at Date Recorded Not on file documented as of this encounter Last Filed Vital Signs Vital Sign Reading Time Taken Comments Blood Pressure 114/80 10/03/2014 9:26 AM CDT Pulse 76 10/03/2014 9:26 AM CDT Temperature 36.2 ??C (97.2 ??F) 10/03/2014 9:26 AM CDT Respiratory Rate - - Oxygen Saturation - - Inhaled Oxygen Concentration - - Weight 120.7 kg (266 lb) 10/03/2014 9:26 AM CDT Height 195.6 cm (6' 5) 10/03/2014 9:26 AM CDT Body Mass Index 31.54 10/03/2014 9:26 AM CDT documented in this encounter Patient Instructions Patient InstructionsKonstantin Milian MD - 10/03/2014 9:44 AM CDT --Avoid aspirin and all anti-inflammatories (ibuprofen, Advil, Motrin, Aleve, naprosyn) for at least7 days prior to surgery. Tylenol (acetaminophen) is ok prior to surgery. --Do not take losartan-hydrochlorothiazide or Adderall XR day of surgery. documented in this encounter OR Notes Konstantin Abdullahi MD - 10/04/2014 12:17 PM CDT The urine culture and BB antibody screen are negative. Konstantin Abdullahi MD - 10/03/2014 1:12 PM CDT PREOPERATIVE ASSESSMENT Date of : 1970 Age: 44 y.o. Sex: male Preoperative Evaluation completed by: Konstantin Milian MD Primary care physician: Konstantin Milian MD [phone] CHIEF COMPLAINT Pre-Operative Evaluation ANTICIPATED PROCEDURE Left TKA (Dr. Zimmerman, [facility]; DOS 10/16/14). HISTORY OF PRESENT ILLNESS 44 yo male with end-stage left knee DJD. Risk Factors/Review of Systems: (Please see flowsheets for details) Cardiovascular risks negative except for: HTN: Renal risks negative except for: Chronic Diuretic Use: Neuro risks negative except for: Neuropathy: GI risks negative except for: GERD: Pulmonary risks negative except for: Amt/Quit Date:: Quit 2010. Uses chewing tobacco. Endocrine/Nutrition risks negative except for: Hematologic Disease risks negative except for: Musculoskeletal/Skin risks negative except for: Arthritis: Arthritis type: DJD Mental Health risks negative except for: Anxiety: Depression: Code Status: Full Code, Other risk factors negative except for: Complete review of systems is otherwise negative. Patient Active Problem List Diagnosis ??? ED (erectile dysfunction) ??? Mixed anxiety and depressive disorder (ACG) ??? Chews tobacco ??? Essential hypertension ??? ADD (attention deficit disorder) without hyperactivity ??? GERD (gastroesophageal reflux disease) ??? Impaired fasting glucose ??? Obesity (ACG) ??? Sensorimotor neuropathy (HCC) ??? Osteoarthritis of left knee Past Medical History Diagnosis Date ??? ED (erectile dysfunction) ??? ADD (attention deficit disorder) without hyperactivity (ACG) ??? GERD (gastroesophageal reflux disease) ??? Left knee DJD ??? Obesity (ACG) ??? Sensorimotor neuropathy ??? Cigarette smoker (ACG) [id number] ??? Essential hypertension (ACG) ??? Chews tobacco (ACG) ??? Mixed anxiety and depressive disorder (ACG) ??? Impaired fasting glucose Past Surgical History Procedure Laterality Date ??? Mouth surgery ??? Vasectomy ??? Knee arthroscopy Left ??? Inguinal hernia repair 1971 Family History Problem Relation Age of Onset ??? Hypertension Mother ??? Osteoarthritis Mother ??? Cancer Father leukemia ??? Hypertension Sister History Social History ??? Marital Status: Spouse Name: N/A Number of Children: N/A ??? 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 Smoking status: [...] some ,but not much. Social History Narrative Current Outpatient Prescriptions Medication Sig Note Dispense [...] SYRINGE ULT-FINE II) 1/2 mL 31 x 16 Inject subcutaneously as needed. 100 Syringe 8 ??? omeprazole (PRILOSEC) 40 mg capsule Take 40 mg by mouth daily (every 24 hours). ??? tadalafil (CIALIS) 5 mg tablet Take [...] No current facility-administered medications for this visit. Allergies Allergen Reactions ??? Amoxicillin Hives ??? Lisinopril Cough ??? Metoprolol Other (See Comments) erectile dysfunction PHYSICAL EXAMINATION Temp: 97.1 ??F (36.2 ??C) (10/03/14925) Pulse: 76 (10/03/14925) BP: 114/80 mmHg (10/03/14925) Height: 6' 5 (195.6 cm) (10/03/14925) Weight: 266 lb (120.657 kg) (10/03/14925) BMI (Calculated): 31.61 (10/03/14925) General Appearance: Normal HEENT: Normal Neck: Normal Lungs: Normal Heart: Normal Abdomen: Normal Extremities: Normal Skin: Normal Neurologic: Normal TEST RESULTS AND DATE EKG done: Today: 10/03/2014. EKG: normal EKG, normal sinus rhythm. . Labs done: Today: 10/03/2014. Lab Visit on 10/03/2014 Component Date Value Ref Range Status ??? Sodium 10/03/2014 140 137 - 147 mEq/L Final ??? Potassium 10/03/2014 4.3 3.5 - 5.2 mEq/L Final ??? Chloride 10/03/2014 99 98 - 110 mEq/L Final ??? Bicarbonate 10/03/2014 31 23 - 33 mmol/L Final ??? Creatinine Serum 10/03/2014 1.1 0.4 - 1.3 mg/dL Final ? ? Est GFR Am 10/03/2014 >60 >60 mL/min/1.73m2 Final ? ? Est GFR Non-Afr Am 10/03/2014 >60 >60 mL/min/1.73m2 Final Comment: Normal>60, moderate decrease 30 - 59, severe decrease 15 - 29, renal failure <15 mL/min/1.73 m2 NOTE: Choose the eGFR result above appropriate for the race of the patient. ??? Blood Urea Nitrogen 10/03/2014 12 5 - 26 mg/dL Final ??? Hemoglobin 10/03/2014 16.0 13.4 - 17.5 g/dL Final ??? Urine Type 10/03/2014 Urine:clean cat Final ??? Turbidity 10/03/2014 Clear Clear Final ??? U Bili 10/03/2014 Negative Negative Final ??? Blood Urine 10/03/2014 Negative Negative Final ??? Glucose, Qualitative U 10/03/2014 Negative Neg-30 mg/dL Final ??? Ketones 10/03/2014 Negative Negative Final ??? Leukocyte Esterase Urine 10/03/2014 Negative Negative Final ??? Nitrite Urine 10/03/2014 Negative Negative Final ??? pH Urine 10/03/2014 6.5 5.0-8.0 Final ??? Protein Urine 10/03/2014 Negative Neg - Trace mg/dL Final ??? U Specific [place] 10/03/2014 1.010 1.005 - 1.030 Final ??? Urobilinogen Urine 10/03/2014 Negative Negative Eu/dL Final ??? Urine WBC 10/03/2014 None seen 0 - 4 /HPF Final ??? Urine RBC 10/03/2014 None seen 0 - 2 /HPF Final ??? Bacteria Urine 10/03/2014 Occasional* Final ??? Epithelial Cells 10/03/2014 Occasional Final Urine culture and BB antibody screen pending. ASSESSMENT 1. Preoperative Assessment: This patient has been examined by me today and has been found to be a suitable candidate for surgery: Yes 2. Diagnosis (ICD9) and Associated Orders ICD-9-CM ICD-10-CM 1. Pre-op evaluation V72.84 Z01.818 Hemoglobin Urine Culture BB Antibody Screen 2. Primary osteoarthritis of left knee 715.16 M17.12 3. Essential hypertension 401.9 I10 Electrolytes (NA, K, CL, Bicarb) Creatinine BUN Urinalysis Routine, Micro/Culture if Pos Urine Microscopic ECG 12 Lead Outpatient 4. Sensorimotor neuropathy (HCC) 356.9 G62.9 RECOMMENDATIONS AND PLAN Day of surgery testing: none Medication recommendations including insulin / diabetes: Avoid ASA/NSAIDs at least 7 days prior to surgery. Hold valsartan-hctz and Adderall XR day of surgery. Additional screening recommended: no Consult (Cardiology/other): no Additional test results attached: none Recommend RT assessment post op for Oxygenation and ventilation monitoring: no Other: no - No solid food after midnight on day before surgery. - No clear liquids for 4 hours before surgery - water, black coffee, clear tea ONLY - No milk for 6 hours before surgery ABOVE RECOMMENDATIONS WERE REVIEWED WITH PATIENT: yes Konstantin Milian MD 10/03/2014 documented in this encounter Plan of Treatment Not on filedocumented as of this encounter Procedures Procedure Name Priority Date/Time Associated Diagnosis Comme nts ECG 12 LEAD Routine 10/03/2014 10:03 Essential Results for this OUTPATIENT AM CDT hypertension procedure are i n the results section. documented in this encounter Results ECG 12 Lead Outpatient (10/03/2014 10:03 AM CDT) P athologist Signature Ventricular Rate 80 BPM [facility] Atrial Rate 80 BPM [facility] P-R Interval 146 ms [facility] QRS Duration 90 ms [facility] QT 372 ms [facility] QTc 429 ms [facility] P [place] 36 degrees [facility] R [place] 37 degrees [facility] T [place] 17 degrees [facility] Specimen (Source) Anatomical Collection Method Collection Time Re ceived Time Location / / Volume Laterality 10/03/2014 10:03 AM CDT Narrative [facility] - 10/13/2019 3:23 PM CDT Sinus rhythm Normal ECG No previous ECGs available Confirmed by IZABLEA RAUSCH ([id number]), edit or JUANCARLOS MAYORGA ([id number]) on 10/03/2014 12:13:03 PM Also confirmed by JUSTINE العراقي ([id number]), medical transcription editor JUANCARLOS MAYORGA ([id number]) on 10/04/2014 9:27:05 AM Procedure Note Epic, Internal Processing - 10/15/2019Fo rmatting of this note might be different from the original. Sinus rhythm Normal ECG No previous ECGs available Confirmed by IZABELA RAUSCH ([id number]), edit or JUANCARLOS MAYORGA ([id number]) on 10/03/2014 12:13:03 PM Also confirmed by JUSTINE العراقي ([id number]), medical transcription editor JUANCARLOS MAYORGA ([id number]) on 10/04/2014 9:27:05 AM Konstantin Milian MD PN ECG ORDERABLES Performing Organization Address City/State/ZIP Code Phon e Number [facility] [address] [place] [address] documented in this encounter Visit Diagnoses Diagnosis Pre-op evaluation - Primary Preoperative examination, unspecified Primary osteoarthritis of left knee Primary localized osteoarthrosis, lower leg Essential hypertension (HRC) Unspecified essential hypertension Sensorimotor neuropathy Unspecified hereditary and idiopathic pe ripheral neuropathy documented in this encounter Care Teams Superintendent Maintenance Relationship Specialty Start Date End Date Konstantin Milian MD PCP - General 08/03/13 [address] [place] [phone] documented as of this encounter
--- OUTSIDE RECORDS SUMMARY | 2022-04-03 16:18 | XMS_ITS | Encounter Summary ---
:1970 Author Organization [facility] Address [address] [place] [address] Care Team Providers Name Role Phone Konstantin Milian MD Primary Care Provider Reason for Visit Reason Comments Annual Exam Encounter Details Date Type Department Care Team Description 07/27/2014 Office Visit [facility] Konstantin Milian MD ERRONEOUS ENTRY Medicine [address] [facility] (Primary Dx) [address] [place] [address] [phone] (Wo rk) Social History Tobacco Use Types Packs/Day Years Used Date Smoking Tobacco: Never Assessed Sex Assigned at Date Recorded Not on file documented as of this encounter Last Filed Vital Signs Vital Sign [place] Time Taken Comments Blood Pressure 130/72 07/27/2014 10:16 AM DYE STAND LOADER Pulse 94 07/27/2014 10:16 AM DYE STAND LOADER Temperature - - Respiratory Rate - - Oxygen Saturation - - Inhaled Oxygen Concentration - - Weight 118 kg (260 lb 2 oz) 07/27/2014 10:16 AM DYE STAND LOADER Height 192.5 cm (6' 3.8) 07/27/2014 10:16 AM DYE STAND LOADER Body Mass Index 31.83 07/27/2014 10:16 AM DYE STAND LOADER documented in this encounter Progress Notes Konstantin Milian MD - 07/29/2014 11:51 AM CST Patient left without being seen. STAND LOADER documented in this encounter Plan of Treatment Not on filedocumented as of this encounter Visit Diagnoses Diagnosis ERRONEOUS ENTRY - Primary documented in this encounter Care Teams Drafter Civil Relationship Specialty Start Date End Date Konstantin Milian MD PCP - General 08/03/13 [address] [place] [phone] documented as of this encounter
--- OUTSIDE RECORDS SUMMARY | 2022-04-03 16:18 | XMS_ITS | Encounter Summary ---
:1970 Author Organization [employer] Address [address], [place] [address] Care Team Providers Name Role Phone Konstantin Singh MD Primary Care Provider Reason for Referral Specialty Diagnoses / Procedures Referred By Contact Refer red To Contact Massimo Rogers MD [facility] [id number] [place] [address] [phone] Referral ID Status Reason Start Date Expiration Date Visits Requ ested Visits Authorized T SETTER Reason for Visit Reason Comments Knee Pain or Injury Encounter Details Date Type Department Care Team Description 08/17/2014 Surgical Consult MarsingAna Barger, Osteoar thritis of left knee (Primary Dx); Orthopedics MARY Left knee pain [address] [address] [facility] [place] [address] [phone] Social History Tobacco Use Types Packs/Day Years Used Date Smoking Tobacco: Never Assessed Sex Assigned at Date Recorded Not on file documented as of this encounter Progress Notes Ana Wang, MARY - 08/17/2014 1:31 PM CST MRI report was received via fax after patient's visit. MRI was taken 06/17/12 and demonstrated broad full-thickness and near full- thickness cartilage loss along the mid to posterior weight bearing surface of the medial femoral condyle. There is a 1.3 x 1.6cm area of cartilage loss of the mid to peripheral weight bearing surface of the medial tibial plateau. There is surgical changes in the medial meniscus in the posterior horn. There is tearing of the residual posterior body with fraying and tearing of the residual posterior horn. There are no focal chondral defects or significant chondromalacia in the patellofemoral joint. Subchondral bone marrow edemasignal and cystic changes of the medical compartment were also noted. T SETTER Ana Wang PA-C - 08/17/2014 11:09 AM CST Progress Notes signed by Ana Wang PA-C at 08/17/14 1768 Author: Ana Wang PA-C Service: (none) Author Type: Physician Supervisor International Reservations Filed: 08/17/14 5435 Note Time: 08/17/14 1308 Status: Signed Museum Assistant: Ana Wang PA-C (Physician Supervisor International Reservations) NAME: MAYA FU MR#: [id number] CSN: [id number] AUTHENTICATING CLINICIAN: Ana Wang PA-C CONFIRM #: [id number] LOC: 511 CLINIC PROGRESS NOTE DATE OF VISIT: 08/17/2014 : 1970 REASON FOR VISIT: Left knee pain. HPI: The patient is a 44-year-old male who comes in today for left knee pain. He reports a 4-year historyof pain in the anterior aspect of the knee. There was no acute injury. He has been previously treated by Dr. Isidro granados at [facility]. He states he had a high definition MRI which showed significant arthritic change. He has also had x-rays. He unfortunately requested for these records to be sent to me prior to our visit, but that did not happen. He states that now doing any running, long periods of standing, walking, riding activity seems to make the pain worse. He states this is the worst it has ever band. Not being on it makes it better. 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 It does bother him at work. He has had a knee scope of this left knee. He has also received injections in the past with the last one being greater than a year ago, which helped. He states ibuprofen does not seem to help at all, and he does have an ceramics instructor brace which helps, but he finds it cumbersome and does not use it often. PAST MEDICAL HISTORY: Reviewed per the EMR and on the intake sheet. It is significant for ADD, anxiety with depression, erectile dysfunction, essential hypertension, GERD, and obesity. SURGICAL HISTORY: Significant for hernia repair, mouth surgery, vasectomy, left knee arthroscopy. SOCIAL HISTORY: He is a corporate officer. He socially drinks. Does not smoke. He rarely exercises. FAMILY MEDICAL HISTORY: Significant for leukemia, hypertension and osteoarthritis. COMPLETE REVIEW OF SYSTEMS: Reviewed and is negative unless mentioned in the HPI. MEDICATIONS: Per the EMR. ALLERGIES: Per the EMR. PHYSICAL EXAM: He is a well-developed, overweight male, no acute distress. He is alert and oriented x3. Gait is normal heel-to-toe without any assistive devices or limp. SKIN: Clean, dry, intact without any rashes or lesions. NEURO: His toes and lower extremity are intact to light touch and pressure. VASCULAR: his posterior tibialis pulse is present. EXTREMITIES: Dedicated left knee exam shows no effusion. He has tenderness along the lateral patellar facet. He has no medial lateral joint line tenderness today. Range of motion is from 0-120 degrees with crepitus felt in the patellofemoral femoral joint. Strength is 5/5 with his hamstrings and lyndsey ceps. Gastroc and tibialis anterior 5/5. Extensor hallucis longus is 5/5. Valgus and varus stress tests are stable at 0 and 30 degrees. Anterior and posterior drawer negative. Juan's is negative. Maureen's is negative. X-rays were taken today and independently reviewed. Three views of the left knee show a small joint effusion that was suspected. There is some early narrowing in the medial compartment with some spurring formation in the patellofemoral joint. MRI that he has had previously is not here for my review. IMPRESSION: Left knee pain with osteoarthritic changes. PLAN: I discussed with Maya that I would like to get his MRI that he had done at [facility]. He states that he knows he needs a knee replacement, but given his x-rays today, I would like to see his MRI to see what type of chondral defects he is dealing with. He is going to try to get these images for me. He is going to continue to take anti-inflammatories and we are going to try another cortisone shot today. After the patient was properly identified, the skin was cleansed with alcohol. A mixture of 8 mL 1% lidocaine and 9 mg of Celestone was injected into the joint. He tolerated this well and a bandage wasthen applied. The patient will follow up with me if this is not successful. We may consider a Synvisc-One injection, however, I really would like to see his MRI images, as well. All of his questions were answered. CC: [place] [id number] [place] [address] EMS:MEDQ C: CONFIRM #: [id number] T SETTER documented in this encounter Plan of Treatment Scheduled Referrals Name Type Priority Associated Diagnoses [facility] Referral Routine Left knee pain Ordere d: 08/17/2014, Adult/Peds Expires: 2014 documented as of this encounter Visit Diagnoses Diagnosis Osteoarthritis of left knee - Primary Osteoarthrosis, unspecified whether gene ralized or localized, lower leg Left knee pain Pain in joint, lower leg documented in this encounter Care Teams Cray Fishing Hand Relationship Specialty Start Date End Date Konstantin Singh MD PCP - General 08/03/[address] [place] [address] documented as of this encounter
--- OUTSIDE RECORDS SUMMARY | 2022-04-03 16:18 | XMS_ITS | Encounter Summary ---
:1970 Author Organization [employer] Address [address], [place] [address] Care Team Providers Name Role Phone Konstantin Singh MD Primary Care Provider Reason for Visit Reason Comments Refill Encounter Details Date Type Department Care Team Description 04/05/2014 Refill [facility] Bienvenido Gage MD Refill [address] [place] [address] [place], [place] [phone] (Wo rk) Social History Tobacco Use Types Packs/Day Years Used Date Smoking Tobacco: Never Assessed Sex Assigned at Date Recorded Not on file documented as of this encounter Nursing Notes Claudia Rodrigues - 04/10/2014 9:39 AM CDT Letter sent to pt advising need for appointment. Liza Goldman RN - 04/08/2014 7:24 PM CDT REFILL APPOINTMENT NEEDED Please call patient and schedule appointment within 30 days. Medication has been renewed and sent to pharmacy for a 90 day supply. Comment: Last qualifying visit 05/03/13 Requested Prescriptions Signed Prescriptions Disp Refills ??? vardenafil (LEVITRA) 20 mg tablet 6 tablet 0 Sig: Take 1 tablet by mouth as needed for Other. Take 1 hour prior to sexual intercourse. Max 1 dose/24 hours Authorizing Provider: BIENVENIDO GUTIERREZ Ordering User: LIZA GOLDMAN ??? valsartan-hydrochlorothiazide (DIOVAN-HCT) 320-12.5 mg per tablet 90 tablet 0 Sig: Take 1 tablet by mouth daily (every 24 hours). Indications: HYPERTENSION Authorizing Provider: KONSTANTIN SINGH Ordering User: LIZA GOLDMAN documented in this encounter Miscellaneous Notes Letter - Bienvenido Gutierrez MD - 04/05/2014 12:00 AM CDT Images from the original note were not included. [facility] [address] [place] [phone] Rubens Prieto [address] [facility] [address] [facility] [address] April 10, 2014 Dear Rubens Prieto, We received your request for the following prescription(s): Orders Placed This Encounter Medications ??? vardenafil (LEVITRA) 20 mg tablet Sig: Take 1 tablet by mouth as needed for Other. Take 1 hour prior to sexual intercourse. Max 1 dose/24 hours Dispense: 6 tablet Refill: 0 ??? valsartan-hydrochlorothiazide (DIOVAN-HCT) 320-12.5 mg per tablet Sig: Take 1 tablet by mouth daily (every 24 hours). Indications: HYPERTENSION Dispense: 90 tablet Refill: 0 Your request was approved. You will need an appointment with your provider before your next refill. Please call [facility] at [phone] to schedule an appointment within 30 days. Thank you for choosing [facility] for your health care needs. Your [facility] Primary Care Team EL POST CARRIER documented in this encounter Plan of Treatment Not on filedocumented as of this encounter Visit Diagnoses Diagnosis Essential hypertension (HRC) Unspecified essential hypertension documented in this encounter Care Teams Catering Truck Driver Relationship Specialty Start Date End Date Konstantin Singh MD PCP - General 08/03/[address] [place] [address] documented as of this encounter
--- OUTSIDE RECORDS SUMMARY | 2022-04-03 16:18 | XMS_ITS | Encounter Summary ---
:1970 Author Organization [employer] Address [address], [place] [address] Care Team Providers Name Role Phone Konstantin Milian MD Primary Care Provider Encounter Details Date Type Department Care Team Description 09/11/2014 Imaging [facility] MRI Osteoarthritis of left knee [id number] [place], [place] [id number] Social History Tobacco Use Types Packs/Day Years Used Date Smoking Tobacco: Never Assessed Sex Assigned at Date Recorded Not on file documented as of this encounter Plan of Treatment Not on filedocumented as of this encounter Procedures Procedure Name Priority Date/Time Associated Diagnosis Comme nts MR KNEE LT WO IV Routine 09/11/2014 7:47 AM Osteoarthritis of left Results for this CONT VICE PRESIDENT OF INSTRUCTION knee procedure are i n the results section. documented in this encounter Results MR Knee Lt WO IV Cont (09/11/2014 7:47 AM VICE PRESIDENT OF INSTRUCTION) Anatomical Region Laterality Modality Lower Extremity, Knee, Skeletal, Thigh, Leg Left Other Specimen (Source) Anatomical Location Collection Method / Collectio n Time Received Time / Laterality Volume Impressions 09/11/2014 9:22 AM VICE PRESIDENT OF INSTRUCTION IMPRESSION: 1. Advanced medial compartment chondroma lacia including full-thickness cartilage loss over the majority of the weightbearing surface of the medial femoral condyle and medial tibial plateau with underlying marrow edema. 2. Attenuated and irregular appearance o f the posterior horn and body of the medial meniscus compatible with previous meniscectomy. There is a residual or recurrent horizontal tear along the tibial surf norma at the posterior medial meniscal bod y on coronal images 9 and 10. 3. Mild early chondromalacia of the late ral compartment. 4. Advanced intrasubstance mucoid degene rative signal within the ACL. 5. Moderate size knee effusion and synov itis. Small Crawford's cyst. Small loose body in the knee anteriorly as well as within the popliteus tendon sheath. 6. Degenerative partial tearing of the a nterior horn lateral meniscus. Narrative 09/11/2014 9:22 AM VICE PRESIDENT OF INSTRUCTION TECHNIQUE: Routine MRI of the left knee was performed without contrast. COMPARISON: None. FINDINGS: MEDIAL COMPARTMENT: Full-thickness carti chaparrita loss over the majority of the weightbearing surface of the medial femoral condyle and medial tibial plateau with underlying marrow edema. There is also full-thickness cartilage loss and fissuring of the posterior nonweightbearing surface of th e medial femoral condyle with significant underlying marrow edema and cystic change. Marginal osteophytes. Diminutive posterior horn and body of the medial meniscus likely representing previous partial meniscectomy. There are areas of linear signal abnormality within the remaining portion of the medial meniscal body including a discrete horizontal defect through the tibial surface of the body of the medial meniscus on coronal image 10 which would indicate a residual or recurrent tear. LATERAL COMPARTMENT: Mild chondral thinn ing over the medial aspect of the weightbearing surface of the lateral compartment on coronal image 11 without a full-thickness chondral defect. Complex but primarily vertically oriented partial tearing of the anterior horn lateral meniscus on sagitt al image 24. PATELLOFEMORAL JOINT: No full-thickness chondral defect. Small marginal osteophytes. Moderate size knee effusion with synovitis including some early lipoma arborescens formation in the suprapatellar rec ess. Small Crawford's cyst. There is a 7 mm loose body in the popliteus tendon sheath posterior to the proximal tibia on sagittal image 18 and coronal image 3. 5 mm loose body anteriorly within the knee on sagittal image 19. LIGAMENTS AND TENDONS: Marked intrasubst ance signal and thickening of the ACL compatible with a significant degree of intrasubstance mucoid degeneration. PCL, MCL, and FCL are intact. Popliteus and theresa ps femoris tendons are intact. There is no evidence of injury to the posterolateral corner s upporting structures. EXTENSOR MECHANISM: The quadriceps and p atellar tendons are intact. The medial retinaculum, medial patellofemoral ligament, and lateral retinaculum are normal. MARROW AND SOFT TISSUES: There is signif icant marrow edema in the distal femur and proximal tibia adjacent to the intercondylar notch which is likely degenerative. Subchondral marrow edema in the medial compartment. Procedure Note Ben Del Real MD - 12/29/2015 TECHNIQUE: Routine MRI of the left knee was performed without contrast. COMPARISON: None. FINDINGS: MEDIAL COMPARTMENT: Full-thickness carti chaparrita loss over the majority of the weightbearing surface of the medial femoral condyle and medial tibial plateau with underlying marrow edema. There is also full-thickness cartilage loss and fissuring of the posterior nonweightbearing surface of th e medial femoral condyle with significant underlying marrow edema and cystic change. Marginal osteophytes. Diminutive posterior horn and body of the medial meniscus likely representing previous partial meniscectomy. There are areas of linear signal abnormality within the remaining portion of the medial meniscal body including a discrete horizontal defect through the tibial surface of the body of the medial meniscus on coronal image 10 which would indicate a residual or recurrent tear. LATERAL COMPARTMENT: Mild chondral thinn ing over the medial aspect of the weightbearing surface of the lateral compartment on coronal image 11 without a full-thickness chondral defect. Complex but primarily vertically oriented partial tearing of the anterior horn lateral meniscus on sagitt al image 24. PATELLOFEMORAL JOINT: No full-thickness chondral defect. Small marginal osteophytes. Moderate size knee effusion with synovitis including some early lipoma arborescens formation in the suprapatellar recess. Small Crawford's cyst. There is a 7 mm loose body in the popliteus tendon sheath posterior to the proximal tibia on sagittal image 18 and coronal image 3. 5 mm loose body anteriorly within the knee on sagittal image 19. LIGAMENTS AND TENDONS: Marked intrasubst ance signal and thickening of the ACL compatible with a significant degree of intrasubstance mucoid degeneration. PCL, MCL, and FCL are intact. Popliteus and biceps femoris tendons are intact. There is no evidence of injury to the posterolateral corner s upporting structures. EXTENSOR MECHANISM: The quadriceps and p atellar tendons are intact. The medial retinaculum, medial patellofemoral ligament, and lateral retinaculum are normal. MARROW AND SOFT TISSUES: There is signif icant marrow edema in the distal femur and proximal tibia adjacent to the intercondylar notch which is likely degenerative. Subchondral marrow edema in the medial compartment. IMPRESSION IMPRESSION: 1. Advanced medial compartment chondroma lacia including full-thickness cartilage loss over the majority of the weightbearing surface of the medial femoral condyle and medial tibial plateau with underlying marrow edema. 2. Attenuated and irregular appearance o f the posterior horn and body of the medial meniscus compatible with previous meniscectomy. There is a residual or recurrent horizontal tear along the tibial surface at the posterior medial meniscal body on joya l images 9 and 10. 3. Mild early chondromalacia of the late ral compartment. 4. Advanced intrasubstance mucoid degene rative signal within the ACL. 5. Moderate size knee effusion and synov itis. Small Crawford's cyst. Small loose body in the knee anteriorly as well as within the popliteus tendon sheath. 6. Degenerative partial tearing of the a nterior horn lateral meniscus. Chace Zimmerman MD RAD MRI documented in this encounter Visit Diagnoses Diagnosis Osteoarthritis of left knee Osteoarthrosis, unspecified whether gene ralized or localized, lower leg documented in this encounter Care Teams Automotive Service Writer Relationship Specialty Start Date End Date Konstantin Milian MD PCP - General 08/03/13 [id number] [place] [phone] documented as of this encounter
--- OUTSIDE RECORDS SUMMARY | 2022-04-03 16:18 | XMS_ITS | Encounter Summary ---
:1970 Author Organization [facility] Address [address], [place] [address] Care Team Providers Name Role Phone Konstantin Milian MD Primary Care Provider Encounter Details Date Type Department Care Team Description 09/12/2014 Notes/Orders [facility] [address] [facility] [address] [place] [address] Social History Tobacco Use Types Packs/Day Years Used Date Smoking Tobacco: Never Assessed Sex Assigned at Date Recorded Not on file documented as of this encounter Plan of Treatment Not on filedocumented as of this encounter Visit Diagnoses Not on filedocumented in this encounter Care Teams Retail Custodial Associate Relationship Specialty Start Date End Date Konstantin Milian MD PCP - General 08/03/13 [id number] [address] [place] [phone] documented as of this encounter
--- OUTSIDE RECORDS SUMMARY | 2022-04-03 16:18 | XMS_ITS | Encounter Summary ---
:1970 Author Organization [facility] Address [address] [address] Care Team Providers Name Role Phone Konstantin Milian MD Primary Care Provider Reason for Visit Reason Comments HYPERTENSION MEDICATION CHECK Encounter Details Date Type Department Care Team Description 07/10/2014 Office Visit Cecilio Gomez hypertension Medicine JULIANA Mix (Primary Dx) [address] [facility] . [address] [place] [address] [phone] [place], [place] [address] Social History Tobacco Use Types Packs/Day Years Used Date Smoking Tobacco: Never Assessed Sex Assigned at Date Recorded Not on file documented as of this encounter Last Filed Vital Signs Vital Sign Reading Time Taken Comments Blood Pressure 142/82 07/10/2014 1:35 PM GLASS BLOCK BENDER Pulse 89 07/10/2014 1:28 PM GLASS BLOCK BENDER Temperature - - Respiratory Rate - - Oxygen Saturation - - Inhaled Oxygen Concentration - - Weight 118.8 kg (262 lb) 07/10/2014 1:28 PM GLASS BLOCK BENDER Height - - Body Mass Index 32.75 03/20/2013 9:13 AM CDT documented in this encounter Progress Notes Cecilio Mari MBBS - 07/10/2014 1:54 PM CST Subjective: Patient here for follow-up of hypertension. He is adherent to low salt diet. 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 Averaging 120/70 after addition of Amlodipine to his regimen. However, ran out yesterday of the new mdication. Requesting refill today as he can not get in to see his narinder miranda week.. Patient denies: none Past Medical History Diagnosis Date ??? HBP (high blood pressure) (ACG) ??? Anxiety associated with depression (ACG) ??? ED (erectile dysfunction) ??? ADD (attention deficit disorder) without hyperactivity (ACG) 05/03/2013 ??? GERD (gastroesophageal reflux disease) 05/03/2013 ??? Left knee DJD 05/03/2013 ??? Obesity (ACG) 05/03/2013 ??? Sensorimotor neuropathy (HCC) 07/14/2013 Patient Active Problem List Diagnosis Date Noted ??? Sensorimotor neuropathy (HCC) 07/14/2013 ??? Essential hypertension 05/03/2013 ??? 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 GERD (gastroesophageal reflux disease) 05/03/2013 ??? Impaired fasting glucose 05/03/2013 ??? Left knee DJD 05/03/2013 ??? Obesity 05/03/2013 ??? ED (erectile dysfunction) 03/20/2013 ??? Adjustment disorder with mixed anxiety and depressed mood 03/20/2013 ??? Chews tobacco 03/20/2013 Current Outpatient Prescriptions on File Prior to Visit Medication Sig Dispense Refill ??? buPROPion (WELLBUTRIN [...] subcutaneously as needed. 100 Syringe 8 ??? [DISCONTINUED] loperamide (IMODIUM) 2 mg capsule Take 1 capsule by mouth 4 times daily as neededfor Diarrhea. 12 capsule 0 ??? omeprazole (PRILOSEC) 40 mg capsule [...] mouth daily (every 24 hours). 90 tablet 0 ??? vardenafil (LEVITRA) 20 mg tablet Take 1 tablet by mouth as needed. Take 1 hour prior to sexual intercourse. Max 1 dose/24 hours. 6 tablet 5 No current facility-administered medications on file prior to visit. Allergies Allergen Reactions ??? Amoxicillin Hives ??? Lisinopril Cough ??? Metoprolol Other (See Comments) erectile dysfunction Review of Systems Pertinent items are noted in HPI. Objective: Filed Vitals: 07/10/14 1328 07/10/14 1335 BP: 146/84 142/82 Pulse: 89 Weight: 262 lb (118.842 kg) General Appearance: Alert, cooperative, no distress, appears stated age Back: Symmetric, no curvature, ROM normal, no CVA tenderness Lungs: Clear to auscultation bilaterally, respirations unlabored Heart: Regular rate and rhythm, S1 and S2 normal, no murmur, rub or gallop Extremities: Extremities normal, atraumatic, no cyanosis or edema Pulses: 2+ and symmetric all extremities Assessment: Hypertension, stage 1 Appears to be welled controlled under his current regimen and today's number probably explained bu not having taken amlodipine for 36 hours. Evidence of target organ damage: none. Plan: Medication: no change but if BP does not return to his average once he restarts medication he will increase Amlodipine to 10 mg daily Continue to plan seeing his primary as scheduled S BLOCK BENDER documented in this encounter Plan of Treatment Not on filedocumented as of this encounter Visit Diagnoses Diagnosis Essential hypertension (HRC) - Primary Unspecified essential hypertension documented in this encounter Care Teams Town Planner Relationship Specialty Start Date End Date Konstantin Milian MD PCP - General 08/03/13 [id number] [address] [place] [phone] documented as of this encounter
--- OUTSIDE RECORDS SUMMARY | 2022-04-03 16:18 | XMS_ITS | Encounter Summary ---
:1970 Author Organization [employer] Address [address], [place] [address] Care Team Providers Name Role Phone Konstantin Milian MD Primary Care Provider Reason for Visit Reason Comments Diarrhea Encounter Details Date Type Department Care Team Description 06/19/2014 Hospital Encounter [facility] Harpal Reeves Gastroenteritis; Leticia Parnell MD Diarrhea; [address] Adjustment di sorder with mixed anxiety and depressed mood; [address] [place] [phone] Social History Tobacco Use Types Packs/Day Years Used Date Smoking Tobacco: Never Assessed Sex Assigned at Date Recorded Not on file documented as of this encounter Last Filed Vital Signs Vital Sign Reading Time Taken Comments Blood Pressure 110/72 06/19/2014 2:55 PM [facility] Pulse 82 06/19/2014 2:55 PM [facility] Temperature 36.5 ??C (97.7 ??F) 06/19/2014 2:55 PM [facility] Respiratory Rate 24 06/19/2014 2:55 PM [facility] Oxygen Saturation - - Inhaled Oxygen Concentration - - Weight - [...] 40 MG capsule daily (every 24 hours). terbutaline (AKA At 3 hrs of erection , 10 tablet 10 014 BRETHINE) 5 MG tablet take 1 tab. At 3 1/2 hrs, take 1 tab. At 4 hrs go to ER. amLODIPine (AKA Indications: PN: 0 06/10/2014 NORVASC) 5 MG [facility] tabletIndications: 2013 1:26 PM [facility] Received from: 2013 1:26 PM External Pharmacy Received from: External Pharmacy ciprofloxacin (aka Take 1 tablet by mouth 6 tablet 0 06/1906/22/2014 CIPRO) tablet 2 times daily for 3 days. loperamide (aka Take 1 capsule by 12 capsule 0 06/19/2014 IMODIUM) capsule mouth 4 times daily as needed for Diarrhea. Valsartan-Hydrochloro Take 1 tablet by mouth 90 tablet 0 07/02/2014 thiazide (AKA daily (every 24 DIOVAN-HCT) 320-12.5 hours). Indications: MG tabletIndications: HYPERTENSION Essential hypertension (HRC) amphetamine-dextroamp Take 20 mg by mouth 0 03/2003/25/2017 hetamine (ADDERALL every morning. XR) 20 MG 24 hour release capsule COMPOUNDED Take as instructed as 5 mL 8 08/03/201303/2015 PRESCRIPTION needed for Other. Prostin 20 mcg/ml and phentolamine 5 mg/5ml. Inject 4- 40 units as directed. Insulin Inject subcutaneously 100 Syringe 8 09/26/2013 Syringe-Needle U-100 as needed. (INSULIN SYRINGE .5CC/29GX1/2) 29G X 1/2 0.5 ML Tadalafil (AKA Take 1 tablet by mouth 30 tablet 0 4 08/13/2014 CIALIS) 5 MG tablet nightly. vardenafil (AKA Take 1 tablet by mouth 6 tablet 5 05/28/20 14 05/15/2015 LEVITRA) 20 MG as needed. Take 1 hour tabletIndications: ED prior to sexual (erectile intercourse. Max 1 dysfunction) dose/24 hours. documented as of this encounter ED Notes Harpal Reeves MD - 06/19/2014 3:46 PM CST Subjective: Patient ID: Rubens Prieto is an 44 y.o. male. Chief Complaint: HPI Comments: Patient presents to urgent care noting symptoms of diarrhea onset on Wednesday associatedwith nausea feeling achy and tired and a bloated feeling in the abdomen with increased gas. he remembrs eating jamir rilehsr addition on Wednesday night and had some leftovers at work and was the following day when symptoms came on. He is RA tried some Pepto-Bismol without benefit, is a decreased appetite continuing along with nausea. No vomiting is been noted. Diarrhea is is much as 2 times per hour inthe abdomen has been noisy. No recent travel. He relates he has a coworker who had traveled to [place] 2 months ago has not had any symptoms or fever. Patient is a 44 y.o. male presenting with diarrhea. The history is provided by the patient. Diarrhea The primary symptoms include fever, fatigue, nausea, diarrhea and myalgias. Primary symptoms do not include weight loss, vomiting, melena or rash. The illness began 3 to 5 days ago. Review of Systems Constitutional: Positive for fever and fatigue. Negative for weight loss. Gastrointestinal: Positive for nausea and diarrhea. Negative for vomiting and melena. Musculoskeletal: Positive for myalgias. Skin: Negative for rash. Objective: BP 110/72 Pulse 82 Temp(Src) 36.5 ??C (97.7 ??F) (Oral) Resp 24 Physical Exam Constitutional: He is oriented to person, place, and time. He appears well-developed. HENT: Head: Normocephalic. Right Ear: External ear normal. Left Ear: External ear normal. Nose: Nose normal. Mouth/Throat: Oropharynx is clear and moist. Eyes: Conjunctivae are normal. No scleral icterus. Neck: Normal range of motion. Neck supple. No tracheal deviation present. No thyromegaly present. Cardiovascular: Normal rate. No murmur heard. Pulmonary/Chest: Effort normal and breath sounds normal. Abdominal: Soft. He exhibits no distension and no mass. There is no tenderness. There is no rebound and no guarding. Bowel sounds were increased in activity. Musculoskeletal: Normal range of motion. He exhibits no edema. Neurological: He is alert and oriented to person, place, and time. Skin: Skin is warm. No rash noted. He is not diaphoretic. Psychiatric: He has a normal mood and affect. Procedures Assessment: Diagnoses of Gastroenteritis and Diarrhea were pertinent to this visit. MDM Plan: Fever symptoms have since resolved but he does give a good history for possible food born illness. Because of the extensive diarrhea we've suggested dosing of the Imodium 2 mg after each loose bowel movement not to exceed 4 tablets in a day. Start Cipro 500 mg p.o. b.i.d. for 3 days for foodborne bacterial illnesses. If not showing improvement by the end of the week, diarrhea for more than a week would advise further stool testing for that. Indications for more emergent recheck are discussed. Discussed nutritious liquids and bland diet advancement as tolerated. Work note absence result of illness. [facility] Jessica Aguilera RN - 06/19/2014 2:52 PM CST Called X 1 to triage, no answer in the weighting room or hallway. documented in this encounter Miscellaneous Notes Medication History - Alejo Whiting MD - 06/19/2014 3:46 PM CST INPATIENT MEDS Encounter Date: 06/19/14 ciprofloxacin (CIPRO) 500 mg tablet Start Date:06/19/14, End Date:06/22/14, Frequency:2 TIMES DAILY *No Administrations Recorded loperamide (IMODIUM) 2 mg capsule Start Date:06/19/14, End Date:07/10/14, Frequency:4 TIMES DAILY PRN *No Administrations Recorded [facility] ED AVS Snapshot - Alejo Whiting MD - 06/19/2014 3:46 PM CST Images from the original note were not included. [facility] [address] [place] [address] Dept: [phone] [email or web address] Rubens Prieto 06/19/2014 2:57 PM Hospital Encounter Description: Male : 1970 Department: [facility] Dept Thank you for choosing [facility] for your health care visit with Harpal Reeves MD. We are happy to care for you and provide this summary of your visit. Your primary rn urgent care iscurrently listed as Konstantin Milian MD. HERE IS WHAT YOU NEED TO KNOW To learn how you can take steps to stay as healthy as you can be visit [email or web address] Dis[facility] Instructions Food Poisoning: After Your Visit Your Care Instructions Food poisoning occurs when you eat foods that contain harmful germs. Food can be contaminated while it is growing, during processing, or when it is prepared. Fresh fruits and vegetables also can be contaminated if they are washed in contaminated water. You may have become ill after eating undercooked meat or eggs or other unsafe foods. Cooking foods thoroughly and storing them properly can help prevent food poisoning. There are many types of food poisoning. Your symptoms depend on the type of food poisoning you have.You will probably begin to feel better in 1 or 2 days. In the meantime, get plenty of rest and make sure that you do not become dehydrated. Follow-up care is a garcia part of your treatment and safety. Be sure to make and go to all appointments, and call your doctor if you are having problems. It???s also a good idea to know your test resultsand keep a list of the medicines you take. How can you care for yourself at home? ?? To prevent dehydration, drink plenty of fluids, enough so that your urine is light yellow or clear like water. Choose water and other caffeine-free clear liquids until you feel better. If you have kidney, heart, or liver disease and have to limit fluids, talk with your doctor before you increase the amount of fluids you drink. ?? Begin eating small amounts of mild, low-fat foods, depending on how you feel. Try foods like rice, dry crackers, bananas, and applesauce. ?? Avoid spicy foods, alcohol, and coffee until 48 hours after all symptoms have disappeared. ?? Avoid chewing gum that contains sorbitol. ?? Avoid dairy products for 3 days after symptoms disappear. ?? Take your medicines as prescribed. Call your doctor if you think you are having a problem with your medicine. You will get more details on the specific medicines your doctor prescribes. To prevent food poisoning ?? Keep hot foods hot and cold foods cold. ?? Do not eat meats, dressings, salads, or other foods that have been kept at room temperature for more than 2 hours. ?? Use a thermometer to check your refrigerator. It should be between 34??F and 40??F. ?? Defrost meats in the refrigerator or microwave, not on the kitchen counter. ?? Keep your hands and your kitchen clean. Wash your hands, cutting boards, and countertops with hot, soapy water. If you use the same cutting board for chopping vegetables and preparing raw meat, be sure to wash the cutting board with hot, soapy water between each use. ?? Cook meat until it is well done. ?? Do not eat raw eggs or uncooked dough or sauces made with raw eggs. ?? Do not take chances. If you think food looks or tastes spoiled, throw it out. When should you call for help? Call 911 anytime you think you may need emergency care. For example, call if: ?? You have sudden, severe belly pain. ?? You passed out (lost consciousness). ?? You vomit blood or what looks like coffee grounds. ?? You pass maroon or very bloody stools. Call your doctor now or seek immediate medical care if: ?? You have signs of needing more fluids. You have sunken eyes and a dry mouth, and you pass only a little dark urine. ?? Weakness in your legs makes it hard to stand or walk. ?? You have swelling in your hands, face, or feet. ?? You have trouble breathing. ?? You are dizzy or lightheaded, or you feel like you may faint. ?? Your stools are black and tarlike or have streaks of blood. ?? You have numbness and tingling in your hands or feet. ?? You have new nausea or vomiting. ?? You have new or increased belly pain. ?? Your joints ache. Watch closely for changes in your health, and be sure to contact your doctor if: ?? Your vomiting is not getting better after 1 to 2 days. ?? Your diarrhea is not getting better after 3 days. Where can you learn more? Go to [employer] and enter C880 in the search box. Current as of: December 13, 2013 Content Version: 10.2 ?? [id number] [employer] Gastroenteritis: After Your Visit Your Care Instructions Gastroenteritis is an illness that may cause nausea, vomiting, and diarrhea. It is sometimes called stomach flu. It can be caused by bacteria or a virus. You will probably begin to feel better in 1 to 2 days. In the meantime, get plenty of rest and make sure you do not become dehydrated. Dehydration occurs when your body loses too much fluid. Follow-up care is a garcia part of your treatment and safety. Be sure to make and go to all appointments, and call your doctor if you are having problems. It???s also a good idea to know your test resultsand keep a list of the medicines you take. How can you care for yourself at home? ?? If your doctor prescribed antibiotics, take them as directed. Do not stop taking them just because you feel better. You need to take the full course of antibiotics. ?? Drink plenty of fluids to prevent dehydration, enough so that your urine is light yellow or clearlike water. Choose water and other caffeine-free clear liquids until you feel better. If you have kidney, heart, or liver disease and have to limit fluids, talk with your doctor before you increase your fluid intake. ?? Drink fluids slowly, in frequent, small amounts, because drinking too much too fast can cause vomiting. ?? Begin eating mild foods, such as dry toast, yogurt, applesauce, bananas, and rice. Avoid spicy, hot, or high-fat foods, and do not drink alcohol or caffeine for a day or two. Do not drink milk or eat ice cream until you are feeling better. How to prevent gastroenteritis ?? Keep hot foods hot and cold foods cold. ?? Do not eat meats, dressings, salads, or other foods that have been kept at room temperature for more than 2 hours. ?? Use a thermometer to check your refrigerator. It should be between 34??F and 40??F. ?? Defrost meats in the refrigerator or microwave, not on the kitchen counter. ?? Keep your hands and your kitchen clean. Wash your hands, cutting boards, and countertops with hotsoapy water frequently. ?? Cook meat until it is well done. ?? Do not eat raw eggs or uncooked sauces made with raw eggs. ?? Do not take chances. If food looks or tastes spoiled, throw it out. When should you call for help? Call 911 anytime you think you may need emergency care. For example, call if: ?? You vomit blood or what looks like coffee grounds. ?? You passed out (lost consciousness). ?? You pass maroon or very bloody stools. Call your doctor now or seek immediate medical care if: ?? You have severe belly pain. ?? You have signs of needing more fluids. You have sunken eyes, a dry mouth, and pass only a little dark urine. ?? You feel like you are going to faint. ?? You have increased belly pain that does not go away in 1 to 2 days. ?? You have new or increased nausea, or you are vomiting. ?? You have a new or higher fever. ?? Your stools are black and tarlike or have streaks of blood. Watch closely for changes in your health, and be sure to contact your doctor if: ?? You are dizzy or lightheaded. ?? You urinate less than usual, or your urine is dark yellow or brown. ?? You do not feel better with each day that goes by. Where can you learn more? Go to [employer] and enter N142 in the search box. Current as of: December 13, 2013 Content Version: 10.2 ?? [id number] [employer]. HERE IS WHAT YOU NEED TO DO Call your clinic if you develop new or worsening symptoms or if you have questions about your visit or medications. Your to do list Future Orders Complete By Ordering Dept. Ambulatory referral to Neurology As directed [facility] PODIATRY CONSULT ADULT (AMB) As directed [facility] Scheduling Instructions: Your provider has recommended an appointment with [facility]. You may call [phone] to schedule your appointment. If you prefer, a patient scheduler will contact you within the next 3 business days to assist you in setting up this appointment. This recommended service/s may not be covered by your insurance coverage. To find out your specific benefit coverage, please call the number on your insurance card. HERE IS INFORMATION FROM TODAY'S VISIT Reason for Visit Diarrhea Reason for Visit History Health issues considered by your clinician today Gastroenteritis Diarrhea If you had any tests, you will be notified of your abnormal results by your clinic. Medications administered today None MEDICATIONS As of today's visit, these are your current medications Medication DOSAGE buPROPion (WELLBUTRIN XL) 150 mg XL 24 hour tablet Take 450 mg by mouth every morning. ciprofloxacin (CIPRO) 500 mg tablet Take 1 tablet by mouth 2 times daily for 3 days. compounded prescription Take as instructed as needed for Other. Prostin 20 mcg/ml and phentolamine 5 mg/5ml. Inject 4- 40 units as directed. dextroamphetamine-amphetamine (ADDERALL XR) 20 mg 24 hr capsule Take 20 mg by mouth every morning. insulin syringe U-100 short (BD INSULIN SYRINGE ULT-FINE II) 1/2 mL 31 x 5/16 Inject subcutaneously as needed. loperamide (IMODIUM) 2 mg capsule Take 1 capsule by mouth 4 times daily as needed for Diarrhea. omeprazole (PRILOSEC) 40 mg capsule Take 40 mg by mouth daily (every 24 hours). tadalafil (CIALIS) 5 mg tablet Take 1 tablet by mouth nightly. terbutaline (BRETHINE) 5 mg tablet At 3 hrs of erection , take 1 tab. At 3 1/2 hrs, take 1 tab. At 4 hrs go to ER. valsartan-hydrochlorothiazide (DIOVAN-HCT) 320-12.5 mg per tablet Take 1 tablet by mouth daily (every 24 hours). Indications: HYPERTENSION vardenafil (LEVITRA) 20 mg tablet Take 1 tablet by mouth as needed. Take 1 hour prior to sexual intercourse. Max 1 dose/24 hours. Vital signs from your visit Your Vitals Were BP Pulse Temp(Src) Resp 110/72 82 36.5 ??C (97.7 ??F) (Oral) 24 Allergies as of 06/19/2014 Amoxicillin 03/20/2013 Allergy Hives Lisinopril 05/03/2013 Intolerance Cough Metoprolol 05/03/2013 Intolerance Other (See Comments) erectile dysfunction Immunization History Reviewed on 03/02/2014 FLUARIX INFLUENZA QIV (36+ MOS) 03/20/2013 TDAP (BOOSTRIX) 03/20/2013 About You Date Of Sex Race Ethnicity Preferred Language 1970 Male White Non- Arabic This document contains confidential information about your health and care. It is provided directlyto you for your personal, private use only. [facility] Letter - Harpal Reeves MD - 06/19/2014 12:00 AM CST [facility] [address] [place] [address] June 19, 2014 Patient: Rubens Prieto Date of : 1970 Date of Visit: 06/19/2014 To Whom It May Concern: Rubens Prieto was seen and treated in our department on 06/19/2014. He has acute diarrheal illnesstreated. Advise home for 2 days result of illness. If you have any questions or concerns, please don't hesitate to call. Sincerely, Harpal Reeves MD [facility] documented in this encounter Plan of Treatment Not on filedocumented as of this encounter Visit Diagnoses Diagnosis Gastroenteritis Other and unspecified noninfectious sunil roenteritis and colitis Diarrhea Adjustment disorder with mixed anxiety a nd depressed mood (HRC) Adjustment disorder with mixed anxiety a nd depressed mood Essential hypertension (HRC) Unspecified essential hypertension Triage Assessment Note - Jessica Aguilera RN - 06/19/2014 3:07 PM CST Diarrhea since Wednesday. Denies abd pain or vomiting. Fever this am 100.2f. Pts coworker had recent travel to [place], pt unsure of area but thinks [facility]. [facility] documented in this encounter Care Teams Technical Staff Engineer Relationship Specialty Start Date End Date Konstantin Milian MD PCP - General 08/03/[address] [place], [place] [address] documented as of this encounter
--- OUTSIDE RECORDS SUMMARY | 2022-04-03 16:18 | XMS_ITS | Encounter Summary ---
:1970 Author Organization [facility] Address [address], [place] [address] Care Team Providers Name Role Phone Konstantin Milian MD Primary Care Provider Reason for Referral Specialty Diagnoses / Procedures Referred By Contact Refer red To Contact Radha Villagran PA-C [address] [place], [place] [address] Referral ID Status Reason Start Date Expiration Date Visits Requ ested Visits Authorized [facility] PIPE LAYER HELPER Reason for Visit Reason Comments CONSULT Encounter Details Date Type Department Care Team Description 08/08/2013 Initial Consult [facility] Leopoldo Hollis , Heel pain (Primary Dx); MedSurg DPM Plantar fasciitis [address] [place] [address] [place], [place] [phone] Social History Tobacco Use Types Packs/Day Years Used Date Smoking Tobacco: Never Assessed Sex Assigned at Date Recorded Not on file documented as of this encounter Progress Notes Leopoldo Hollis DPM - 08/08/2013 1:51 PM CST DATE OF VISIT: 08/08/2013 SUBJECTIVE: Rubens Prieto is a pleasant 43 y.o. male who presents to clinic today for evaluation of right heel pain. This has been going on for 3-4 months. It is worse in the morning when getting up out of bed. He did try an yojh-kxk-ufherfc arch support which did not appear to help. He was recently seen in primary care and x-rays were obtained. He denies any injury or trauma.. Adverse Drug Reactions: Allergies Allergen Reactions ??? Amoxicillin Hives ??? Lisinopril Cough ??? Metoprolol Other (See Comments) erectile dysfunction Outpatient Prescriptions Prior to Visit Medication Sig ??? buPROPion (WELLBUTRIN XL) 150 mg XL 24 hour tablet Take 450 mg by mouth every morning. ??? compounded prescription Take as instructed as needed for Other. Prostin 20 mcg/ml and phentolamine 5 mg/5ml. Inject 4- 40 units as directed. ??? dextroamphetamine-amphetamine (ADDERALL XR) 20 mg 24 hr capsule Take 20 mg by mouth every morning. ??? insulin syringe U-100 short (BD INSULIN SYRINGE ULT-FINE II) 1/2 mL 31 x 516 Inject subcutaneously as needed. ??? naproxen (NAPROSYN) 500 mg tablet Take 1 tablet by mouth 2 times daily (with meals). ??? omeprazole (PRILOSEC) 40 mg capsule Take 40 mg by mouth daily (every 24 hours). ??? tadalafil (CIALIS) 20 mg tablet Take 0.5-1 tablets by mouth as needed for Erectile Dysfunction. Take 60 minutes prior to sexual activity ??? tadalafil (CIALIS) 5 mg tablet Take 1 tablet by mouth nightly. ??? terbutaline (BRETHINE) 5 mg tablet At 3 hrs of erection , take 1 tab. At 3 1/2 hrs, take 1 tab. At 4 hrs go to ER. ??? valsartan-hydrochlorothiazide (DIOVAN-HCT) 320-12.5 mg per tablet Take 1 tablet by mouth daily (every 24 hours). Indications: HYPERTENSION ??? vardenafil (LEVITRA) 20 mg tablet Take 1 tablet by mouth as needed for Other. Take 1 hour prior to sexual intercourse. Max 1 dose/24 hours. No facility-administered medications prior to visit. Review of Systems: Negative for fever, rash or shortness of breath. Past Medical History: Past Medical History Diagnosis Date ??? HBP (high blood pressure) ??? Anxiety associated with depression ??? ED (erectile dysfunction) ??? 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 GERD (gastroesophageal reflux disease) 05/03/2013 ??? Left knee DJD 05/03/2013 ??? Obesity 05/03/2013 ??? Sensorimotor neuropathy (HCC) 07/14/2013 Past Surgical History Procedure Laterality Date ??? Hernia repair ??? Mouth surgery ??? Vasectomy ??? 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 year old male who appears their stated age. Alert and oriented and in no acute distress. Walks without a limp and appears to be in general good health. DP and PT pulses are palpable.Hair growth is present on the digits and capillary filling time is less than two seconds. Sensation is intact. There is no weakness with muscle testing of the foot, ankle or lower leg. No pain or restriction with subtalar joint or ankle joint range of motion. In stance loss of longitudinal arch is evident. There are no paresthesias over the tarsal tunnel or with compression of the dorsal nerves. The patient has pain with palpation of the medial process of the plantar weightbearing surface of the right calcaneus. There is no pain over the distal fascial band or with cbgv-pg-kzjy compression of the heel. No pain with stressing of the anterior or posterior tibial tendons. No pain over the Achilles tendon or sinus tarsi areas. No discomfort over the calcaneal nerve branch. No enlargements are palpated. There is no pain over the peroneal tendons. X-rays were evaluated today in do not show any abnormality in the heel. ASSESSMENT: Right heel pain with plantar fasciitis PLAN: Treatment options were discussed with the patient. I discussed the condition in great detail. I discussed a low dye strapping. This was applied to the right foot. The patient will keep this on and dry for 5 days and then begin using a temporary blue insert. The patient will check with their health plan regarding coverage for a custom foot orthotic. I discussed icing and stretching. A brochure discussing the condition was dispensed as well as a brochure illustrating the stretching exercises. The patient will attempt to wear shoes in the house and avoid activities that cause more discomfort.Thepatient was discharged ambulatory and in stable condition. Orders Placed This Encounter Procedures ? ? GA STRAPPING; ANKLE &/OR FOOT No orders of the defined types were placed in this encounter. CH PIPE LAYER HELPER documented in this encounter Plan of Treatment Scheduled Referrals Name Type Priority Associated Diagnoses Order S chedule Foot & Ankle/Podiatry Referral Routine Heel pain Ordere d: 08/08/2013 Consult-Adult/Peds documented as of this encounter Visit Diagnoses Diagnosis Heel pain - Primary Pain in limb Plantar fasciitis Plantar fascial fibromatosis documented in this encounter Care Teams Pediatric Registered Nurse Relationship Specialty Start Date End Date Konstantin Milian MD PCP - General 08/03/[address] [place] [address] documented as of this encounter
--- OUTSIDE RECORDS SUMMARY | 2022-04-03 16:18 | XMS_ITS | Encounter Summary ---
:1970 Author Organization [facility] Address [address] [address] Care Team Providers Name Role Phone Konstantin Singh MD Primary Care Provider Reason for Visit Reason Comments RESULTS, TEST Encounter Details Date Type Department Care Team Description 09/12/2014 Office Visit Chace Sears Osteoarthriti s of left Orthopedics MD Joe knee (Primary Dx) [address] [address] [place] [address] [address] FLO[address] [phone] [place] [address] Social History Tobacco Use Types Packs/Day Years Used Date Smoking Tobacco: Never Assessed Sex Assigned at Date Recorded Not on file documented as of this encounter Progress Notes Chace Zimmerman MD - 09/12/2014 12:17 PM CST Progress Notes signed by Chace Zimmerman MD at 09/17/1446 Author: Chace Zimmerman MD Service: (none) Author Type: Physician Filed: 09/17/14745 Note Time: 09/12/14 1321 Status: Signed International Logistics Analyst: Chace Zimmerman MD (Physician) NAME: MAYA FU MR#: [id number] CSN: [id number] AUTHENTICATING CLINICIAN: Chace Zimmerman MD CONFIRM #: [id number] LOC: 511 CLINIC PROGRESS NOTE DATE OF VISIT: 09/12/2014 : 1970 CHIEF COMPLAINT: Left knee pain. HISTORY OF PRESENT ILLNESS: Fredis is here for followup of his left knee MRI scan. This demonstrates some mild early lateral compartment osteoarthritic change. Severe medial compartment arthritis is noted. Also significant mucoid degeneration of his ACL. There is subchondral edema consistent with his osteoarthritis as well. DIAGNOSIS: 1. Severe left knee osteoarthritis. 2. Mucoid degeneration left ACL. PLAN: Unfortunately, Fredis is really between a rock and a hard place. Given the lateral disease that he has, he is not a great candidate for a partial knee replacement, nor is he is a good candidate because of his ACL issues. He would similarly have decreased rate of success with an osteotomy because of his lateral disease. At best he has a 60% chance of getting 10 years out of the operation, not to mentionthe fact that he cannot take that much time off from work. Therefore and unfortunately, the only option he really has a total knee replacement. He has had all the appropriate injections and therapy andanti-inflammatories without effect. Therefore, recommended proceeding with a total knee arthroplasty. I had a long talk with him today about the procedure, alternatives, risks, as well as the nature ofhow he will have to think differently about his knee postoperatively. He will need to learn to protect it so that his implant can last as long as possible. He understands and is willing to be compliantin that regard. CC: [place] [address] [place] [address] JESSENIA GANDARA PA-C [address] [place] [address] KDO:MEDQ C: CONFIRM #: [id number] documented in this encounter Plan of Treatment Not on filedocumented as of this encounter Visit Diagnoses Diagnosis Osteoarthritis of left knee - Primary Osteoarthrosis, unspecified whether gene ralized or localized, lower leg documented in this encounter Care Teams Brim Pouncer Machine Operator Relationship Specialty Start Date End Date Konstantin Singh MD PCP - General 08/03/[address] [place] [address] documented as of this encounter
--- OUTSIDE RECORDS SUMMARY | 2022-04-03 16:18 | XMS_ITS | Encounter Summary ---
:1970 Author Organization [facility] Address [address], [place] [address] Care Team Providers Name Role Phone Konstantin Singh MD Primary Care Provider Reason for Visit Reason Comments Refill Encounter Details Date Type Department Care Team Description 07/02/2014 Refill [facility] Konstantin Clark MD Refill [address] [address] [place] [address] [place], [place] [phone] (Wo rk) Social History Tobacco Use Types Packs/Day Years Used Date Smoking Tobacco: Never Assessed Sex Assigned at Date Recorded Not on file documented as of this encounter Nursing Notes User, Nely - 07/10/2014 8:10 AM CST valsartan-hydrochlorothiazide (DIOVAN-HCT) 320-12.5 mg per tablet [Pharmacy Med Name: VALSARTAN/VRAF148AD/12.5MG TABLETS] - REFILL: 3 months - RATIONALE: This refill should last until the patient is due for a(n) Cr check, K check and Na check. - LAST QUALIFYING VISIT WITH KONSTANTIN SINGH: 03/02/2014 - NEXT SCHEDULED VISIT: None - MEDICATION STARTED: 05/03/2013 - LAST REFILLED ON: 04/05/2014, QTY: 90, Refills: 0, Sig: take 1 tablet by mouth daily (every 24 hours). indications: hypertension (changed but equivalent) - Cr: 1.3mg/dL on 07/11/2013 - Na: 140.0mEq/L on 07/11/2013 - K: 4.1mEq/L on 07/11/2013 Powered by [employer], Reference: [id number], 07/02/2014 1:33:42 PM SENIOR WATER/WASTEWATER ENGINEER, Pool: REJI REFILL ([id number]) Nely Conrad - 07/10/2014 8:10 AM CST The following lab order(s) may be associated with the Patient Result Comment below: LAB BASIC METABOLIC PANEL The labs are normal, other than the blood sugar (glucose) level being just slightly high. However, the other sugar test (A1c) is normal, so this is reassuring. The initial tests looking for a specific cause for the pain and numbness and tingling in your feet/lower legs (neuropathy) were unremarkable. I would now like you to schedule a consult in Neurology to review this issue, to see whether any further testing should be done. You can schedule that directly by calling [phone]. Jerica Granados - 07/10/2014 8:10 AM CST Lab letter sent. Mari Segura RN - 07/06/2014 3:39 PM CST Requested Prescriptions Signed Prescriptions Disp Refills ??? valsartan-hydrochlorothiazide (DIOVAN-HCT) 320-12.5 mg per tablet 90 tablet 0 Sig: Take 1 tablet by mouth daily (every 24 hours). Authorizing Provider: KONSTANTIN SINGH Ordering User: MARI SEGURA Patient is past due for Potassium, Creatinine and Sodium labs. Lab orders have been placed per protocol. Medication refilled for 90 day supply. Patient contacted by letter. OR WATER/WASTEWATER ENGINEER documented in this encounter Miscellaneous Notes Letter - Konstantin Singh MD - 07/02/2014 12:00 AM CST Images from the original note were not included. [facility] [id number] [place] [id number] Rubens Prieto [address] [facility] [address] [facility] [address] July 10, 2014 Dear Rubens Prieto, Your health care is important to us. You are currently taking medications that require periodic lab work. You will be needing the following lab work in the next 30 days. ?? nonfasting labwork including Creatinine, Potassium and Sodium Please call [phone] to set up an appointment with the [facility] of your choice. The labis open from 7:00 am to 6:00 pm Wednesday through Wednesday. A limited number of Wednesday appointments areavailable as well. Thank you for choosing [facility] for your health care needs. Your [facility] Primary Care Team OR WATER/WASTEWATER ENGINEER documented in this encounter Plan of Treatment Not on filedocumented as of this encounter Visit Diagnoses Diagnosis Essential hypertension (HRC) - Primary Unspecified essential hypertension documented in this encounter Care Teams Form Tamper Relationship Specialty Start Date End Date Konstantin Singh MD PCP - General 08/03/[address] [place] [address] documented as of this encounter
--- OUTSIDE RECORDS SUMMARY | 2022-04-03 16:18 | XMS_ITS | Encounter Summary ---
:1970 Author Organization [email or web address] Address [address] [address] Care Team Providers Name Role Phone Konstantin Milian MD Primary Care Provider Encounter Details Date Type Department Care Team Description 08/17/2014 [facility] Left knee pain [address] [place] [address] Social History Tobacco Use Types Packs/Day Years Used Date Smoking Tobacco: Never Assessed Sex Assigned at Date Recorded Not on file documented as of this encounter Plan of Treatment Not on filedocumented as of this encounter Procedures Procedure Name Priority Date/Time Associated Diagnosis Comme nts XR KNEE LT 3 VIEWS Routine 08/17/2014 10:27 AM Left knee pain Results for this BULL CHAIN OPERATOR procedure are i n the results section. documented in this encounter Results XR Knee Lt 3 Views (08/17/2014 10:27 AM BULL CHAIN OPERATOR) Anatomical Region Laterality Modality Lower Extremity, Knee Other Specimen (Source) Anatomical Location Collection Method / Collectio n Time Received Time / Laterality Volume Narrative 08/17/2014 10:45 AM BULL CHAIN OPERATOR COMPARISON: ??None. FINDINGS: ??Three views were obtained. ? ?A small joint effusion is suspected. No other acute bone or joint abnormality of the left knee is identified. ??There is early narrowing of the medial compartmen t and minimal spur formation along the m edial aspect of the patellofemoral compartment. Alignme nt is unremarkable. Procedure Note Maryuri Silva MD - 12/29/2015Formattin g of this note might be different from the original. COMPARISON: None. FINDINGS: Three views were obtained. A s mall joint effusion is suspected. No other acute bone or joint abnormality of the left knee is identified. There is early narrowing of the medial compartment and minimal spur formation along the medial aspect of the patellofemoral compartment. Alignme nt is unremarkable. Ana LIZARRAGA GD documented in this encounter Visit Diagnoses Diagnosis Left knee pain Pain in joint, lower leg documented in this encounter Care Teams Industrial Retrofit Designer Relationship Specialty Start Date End Date Konstantin Milian MD PCP - General 08/03/[address] [place] [address] documented as of this encounter
--- OUTSIDE RECORDS SUMMARY | 2022-04-03 16:18 | XMS_ITS | Encounter Summary ---
:1970 Author Organization [facility] Address [address] [place] [address] Care Team Providers Name Role Phone Konstantin Milian MD Primary Care Provider Encounter Details Date Type Department Care Team Description 08/03/2013 Imaging [facility] Heel pain [address] [place] [address] Social History Tobacco Use Types Packs/Day Years Used Date Smoking Tobacco: Never Assessed Sex Assigned at Date Recorded Not on file documented as of this encounter Plan of Treatment Not on filedocumented as of this encounter Visit Diagnoses Diagnosis Heel pain Pain in limb documented in this encounter Care Teams Multicultural Services Librarian Relationship Specialty Start Date End Date Konstantin Milian MD PCP - General 08/03/13 [address] [place] [address] documented as of this encounter
--- OUTSIDE RECORDS SUMMARY | 2022-04-03 16:18 | XMS_ITS | Encounter Summary ---
:1970 Author Organization [facility] Address [address] [place] [address] Care Team Providers Name Role Phone Unavailable Primary Care Provider Unavailable Encounter Details Date Type Department Care Team Description 07/11/2013 Lab Visit [facility] Neuropathy, peripheral; [address] [facility] Essential hypertension; [place] [address] Impaired fasting glucose [phone] Social History Tobacco Use Types Packs/Day Years Used Date Smoking Tobacco: Never Assessed Sex Assigned at Date Recorded Not on file documented as of this encounter Plan of Treatment Not on filedocumented as of this encounter Procedures Procedure Name Priority Date/Time Associated Diagnosis Comme nts ELP, CASCADE, UR Routine 07/11/2013 8:17 AM Neuropathy, Resul ts for this RANDOM EDITOR DICTIONARY peripheral procedure are i n the results section. TOTAL PROTEIN,UR Routine 07/11/2013 8:17 AM Resul ts for this RANDOM [employer] DICTIONARY procedure are i n the results section. GLUCOSE Routine 07/11/2013 7:36 AM Impaired fasting Resul ts for this EDITOR DICTIONARY glucose procedure are i n the results section. TOTAL PROTEIN+ALB Routine 07/11/2013 7:36 AM Resu lts for this EDITOR DICTIONARY procedure are i n the results section. ELP, CASCADE, SERUM Routine 07/11/2013 7:36 AM Neuropathy, Re sults for this EDITOR DICTIONARY peripheral procedure are i n the results section. BASIC METABOLIC Routine 07/11/2013 7:36 AM Essential Result s for this PANEL [employer] DICTIONARY hypertension procedure are i n the results section. COMPLETE BLOOD Routine 07/11/2013 7:36 AM Neuropathy, Results for this COUNT-NO DIFF EDITOR DICTIONARY peripheral procedure are in the results section. VIT B12 & FOLATE Routine 07/11/2013 7:36 AM Neuropathy, Resul ts for this [employer]CTIONARY peripheral procedure are i n the results section. HGB A1C Routine 07/11/2013 7:36 AM Impaired fasting Resul ts for this [employer]CTIONARY glucose procedure are i n the results section. ALT (SGPT) Routine 07/11/2013 7:36 AM Neuropathy, Results f or this [employer]CTIONARY peripheral procedure are i n the results section. AST Routine 07/11/2013 7:36 AM Neuropathy, Results f or this [facility]CTION[facility] peripheral procedure are i n the results section. ESR Routine 07/11/2013 7:36 AM Neuropathy, Results f or this [facility]OR DICTIONARY peripheral procedure are i n the results section. documented in this encounter Results Total Protein,Urine Random (07/11/2013 8:17 AM EDITOR DICTIONARY) athologist Signature Urine Protein, <5 mg/dL HP CONVERSION Random Specimen Anatomical Collection Method Collection Time Receive d Time (Source) Location / / Volume Laterality 07/11/2013 8:17 AM 3 EDITOR DICTIONARY 11:00 AM EDITOR DICTIONARY Konstantin Milian MD LAB_1 Performing Organization Address [facility] Code Phon e Number HP CONVERSION ELP, [place], Urine Random (07/11/2013 8:17 AM EDITOR DICTIONARY) athologist Signature U ELP Interp See Note HP CONVERSION Comment: Urine protein <5 mg/dL. Too low for conc entration for Urine ELP/ANTHONY testing. Test will be credited. Specimen Anatomical Collection Method Collection Time Receive d Time (Source) Location / / Volume Laterality 07/11/2013 8:17 AM 3 EDITOR DICTIONARY 11:00 AM EDITOR DICTIONARY Konstantin Milian MD LAB_1 Performing Organization Address [place]/[facility] Code Phon e Number HP CONVERSION (ABNORMAL) TOTAL PROTEIN+ALB (07/11/2013 7:36 AM EDITOR DICTIONARY) athologist [facility] Protein Total, 7.2 5.7 - 8.3 HP CONVERSION Serum g/dL Albumin 3.1 (L) 3.4 - 5.0 HP CONVERSION g/dL Globulin Serum 4.1 (H) 1.8 - 3.9 HP CONVERSION g/dL Specimen Anatomical Collection Method Collection Time Receive d Time (Source) Location / / Volume Laterality 07/11/2013 7:36 AM 3 7:35 EDITOR DICTIONARY AM EDITOR DICTIONARY Narrative HP CONVERSION - 07/11/2013 8:33 AM EDITOR DICTIONARY Performed at [facility] ([facility] [address] [place] [address] Konstantin Milian MD LAB_1 Performing Organization Address [place]/[facility] Code Phon e Number HP CONVERSION ELP, [place], Serum (07/11/2013 7:36 AM EDITOR DICTIONARY) Analysis Performed At Patho logist Time Signature Total Protein, 7.2 g/dL HP CONVERSION Serum ELP Albumin, Serum 4.4 3.4 - 5.0 HP CONVERSION ELP g/dL [id number] 0.3 0.1 - 0.4 HP CONVERSION in g/dL Kbxba-8-Yujkog 0.6 0.3 - 1.1 HP CONVERSION in g/dL Beta Globulin 1.1 0.5 - 1.2 HP CONVERSION g/dL Gamma Globulin 0.9 0.6 - 1.4 HP CONVERSION g/dL S ELP Interp See Note HP CONVERSION Comment: Normal electrophoretic pattern. CPS Specimen Anatomical Collection Method Collection Time Receive d Time (Source) Location / / Volume Laterality 07/11/2013 7:36 AM 3 EDITOR DICTIONARY 11:01 AM EDITOR DICTIONARY Konstantin Milian MD LAB_1 Performing Organization Address [place]/[facility]/ZIP Code Phon e Number HP CONVERSION Hgb A1c (07/11/2013 7:36 AM EDITOR DICTIONARY) athologist [facility] HGB A1C 4.9 4.0 - 5.6 % HP CONVERSION Specimen Anatomical Collection Method Collection Time Receive d Time (Source) Location / / Volume Laterality 07/11/2013 7:36 AM 3 EDITOR DICTIONARY 11:01 AM EDITOR DICTIONARY Konstantin Milian MD LAB_1 Performing Organization Address [place]/[facility] Code Phon e Number HP CONVERSION (ABNORMAL) GLUCOSE (07/11/2013 7:36 AM EDITOR DICTIONARY) athologist Signature Lab Glucose 107 (H) 60 - 100 HP CONVERSION mg/dL Specimen Anatomical Collection Method Collection Time Receive d Time (Source) Location / / Volume Laterality 07/11/2013 7:36 AM 3 7:35 EDITOR DICTIONARY AM EDITOR DICTIONARY Narrative HP CONVERSION - 07/11/2013 8:36 AM EDITOR DICTIONARY Performed at [facility] ([facility]), [address] [place] [address] Konstantin Milian MD LAB_1 Performing Organization Address [facility] Phon e Number HP CONVERSION (ABNORMAL) Basic Metabolic Panel (07/11/2013 7:36 AM EDITOR DICTIONARY) [facility] Method Time Signature Creatinine Serum 1.3 0.4 - 1.3 HP CONVERSION mg/dL Lab Glucose 109 (H) 60 - 100 HP CONVERSION mg/dL Bicarbonate 33 23 - 33 HP CONVERSION mmol/L Chloride 100 98 - 110 HP CONVERSION mEq/L Potassium 4.1 3.5 - 5.2 HP CONVERSION mEq/L Sodium 140 137 - 147 HP CONVERSION mEq/L Blood Urea 17 5 - 26 HP CONVERSION Nitrogen mg/dL Calcium 9.9 8.5 - 10.5 HP CONVERSION mg/dL Est GFR >60 >60 HP CONVERSION [...] Time (Source) Location / / Volume Laterality 07/11/2013 7:36 AM 3 7:35 EDITOR DICTIONARY AM EDITOR DICTIONARY Narrative HP CONVERSION - 07/11/2013 8:33 AM EDITOR DICTIONARY [place] [address] Konstantin Milian MD LAB_1 Performing Organization Address [facility] Phon e Number HP CONVERSION AST (07/11/2013 7:36 AM EDITOR DICTIONARY) [facility] Method Time Signature Aspartate 25 0 - 45 HP CONVERSION Aminotransferase U/L Specimen Anatomical Collection Method Collection Time Receive d Time (Source) Location / / Volume Laterality 07/11/2013 7:36 AM 3 7:35 EDITOR DICTIONARY AM EDITOR DICTIONARY Narrative HP CONVERSION - 07/11/2013 8:33 AM EDITOR DICTIONARY Performed at [facility] ([facility]), [address] [place], [place] [address] Konstantin Milian MD LAB_1 Performing Organization Address [facility] Phon e Number HP CONVERSION ALT (SGPT) (07/11/2013 7:36 AM EDITOR DICTIONARY) [facility] Method Time Signature Alanine 34 4 - 55 HP CONVERSION Aminotransferase U/L Specimen Anatomical Collection Method Collection Time Receive d Time (Source) Location / / Volume Laterality 07/11/2013 7:36 AM 3 7:35 EDITOR DICTIONARY AM EDITOR DICTIONARY Narrative HP CONVERSION - 07/11/2013 8:33 AM EDITOR DICTIONARY Performed at [facility] ([facility] [address] [place] [address] Konstantin Milian MD LAB_1 Performing Organization Address City/[facility] Phon e Number HP CONVERSION ESR (07/11/2013 7:36 AM EDITOR DICTIONARY) [facility] Method Time Signature Sedimentation Rate 1 0 - 15 HP CONVERSI ON mm/hr Specimen Anatomical Collection Method Collection Time Receive d Time (Source) Location / / Volume Laterality 07/11/2013 7:36 AM 3 7:36 EDITOR DICTIONARY AM EDITOR DICTIONARY Narrative HP CONVERSION - 07/11/2013 8:58 AM EDITOR DICTIONARY Performed at [facility] ([facility] [address] [place] [address] Konstantin Milian MD LAB_1 Performing Organization Address [place]/[facility] Phon e Number HP CONVERSION Complete Blood Count-No Diff (07/11/2013 7:36 AM EDITOR DICTIONARY) P athologist Signature White Blood Cell 6.2 3.8 - 11.0 HP CONVERSIO N Count k/cmm Red Blood Cell 5.07 4.20 - HP CONVERSION Count 5.90 m/cmm Hemoglobin 15.6 13.4 - HP CONVERSION 17.5 g/dL Hematocrit 46.5 39.0 - HP CONVERSION 51.0 % Mean Corpuscular 91.5 80.0 - HP CONVERSION Volume 100.0 fL RDW 12.0 11.0 - HP CONVERSION 15.0 % Platelet Count 187 140 - 450 HP CONVERSION k/cmm Specimen Anatomical Collection Method Collection Time Receive d Time (Source) Location / / Volume Laterality 07/11/2013 7:36 AM 3 7:35 EDITOR DICTIONARY AM EDITOR DICTIONARY Narrative HP CONVERSION - 07/11/2013 8:37 AM EDITOR DICTIONARY Performed at [facility] ([facility] [address] [place] [address] Konstantin Milian MD LAB_1 Performing Organization Address City/State/ZIP Code Phon e Number HP CONVERSION Vit B12 & Folate (07/11/2013 7:36 AM EDITOR DICTIONARY) athologist Signature Vitamin B12 679 130 - 914 HP CONVERSION pg/dL Serum Folate 12.5 >5.9 ng/mL HP CONVERSION Specimen Anatomical Collection Method Collection Time Receive d Time (Source) Location / / Volume Laterality 07/11/2013 7:36 AM 3 EDITOR DICTIONARY 11:02 AM EDITOR DICTIONARY Konstantin Milian MD LAB_1 Performing Organization Address City/State/ZIP Code Phon e Number HP CONVERSION documented in this encounter Visit Diagnoses Diagnosis Neuropathy, peripheral Unspecified hereditary and idiopathic pe ripheral neuropathy Essential hypertension (HRC) Unspecified essential hypertension Impaired fasting glucose documented in this encounter
--- OUTSIDE RECORDS SUMMARY | 2022-04-03 16:18 | XMS_ITS | Encounter Summary ---
:1970 Author Organization [facility] Address [address], [place] [address] Care Team Providers Name Role Phone Unavailable Primary Care Provider Unavailable Encounter Details Date Type Department Care Team Description 07/14/2013 Notes/Orders [facility] Konstantin Milian, Sensor imotor Medicine neuropathy (Primary [address] [place]x) [place] [address] [place], [place] [phone] [id number] Social History Tobacco Use Types Packs/Day Years Used Date Smoking Tobacco: Never Assessed Sex Assigned at Date Recorded Not on file documented as of this encounter Plan of Treatment Not on filedocumented as of this encounter Visit Diagnoses Diagnosis Sensorimotor neuropathy - Primary Unspecified hereditary and idiopathic pe ripheral neuropathy documented in this encounter
--- OUTSIDE RECORDS SUMMARY | 2022-04-03 16:18 | XMS_ITS | Encounter Summary ---
:1970 Author Organization [facility] Address [address], [place] [address] Care Team Providers Name Role Phone Konstantin Milian MD Primary Care Provider Reason for Visit Reason Comments Refill Encounter Details Date Type Department Care Team Description 05/25/2014 Refill [facility] Konstantin Clark MD Refill [id number] [address] [place] [address] [place], [place] [phone] (Wo rk) Social History Tobacco Use Types Packs/Day Years Used Date Smoking Tobacco: Never Assessed Sex Assigned at Date Recorded Not on file documented as of this encounter Nursing Notes Liza Goldman RN - 05/28/2014 11:43 AM CST #90 [id number] refill sent 04/05/14 Requested Prescriptions Refused Prescriptions Disp Refills ??? valsartan-hydrochlorothiazide (DIOVAN-HCT) 320-12.5 mg per tablet [Pharmacy Med Name: VALSARTAN/HCTZ 320MG/12.5MG TABLETS] 90 tablet 0 Sig: Take 1 tablet by mouth daily (every 24 hours). Refused By: LIZA GOLDMAN Reason for Refusal: REQUEST ALREADY RESPONDED TO BY OTHER MEANS (E.G. PHONE OR FAX) ARCH PROJECT COORDINATOR documented in this encounter Plan of Treatment Not on filedocumented as of this encounter Visit Diagnoses Not on filedocumented in this encounter Care Teams Broadband Engineer Relationship Specialty Start Date End Date Konstantin Milian MD PCP - General 08/03/13 [id number] [place] [id number] documented as of this encounter
--- OUTSIDE RECORDS SUMMARY | 2022-04-03 16:18 | XMS_ITS | Encounter Summary ---
:1970 Author Organization [facility] Address [address] [place] [address] Care Team Providers Name Role Phone Konstantin Milian MD Primary Care Provider Reason for Visit Reason Comments Foot Pain Encounter Details Date Type Department Care Team Description 08/03/2013 Office Visit [facility] Radha Villagran PA-C Heel pain (Primary Medicine [facility]) [address] [place], [place] [id number] [place] [address] (Wo rk) Social History Tobacco Use Types Packs/Day Years Used Date Smoking Tobacco: Never Assessed Sex Assigned at Date Recorded Not on file documented as of this encounter Last Filed Vital Signs Vital Sign Reading Time Taken Comments Blood Pressure 143/83 08/03/2013 1:02 PM [employer] Pulse 81 08/03/2013 1:02 PM [employer] Temperature - - Respiratory Rate - - Oxygen Saturation - - Inhaled Oxygen Concentration - - Weight 115.7 kg (255 lb) 08/03/2013 1:02 PM [employer] Height - - Body Mass Index 31.87 03/20/2013 9:13 AM CDT documented in this encounter Patient Instructions Patient InstructionsStRadha august PA-C - 08/03/2013 1:32 PM CST Please call the Podiatry dept. at [phone] to schedule your appointment. [employer] documented in this encounter Progress Notes Renu Guajardo PA-C - 08/03/2013 2:02 PM CST Medical Student Progress Note Rubens Obregon Conner [id number] 1970 SUBJECTIVE: 43 y.o. male Chief Complaint Patient presents with ??? Foot Pain Heel / Right / Worse with Activity Presents today with 2 month history of right heel pain. This pain is constant at a 3/10 and is described as sharp without any radiation. With running and after standing on his feet for long periods of time, the pain gets as high as 8/10. Denies any trauma or precipitating event. 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 This pain is beginning to affect his work as he is unable to run and respond to calls without significant pain. Has not tried anything. 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 Never had pain like this before. Denies any swelling or bruising of the area. Patient Active Problem List Diagnosis Date Noted ??? Sensorimotor neuropathy (HCC) 07/14/2013 ??? Essential hypertension 05/03/2013 ??? 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 GERD (gastroesophageal reflux disease) 05/03/2013 ??? Impaired fasting glucose 05/03/2013 ??? Left knee DJD 05/03/2013 ??? Obesity 05/03/2013 ??? ED (erectile dysfunction) 03/20/2013 ??? Adjustment disorder with mixed anxiety and depressed mood 03/20/2013 ??? Chews tobacco 03/20/2013 Outpatient Prescriptions Prior to Visit Medication Sig Dispense Refill [...] by mouth nightly. 30 tablet 0 ??? tadalafil (CIALIS) 5 mg [...] 1 dose/24 hours. 6 tablet 5 No facility-administered medications prior to visit. Allergies Allergen Reactions ??? Amoxicillin Hives ??? Lisinopril Cough ??? Metoprolol Other (See Comments) erectile dysfunction History Social History ??? Marital Status: Spouse Name: N/A Number of Children: N/A ??? 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 Smoking status: Current Some Day Smoker -- 4 years Types: Cigarettes ??? Smokeless tobacco: Current User Types: Chew ??? Alcohol Use: 0.0 oz/week 12-15 Cans of beer per week Comment: 12-15 beers/week ??? Drug Use: Yes Comment: weed ??? Sexually Active: Yes -- Female partner(s) Other Topics Concern ??? Bike Helmet No ??? City Water Yes ??? Exercise No ??? Guns In Home No ??? Seat Belt Yes ??? Special Diet No ??? Weight Concern Not Asked some ,but not much. Social History Narrative ??? No narrative on file OBJECTIVE BP 143/83 Pulse 81 Wt 255 lb (115.667 kg) BMI 31.87 kg/m2 GENERAL: Pt. is sitting comfortably in no apparent distress. EXTREMITIES: no obvious deformities, swelling, erythema, or ecchymosis noted on right foot; sensation intact; 1cm area of tenderness noted upon palpation at distal medial aspect of calcaneus; normal ROM; dorsalis pedis and posterior tibilalis pulses intact Upon standing, over pronation of feet noted bilaterally Recent Results (from the past 672 hour(s)) LAB B12 AND FOLIC ACID- SERUM Collection Time 07/11/13 7:36 AM Result Value Range Vitamin B12 679 211 - 911 pg/dL Serum Folate 12.5 >5.9 ng/mL LAB COMPLETE BLOOD COUNT-NO DIFF Collection Time 07/11/13 7:36 AM Result Value Range White Blood Cell Count 6.2 3.8 - 11.0 k/cmm Red Blood Cell Count 5.07 4.20 - 5.90 m/cmm Hemoglobin 15.6 13.4 - 17.5 g/dL Hematocrit 46.5 39.0 - 51.0 % Mean Corpuscular Volume 91.5 80.0 - 100.0 fL RDW 12.0 11.0 - 15.0 % Platelet Count 187 140 - 450 k/cmm LAB SEDIMENTATION RATE Collection Time 07/11/13 7:36 AM Result Value Range Sedimentation Rate 1 0 - 15 mm/hr LAB ALANINE AMINOTRANSFERASE Collection Time 07/11/13 7:36 AM Result Value Range Alanine Aminotransferase 34 4 - 55 U/L LAB ASPARTATE AMINOTRANSFERASE Collection Time 07/11/13 7:36 AM Result Value Range Aspartate Aminotransferase 25 0 - 45 U/L LAB BASIC METABOLIC PANEL Collection Time 07/11/13 7:36 AM Result Value Range Creatinine Serum 1.3 0.4 - 1.3 mg/dL Lab Glucose 109 (*) 60 - 100 mg/dL Bicarbonate 33 23 - 33 mmol/L Chloride 100 98 - 110 mEq/L Potassium 4.1 3.5 - 5.2 mEq/L Sodium 140 137 - 147 mEq/L Blood Urea Nitrogen 17 5 - 26 mg/dL Calcium 9.9 8.5 - 10.5 mg/dL Est GFR Am >60 >60 mL/min/1.73m2 Est GFR Non-Afr Am >60 >60 mL/min/1.73m2 LAB GLUCOSE Collection Time 07/11/13 7:36 AM Result Value Range Lab Glucose 107 (*) 60 - 100 mg/dL LAB HEMOGLOBIN A1C GLYCOSOLATED Collection Time 07/11/13 7:36 AM Result Value Range HGB A1C 4.9 4.0 - 5.6 % LAB ELECTROPHORESIS CASCADE TO ANTHONY,SERUM Collection Time 07/11/13 7:36 AM Result Value Range Total Protein, Serum ELP 7.2 Albumin, Serum ELP 4.4 3.4 - 5.0 g/dL Fhhwc-0-Qanazevd 0.3 0.1 - 0.4 g/dL Cyqsj-8-Jiewybdq 0.6 0.3 - 1.1 g/dL Beta Globulin 1.1 0.5 - 1.2 g/dL Gamma Globulin 0.9 0.6 - 1.4 g/dL S ELP Interp See Note LAB TOTAL PROTEIN+ALB Collection Time 07/11/13 7:36 AM Result Value Range Protein Total, Serum 7.2 5.7 - 8.3 g/dL Albumin 3.1 (*) 3.4 - 5.0 g/dL Globulin Serum 4.1 (*) 1.8 - 3.9 g/dL LAB ELECTROPHORESIS CASCADE TO ANTHONY, RANDOM URINE Collection Time 07/11/13 8:17 AM Result Value Range U ELP Interp See Note LAB PROTEIN URINE RANDOM Collection Time 07/11/13 8:17 AM Result Value Range Urine Protein, Random <5 ASSESSMENT: Diagnosis (ICD9) and Associated Orders 1. Heel pain (729.5) XR Foot * Left 3+ Views (Standard), Ambulatory referral to Podiatry PLAN: 1. X-ray right foot. Results will be released to [facility] 2. Trial of NSAIDs to decrease inflammation in this area. Rx given for naproxen 500mg to take bid. If pain does not improve after 2 weeks, visit podiatry. 3. Referral to podiatry placed. Orders Placed This Encounter Procedures ??? XR Foot * Left 3+ Views (Standard) ??? Ambulatory referral to Podiatry Orders Placed This Encounter Medications ??? naproxen (NAPROSYN) 500 mg tablet Sig: Take 1 tablet by mouth 2 times daily (with meals). Dispense: 60 tablet Refill: 03 Patient Instructions Please call the Podiatry dept. at [phone] to schedule your appointment. OLIVER ElamS3 Radha Villagran PA-C - 08/03/2013 2:02 PM CST Rubens Prieto [id number] 1970 SUBJECTIVE: 43 y.o. male Chief Complaint Patient presents with ??? Foot Pain Heel / Right / Worse with Activity I direct the reader to the PA student note by BRODIE Elam who describes the patient's concerns in the HPI from today's date. All elements of the history and all aspects of the physical exam were also performed by me. Any additions to the history noted here: He has a 1-to history of right heel pain with no injury. This is worse with activity and could possibly be worse after a period of immobility. It bothered him a lot recently he had to run. 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 He describes it as a sharp localized pain. No swelling. No history of the problem. Hehas not tried [id number] NSAIDs. Patient Active Problem List Diagnosis Date Noted ??? Sensorimotor neuropathy (HCC) 07/14/2013 ??? Essential hypertension 05/03/2013 ??? 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 GERD (gastroesophageal reflux disease) 05/03/2013 ??? Impaired fasting glucose 05/03/2013 ??? Left knee DJD 05/03/2013 ??? Obesity 05/03/2013 ??? ED (erectile dysfunction) 03/20/2013 ??? Adjustment disorder with mixed anxiety and depressed mood 03/20/2013 ??? Chews tobacco 03/20/2013 Outpatient Prescriptions Prior to Visit Medication Sig Dispense Refill [...] by mouth nightly. 30 tablet 0 ??? tadalafil (CIALIS) 5 mg [...] 1 dose/24 hours. 6 tablet 5 No facility-administered medications prior to visit. Allergies Allergen Reactions ??? Amoxicillin Hives ??? Lisinopril Cough ??? Metoprolol Other (See Comments) erectile dysfunction History Social History ??? Marital Status: Spouse Name: N/A Number of Children: N/A ??? 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 Smoking status: Current Some Day Smoker -- 4 years Types: Cigarettes ??? Smokeless tobacco: Current User Types: Chew ??? Alcohol Use: 0.0 oz/week 12-15 Cans of beer per week Comment: 12-15 beers/week ??? Drug Use: Yes Comment: weed ??? Sexually Active: Yes -- Female partner(s) Other Topics Concern ??? Bike Helmet No ??? City Water Yes ??? Exercise No ??? Guns In Home No ??? Seat Belt Yes ??? Special Diet No ??? Weight Concern Not Asked some ,but not much. Social History Narrative ??? No narrative on file OBJECTIVE BP 143/83 Pulse 81 Wt 255 lb (115.667 kg) BMI 31.87 kg/m2 GENERAL: Pt. is sitting comfortably in no apparent distress. The skin of the feet appears normal without rashes, lesions or swelling. His stance is somewhat overpronated. He has a palpable tenderness over the insertion of the plantar fascia over the calcaneus onthe right foot. No palpable masses noted PSYCH: well-oriented. Normal mood and affect. NEURO: Speech and gait are normal. ASSESSMENT: Diagnosis (ICD9) and Associated Orders 1. Heel pain (729.5) Ambulatory referral to Podiatry, XR Foot * Right 3+ Views (Standard), CANCELED:XR Foot * Left 3+ Views (Standard) PLAN: Two-week trial of naproxen take [id number]-shvdi. He has no history of GI problems with stomach ulcer. Foot exercises discussed. Followup with podiatry if symptoms fail to improve. He may benefit from custom insoles. X-ray will be obtained today. Orders Placed This Encounter Procedures ??? XR Foot * Right 3+ Views (Standard) ??? Ambulatory referral to Podiatry Orders Placed This Encounter Medications ??? naproxen (NAPROSYN) 500 mg tablet Sig: Take 1 tablet by mouth 2 times daily (with meals). Dispense: 60 tablet Refill: 03 Patient Instructions Please call the Podiatry dept. at [phone] to schedule your appointment. This visit note was created using voice recognition software and may contain typographical errors. [employer] documented in this encounter Plan of Treatment Not on filedocumented as of this encounter Visit Diagnoses Diagnosis Heel pain - Primary Pain in limb documented in this encounter Care Teams Imaging Assistant Relationship Specialty Start Date End Date Konstantin Milian MD PCP - General 08/03/13 [address] [place] [phone] documented as of this encounter
--- OUTSIDE RECORDS SUMMARY | 2022-04-03 16:18 | XMS_ITS | Encounter Summary ---
:1970 Author Organization [facility] Address [address], [place] [address] Care Team Providers Name Role Phone Konstantin Milian MD Primary Care Provider Encounter Details Date Type Department Care Team Description 08/03/2013 [facility] Heel pain [address] [place], [place] [address] Social History Tobacco Use Types Packs/Day Years Used Date Smoking Tobacco: Never Assessed Sex Assigned at Date Recorded Not on file documented as of this encounter Plan of Treatment Not on filedocumented as of this encounter Procedures Procedure Name Priority Date/Time Associated Diagnosis Comme nts XR FOOT RT 3+ VIEWS Routine 08/03/2013 1:51 PM Heel pain Re sults for this COMMUNITY RESOURCE OFFICER procedure are i n the results section. documented in this encounter Results XR Foot Rt 3+ Views (08/03/2013 1:51 PM COMMUNITY RESOURCE OFFICER) Anatomical Region Laterality Modality Lower Extremity, Foot Other Specimen (Source) Anatomical Location Collection Method / Collectio n Time Received Time / Laterality Volume Impressions 08/03/2013 2:00 PM COMMUNITY RESOURCE OFFICER IMPRESSION: ??No acute findings. ?? Narrative 08/03/2013 2:00 PM COMMUNITY RESOURCE OFFICER COMPARISON: ??None. FINDINGS: ??Bony structures of the right foot are intact. ??Question remote trauma affecting the proximal phalanx of the great toe with mild deformity here. ??No acute fractures. ??Joint spaces appear w ithin normal limits. ??There is no dislo cation or significant degenerative change. Procedure Note Maryuri Silva MD - 12/28/2015Formattin g of this note might be different from the original. COMPARISON: None. FINDINGS: Bony structures of the right f oot are intact. Question remote trauma affecting the proximal phalanx of the great toe with mild deformity here. No acute fractures. Joint spaces appear within normal limits. There is no dislocation or significant degenerative change. IMPRESSION IMPRESSION: No acute findings. Radha LIZARRAGA GD documented in this encounter Visit Diagnoses Diagnosis Heel pain Pain in limb documented in this encounter Care Teams Assemblies And Installations Inspector Relationship Specialty Start Date End Date Konstantin Milian MD PCP - General 08/03/13 [address] [place] [phone] documented as of this encounter
--- OUTSIDE RECORDS SUMMARY | 2022-04-03 16:18 | XMS_ITS | Encounter Summary ---
:1970 Author Organization [employer] Address [address], [place] [address] Care Team Providers Name Role Phone Konstantin Milian MD Primary Care Provider Reason for Visit Reason Comments Letter Encounter Details Date Type Department Care Team Description 09/14/2014 Telephone [facility] Chace Zimmerman MD Letter [address] [address] FLOOR [phone] [place], [place] [address] (Wo rk) Social History Tobacco Use Types Packs/Day Years Used Date Smoking Tobacco: Never Assessed Sex Assigned at Date Recorded Not on file documented as of this encounter Nursing Notes Justin Wang OA - 09/20/2014 1:22 PM CDT I called him, and he wanted me to leave the note at the [facility] front office administrator. Sonia Victor RN - 09/20/2014 11:00 AM CDT Pt will pick this up in clinic today. ETTET Justin Wang OA - 09/19/2014 4:14 PM CDT I called him and left a message stating that the note is completed, and I just need to know if he wants to pick it up, or send it to his house. I told him that i would call him tomorrow(09-20-14). Jayshree Arnold LPN - 09/18/2014 10:57 AM CDT Pt calling again and needs this doris. Please call pt smita when note is ready. Sonia Victor, RN - 09/14/2014 2:32 PM CST Pt is scheduled for L TKA on 10/16/14. He calls today to ask a letter be written excusing his , Symone Prieto, from jury duty 10/08/14 through 10/22/14 so she can be available to help him post-operatively. If approved, he would like to pick this up in [place] on Wednesday. Please call him with updates [phone]. Thanks. [employer] documented in this encounter Plan of Treatment Not on filedocumented as of this encounter Visit Diagnoses Not on filedocumented in this encounter Care Teams Extrusion Bender Relationship Specialty Start Date End Date Konstantin Milian MD PCP - General 08/03/13 [address] [place] [phone] documented as of this encounter
--- OUTSIDE RECORDS SUMMARY | 2022-04-03 16:18 | XMS_ITS | Encounter Summary ---
:1970 Author Organization [email or web address] Address [address] [address] Care Team Providers Name Role Phone Konstantin Milian MD Primary Care Provider Reason for Visit Reason Comments Test Request Encounter Details Date Type Department Care Team Description 07/17/2014 Telephone [facility] Konstantin Sotelo MD Test Request [id number] [address] [place] [address] [place], [place] [phone] (Wo rk) Social History Tobacco Use Types Packs/Day Years Used Date Smoking Tobacco: Never Assessed Sex Assigned at Date Recorded Not on file documented as of this encounter Nursing Notes Olivia Forbes LPN - 07/17/2014 1:47 PM CST Left vm for pt letting him know that lab orders placed and that he does have to be fasting for 10 hours prior. Konstantin Melo MD - 07/17/2014 12:36 PM CST Orders placed. Milvia Wilkins RN - 07/17/2014 12:29 PM CST Action requested: Lab Request Additional Info: Pt requests fasting labs to be ordered to complete prior to physical scheduled on 07/21/2014. Please call pt at [phone] when orders are ready. ESTONE SETTER Tessa Wang - 07/17/2014 12:02 PM CST Lab/Radiology Requests Primary Care Provider: Konstantin Milian MD What test is needed and when? Fasting labs for physical./07-20-14 Why is test needed/requested? Pt would like to do fasting labs with other lab orders on 07/20/14 andhave them done before physical on 07/21/14. *If symptom related, send to triage Debt Collection Specialist: Rubens Prieto Best call back number: [phone] (home) , Is it OK to leave a confidential message on this voicemail? Yes documented in this encounter Plan of Treatment Not on filedocumented as of this encounter Visit Diagnoses Diagnosis Essential hypertension (HRC) - Primary Unspecified essential hypertension Impaired fasting glucose Screening cholesterol level Screening for lipoid disorders documented in this encounter Care Teams Traveling Freight Agent Relationship Specialty Start Date End Date Konstantin Milian MD PCP - General 08/03/13 [address] [place] [phone] documented as of this encounter
--- OUTSIDE RECORDS SUMMARY | 2022-04-03 16:19 | XMS_ITS | Encounter Summary ---
:1970 Author [facility] Address [address] [place] [address] Care Team Providers Name Role Phone Unavailable Primary Care Provider Unavailable Reason for Visit Reason Comments Appt. Needed Appt. Scheduled Encounter Details Date Type Department Care Team Description 05/04/2013 Telephone [place] MD Appt. Needed; Appt. Medicine [address] [facility] [address] [address] [place] [address] [place] [address] [phone] Social History Tobacco Use Types Packs/Day Years Used Date Smoking Tobacco: Never Assessed Sex Assigned at Date Recorded Not on file documented as of this encounter Plan of Treatment Not on filedocumented as of this encounter Visit Diagnoses Not on filedocumented in this encounter
--- OUTSIDE RECORDS SUMMARY | 2022-04-03 16:19 | XMS_ITS | Encounter Summary ---
:1970 Author Organization [employer] Address [address] [place] [address] Care Team Providers Name Role Phone Konstantin Milian MD Primary Care Provider Reason for Visit Reason Comments Establish Care Encounter Details Date Type Department Care Team Description 05/03/2013 Office Visit Chris Houston Konstantin Milian Essent ial hypertension (Primary Dx); Medicine Neuropathy, peripheral; [address] [address] [place] Impaired fasting glucose; [place] [address] [place], [place] ED (erectile dysfunction) [phone] [id number] Social History Tobacco Use Types Packs/Day Years Used Date Smoking Tobacco: Never Assessed Sex Assigned at Date Recorded Not on file documented as of this encounter Last Filed Vital Signs Vital Sign Reading Time Taken Comments Blood Pressure 152/96 05/03/2013 9:55 AM CDT Pulse 84 05/03/2013 9:55 AM CDT Temperature - - Respiratory Rate - - Oxygen Saturation - - Inhaled Oxygen Concentration - - Weight 117.7 kg (259 lb 8 oz) 05/03/2013 9:55 AM CDT Height - - Body Mass Index 32.44 03/20/2013 9:13 AM CDT documented in this encounter Patient Instructions Patient InstructionsKonstantin Milian MD - 05/03/2013 12:36 PM CDT Please call [phone] to schedule an appointment with Sexual Health. Please return to lab (fasting) about 1-2 weeks after making the medication change (switching from valsartan to valsartan -hydrochlorothiazide). documented in this encounter Progress Notes Konstantin Milian MD - 05/03/2013 12:36 PM CDT Progress Notes signed by Konstantin Milian MD at 05/03/13 1430 Author: Konstantin Milian MD Service: (none) Author Type: Physician Filed: 05/03/13 1430 Note Time: 05/03/13 1338 Status: Signed Doughnut Batter Mixer: Konstantin Milian MD (Physician) NAME: MAYA FU MR#: [id number] CSN: [id number] AUTHENTICATING CLINICIAN: Konstantin Milian MD CONFIRM #: [id number] LOC: 502 CLINIC PROGRESS NOTE DATE OF VISIT: 05/03/2013 : 1970 CHIEF COMPLAINT: Followup multiple issues. HPI: This 43-year-old male, recently saw Dr. Gutierrez for the first time for a general physical last month. However, he would like to switch here to our clinic, and comes in today with a number of issues to follow up on. He has a history of hypertension and is on valsartan 160 mg b.i.d. [facility] to seeing Dr. Gutierrez at our [facility] last month. Additionally, he is on omeprazole for acid reflux and uses either Levitra or Cialis for history of erectile dysfunction. He is on Wellbutrin XL and Adderall XR, I believe under the direction of an outside psychiatrist as well. Today, we discussed a number of issues. We discussed his hypertension treatment. We also reviewed his recent lab results from his physical with Dr. Gutierrez, notable for an elevated fasting glucose of 105. There is no known diabetes in the family, other than maybe in some of the grandparents late in life. We also discussed a longstanding history of erectile dysfunction and low libido. When he saw Dr. Gutierrez, his testosterone levels were checked, and those were within normal. This has been a chronic issue. Additionally, today we discussed another chronic issue regarding neuropathy involving the feet. This has been present for at least 2 years or more. This was worked up initially by his previous provider at his other clinic, but I do not have those results. He describes a chronic burning sensation involving the feet and distal legs bilaterally. It affects both feet equally. Also describes a numb and tingling sensation intermittently as well. This seems to be aggravated by wearing shoes and by spending time on his feet. Once he is able to get his shoes off and to spend time off of his feet, such as overnight, it feels better. This has been a consistent pattern now for at least 2 years or more. It is maybe more noticeable at this point compared to onset a few years ago. It is confined to the feet and distal legs bilaterally; it has not affected the upper extremities. There is nosense of weakness in the lower extremities. He does not smoke cigarettes, but is a chewing tobacco user. Alcohol has chronically been on a basisof about 12-15 beers per week. 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 The electronic medical record was reviewed and updated today as well. OBJECTIVE: Pulse 84. Blood pressure 152/96. Weight 259.8 pounds. BMI noted at his visit on 03/20/2013 to be 31.1. At that time, his recorded weight, however, was 248 pounds. GENERAL: This 43-year-old male appears well. He is breathing comfortably. Sclerae without icterus. NECK: Supple without adenopathy, mass, thyromegaly or thyroid nodules. LUNGS: Clear. No rales, rhonchi, or wheeze. CARDIOVASCULAR: Regular rhythm. Normal heart sounds. No murmur, gallop, or rub. ABDOMEN: Soft, obese, nontender, nondistended. No mass or hepatomegaly. Bowel sounds present. No bruits. EXTREMITIES: Without pedal edema. Distal pulses easily palpable. No fasciculation is noted in the distal lower extremities. No clonus on either side. NEUROLOGIC: He has normal strength proximally and distally in both lower extremities. He has normal reflexes at both knees and both ankles. SKIN: Warm and dry and without jaundice. ASSESSMENT: 1. Hypertension. 2. Peripheral neuropathy. 3. Impaired fasting glucose. 4. Erectile dysfunction. PLAN: Regarding the hypertension, we are going to modify his treatment a bit. He will stop the valsartan 160 mg b.i.d. and to use instead valsartan- hydrochlorothiazide (320-12.5) one tablet daily. He will return to lab in about 2 weeks approximately after making that change for a check of his renal panel. Will also recheck a fasting glucose to get a 2nd reading there and will add an A1c. We will check a number of labs related to the neuropathy at that time as well. Regarding that issue, we also will get him scheduled for bilateral lower extremity EMG. I would like to see him back in about one month, after these tests have been completed, to review the results and to recheck his blood pressure. Will alsorecommend referral to the sexual health clinic as well for the longstanding erectile dysfunction issue. CJM:SHILPA C: CONFIRM #: [id number] documented in this encounter Plan of Treatment Not on filedocumented as of this encounter Visit Diagnoses Diagnosis Essential hypertension (HRC) - Primary Unspecified essential hypertension Neuropathy, peripheral Unspecified hereditary and idiopathic pe ripheral neuropathy Impaired fasting glucose ED (erectile dysfunction) Impotence of organic origin documented in this encounter Care Teams Hand Rug Braider Relationship Specialty Start Date End Date Konstantin Milian MD PCP - General 05/03/13 05/03/13 [address] [address] [place] [id number] documented as of this encounter
--- OUTSIDE RECORDS SUMMARY | 2022-04-03 16:19 | XMS_ITS ---
:1970 Author Care Team Providers Name Role Phone MIELS GRAYSON MD Referring Provider [phone] Allergies Code Code System Name Reaction Severity Status Onset Nadeem Inhibitors ? ? Active 04/18 723 RxNorm Amoxicillin ? ? Active 04/18/20 18 91940 RxNorm Lisinopril ? ? Active 8 333664 RxNorm Lopressor ? ? Active 04/18/2018 Penicillin ? ? Active 8 Medications Name Status Start Date Stop Date ? ? amlodipine 10 mg tablet Active ? Not avai lable TAKE 1 TABLET BY MOUTH ONCE DAILY bupropion HCl XL 150 mg 24 hr tablet, extended release Active ? Not available bupropion HCl XL 300 mg 24 hr tablet, extended release Active ? Not available TAKE 1 TABLET BY MOUTH ONCE DAILY clonazepam 1 mg tablet Active ? Not avail able TAKE 1 TABLET BY MOUTH TWICE DAILY NEEDED FOR ANXIETY MU ST LAST ONE MONTH. dextroamphetamine-amphetamine 10 mg tablet Active ? Not available TAKE 1 TABLET BY MOUTH IN THE MORNING AND 1 IN THE EVENING dextroamphetamine-amphetamine ER 30 mg 24hr capsule,extend relea se Active ? Not available TAKE 1 CAPSULE BY MOUTH ONCE DAILY eszopiclone 3 mg tablet Active ? Not avai lable TAKE 1 TABLET BY MOUTH AT BEDTIME hydrochlorothiazide 12.5 mg capsule Active ? Not available TAKE 1 CAPSULE BY MOUTH ONCE DAILY levothyroxine 75 mcg tablet Active ? Not available TAKE 1 TABLET BY MOUTH ONCE DAILY meclizine 25 mg tablet Active ? Not avail able TAKE 1 TABLET BY MOUTH EVERY 8 HOURS NEEDED FOR VERTIGO metformin ER 750 mg tablet,extended release 24 hr Active ? Not available omeprazole 40 mg capsule,delayed release Active ? Not available TAKE 1 CAPSULE BY MOUTH ONCE DAILY phentermine 15 mg capsule Active ? Not av ailable TAKE 1 TO 2 CAPSULES BY MOUTH ONCE DAILY Rexulti 2 mg tablet Active ? Not availabl e TAKE 1 TABLET BY MOUTH ONCE DAILY Rexulti 4 mg tablet Active ? Not availabl e TAKE 1 TABLET BY MOUTH ONCE DAILY topiramate 25 mg tablet Active ? Not avai lable TAKE 1 TABLET BY MOUTH IN THE MORNING AND 1 IN THE EVENING valsartan 320 mg tablet Active ? Not avai lable Problems None recorded. Procedures Date Name Performed by ? 07/12/2021 Colonoscopy Information not avai lable Notes: pt estimated date ? Orthopedic Surgery Information not avai lable Notes: LTKA Results Lab Results None recorded. Past Encounters 03/09/2022 Primary Erectile Dysfunction; Malfunctio n of Penile Prosthesis Massimo Mccracken MD: [address] [place] [address], Ph. 01/14/2022 Primary Erectile Dysfunction Malachi Mahoney MD: [address] [facility], [address] [address], Ph. Social History Tobacco Smoking Status Never Smoker Vaccine List None recorded. Plan of Care Reminders Provider Appointments None recorded. ? ? Lab None recorded. ? ? Referral None recorded. ? ? Procedures None recorded. ? ? Surgeries None recorded. ? ? Imaging None recorded. ? ? Vitals 03/09/2022 04:00PM ESTABLISHED 20 Height Weight BMI 6 ft 4 in 242 lbs 29.5 kg/m2 01/14/2022 03:10PM NEW PATIENT 20 Height Weight BMI 6 ft 4 in 242 lbs 29.5 kg/m2
--- OUTSIDE RECORDS SUMMARY | 2022-04-03 16:19 | XMS_ITS | Clinical Summary ---
:1970 Author Organization [facility] [place] [address] Care Team Providers Name Role Phone Konstantin Milian MD Primary Care Provider Service, Claudia Prieto MD Unavailable [phone] Allergies Active Allergy Reactions Severity Noted Date Comments Nadeem Inhibitors Cough 09/10/2011 Amoxicillin Hives 03/20/2011 Hydrocodone Bitartrate Stomach Upset 07/01/2018 Lisinopril Cough 10/12/2014 Metoprolol Impotence, Other - 05/03/2013 PN: erect ile Describe In Comment dysfunct ion Field Penicillins Hives 11/15/2012 Medications Medication Sig Dispensed Refills Start Date End Date Status valsartan (DIOVAN) 320 mg Take 1 tablet 60 tablet 0 08/19/2019 Active tabletIndications: by mouth once Hypertension, unspecified daily. type hydroCHLOROthiazide 12.5 Take 1 tablet 60 tablet 0 08/19/2019 Active mg tabletIndications: by mouth once Hypertension, unspecified daily. type amLODIPine (NORVASC) 10 Take 10 mg by 0 04/21/2020 Active mg tablet mouth once daily. phentermine (IONAMIN) 15 TAKE 1 TO 2 0 05/24/2020 Active mg capsule CAPSULES BY MOUTH ONCE DAILY metFORMIN (GLUCOPHAGE XR) Take 750 mg 0 05/24/2020 Active 750 mg Extended-Release by mouth once tablet daily with evening meal. levothyroxine (SYNTHROID) Take 75 mcg 0 06/28/2020 Active 75 mcg tablet by mouth once daily. hydroCHLOROthiazide 12.5 0 06/13/2021 Active mg capsule buPROPion (WELLBUTRIN XL) Take 1 Tablet 30 Tablet 3 01/20/2022 Active 300 mg Extended-Release (300 mg) by tabletIndications: mouth every Depression with anxiety morning. clonazePAM (KLONOPIN) 1 TAKE 1 TABLET 20 Tablet 2 01/20/2022 Active mg tabletIndications: BY MOUTH Depression with anxiety TWICE DAILY NEEDED FOR ANXIETY MUST LAST ONE MONTH. topiramate (TOPAMAX) 25 Take 1 Tablet 60 tablet. 3 01/20/2022 Active mg tabletIndications: (25 mg) by Depression with anxiety mouth in the morning and 1 Tablet (25 mg) in the evening. omeprazole (PRILOSEC) 40 Take 1 90 capsule. 3 01/20/2022 Active mg Delayed-Release Capsule (40 capsuleIndications: GERD mg) by mouth without esophagitis once daily. eszopiclone (LUNESTA) 3 Take 1 Tablet 30 Tablet 2 01/20/2022 Active mg tabletIndications: (3 mg) by Depression with anxiety mouth at bedtime. dextroamphetamine-ampheta Take 1 30 Capsule 0 03/21/2022 Active mine (Adderall XR) 30 mg Capsule (30 Extended-Release mg) by mouth capsuleIndications: once daily. Attention deficit disorder, unspecified hyperactivity presence dextroamphetamine-ampheta Take 1 Tablet 60 Tablet 0 03/22/2022 Active mine (AdderalL) 10 mg (10 mg) by tabletIndications: mouth in the Attention deficit morning and 1 disorder, unspecified Tablet (10 hyperactivity presence mg) in the evening. dextroamphetamine-ampheta Take 1 30 Capsule 0 02/19/2022 mine (Adderall XR) 30 mg Capsule (30 2 Extended-Release mg) by mouth capsuleIndications: once daily. Attention deficit disorder, unspecified hyperactivity presence dextroamphetamine-ampheta Take 1 Tablet 60 Tablet 0 02/20/2022 mine (AdderalL) 10 mg (10 mg) by 2 tabletIndications: mouth in the Attention deficit morning and 1 disorder, unspecified Tablet (10 hyperactivity presence mg) in the evening. Active Problems Problem Noted Date Chronic right shoulder pain 09/13/2018 Encounter for long-term (current) use of other medicat ions 12/14/2014 Overview: Controlled substance agreement for Clona zepam, Adderall, and Lunesta on file and signed 12/14/14. Designated pharmacy: [facility] Prescribing physician: Dr. Parther. Diagnosis: Anxiety, ADD, Dep ression. Irasema Carey RN ........ ............ 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 Designated pharmacy: [facility]. Prescribing physician: Dr Prather. Diagnosis: ADD Depression with anxiety 02/10/2012 Erectile dysfunction 11/24/2011 Hypercholesterolemia 08/31/2011 Hypertension 08/11/2011 Anxiety Overview: Dr. Duncan. Resolved Problems Problem Noted Date Resolved Date ADD (attention deficit disorder) 02/09/2017 018 Encounters Date Type Specialty Care Team Description 02/12/2022 Refill ServiceClaudia Refill Req uest (Clonazepam) MD Conner 01/21/2022 Telephone ServiceClaudia Medication Management MD Conner (Question on Ad derall) 01/20/2022 Telemedicine Service, Claudia Follow Up MD Conner from Last 3 Months Immunizations Name Administration Dates Next Due DTaP 09/03/2010, 10/11/2006 HepA-HepB (Twinrix) 09/03/2010 Hepatitis B (Adult) 07/13/2008 Influenza Virus, Unspecified 05/07/2015, 06/10/2010 Influenza, IIV3 (Age 6-35 mos) 05/06/2015 Influenza, IIV3 (Age >=3 years) 06/19/2014, 04/12/2014, 07/12, 06/10/2010 Influenza, IIV4 03/29/2018, 04/16/2016, 03/20/2013 Influenza, IIV4 (Age 6-35 Mos) 03/20/2013 Tdap 03/20/2013, 09/03/2010, 10/11/2006 Family History Medical History Relation Name Comments Cancer Father Heart Disease Mother Relation Name Status Comments Child Alive 3 kids healthy Father (Age 46) Leukemia Mother Alive HTN at age 70 Sister Alive 2 sisters alive Social History Tobacco Use Types Packs/Day Years Used Date Former Smoker Cigarettes 1 4 07/12/2006 - 0 07/12/2010 Smokeless Tobacco: Current User Chew Tobacco Cessation: Counseling Given: Yes Comments: age [age]. quit 6 years. start ed 2000 Alcohol Use Standard Drinks/Week Comments Not Currently 12 (1 standard drink = 0.6 oz pure alcoh ol) 10/09 Alcohol Habits Answer Date Recorded How often do you have a drink containing alcohol? Not asked How many drinks containing alcohol do you have on a typical Not asked day when you are drinking? How often do you have six or more drinks on one occasion? No t asked Comment: 10/0910/09/2021 Sex Assigned at Date Recorded Not on file Obstetrics History Last Filed Vital Signs Vital Sign Reading Time Taken Comments Blood Pressure 129/78 06/01/2019 3:31 PM FOCUSER Pulse 94 06/01/2019 3:31 PM FOCUSER Temperature 36.3 ??C (97.4 ??F) 09/05/2018 2:37 PM FOCUSER Respiratory Rate 16 07/02/2018 7:45 AM FOCUSER Oxygen Saturation 96% 07/02/2018 7:45 AM FOCUSER Inhaled Oxygen Concentration - - Weight 111.1 kg (245 lb) 01/20/2022 9:28 AM CDT Height 193 cm (6' 4) 01/20/2022 9:28 AM CDT Body Mass Index 29.82 01/20/2022 9:28 AM CDT Plan of Treatment Health Maintenance Due Date Last Done Comments COVID-19 vaccine series (#1) 1970 Hepatitis C screening for age 0904/01/1986 18-79 Colonoscopy through age 75 2013 Zoster (shingles) series for age 0904/01/2018 50+ (1 of 2) Influenza for age 50-64 03/12/2022 03/29/2018, 04/16/2016, 05/07/2015, Additional history exists BMI (ht and wt on same day) for 01/20/2023 01/20/2022, 0307/2021, age 18+ 09/05/2018, Additional history exists Depression screening for age 12+ 01/21/2023 01/21/2022, 06/2022, 06/01/2019, Additional history exists Tetanus booster 03/20/2023 03/20/2013, 09/03/2010, 09/03/2010, Additional history exists Lipids for age 45-75 03/30/2023 03/30/2018, 09/20/2017, 04/20/2017, Additional history exists Tdap Completed 03/20/2013, 09/03/2010, 10/11/2006 Medical Devices Implanted Type Area Pheresis Nurse Device Shelf Model / Identifier Expiration Serial / Lot Date Baseplate Tib Lt Sz 7 Pitching Coach Journey - [id number] Left: S [employer]W 08/18/2022 [id number] / Implanted: Qty: 1 on 10/16/2014 by Chace Zimmerman MD at [facility] [employer] / [id number] Accsry Implnt Penile Penis 04/24 [id number] / Implanted: Qty: 1 on 07/01/2018 by Malachi Navarro ch, MD at [facility] / [id number] Description: KIT ACCSRY IMPLNT PENILE Results Not on filefrom Last 3 Months Insurance Payer Benefit Plan / Subscriber ID Effective Dates Phone Addre ss Type Group WC WORKERS COMP WC [facility] [id number] 2017-Present [address] [facility] [address] [place] [address] [employer] HP [id number] 2018-Presen [address] [place] [address] Rubens Prieto Workers Comp Self [address] (Home) [place] [address] ST Contract Other 02/09/2009 ATTN: FINANCIA L CONTRACT,EDUCATI SERVICES ON NO-CHARGE [address] [place] [id number] Advance Directives Latest Code Status on File Code Status Date Activated Date Inactivated Comments Full Code 07/01/2018 1:46 PM 07/02/2018 1:16 PM Full Code 10/16/2014 9:24 AM 10/18/2014 6:27 PM Care Teams Client Leader Relationship Specialty Start Date End Date Konstantin Milian MD PCP - General Family Practice 10/17/19 [address] [place] [id number] Service, Claudia Prieto MD Psychiatry 10/15/21 [address] [place] [address]
--- OUTSIDE RECORDS SUMMARY | 2022-04-03 16:19 | XMS_ITS | Encounter Summary ---
:1970 Author Care Team Providers Name Role Phone Erick Toledo MD Referring Provider [phone] Reason for Visit Penile Implant Follow Up Assessment and Plan 1. Primary erectile dysfunction - Exam findings were discussed in jodi bright. We discussed that he had scarring of the distal corpora on the left side and unfo rtunately the tip of the IPP cylinder has migrated. He can continue to use the dev ice for now as it is functional, and this is more of a chronic rather than acute prob lane. He is interested in surgical revision. I'm going to have him meet with my partn er Dr. Mccracken to see what his revision options are. All of his questions were answered. Discussion Note: None recorded.Patient educational handouts: No information available. Plan of Care Reminders Provider Appointments Established Phone Visit 15 04/06/2022 Ross Mccracken MD 9:00AM ? Hospital 180 04/28/2022 Joe Omid hannon, 12:00PM ? [facility] 180 04/28/2022 Massimo townsend MD 12:00PM Lab None recorded. ? ? Referral None recorded. ? ? Procedures None recorded. ? ? Surgeries None recorded. ? ? Imaging None recorded. ? ? Medications Name Start Date ? ? amlodipine 10 mg tablet ? TAKE 1 TABLET BY MOUTH ONCE DAILY bupropion HCl XL 150 mg 24 hr tablet, extended release ? TAKE 1 TABLET BY MOUTH ONCE DAILY WITH 300MG TABLET F OR A TOTAL OF 450MG. bupropion HCl XL 300 mg 24 hr tablet, extended release ? TAKE 1 TABLET BY MOUTH ONCE DAILY clonazepam 1 mg tablet ? TAKE 1 TABLET BY MOUTH TWICE DAILY NEEDED FOR ANXI ETY MUST LAST ONE MONTH. dextroamphetamine-amphetamine 10 mg tablet ? TAKE 1 TABLET BY MOUTH IN THE MORNING AND 1 IN THE EV ENING dextroamphetamine-amphetamine ER 30 mg 24hr capsule,ex tend release ? TAKE 1 CAPSULE BY MOUTH ONCE DAILY eszopiclone 3 mg tablet ? TAKE 1 TABLET BY MOUTH AT BEDTIME hydrochlorothiazide 12.5 mg capsule ? TAKE 1 CAPSULE BY MOUTH ONCE DAILY levothyroxine 75 mcg tablet ? TAKE 1 TABLET BY MOUTH ONCE DAILY meclizine 25 mg tablet ? TAKE 1 TABLET BY MOUTH EVERY 8 HOURS NEEDED FOR VE RTIGO metformin ER 750 mg tablet,extended release 24 hr ? TAKE 1 TABLET BY MOUTH IN THE EVENING MEAL omeprazole 40 mg capsule,delayed release ? TAKE 1 CAPSULE BY MOUTH ONCE DAILY phentermine 15 mg capsule ? TAKE 1 TO 2 CAPSULES BY MOUTH ONCE DAILY Rexulti 2 mg tablet ? TAKE 1 TABLET BY MOUTH ONCE DAILY Rexulti 4 mg tablet ? TAKE 1 TABLET BY MOUTH ONCE DAILY topiramate 25 mg tablet ? TAKE 1 TABLET BY MOUTH IN THE MORNING AND 1 IN THE EV ENING valsartan 320 mg tablet ? TAKE 1 TABLET BY MOUTH ONCE DAILY Medications Administered None recorded. Vitals Height Weight BMI 6 ft 4 in 242 lbs 29.5 kg/m2 Results Lab Results None recorded. Allergies Code Code System Name Reaction Severity Onset Nadeem Inhibitors ? ? 04/18/2018 723 RxNorm Amoxicillin ? ? 04/18/2018 86238 RxNorm Lisinopril ? ? 04/18/201820321013 RxNorm Lopressor ? ? 04/18/2018 Penicillin ? ? 04/18/2018 Problems None recorded. Procedures Date Name Performed by ? 07/12/2021 Colonoscopy Information not avai lable Notes: pt estimated date ? Orthopedic Surgery Information not avai lable Notes: LTKA Vaccine List None recorded. Social History Tobacco Smoking Status Never Smoker What was the date of your most recent tobacco screening? Do you or have you ever used any other forms of tobacco Y or nicotine? Do you or have you ever used smokeless tobacco? Currently ch ews tobacco Family History Relation Problem Onset Age of Age Notes Father No current problems or (No Information) N/A ( No Notes) disability Mother No current problems or (No Information) N/A ( No Notes) disability Functional Status Unknown. Past Encounters 01/14/2022 Primary Erectile Dysfunction Malachi Mahoney MD: [address] [facility] [address], [place] [address], Ph. History of Present Illness Note: <div>He is a very pleasant 51-year-old gentleman with a long-term history of erectile dysfunction who failed phosphodiesterase inhibitors and had been using intracorporeal Trimix for several years. He elected for inflatable penile prosthesis which Dr. Galloway and I implanted on 07/01/2018. Intraoperatively, he was noted to have significant scarring on the left distal corporal body making it difficult to get nice seating of the distal cylinder on that side. Over the past 1 to 2 years, he has noticed migration of the left distal cylinder down to the 6:00 ventral shaft where he can palpate the tip of the cylinder protruding. This is not painful. He continues to have functional erections and thedevice is cycling normally. No difficulty voiding.</div> Review of Systems ? Comprehensive General Adult ROS Reported By: Patient Endocrine: Endocrine: increased thirst Physical Exam ? Notes: <div>On focused exam, the ri ght IPP cylinder is in good position, but the left-sided distal tip has mi grated over towards the right and terminates near the midline. Both cylinders inflate normally but there is noted to be some buckling on the left side. T his is not protruding through the skin and there are no skin lesions or abnor malities. The pump in the scrotum is normal and non tender.</div>
--- OUTSIDE RECORDS SUMMARY | 2022-04-03 16:19 | XMS_ITS | Encounter Summary ---
:1970 Author Care Team Providers Name Role Phone Erick Toledo MD Referring Provider [phone] Reason for Visit None recorded. Assessment and Plan 1. Primary erectile dysfunction - I agree that this represents a device malfunction with crossover of the distal left cylinder. Though it remains functio nal modality and concern for pending erosion of the corporal tissue. I would recommen d we revise his device. We discussed the potential need for a counterincision in the distal penile shaft to direct the left cylinder possibly reconstruct the distal corpora given its fibrosis. We discussed the potential for complications such as kayla ce infection, injury to neighboring structures, and mechanical breakdown. 2. Malfunction of penile prosthesis - As above ? removal and reimplantation of penile prosthesis (SURG) Discussion Note Penile Prosthesis Informed Consent The patient is CONSIDERING to undergo pl acement of a penile prosthesis. He understands that several devices are currently available in the marketplace including those which are non-inflatable versus two or three piece inflatable prostheses. A ll of these devices have the capacity to give you the opportunity to have a rigid penis on demand and to be used as frequently and as long as you would like. Ther e are, therefore, many advantages to the use of the prosthesis which we discussed. The patient understands that there are potential problems that have been recognized to occur with penile prosthesis joy cement and he understands the risks of u ndergoing prosthesis placement. He is aware that it is important to recognize that as a result of improvements in design as well as better surgical technique, isela t all of the risks listed below are less than they were even 10 years ago. Prosthesis mechanical failure occurs as a result of leakage of fluid from the inflatable types of devices. This typically occurs as a result of a fracture in the tubing, most commonly as it emerges out of the scrotal pump, but it can also be due to a leak from the erectile cylinders in the penis. It is felt that this occurs as a result of repetitive mechanical trauma which weakens the tubing which cau ses it to crack. When the fluid leaks, i t is not something you would be aware of. It does not cause pain. The fluid contained within the device is typically a sterile saline solution which will simply b e readsorbed by the body. What you will recognize is that when you squeeze the pump, there will be no transfer of fluid and no rigidity or inadequate rigidity. The most recent long-term data looking at 5-10 year success reports mechanical karyn lure in the 5-10% range over that period of time. Looked at another way, 90-95% of men will have a functional prosthesis in 10 years. These devices are designed t o be used for life. Each company has its own warrantee which you should discuss with your physician. Infection is a difficult complication wh ich usually requires the removal of the prosthesis as it is rare to be able to clear infection so long as the prosthesis is within the body. Occasionally, the inf ected prosthesis can be removed, the loc ation of the device can be washed out vigorously with a special antibiotic salvage procedure and then a new device may be able to be immediately placed. When this is not possible, the infected device is removed and then a period of healing will follow where the device can be replaced after a period of healing (6 weeks to 6 months). Delayed replacement of a prost hesis after initial removal is a more co mplicated operation associated with the potential for not being able to replace the device because of scarring but other problems such as shortening of the penis, change in sensation and shape may also occur. As a result of improved surgical technique and device design, infection rates are now markedly reduced, typically being reported in the <1-2% range for new prosthesis placements and up to 3% w hen the prosthesis is uninfected and has mechanically failed. Bleeding and hematoma are rarely a probl em. There is likely to be localized swelling as well as “black and blue? of the penis, groin area and scrotal sack. These will resolve without treat ment over 1-3 weeks. Rarely a scrotal he matoma (collection of blood) will develop which can be treated with rest and it will reabsorb with time or if it is growing in size or painful, it may need to be evacuated surgically (opened up and wash ed out). The risk of needing a blood transfusion after penile prosthesis placement is extremely rare to nonexistent. Post-operative pain is variable and can be minimal, but in most men it is quite significant. Your physician will provide you with adequate pain medication to help control the pain, but not necessarily e liminate it entirely. As the prosthesis heals, there will be complete resolution of the pain such that you will typically not even be aware that the prosthesis is within your body unless you were to davi ch it directly. Complete pain resolution will most commonly occur within 4-12 weeks post-operatively. Post-operative pain is typically managed with oral narcotic agents. You should be aware that these d rugs can cause constipation as well as s leepiness and you therefore, should not be in any position where you might need to make important decisions or driving until the pain is under better control with out the need for narcotic pain-killers. It is recommended that during the first several days after the operation, that you spend as little time as possible on your feet as this will encourage healing, r educe swelling and result in more rapid resolution of pain. Loss of length ?Studies have shown that when the flaccid penile stretched length is measured preoperatively, that the actual loss of length following placement of the prosthesis is on average no more than one centimeter (1/3 inch). To reduce the likelihood of loss of length, the surgeon will do his best to place the proper size device that fits your penis. You can expect that the length of your penis will be much like what you see wh en you grab the head of the penis and pull it straight out away from your body. Many men who believe they have lost length in their penis following prosthesis gillian sonido in fact did not really lose length because of the surgery, but rather because they have not had a full erection for some time during which there may be some loss of tissue elasticity and thereby sh ortening of the penis. In addition, they may have gained some weight in the pubic area which will cover the penis and make it look shorter. Lastly, they may be expecting that the postoperative result wi ll be like the erections they had when isauro mckeon were a much younger man. Although the goal is to make the penis as long as possible, one can expect that the rigidity the penis will be much like the erections obtained as a younger man. Decreased girth ? Girth is typically not substantially changed as most cylinders can expand and fill the penis satisfactorily, but if there has been scarring within the tissues of the penis, this can prevent expansion and result in a n arrower appearing penis. The surgeon will do his best to put the largest cylinder in the penis, but there are limitations to which the tissues can expand. Decreased girth is not a common complaint. Sensory loss ? By and large the surgical techniques being used avoid injury to the sensory nerves of the penis. Therefore there is rarely any significant change in the sexual sensation of the pen is. Some men find that it takes longer f or them to experience orgasm. This may occur because they can simply inflate the penis without any sexual arousal, and then it will seem to take longer for them t o become aroused, resulting in the prolo nged time to orgasm. Therefore, proper sexual stimulation is important to enjoy the entire sexual experience with a prosthesis. Change in shape ? The overall shape or c onfiguration of the penis is rarely altered as a result of placement of any type of prosthesis, but if there is some unidentified scarring involving the pe nis such as that which occurs with Peyro osmin?s disease, some curvature or indentations including hourglass narrowing can be identified along the shaft. Typically, in the postoperative period, the prosthesis will cause an internal tissue expansion which will correct these deformities. This may take 6-9 months to occur. Erosion or cylinder extrusion ? If the t issues in the tips of the penis are weakened either by previous internal penile disease or as a result of the surgery, the prosthetic cylinder may migrate distally into the head of the penis and may appear to be ready to poke through the skin or into the urethra. By all means, if such an irregularity is seen, one should address it with your doctor before the prosthesis is exposed so that it can be corrected without developing infection. This problem occurs in <1% of cases. Pump problems ? These include difficulty in activating or deactivating the pump as well as change of pump location due to migration or fixation of the pump to the scrotal skin. These problems are also quite unusual but can happen as a result of an altered healing process or a malposition of the pump by the implanting surgeon. If the pump were to migrate or become fixed or difficult to manipulat e because of its position, a simple outp atient scrotal procedure can be performed to reposition the pump which is almost universally successful. This procedure is performed in no more than 1% of cases. Patient educational handouts: No information available. Plan of Care Reminders Provider Appointments Established Phone Visit 15 04/06/2022 Ross Mccracken, 9:00AM ? [facility] 04/28/2022 Joe Anne 12:00PM MD [place] ? [facility] 04/28/2022 Massimo townsend, 12:00PM Lab None recorded. ? ? Referral None recorded. ? ? Procedures None recorded. ? ? Surgeries Removal and Reimplantation of 03/09/2022 ? Penile Prosthesis (SURG) Imaging None recorded. ? ? Medications Name [...] 04/18/2018 723 RxNorm Amoxicillin ? ? 04/18/2018 16103 RxNorm Lisinopril ? ? 04/18/2018 [id number] RxNorm Lopressor ? ? 04/18/2018 Penicillin ? [...] Notes) disability Functional Status Unknown. Past Encounters 03/09/2022 Primary Erectile Dysfunction; Malfunctio n of Penile Prosthesis Massimo Mccracken MD: [address] [place] [phone], Ph. History of Present Illness Note: <div>He [...] and thedevice is cycling normally. No difficulty voiding.</div><div>
</div><div>03/09/2022: </div><div>Mr. Prieto is a very pleasant 51-year-old gentleman who wasreferred to me by my partner, Dr. Mahoney for evaluation and treatment of malfunctioning penile prosthesis. Patient was noted to have some distal left corporal fibrosis at time of prosthesis placement and has seen migration of the distal tip of the cylinder to the contralateral side. Patient reports no pain and is able to use the device. He is worreid about possibility of erosion.</div> Review of Systems ? Comprehensive General Adult ROS Reported By: Patient Constitutional: Constitutional: no fever, no chills Eyes: Eyes: no dry eyes, no vision change, no irritation Endocrine: Endocrine: no fatigue, no in creased thirst Cardiovascular: Cardiovascular: no chest jim n, no palpitations Integumentary: Skin: no rashes, no change i n skin color Respiratory: Respiratory: no wheezing, no cough, no shortness of breath Gastrointestinal: Gastrointestinal: no abdomin al pain, no nausea, no vomiting, no constipation, no GERD Musculoskeletal: Musculoskeletal: no neck jim n, no back pain Neurologic: Neurologic: no tremor, no di zziness, no numbness, no headaches Genitourinary: Genitourinary: no incontinen ce, no difficulty urinating ENMT: Ears: no ear pain. Mouth/Thr oat: no sore throat Allergic/Immunologic: Allergy/Immunologic: no itch ing, no hives Hematologic/Lymphatic: Hematologic/Lymphatic no swo llen glands, no excessive bleeding Psychiatric: Psych: no hallucinations, (n ormal) sleep disturbances: mismatch of sleep / wake yoko edule with lifestyle needs Physical Exam ? Brief Exam Reported By: Patient Male : Penis: no discharge, circumc ised; Right cylinder well-seated within the mid glans. Left cylinder has crossed the midline and is deflected ventrally. There is signific ant extrusion of the corporal tissue concerning for impending ero pb. Scrotum: no swelling, no tenderness; Scrotal pump midline somewha t high in the scrotal sac. Testes: palpable bilaterally, not enlarged
--- OUTSIDE RECORDS SUMMARY | 2022-04-03 16:19 | XMS_ITS | Encounter Summary ---
:1970 Author [facility] Address [address] [address] Care Team Providers Name Role Phone Unavailable Primary Care Provider Unavailable Reason for Visit Reason Comments HEARING LOSS Encounter Details Date Type Department Care Team Description 03/06/2013 Initial Consult [facility] Rachel Morillo, Hearing difficulty [address] [facility] JANN (Primary Dx) [place] [address] [facility] [phone] [place], [place] [phone] Social History Tobacco Use Types Packs/Day Years Used Date Smoking Tobacco: Never Assessed Sex Assigned at Date Recorded Not on file documented as of this encounter Progress Notes Rachel Morillo AU.D. - 03/06/2013 10:29 AM CDT Progress Notes signed by BOUBACAR Prado at 03/06/13 0117 Author: BOUBACAR Prado Service: (none) Author Type: Ep Specialist Filed: 03/06/137 Note Time: 03/06/13 1106 Status: Signed Animal Science Professor: BOUBACAR Prado (Ep Specialist) NAME: MAYA FU MR#: [id number] CSN: [id number] AUTHENTICATING CLINICIAN: Boubacar Prado CONFIRM #: [id number] LOC: 581 CLINIC PROGRESS NOTE DATE OF VISIT: 03/06/2013 : 1970 Maya was seen today for a hearing evaluation with concern of hearing difficulties. He states thathe has had experience around a lot of loud sounds. 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 He also has listened to loud music through his iPod and attended several concerts that were loud. He finds that he is frequently asking his to repeat. 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 He feels perhaps his left ear is better than his right. Hehas not had any medical history of problems with his ears. He reports no tinnitus. OBJECTIVE: Pure tone thresholds showed normal hearing sensitivity across frequencies for both ears. Tympanometry revealed normal middle ear compliance and pressure for both ears. Speech entry level receptionist thresholds were 15 dB and 10 dB for the right and left ear respectively. Word recognition scores were 100% in each ear. ASSESSMENT: Normal audiometric findings. PLAN: Following testing, these results were discussed with Maya. Compensatory strategies for effective communication when there is competing noise were discussed. I recommend use of hearing protection when around any high-intensity sounds, and a recheck of hearing as needed. IMPRESSION: Normal audiometric findings bilaterally. NR[facility]:SHILPA C: CONFIRM #: [id number] documented in this encounter Plan of Treatment Not on filedocumented as of this encounter Visit Diagnoses Diagnosis Hearing difficulty - Primary Unspecified hearing loss documented in this encounter
--- OUTSIDE RECORDS SUMMARY | 2022-04-03 16:19 | XMS_ITS | Encounter Summary ---
:1970 Author Organization [facility] Address [address] [place] [address] Care Team Providers Name Role Phone Unavailable Primary Care Provider Unavailable Encounter Details Date Type Department Care Team Description 03/20/2013 Lab Visit [facility] Routine physical examination ; [address] [address] [place] [address] Social History Tobacco Use Types Packs/Day Years Used Date Smoking Tobacco: Never Assessed Sex Assigned at Date Recorded Not on file documented as of this encounter Plan of Treatment Not on filedocumented as of this encounter Procedures Procedure Name Priority Date/Time Associated Diagnosis Comme nts TESTOSTERONE FREE AND Routine 03/20/2013 10:07 Decreased libid o Results for this TOTAL ADULT MALE AM CDT procedure a re in the results section. GLUCOSE Routine 03/20/2013 10:07 Routine physical Results for this AM CDT examination procedure are i n the results section. THYROID STIMULATING Routine 03/20/2013 10:07 Routine physical Results for this HORMONE AM CDT examination procedure are i n the results section. LIPID PANEL AND Routine 03/20/2013 10:07 Routine physical Resu lts for this DIRECT LDL(IF NEEDED) AM CDT examination proced ure are in the results section. documented in this encounter Results TESTOSTERONE FREE AND TOTAL ADULT MALE (03/20/2013 10:07 AM CDT) Analysis Performed At [facility] logist Time Signature Testosterone 387 300 - 890 HP CONVERSION Adult Male ng/dL Comment: REFERENCE INTERVAL: Testosterone, Adult Male Access complete set of age- and/or gende r-specific reference intervals for this test in the [facility] Test Directory (Jaco Solarsi). Testosterone Percentage Free 2.1 1.6 - 2.9 % HP CONVERSION Testosterone Free Calculation 80 47 - 244 pg/mL HP CONVERSION Comment: INTERPRETIVE INFORMATION: ??Testosterone , Free Sebas Stage IV ?35 - 169 pg/mL Sebas Stage V ? 41 - 239 pg/mL The concentration of Free Testosterone i s derived from a mathematical expression based on the con stant for the binding of testosterone to Sex Hormone B inding Globulin (SHBG). Access complete set of age- and/or gende r-specific reference intervals for this test in the [facility] Test Directory (Jaco Solarsi). Sex Hormone Binding Globulin 26 11 - 80 nmol/L HP CONVERSION Comment: REFERENCE INTERVAL: Sex Hormone Binding Globulin Access complete set of age- and/or gende r-specific reference intervals for this test in the [facility] Test Directory (Jaco Solarsi). Specimen Anatomical Collection Method Collection Time Receive d Time (Source) Location / / Volume Laterality 03/20/2013 10:03/20/2013 3:21 AM CDT PM CDT Narrative HP CONVERSION - 03/21/2013 3:25 PM CDT Performed at [facility] [address] [place] [id number] Jeniffer Gutierrez MD LAB_1 Performing Organization Address City/[facility] Phon e Number HP CONVERSION THYROID STIMULATING HORMONE (03/20/2013 10:07 AM CDT) athologist Signature Thyroid 3.30 0.20 - HP CONVERSION Stimulating 4.50 mIU/L Hormone Specimen Anatomical Collection Method Collection Time Receive d Time (Source) Location / / Volume Laterality 03/20/2013 10:03/20/2013 3:20 AM CDT PM CDT Jeniffer Gutierrez MD LAB_1 Performing Organization Address [facility] Phon e Number HP CONVERSION (ABNORMAL) GLUCOSE (03/20/2013 10:07 AM CDT) athologist Signature Lab Glucose 105 (H) 60 - 100 HP CONVERSION mg/dL Specimen Anatomical Collection Method Collection Time Receive d Time (Source) Location / / Volume Laterality 03/20/2013 10:07 03/20/2013 AM CDT 11:33 AM CDT Narrative HP CONVERSION - 03/20/2013 12:24 PM CDT Performed at [facility], [address] [place] [address] Jeniffer Gutierrez MD LAB_1 Performing Organization Address City/[facility] Phon e Number HP CONVERSION Lipid Panel and Direct LDL(If Needed) (03/20/2013 10:07 AM CDT) [facility] Method Time Signature Cholesterol 193 0 - 200 HP CONVERSION mg/dL Triglycerides 104 0 - 149 HP CONVERSION mg/dL HDL Cholesterol 53 >39 mg/dL HP CONVERSION Cholesterol/HDL 3.6 HP CONVERSION Ratio Screen LDL Calculated 119 19 - 130 HP CONVERSION mg/dL Length Of Fast 10 HP CONVERSION Specimen Anatomical Collection Method Collection Time Receive d Time (Source) Location / / Volume Laterality 03/20/2013 10:07 03/20/2013 AM CDT 11:33 AM CDT Narrative HP CONVERSION - 03/20/2013 12:24 PM CDT Performed at [facility], [address] [place] [address] Jeniffer Gutierrez MD LAB_1 Performing Organization Address [facility] Phon e Number HP CONVERSION documented in this encounter Visit Diagnoses Diagnosis Routine physical examination Routine general medical examination at a health care facility Decreased libido documented in this encounter
--- OUTSIDE RECORDS SUMMARY | 2022-04-03 16:19 | XMS_ITS | Encounter Summary ---
:1970 Author Organization [facility] Address [address] [address] Care Team Providers Name Role Phone Unavailable Primary Care Provider Unavailable Encounter Details Date Type Department Care Team Description 09/01/2010 PN Conversion Only [place] CONVERSION [address] [place] [address] Social History Tobacco Use Types Packs/Day Years Used Date Smoking Tobacco: Never Assessed Sex Assigned at Date Recorded Not on file documented as of this encounter Plan of Treatment Not on filedocumented as of this encounter Visit Diagnoses Not on filedocumented in this encounter
--- OUTSIDE RECORDS SUMMARY | 2022-04-03 16:19 | XMS_ITS | Encounter Summary ---
:1970 [facility] Address [address] [place] [address] Care Team Providers Name Role Phone Unavailable Primary Care Provider Unavailable Encounter Details Date Type Department Care Team Description 09/01/2010 PN Conversion Only CONV PULMONARY [place], [address] [facility] [address] [place], [place] [id number] [place] [address] (Wo rk) Social History Tobacco Use Types Packs/Day Years Used Date Smoking Tobacco: Never Assessed Sex Assigned at Date Recorded Not on file documented as of this encounter Plan of Treatment Not on filedocumented as of this encounter Visit Diagnoses Not on filedocumented in this encounter
--- OUTSIDE RECORDS SUMMARY | 2022-04-03 16:19 | XMS_ITS | Encounter Summary ---
:1970 Author Organization [employer] Address [address], [place] [address] Care Team Providers Name Role Phone Unavailable Primary Care Provider Unavailable Reason for Referral Specialty Diagnoses / Procedures Referred By Contact [place]er [place] [address] [place] [address] Referral ID Status Reason Start Date Expiration Date Visits Requ ested Visits Authorized ROUTER Reason for Visit Reason Comments NUMBNESS Encounter Details Date Type Department Care Team Description 06/14/2013 Procedure Visit [facility] [address] Francesco Raygoza MD NUMBNESS Rehabilitative Medic ine [address] [place] [address] [place], [place] [phone] (Wo rk) Social History Tobacco Use Types Packs/Day Years Used Date Smoking Tobacco: Never Assessed Sex Assigned at Date Recorded Not on file documented as of this encounter Progress Notes Francesco Raygoza MD - 06/14/2013 4:35 PM CST EMG NOTE Referring provider: Dr. Konstantin Milian Indication: Bilateral foot and distal lower leg burning pain and numbness Summary: I discussed potential risks and benefits of NCS/EMG and the patient wished to proceed. Please refer to the complete official report which will be sent to the referring provider and scanned into the electronic record for the full summary, nerve conduction studies, and needle electromyography results. There was mild conduction velocity slowing of bilateral common peroneal and tibial compound muscle action potentials. There was a reduced amplitude of the right tibial response without conduction blockor temporal dispersion. Distal latencies were normal. Peroneal and tibial F-wave latencies on the right were not prolonged. There were reduced amplitudes of bilateral sural sensory nerve action potentials with normal distal latencies and conduction velocities. Needle electromyography performed in selected muscles of bilateral lower limbs revealed a few fibrillation potentials, positive sharp waves, and large, polyphasic motor unit potentials in distal muscles. Proximal leg muscles and the right lower lumbosacral paraspinal muscles were normal. 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 The findings are present bilaterally, but are a little worse on the right. There is no significant electrophysiologic evidence of a lumbar radiculopathy. CC: Dr. Konstantin Milian ROUTER documented in this encounter Plan of Treatment Scheduled Referrals Name Type Priority Associated Diagnoses Order S chedule REHAB--EMG ELECTRICAL Referral Routine Neuropathy, periphe ral Ordered: 06/14/2013 NERVE CONDUCTION STUDY (AMB) documented as of this encounter Visit Diagnoses Diagnosis Neuropathy, peripheral - Primary Unspecified hereditary and idiopathic pe ripheral neuropathy documented in this encounter
--- OUTSIDE RECORDS SUMMARY | 2022-04-03 16:19 | XMS_ITS | Encounter Summary ---
:1970 Author Organization [employer] Address [address] [address] Care Team Providers Name Role Phone Unavailable Primary Care Provider Unavailable Reason for Visit Reason Comments Annual Exam Encounter Details Date Type Department Care Team Description 03/20/2013 Office Visit [facility] Jeniffer Gutierrez M D Routine physical examination (Primary Dx ); Medicine [address] Need for influenza vaccination; [address] [place], [place] Need for diphtheria-tetanus- pertussis (Tdap) vaccine; [place] [address] Decreased libido; [id number] ED (erectile dysfunction); HBP (high blood pressure); Adjustmen t disorder with mixed anxiety and depressed mood; Chews tobacco Social History Tobacco Use Types Packs/Day Years Used Date Smoking Tobacco: Never Assessed Sex Assigned at Date Recorded Not on file documented as of this encounter Last Filed Vital Signs Vital Sign Reading Time Taken Comments Blood Pressure 132/80 03/20/2013 9:13 AM CDT Pulse 75 03/20/2013 9:13 AM CDT Temperature - - Respiratory Rate 16 03/20/2013 9:13 AM CDT Oxygen Saturation - - Inhaled Oxygen Concentration - - Weight 112.5 kg (248 lb) 03/20/2013 9:13 AM CDT Height 190.5 cm (6' 3) 03/20/2013 9:13 AM CDT Body Mass Index 31 03/20/2013 9:13 AM CDT documented in this encounter Progress Notes Ashley Epperson LPN - 03/21/2013 10:35 AM CDT Patient Followup Plan: Patient declined weight management information at this time. Jeniffer Gutierrez MD - 03/20/2013 11:21 AM CDT Progress Notes signed by Jeniffer Gutierrez MD at 03/21/13 1034 Author: Jeniffer Gutierrez MD Service: (none) Author Type: Physician Filed: 03/21/13 1034 Note Time: 03/20/13 7478 Status: Signed [facility] Plans Staff Officer: Jeniffer Gutierrez MD (Physician) NAME: MAYA FU MR#: [id number] CSN: [id number] AUTHENTICATING CLINICIAN: Jeniffer Gutierrez MD CONFIRM #: [id number] LOC: 4402 CLINIC PROGRESS NOTE DATE OF VISIT: 03/20/2013 : 1970 This 42-year-old, male presented to our site first time for complete annual physical examination and a couple of concerns. PAST MEDICAL HISTORY/SOCIAL HISTORY/FAMILY HISTORY: All have been reviewed, updated in the chart now. The patient needs a tetanus shot. He needs also influenza shot, he agreed with that. His past medical history, active problems, he has history of all high blood pressure. He has history of anxiety depression, he has history of chewing tobacco, ED, and a ccording to the patient he drinks approximately 12-15 beers a week without any concern he has about that. REVIEW OF THE SYSTEM: Otherwise his HEENT, neck, lung, cardiovascular, GI, skeletal, muscle negative. MEDICATIONS: He is on Prilosec, Adderall, Wellbutrin, Diovan and Lipitor. So far, the only medication that he wants to have today is the Lipitor. Also he complained about tiredness and concern about decreased libido and wants to check his testosterone. FAMILY HISTORY: His dad had leukemia and at age 46, what kind of leukemia he does not know. Otherwise negative. OBJECTIVE: VITAL SIGNS: Blood pressure 132/80, pulse 75, respirations 16. His body mass index 31.06. Alert, oriented in no distress. Mildly overweight, especially abdomen is obese. HEENT: Negative. NECK: Supple. LUNGS: Clear. HEART: S1, S2 without murmur. ABDOMEN: Benign, soft, no organomegaly. Upper and lower extremity joints symmetrical. Full range of motion active and passive. Posterior reflex pretty normal. Circumcised male. Both testicles, scrotal sac, epididymis pretty normal. Inguinal channel free of mass. The patient deferred rectal exam and prostate exam. ASSESSMENT: A 42-year-old male with above physical exam, above problems that we put it in the chart now, high blood pressure, erectile dysfunction, anxiety, chewing tobacco. PLAN: I will check his lipid profile, liver enzyme, blood sugar, TSH, testosterone. I refilled Cialis. Themedication side effects discussed. If worse, additional symptoms, concerns, questions back to the clinic. Immunization given and to follow up after lab as needed, he agreed. Patient advised to get his medical record to here, he agreed. YO:MEDRe C: CONFIRM #: [id number] documented in this encounter Plan of Treatment Not on filedocumented as of this encounter Visit Diagnoses Diagnosis Routine physical examination - Primary Routine general medical examination at a health care facility Need for influenza vaccination Need for prophylactic vaccination and in oculation against influenza Need for jsqfghascr-czgflfr-lvynkvgao (T dap) vaccine Need for prophylactic vaccination with c ombined vmpaujnxfw-ywubjsd-cpwiofmhe (DTP) vaccine Decreased libido ED (erectile dysfunction) Impotence of organic origin HBP (high blood pressure) (HRC) Unspecified essential hypertension Adjustment disorder with mixed anxiety a nd depressed mood (HRC) Adjustment disorder with mixed anxiety a nd depressed mood Chews tobacco (HRC) Tobacco use disorder documented in this encounter
[2022-04-03 22:07] LABS: Chloride* 99 mmol/L (96-114); Potassium* 3.6 mmol/L (3.6-5.1); Sodium* 133 mmol/L (135-149)
[2022-04-03 22:09] LABS: Creatinine* 0.9 mg/dL (0.5-1.5); Estimated Glomerular Filt Rate 101 ml/min
[2022-04-03 22:10] LABS: Blood Urea Nitrogen* 15 mg/dL (7-30); Calcium* 9.7 mg/dL (8.4-10.6); Carbon Dioxide* 24 mmol/L (20-32); Glucose* 128 mg/dL (60-115)
== END 2022-04-03 16:13 | disposition home or self-care (01) ==
LOC: LKVREF 16:13
PROVIDERS: PCP Family Medicine; Visit Provider Family Medicine
DX: Z01.818 Encounter for other preprocedural examination (principal)
CPT/HCPCS: 80048

== ENCOUNTER 2022-09-17 15:42 | Outpatient (CLI) | payer OTHER, SELFPAY | END 2022-09-17 15:43 | disposition home or self-care (01) | PROVIDERS: PCP Family Medicine; Visit Provider Family Medicine | DX: I10 Essential (primary) hypertension (principal); E11.9 Type 2 diabetes mellitus without complications; E03.9 Hypothyroidism, unspecified; F10.20 Alcohol dependence, uncomplicated | CPT/HCPCS: 80053; 84443 ==

== ENCOUNTER 2023-09-20 12:56 | Outpatient (CLI) | payer OTHER, SELFPAY | END 2023-09-20 12:57 | disposition home or self-care (01) | LOC: NFLDREF 10-04 07:35 | PROVIDERS: PCP Family Medicine; Referring Provider Family Medicine; Visit Provider Family Medicine | DX: E03.9 Hypothyroidism, unspecified (principal); E11.9 Type 2 diabetes mellitus without complications; F10.20 Alcohol dependence, uncomplicated; I10 Essential (primary) hypertension; E78.00 Pure hypercholesterolemia, unspecified; Z12.5 Encounter for screening for malignant neoplasm of prostate | CPT/HCPCS: 80053; 80061; 82043; 82570; 84443; G0103 ==

== ENCOUNTER 2023-12-14 12:36 | Outpatient (CLI) | payer OTHER, SELFPAY ==
--- OUTSIDE RECORDS SUMMARY | 2023-12-14 12:39 | XMS_ITS | Encounter Summary ---
Author Organization [facility] Address [address] [place] [address] Care Team Providers Care Milled Rubber Tender Name Role Phone Koby Hill MD Primary Care Provider CreaganEloisa APRN BASEBALL CLUB MANAGER Unavailable + [phone] Creabraham, Eloisa Das APRN BASEBALL CLUB MANAGER Unavailable + [phone] Koby Hill MD Unavailable [phone] Trae Clayton PA-C Unavailable + [phone] Koby Hill MD Unavailable [phone] Creagan, Eloisa Das APRN BASEBALL CLUB MANAGER Unavailable + [phone] Encounter Details Date Type Department Care Team (Late st Contact Info) Description 05/17/2017 MyC Medical Advice [address] [place] [address] Susu Grider RN Social History Tobacco Use Types Packs/Day Years Used Date Smoking Tobacco: Former Smokeless Tobacco: Current Chew Alcohol Use Standard Drinks/Week Comments Yes 0 (1 standard drink = 0.6 oz pur e alcohol) 2-3 drinks daily Sex and Gender Information Value Date Recorded Sex Assigned at Not on file Gender Identity Not on file Sexual Orientation Not on file documented as of this encounter Plan of Treatment Not on file documented as of this encounter Visit Diagnoses Not on filedocumented in this encounter Additional Health Concerns Infection Onset Date Last Indicated Resolved Time Rule Out COVID-19 05/02/2022 05/02/2022 05/02/2022 10:22 PM CDT Assessment Noted Time PHQ-9 Depression Total Score: 2 04/17/20 16 7:19 AM CDT documented as of this encounter Care Teams Milled Rubber Tender Relationship Specialty Start Date End Date Koby Hill MD [address] [address] PCP - General Internal Medicine 10/14/15 Eloisa Owusu APRN BASEBALL CLUB MANAGER [address] [place] [address] PCP - Assigned PCP 01/16/18 09/13/18 Eloisa Owusu APRN BASEBALL CLUB MANAGER [address] [place] [address] Assigned PCP 01/16/18 01/07/19 Koby Hill MD [address] [place] [address] Assigned PCP 01/08/19 02/18/19 Trae Clayton PA-C [address] [place] [address] Assigned PCP 02/19/19 04/01/19 Koby Hill MD [address] [place] [address] Assigned PCP 04/02/19 07/15/19 Eloisa Owusu APRN BASEBALL CLUB MANAGER [address] [place] [address] Assigned PCP 07/16/19 01/11/21 documented as of this encounter
--- OUTSIDE RECORDS SUMMARY | 2023-12-14 12:39 | XMS_ITS | Clinical Summary ---
Author Organization [facility] Address [address] [place] [address] Care Team Providers Care Cash Application Clerk Name Role Phone Koby Hill MD Primary Care Provider Allergies Active Allergy Reactions Criticality Noted Date Comments Nadeem Inhibitors Cough 09/10/2011 Amoxicillin Hives 03/20/2011 Sulfamethoxazole-Trimethop rim Rash High 05/03/2022 Diffuse morbilliform rash, mild hypertension and vomiting so possible anaphylaxis Lisinopril Cough 05/03/2013 Penicillins Hives 11/15/2012 Medications Medication Sig Dispensed Refills Start Date End Date Status omeprazole (PRILOSEC) 40 MG capsule Take 40 mg by mouth daily Active amphetamine-dextroamp hetamine (ADDERALL XR) 30 MG per capsule Take 30 mg by mouth daily Active ibuprofen (ADVIL,MOTRIN) 200 MG tablet Take 200 mg by mouth every 4 hours as needed for mild pain Active eszopiclone (LUNESTA) 3 MG tablet Take 3 mg by mouth At Bedtime 0 03/06/2016 Active multivitamin w/minerals (THERA-VIT-M) tablet Take 1 tablet by mouth daily Active clonazePAM (KLONOPIN) 1 MG tablet Take 1 mg by mouth 2 times daily as needed for anxiety 2 06/23/2017 Active amLODIPine (NORVASC) 10 MG tablet Take 10 mg by mouth daily 04/21/2022 Active buPROPion (WELLBUTRIN XL) 300 MG 24 hr tablet Take 300 mg by mouth daily 02/08/2022 Active hydrochlorothiazide (MICROZIDE) 12.5 MG capsule Take 1 capsule by mouth daily 04/21/2022 Active levothyroxine (SYNTHROID/LEVOTHROID ) 75 MCG tablet Take 75 mcg by mouth daily 04/08/2022 Active meclizine (ANTIVERT) 25 MG tablet Take 25 mg by mouth every 8 hours as needed for dizziness Active phentermine (ADIPEX-P) 15 MG capsule Take 15-30 mg by mouth daily 02/08/2022 Active valsartan (DIOVAN) 320 MG tablet Take 320 mg by mouth daily Active Active Problems Problem Noted Date Diagnosed Date Right knee pain 04/16/2016 Major depressive disorder, recurrent episode, mi ld (H24) 10/14/2015 Essential hypertension 10/14/2015 Gastroesophageal reflux disease without esophagi tis 10/14/2015 Attention deficit hyperactiv ity disorder (ADHD), combined type 10/14/2015 Immunizations Name Administration Dates Next Due Influenza Vaccine >6 months,quad, PF 04/16/2016 TDAP (Adacel,Boostrix) 03/20/2013 Family History Medical History Relation Comments Hypertension Father Hypertension Mother Diabetes Sister Relation Status Comments Father Mother Alive Sister Social History Tobacco Use Types Packs/Day Years Used Date Smoking Tobacco: Former Smokeless Tobacco: Current Chew Tobacco Cessation:Ready to Q uit: No; Counseling Given: Yes Alcohol Use Standard Drinks/Week Comments Yes 0 (1 standard drink = 0.6 oz pur e alcohol) 2-3 drinks daily PHQ-2 Answer Date Recorded PHQ-2 Score 0 07/20/2018 Adolescent Education Answer Date Record ed Getting School Help Needed Not on file 04/02 Sex and Gender Information Value Date Recorded Sex Assigned at Not on file Gender Identity Not on file Sexual Orientation Not on file Last Filed Vital Signs Vital Sign Reading Time Taken Comments Blood Pressure 132/79 05/03/2022 12:00 PM CDT Pulse 88 05/03/2022 12:00 PM CDT Temperature 36.4 ??C (97.5 ??F) 05/03/2022 1 2:00 PM CDT Respiratory Rate 16 05/03/2022 12:0 0 PM CDT Oxygen Saturation 98% 05/03/2022 12: 00 PM CDT Inhaled Oxygen Concentration - - Weight 115.3 kg (254 lb 3.2 oz) 05/03/2022 5:00 AM CDT Height 190.5 cm (6' 3) 05/03/2022 5:00 AM CDT Body Mass Index 31.77 05/03/2022 5:00 AM CDT Plan of Treatment Health Maintenance Due Date Last Done Comments ADVANCE CARE PLANNING 1970 ANNUAL REVIEW OF HM ORDERS 1968 CT COLONOGRAPHY 1968 FIT 1970 FLEX SIG 1970 YEARLY PREVENTIVE VISIT 1968 sDNA (Cologuard) 1968 COLONOSCOPY 1978 COLORECTAL CANCER SCREENING 1978 HIV SCREENING 1983 HEPATITIS C SCREENING 1986 HEPATITIS B IMMUNIZATION (3 of 3 - 19+ 3-dose series) 10/29/2010 09/03/2010, 07/13/2008 PHQ-9 10/15/2016 04/16/2016, 11/12/2015 TSH W/FREE T4 REFLEX 10/17/2016 10/18/2015 LUNG CANCER SCREENING 2018 ZOSTER IMMUNIZATION (1 of 2) 2018 LIPID 10/17/2020 10/18/2015 COVID-19 Vaccine ( season) 2023 DTAP/TDAP/TD IMMUNIZATION (6 - Td or Tdap) 03/20/2023 03/20/2013, 09/03/2010, 09/03/2010, Additional history exists INFLUENZA VACCINE (Season Ended) 2024 03/29/2018, 04/16/2016, 05/07/2015, Additional history exists GLUCOSE 05/03/2025 05/03/2022, 04/12, 04/14/2022, Additional history exists DEPRESSION ACTION PLAN Completed 02/18/2016 HPV IMMUNIZATION Aged Out No longer e ligible based on patient's age to complete this topic IPV IMMUNIZATION Aged Out No longer e ligible based on patient's age to complete this topic MENINGITIS IMMUNIZATION Aged Out No l onger eligible based on patient's age to complete this topic Pneumococcal Vaccine: Pediatrics (0 to 5 Years) and At-Risk Patients (6 to 64 Years) Aged Out No longer eligible based on patient's age to complete this topic RSV MONOCLONAL ANTIBODY Aged Out No l onger eligible based on patient's age to complete this topic Procedures Procedure Name Priority Date/Time Associated Diagnosis Comments COMPREHENSIVE METABOLIC PANEL Routine 05/03/2022 5:58 AM CDT TSH WITH FREE T4 REFLEX Routine 10/18/2015 8:56 AM CDT Essential hypertension Chronic fatigue LIPID REFLEX TO DIRECT LDL PANEL Routine 10/18/2015 8:56 AM CDT Essential hypertension from Last 3 Months or Most Recently Relevant to Health Maintenance Results * (ABNORMAL) Comprehensive metabolic panel (05/03/2022 5:58 AM CDT) Sodium 130(L) 136 - 145 mmol/L 05/03/2022 6:38 AM CDT [facility] Potassium 4.3 3.4 - 5.3 mmol/L 05/03/2022 6:38 AM CDT [facility] Chloride 97(L) 98 - 107 mmol/L 05/03/2022 6:38 AM CDT [facility] Carbon Dioxide (CO2) 22 22 - 29 mmol/L 05/03/2022 6:38 AM CDT [facility] Anion Gap 11 7 - 15 mmol/L 05/03/2022 6:38 AM CDT [facility] Urea Nitrogen 15.5 6.0 - 20.0 mg/dL 05/03/2022 6:38 AM CDT [facility] Creatinine 1.17 0.67 - 1.17 mg/dL 05/03/2022 6:38 AM CDT [facility] Calcium 8.6 8.6 - 10.0 mg/dL 05/03/2022 6:38 AM CDT [facility] Glucose 258(H) 70 - 99 mg/dL 05/03/2022 6:38 AM CDT [facility] Alkaline Phosphatase 62 40 - 129 U/L 05/03/2022 6:38 AM CDT [facility] AST 13 10 - 50 U/L 05/03/2022 6:38 AM CDT [facility] ALT 13 10 - 50 U/L 05/03/2022 6:38 AM CDT [facility] Protein Total 6.1(L) 6.4 - 8.3 g/dL 05/03/2022 6:38 AM CDT [facility] Albumin 3.5 3.5 - 5.2 g/dL 05/03/2022 6:38 AM CDT [facility] Bilirubin Total 0.3 <=1.2 mg/dL 05/03/2022 6:38 AM CDT [facility] GFR Estimate 74 >60 mL/min/1.7 3m2 05/03/2022 6:38 AM [facility]T [facility] Comment:Effective June 122020 eGFRcr in adults is calculated using the 2020 CKD-EPI creatinine equation which includes age and gender (Nahum et al., NEJM, DOI: 10.1056/WEXJvg8174820) Blood STRUCTURE OF LEFT UPPER LIMB / Unknown Venipuncture / Unknown 05/03/2022 5:58 AM CDT 05/03/2022 6:14 AM CDT Teja Adam MD LAB - BLOOD [facility] Acute Care Lab [address] Lab (1st floor, no room number) [place] [address], [facility] [phone] * TSH with free T4 reflex (10/18/2015 8:56 AM CDT) TSH 2.32 0.40 - 4.00 mU/L [facility] Blood specimen (specimen) 10/18/2015 8:56 AM CDT 10/18/2015 9:02 AM CDT Koby Hill MD LAB - BLOOD ORDERAB LES [facility] [address] [place] [address] * (ABNORMAL) Lipid panel reflex to direct LDL (10/18/2015 8:56 AM CDT) Cholesterol 180 <200 mg/dL [facility] Triglycerides 182(H) <150 mg/dL [facility] Comment: Borderline high: ??150-199 mg/dl High: ? 200-499 mg/dl Very high: ? >499 mg/dl Fasting specimen HDL Cholesterol 59 >39 mg/dL [facility] LDL Cholesterol Calculated 85 <100 mg/dL [facility] Comment:Desirable: <100 mg/d l Non HDL Cholesterol 121 <130 mg/dL [facility] Blood specimen (specimen) 10/18/2015 8:56 AM CDT 10/18/2015 9:02 AM CDT Koby Hill MD LAB - BLOOD ORDERAB LES [facility] [address] [place] [address] from Last 3 Months or Most Recently Relevant to Health Maintenance Advance Directives For more information, please contact: [phone] * Full Code (Latest Code Status on File) Date Activated Date Inactivated Comments 05/03/2022 1:09 PM Question Answer Comments Code status determined by: Discussion with dextere nt/ legal decision maker Care Teams Cash Application Clerk Relationship Specialty Start Date End Date Koby Hill MD [address] [place] [address] PCP - General Internal Medicine 10/14/15
--- OUTSIDE RECORDS SUMMARY | 2023-12-14 12:39 | XMS_ITS | Referral Summary ---
Author Organization [facility] Address [address] [place] [address] Care Team Providers Care Television Actor Name Role Phone Koby Hill MD Primary [...] >6 months,quad, PF 04/16/2016 TDAP (Adacel,Boostrix) 03/20/2013 Social History Tobacco Use Types Packs/Day Years [...] 05/03/2022 5:00 AM CDT Plan of Treatment Not on file Procedures Procedure Name Priority Date/Time Associated Diagnosis [...] >60 mL/min/1.7 3m2 05/03/2022 6:38 AM CDT [facility] Comment:Effective June 122020 eGFRcr in adults is calculated using the 2020 CKD-EPI creatinine equation which includes age and gender (Nahum et al., NEJ, DOI: 10.1056/NIKWve2575981) Blood STRUCTURE OF LEFT UPPER LIMB / Unknown Venipuncture / Unknown 05/03/2022 5:58 AM CDT 05/03/2022 6:14 AM CDT Teja Adam MD LAB - BLOOD [facility] Acute Care Lab [address] Lab (1st floor, no room number) [place] [address], [facility] [phone] * TSH with free T4 reflex (10/18/2015 8:56 AM CDT) TSH 2.32 0.40 - 4.00 mU/L [facility] Blood specimen (specimen) 10/18/2015 8:56 AM CDT 10/18/2015 9:02 AM CDT Koby Hill MD LAB - BLOOD ORDERAB LES [facility] [address] [place] [address] * (ABNORMAL) Lipid panel reflex to direct LDL (10/18/2015 8:56 AM CDT) Cholesterol 180 <200 mg/dL [facility] Triglycerides 182(H) <150 mg/dL [facility] Comment: Borderline high: ??150-199 mg/dl High: ? 200-499 mg/dl Very high: ? >499 mg/dl Fasting specimen HDL Cholesterol 59 >39 mg/dL [facility] LDL Cholesterol Calculated 85 <100 mg/dL [facility] Comment:Desirable: <100 mg/d l Non HDL Cholesterol 121 <130 mg/dL [facility] Blood specimen (specimen) 10/18/2015 8:56 AM CDT 10/18/2015 9:02 AM CDT Koby Hill MD LAB - BLOOD ORDERAB LES [facility] [address] [place] [address] from Last 3 Months or Most Recently Relevant to Health Maintenance Advance Directives For more information, please contact: [phone] * Full Code (Latest Code Status on File) Date Activated Date Inactivated Comments 05/03/2022 1:09 PM Question Answer Comments Code status determined by: Discussion with jesu nt/ legal decision maker Care Teams Television Actor Relationship Specialty Start Date End Date Koby Hill MD [address] [place] [address] PCP - General Internal Medicine 10/14/15
--- OUTSIDE RECORDS SUMMARY | 2023-12-14 12:39 | XMS_ITS | Encounter Summary ---
Author Organization [facility] Address [address], [place] [address] Care Team Providers Care Pattern Generator Operator Name Role Phone Konstantin Milian MD Primary Care Provider [phone] Encounter Details Date Type Department Care Team (Latest Contact Info) Description 11/12/2015 Correspondence Occupational and Environmental Medicine [address] [place] [address] Rachelle Tang MD [address] [place] [address] [phone] [place] [address] RESPIRATOR CLEARANCE EVALUATION FOR DOC Social History Tobacco Use Types Packs/Day Years Used Date Smoking Tobacco: Never Assessed Sex and Gender Information Value Date Recorded Sex Assigned at Not on file Gender Identity Not on file Sexual Orientation Not on file documented as of this encounter Plan of Treatment Not on file documented as of this encounter Visit Diagnoses Not on filedocumented in this encounter Care Teams Pattern Generator Operator Relationship Specialty Start [place] [address] [address] PCP - General 08/03/13 documented as of this encounter
--- OUTSIDE RECORDS SUMMARY | 2023-12-14 12:39 | XMS_ITS | Continuity of Care Document ---
Author Organization [facility] Address [address] [place] [address] [address] Insurance Providers Payer Plan Claims Address Claims Phone Policy Number Group Number Relation Employer Guarantor Name Guarantor Guarantor Address Guarantor Phone BCBS BCBS [address] [address], [place] [address] tel:[phone] Self Rubens Obregon Conner [address] [place] [id number] [facility] RS HEALT HPART NERS [address], [place] [address] tel:[phone] Self Rubens Obregon Conner [address] [place] [address] WC WORKER S COMP WC WORKE RS COMP [id number] [facility], [facility] [address], [place] [address] [phone] Self Rubens Obregon Conner [address] [place] [address] Problems Condition ICD9 code ICD10 code SNOMED code Start Date End Date S tatus Encounter for other preprocedural examination Z01.818 Final Type 2 diabetes mellitus without complications E11.9 Final Alcohol dependence, uncomplicated F10.20 Final Hypothyroidism, unspecified E03.9 Final Essential (primary) hypertension I10 Final Obesity, unspecified E66.9 Fin al Type 2 diabetes mellitus without complications E11.9 Final Gastro-esophageal reflux disease without esophagitis K21.9 Final Essential (primary) hypertension I10 Final Alcohol dependence, uncomplicated F10.20 Final Hypothyroidism, unspecified E03.9 Final Cough, unspecified R05.9 Final Acute pharyngitis, unspecified J02.9 Final Urgency of urination R39.15 Adm itting Urgency of urination R39.15 Fin al Type 2 diabetes mellitus without complications E11.9 Final Benign prostatic hyperplasia with lower urinary tract symptoms N40.1 Fi nal Nocturia R35.1 Final Essential (primary) hypertension I10 Final Alcohol dependence, uncomplicated F10.20 Final Hypothyroidism, unspecified E03.9 Final Acute prostatitis N41.0 Final Dizziness and giddiness R42 Final Hypothyroidism, unspecified E03.9 Final Type 2 diabetes mellitus without complications E11.9 Final Essential (primary) hypertension I10 Final Alcohol dependence, uncomplicated F10.20 Final Benign prostatic hyperplasia with lower urinary tract symptoms N40.1 Fi nal Nocturia R35.1 Final Pure hypercholesterolemia, unspecified E78.00 Final Hypothyroidism, unspecified E03.9 Admitting Type 2 diabetes mellitus without complications E11.9 Admitting Alcohol dependence, uncomplicated F10.20 Admitting Essential (primary) hypertension I10 Admitting Nocturia R35.1 Admitting Benign prostatic hyperplasia with lower urinary tract symptoms N40.1 Ad mitting Pure hypercholesterolemia, unspecified E78.00 Admitting Essential (primary) hypertension I10 Final Type 2 diabetes mellitus without complications E11.9 Final Hypothyroidism, unspecified E03.9 Final Gastro-esophageal reflux disease without esophagitis K21.9 Final Insomnia, unspecified G47.00 Fi nal Hypothyroidism, unspecified E03.9 Final Type 2 diabetes mellitus without complications E11.9 Final Alcohol dependence, uncomplicated F10.20 Final Essential (primary) hypertension I10 Final Benign prostatic hyperplasia with lower urinary tract symptoms N40.1 Fi nal Nocturia R35.1 Final Pure hypercholesterolemia, unspecified E78.00 Final Encounter for other preprocedural examination Z01.818 Admitting Type 2 diabetes mellitus without complications E11.9 Admitting Encounter for other preprocedural examination Z01.818 Final Type 2 diabetes mellitus without complications E11.9 Final Essential (primary) hypertension I10 Final Other forms of dyspnea R06.09 F inal Type 2 diabetes mellitus without complications E11.9 Admitting Essential (primary) hypertension I10 Admitting Other forms of dyspnea R06.09 A dmitting Results No Results Allergies, adverse reactions, alerts No known allergies and adverse reactions Medications No administered medications reported Vital Signs No vital signs reported Social History No smoking Hx information available
--- OUTSIDE RECORDS SUMMARY | 2023-12-14 12:39 | XMS_ITS | Encounter Summary ---
Author Organization [facility] Address [address] [place] [address] Care Team Providers Care Roving Tester Laboratory Name Role Phone Koby Hill MD Primary Care Provider Encounter Details Date Type Department Care Team (Late st Contact Info) Description 04/24/2022 Orders Only [facility] Centralized Scheduling [address] [place] [id number] Quinn Brown MD [address] [place] [address] Encounter for laboratory testing for COVID-19 virus Social History Tobacco Use Types Packs/Day Years Used Date Smoking Tobacco: Former Smokeless Tobacco: Current Chew Alcohol Use Standard Drinks/Week Comments Yes 0 (1 standard drink = 0.6 oz pur e alcohol) 2-3 drinks daily PHQ-2 Answer Date Recorded PHQ-2 Score 0 07/20/2018 Sex and Gender Information Value Date Recorded Sex Assigned at Not on file Gender Identity Not on file Sexual Orientation Not on file COVID-19 Exposure Response Date Recorded In the last 10 days, have yo u been in contact with someone who was confirmed or suspected to have Coronavirus/COVID-19? No / Unsure 04/24/2022 10:06 AM CDT documented as of this encounter Plan of Treatment Not on file documented as of this encounter Results * Asymptomatic COVID-19 Virus (Coronavirus) by PCR Nose (04/24/2022 2:01 PM CDT) SARS CoV2 PCR Negative Negative 04/25/2022 11:33 AM CDT [facility] Comment:NEGATIVE: SARS-CoV-2 (COVID-19) RNA not detected, presumed negative. Swab NASAL STRUCTURE / Unknown Non-blood Collection / Unknown 04/24/2022 2:01 PM CDT 04/24/2022 2:37 PM CDT Narrative [facility] - 04/25/2022 11:33 AM CDT Testing was performed using the chelsie SARS-CoV-2 assay on the chelsie [email or web address] System. This test should be ordered for the detection of SARS-CoV-2 in individuals who meet SARS-CoV-2 clinical and/or epidemiological criteria. Test performance is unknown in asymptomatic patients. This test is for in vitro diagnostic use under the FDA EUA for laboratories certified under CLIA to perform high and/or moderate complexity testing. This test has not been FDA cleared or approved. A negative result does not rule out the presence of PCR inhibitors in the specimen or target RNA in concentration below the limit of detection for the assay. The possibility of a false negative should be considered if the patient's recent exposure or clinical presentation suggests COVID-19. This test was validated by the [facility]. This laboratory is certified under the Clinical Laboratory Improvement Amendments of 1988 (CLIA-88) as qualified to perform high and/or moderate complexity laboratory testing. Quinn Brown MD LAB - MICRO GENERAL ORDERABLES [facility] Inf. Diseases Diag. Lab [address] [facility], [address] [place] [address], [facility] [phone] documented in this encounter Visit Diagnoses Diagnosis Encounter for laboratory testing for COVID-19 virus documented in this encounter Additional Health Concerns Infection Onset Date Last Indicated Resolved Time Rule Out COVID-19 05/02/2022 05/02/2022 05/02/2022 10:22 PM CDT Assessment Noted Time PHQ-9 Depression Total Score: 2 04/17/20 16 7:19 AM CDT documented as of this encounter Care Teams Roving Tester Laboratory Relationship Specialty Start Date End Date Koby Hill MD [address] [place] [address] PCP - General Internal Medicine 10/14/15 documented as of this encounter
--- OUTSIDE RECORDS SUMMARY | 2023-12-14 12:39 | XMS_ITS | Clinical Summary ---
Author Organization [facility] [facility] Address [place], [place] [address] Care Team Providers Care Review Analyst Name Role Phone Konstantin Milian MD Primary Care Provider [phone] Service, Claudia Prieto MD Unavailable [phone] Allergies Active Allergy Reactions Criticality Noted Date Comments Nadeem Inhibitors Cough 09/10/2011 Amoxicillin Hives 03/20/2011 Hydrocodone Bitartrate Stomach Upset 07/01/2018 Lisinopril Cough 10/12/2014 Metoprolol Impotence,Other - Describe In Comment Field 05/03/2013 PN: erectile dysfunction Metoprolol Tartrate Impotence 04/18/2018 Penicillins Hives 11/15/2012 Sulfamethoxazole-Trim ethoprim Rash High 05/03/2022 Diffuse morbilliform rash, mild hypertension and vomiting so possible anaphylaxis Medications Medication Sig Dispensed Refills Start Date End Date Status valsartan (DIOVAN) 320 mg tabletIndications:H ypertension, unspecified type Take 1 tablet by mouth once daily. 60 tablet 08/19/2019 Active hydroCHLOROthiazide 12.5 mg tabletIndications:H ypertension, unspecified type Take 1 tablet by mouth once daily. 60 tablet 08/19/2019 Active amLODIPine (NORVASC) 10 mg tablet Take 10 mg by mouth once daily. 04/21/2020 Active phentermine (IONAMIN) 15 mg capsule TAKE 1 TO 2 CAPSULES BY MOUTH ONCE DAILY 05/24/2020 Active metFORMIN (GLUCOPHAGE XR) 750 mg Extended-Release tablet Take 750 mg by mouth once daily with evening meal. 05/24/2020 Active levothyroxine (SYNTHROID) 75 mcg tablet Take 75 mcg by mouth once daily. 06/28/2020 Active hydroCHLOROthiazide 12.5 mg capsule 06/13/2021 Active omeprazole (PRILOSEC) 40 mg Delayed-Release capsuleIndications: GERD without esophagitis Take 1 Capsule (40 mg) by mouth once daily. 90 Capsule 3 11/18/2022 Active gabapentin (NEURONTIN) 300 mg capsule 1 Capsule three times daily. 05/30/2023 Active meclizine (ANTIVERT) 25 mg tablet TAKE 1 TABLET BY MOUTH EVERY 8 HOURS NEEDED FOR VERTIGO Active dextroamphetamine-a mphetamine (Adderall XR) 30 mg Extended-Release capsuleIndications: Attention deficit hyperactivity disorder (ADHD), unspecified ADHD type Take 1 Capsule (30 mg) by mouth once daily. 30 Capsule 10/12/2023 Active dextroamphetamine-a mphetamine (AdderalL) 10 mg tabletIndications:A ttention deficit hyperactivity disorder (ADHD), unspecified ADHD type Take 1 Tablet (10 mg) by mouth two times daily. 60 Tablet 10/12/2023 Active meloxicam 15 mg tablet Take 1 tablet every day by oral route. Active multivitamins with minerals tablet Take 1 Tablet by mouth once daily. Active brexpiprazole (Rexulti) 2 mg tablet Take 1 Tablet by mouth once daily. Active brexpiprazole (Rexulti) 4 mg tablet Take 1 Tablet by mouth once daily. Active eszopiclone (LUNESTA) 3 mg tablet Take 1 Tablet by mouth at bedtime. Active Ozempic 1 mg/dose (4 mg/3 mL) pen 10/24/2023 Active tamsulosin (FLOMAX) 0.4 mg capsule TAKE 1 CAPSULE BY MOUTH EVERY DAY AT BEDTIME 10/12/2023 Active topiramate (TOPAMAX) 25 mg tablet TAKE 1 TABLET BY MOUTH IN THE MORNING AND 1 IN THE EVENING Active buPROPion (WELLBUTRIN XL) 300 mg Extended-Release tablet Take 1 Tablet by mouth once daily. 02/08/2022 Active buPROPion (Wellbutrin XL) 150 mg Extended-Release tabletIndications:D epression, unspecified depression type Take 1 Tablet (150 mg) by mouth once daily. 30 Tablet 5 10/27/2023 Active dextroamphetamine-a mphetamine (Adderall XR) 30 mg Extended-Release capsuleIndications: Attention deficit hyperactivity disorder (ADHD), unspecified ADHD type Take 1 Capsule (30 mg) by mouth once daily. 30 Capsule 11/26/2023 4 Active dextroamphetamine-a mphetamine (Adderall XR) 30 mg Extended-Release capsuleIndications: Attention deficit hyperactivity disorder (ADHD), unspecified ADHD type Take 1 Capsule (30 mg) by mouth once daily. 30 Capsule 12/26/2023 Active dextroamphetamine-a mphetamine (AdderalL) 10 mg tabletIndications:A ttention deficit hyperactivity disorder (ADHD), unspecified ADHD type Take 1 Tablet (10 mg) by mouth two times daily. 60 Tablet 11/26/2023 4 Active dextroamphetamine-a mphetamine (AdderalL) 10 mg tabletIndications:A ttention deficit hyperactivity disorder (ADHD), unspecified ADHD type Take 1 Tablet (10 mg) by mouth two times daily. 60 Tablet 12/26/2023 Active eszopiclone (Lunesta) 3 mg tabletIndications:I nsomnia, unspecified type Take 1 Tablet (3 mg) by mouth at bedtime if needed for Sleep. 30 Tablet 5 10/27/2023 Active zolpidem (AMBIEN) 10 mg tablet Take 10 mg by mouth at bedtime. 10/20/2023 4 Discontinued (*Medication adjustment) dextroamphetamine-a mphetamine (Adderall XR) 30 mg Extended-Release capsuleIndications: Attention deficit hyperactivity disorder (ADHD), unspecified ADHD type Take 1 Capsule (30 mg) by mouth once daily. 30 Capsule 10/27/2023 4 dextroamphetamine-a mphetamine (AdderalL) 10 mg tabletIndications:A ttention deficit hyperactivity disorder (ADHD), unspecified ADHD type Take 1 Tablet (10 mg) by mouth two times daily. 60 Tablet 10/27/2023 4 Active Problems Problem Noted Date Diagnosed Date Chronic right shoulder pain 09/13/2018 Encounter for long-term (current) use of other m edications 12/14/2014 Overview: Controlled substance agreement for Clonazepam, Adderall, and Lunesta on file and signed 12/14/14. Designated pharmacy: [facility] Prescribing physician: Dr. Prather. Diagnosis: Anxiety, ADD, Depression. Irasema Carey RN .................... 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 Designated pharmacy: [facility]. Prescribing physician: Dr Prather. Diagnosis: ADD Depression with anxiety 02/10/2012 Erectile dysfunction 11/24/2011 Hypercholesterolemia 08/31/2011 Hypertension 08/11/2011 Anxiety Overview: Dr. Duncan. Resolved Problems Problem Noted Date Diagnosed Date Resolved Date ADD (attention deficit disorder) 02/09/2017 06/23/2018 Encounters Date Type Department Care Team Description 12/02/[address] [address] Claudia Prather MD Pharmacist Medication Management (eszopiclone (Lunesta) 3 mg table/zolpidem (AMBIEN) 10 mg tablet) 10/27/2023 5:00 PM CDT Telemedicine [facility] [address] [place] [id number] Claudia Prather MD Telehealth; Medication Management (Follow up) 10/26/2023 Travel from Last 3 Months Immunizations Name Administration Dates Next Due DTaP 09/03/2010,10/11/2006 HepA-HepB (Twinrix) 09/03/2010 Hepatitis B (Adult) 07/13/2008 Influenza Virus, Unspecified 05/07/2015,06/10/20 10 Influenza, IIV3 (Age 6-35 mos) 05/06/2015 Influenza, IIV3 (Age >=3 years) 06/19/20 14,04/12/2014,07/22/2012,06/10/20 10 Influenza, IIV4 03/29/2018,04/16/2016,03/20/2013 Influenza, IIV4 (Age 6-35 Mos) 03/20/2013 Tdap 08/16/2022, 3,09/03/2010,10/12/19 07 Zoster (Shingrix-RZV, recombinant) 08/16/2022 Family History Medical History Relation Name Comments Cancer Father Heart Disease Mother Relation Name Status Comments Child Alive 3 kids healthy Father (Age 46) Leukemia Mother Alive HTN at age 70 Sister Alive 2 sisters alive Social History Tobacco Use Types Packs/Day Years Used Date Smoking Tobacco: Former Cigarettes 1 4 0 07/12/2006 - 07/12/2010 Smokeless Tobacco: Current Chew Tobacco Cessation:Ready to Q uit: Not Asked; Counseling Given: Not Answered Comments:age [age]. quit 6 years. started 2000 Current chew, 06-16-23 Alcohol Use Standard Drinks/Week Comments Yes 13 (1 standard drink = 0.6 oz pu re alcohol) few times a week, 06-16-23 PHQ-2 Answer Date Recorded PHQ-2 TOTAL SCORE 0 10/26/2023 Alcohol Use Answer Date Recorded How often do you have a drink containing alcohol ? 3 06/16/2023 Average Number of Drinks Not on file 023 Frequency of Binge Drinking Not on file 12/2022 Sex and Gender Information Value Date Recorded Sex Assigned at Not on file Gender Identity Not on file Sexual Orientation Not on file Obstetrics History Last Filed Vital Signs Vital Sign Reading Time Taken Comments Blood Pressure 129/78 06/01/2019 3:31 PM CHECKROOM ATTENDANT Pulse 94 06/01/2019 3:31 PM CHECKROOM ATTENDANT Temperature 36.3 ??C (97.4 ??F) 09/05/2018 2:37 PM CS T Respiratory Rate 16 07/02/2018 7:45 AM CHECKROOM ATTENDANT Oxygen Saturation 96% 07/02/2018 7:45 AM CHECKROOM ATTENDANT Inhaled Oxygen Concentration - - Weight 111.1 kg (245 lb) 01/20/2022 9:28 AM CDT Height 193 cm (6' 4) 01/20/2022 9:28 AM CDT Body Mass Index 29.82 01/20/2022 9:28 AM CDT Plan of Treatment Upcoming Encounters Date Type Department Care Team (Late st Contact Info) Description 12/14/2023 1:00 PM CDT Ancillary Procedure [facility] [address] [place] [address] Health Maintenance Due Date Last Done Comments HIV for age 15-65 1983 Hepatitis C screening for age 18-79 1986 Colonoscopy through age 75 2013 Zoster (shingles) series for age 50+ (2 of 2) 10/11/2022 08/16/2022 BMI (ht and wt on same day) for age 18+ 01/20/2023 01/20/2022, 10/09/2021, 09/05/2018, Additional history exists COVID-19 vaccine series (2022- season) 2023 Lipids for age 45-75 03/30/2023 03/30/2018, 09/20/2017, 04/20/2017, Additional history exists Influenza for age 50-64 03/12/2024 03/29/20 18, 04/16/2016, 05/07/2015, Additional history exists Depression screening for age 12+ 10/26/2024 10/27/2023, 06/16/2023, 02/17/2023, Additional history exists Tetanus booster 08/16/2032 08/16/2022, 03/2013, 09/03/2010, Additional history exists Tdap Completed 08/16/2022, 03/2013, 09/03/2010, Additional history exists Pneumococcal series for age 6-64 Aged Out No longer eligible based on patient's age to complete this topic Medical Devices Implanted Type Area Yard Crane Operator Device Identifier Shelf Expiration Date Model / Serial / Lot Cmnt Bone 40g Simplex Hv Gentamicin - [id number] Implanted:Qty: 1 on 10/16/2014 by Chace Zimmerman MD at [facility] Left: Knee [employer] 05/18/2016 [id number]# / / [id number] Cmnt Bone Simplex Hv - [id number] Implanted:Qty: 1 on 10/16/2014 by Chace Zimmerman MD at [facility] Left: Knee [employer] 04/17/2015 [id number]# / / [id number] Fem Lt Sz8 Journey Ii Bcs Oxin - [id number] Implanted:Qty: 1 on 10/16/2014 by Chace Zimmerman MD at [facility] Left: Knee [employer] 02/15/2023 [id number]# / / [id number] Insert Knee Lt Sz7-8 11mm Journey Ii Bcs Bi Cruc Stbz - [id number] Implanted:Qty: 1 on 10/16/2014 by Chace Zimmerman MD at [facility] Left: Knee [employer] 10/16/2022 [id number]# / / [id number] Patella 38mm Donna Ii Resurf - [id number] Implanted:Qty: 1 on 10/16/2014 by Chace Zimmerman MD at [facility] Left: Knee [employer] 01/16/2024 [id number]# / / [id number] Baseplate Tib Lt Sz 7 Hot Tar Roofer Helper Journey - [id number] Implanted:Qty: 1 on 10/16/2014 by Chace Zimmerman MD at [facility] Left: Knee [employer] 08/18/2022 [id number]# / / [id number] Accsry Implnt Penile Implanted:Qty: 1 on 07/01/2018 by Malachi Mahoney MD at [facility] Penis 04/24/2023 [id number] / / [id number] Description:KIT ACCSRY IMPLN T PENILE Implnt Rte Snapcone C./Lgx3.0cm - [id number] Implanted:Qty: 1 on 07/01/2018 by Malachi Mahoney MD at [facility] Penis [employer] 04/19/2023 [id number]# / / [id number] Implnt [place] 100ml Conccile Iz Implanted:Qty: 1 on 07/01/2018 by Malachi Mahoney MD at [facility] Penis [employer] 05/30/2020 [id number] / / [id number] Description:IMPLNT RESERVOIR 100ML DARLINECILE IZ Ams 700 Lgx Ms Pump 15 X12 Implanted:Qty: 1 on 07/01/2018 by Malachi Mahoney MD at [facility] Penis 05/23/2020 [id number] / / [id number] Description:AMS 700 LGX MS P UMP 15 X12 Procedures Procedure Name Priority Date/Time Associated Diagnosis Comments LIPID PANEL W REFLEX MEASURED LDL Routine 03/30/2018 10:29 AM CDT Encounter for medication management from Last 3 Months or Most Recently Relevant to Health Maintenance Results * (ABNORMAL) LIPID PANEL W REFLEX MEASURED LDL (03/30/2018 10:29 AM CDT) CHOLESTEROL,TOTAL 164 100 - 199 mg/dL 03/30/2018 11:08 AM CDT [facility] TRIGLYCERIDES 241(H) <150 mg/dL 03/30/2018 11:08 AM CDT [facility] HDL CHOLESTEROL 41 >40 mg/dL 8 11:08 AM CDT [facility] NON-HDL CHOLESTEROL 123 <145 mg/dl 03/30/2018 11:08 AM CDT [facility] CHOL/HDL RATIO 4.00 <4.50 03/30/2018 11:08 AM T [facility] LDL CHOLESTEROL 75 <=130 mg/dL 03/30/2018 11:08 AM CDT [facility] PROVIDER ORDERED STATUS RANDOM 03/30/2018 11:08 AM CDT [facility] Blood BLOOD SPECIMEN / Unknown Venipuncture / Unknown 03/30/2018 10:29 AM CDT 03/30/2018 10:29 AM CDT Claudia Prather MD CHEMISTRY [facility] [address] [place] [address] from Last 3 Months or Most Recently Relevant to Health Maintenance Advance Directives * Full Code (Latest Code Status on File) Date Activated Date Inactivated Comments 07/01/2018 1:46 PM 07/02/2018 1:16 PM * Full Code Date Activated Date Inactivated Comments 10/16/2014 9:24 AM 10/18/2014 6:27 PM Care Teams Review Analyst Relationship Specialty Start [place] [address] [place] [address] PCP - General Family Practice 10/17/19 Service, Claudia Prieto MD [address] [facility] [address] [place] [address] Psychiatry 10/15/21
--- OUTSIDE RECORDS SUMMARY | 2023-12-14 12:39 | XMS_ITS | Clinical Summary ---
Author Organization [facility] Address [address], [place] [address] Care Team Providers Care Cotton Candy Maker Name Role Phone Konstantin Milian MD Primary Care Provider [phone] Source Comments You are receiving this document as you are listed as the primary care provider,follow-up provider, or the patient has been referred to you for consultation.This is in compliance with the Medicare and[facility] E[facility] Incentive Program,which states Providers who transition their patient to another setting of careor provider of care or refers their patient to another provider of care shouldprovide summary care record for each transition of care or referral. [employer] Allergies Active Allergy Reactions Criticality Noted Date Comments Amoxicillin Hives 03/20/2013 Lisinopril Cough 05/03/2013 Metoprolol Other, see comments 05/03/2013 PN: erectile dysfunction Medications Medication Sig Dispensed Refills Start Date End Date Status buPROPion (WELLBUTRINXL) 150 MG 24 hour release tablet Take 450 mg by mouth every morning. 03/20/2013 Active omeprazole (PRILOSEC) 40 MG capsule Take 40 mg by mouth daily (every 24 hours). 03/20/2013 Active terbutaline (AKA BRETHINE) 5 MG tablet At 3 hrs of erection , take 1 tab. At 3 1/2 hrs, take 1 tab. At 4 hrs go to ER. 10 tablet 10 08/03/2013 Active Valsartan-Hydrochl orothiazide (DIOVAN-HCT) 320-12.5 MG tabletIndications: Essential hypertension (HRC) Take 1 tablet by mouth daily (every 24 hours). Indications: HYPERTENSION 90 tablet 2 09/10/2015 Active amLODIPine (NORVASC) 5 MG tabletIndications: Essential hypertension (HRC) Take 1 tablet by mouth daily (every 24 hours). Indications: HYPERTENSION 90 tablet 1 09/10/2015 Active clindamycin (CLEOCIN) 300 MG capsule Take 2 capsules by mouth once as needed for Other for up to 1 dose. Take 600 mg one hour prior to dental procedure. 4 capsule prn 10/23/2015 Active armodafinil (NUVIGIL) 250 MG tabletIndications: KATIA MOSER WedMar 06, 2016 1:37 PM Received from: [facility] Take 250 mg by mouth. 01/07/2016 Active clonazePAM (KLONOPIN) 1 MG tabletIndications: KATIA MOSER WedMar 06, 2016 1:37 PM Received from: [facility] Take 1 mg by mouth. 03/06/2016 Activ e amphetamine-dextro amphetamine (ADDERALLXR) 30 MG 24 hour release capsuleIndications :KATIA MOSER WedMar 06, 2016 1:38 PM Received from: [facility] Take 30 mg by mouth. 01/07/2016 Acti ve ARIPiprazole (ABILIFY) 5 MG tabletIndications: KATIA MOSER WedMar 06, 2016 1:38 PM Received from: [facility] Take 2.5-5 mg by mouth. 01/07/2016 Active clotrimazole (LOTRIMIN) 1 % cream Apply topically 2 times daily. 30 g 3 03/06/2016 Active insulin syringe-needle 31G X 5/16 inch 1 mL (BD INSULIN SYRINGE ULTRAFINE) Inject subcutaneously as needed. 25 Each 8 03/25/2017 Active compounded prescription Papaverine 30 mg/ml + phentolamine 1 mg/ml + Prostin 10 mcg/mL. Inject 10-50 units as directed. 5 Each 11 01/28/2018 Active sildenafil (VIAGRA) 100 MG tablet TAKE 1 TABLET BY MOUTH ONCE DAILY NEEDED 6 Tablet 04/18/2018 Active Active Problems Problem Noted Date Diagnosed Date Osteoarthritis of left knee 08/17/2014 Sensorimotor neuropathy 07/14/2013 Essential hypertension 05/03/2013 ADD (attention deficit disorder) without hyperac tivity 05/03/2013 GERD (gastroesophageal reflux disease) 3 Impaired fasting glucose 05/03/2013 Obesity 05/03/2013 ED (erectile dysfunction) 03/20/2013 Mixed anxiety and depressive disorder 03/20/2013 Overview: Mixed anxiety and depressive disorder (ACG) Chews tobacco 03/20/2013 Immunizations Name Administration Dates Next Due Influenza IIV4 (Quadrivalent) 0.5mL (94290) 03/2013 Influenza, Unspecified Formulation 05/07/2015 TDAP (BOOSTRIX) 03/20/2013 Family History Medical History Relation Name Comments Cancer Father leukemia Hypertension Mother Osteoarthritis Mother Hypertension Sister 3 Relation Name Status Comments Father (Age 46) Mother Alive Sister 1 Alive Sister 2 Alive Sister 3 Social History Tobacco Use Types Packs/Day Years Used Date Smoking Tobacco: Former Cigarettes 0 07/12/2000 - 07/12/2010 Smokeless Tobacco: Current Chew Comments:chews tobacco Alcohol Use Standard Drinks/Week Comments Yes 0 (1 standard drink = 0.6 oz pur e alcohol) 12-15 beers/week Sex and Gender Information Value Date Recorded Sex Assigned at Not on file Gender Identity Not on file Sexual Orientation Not on file Last Filed Vital Signs Vital Sign Reading Time Taken Comments Blood Pressure 134/76 03/25/2017 10:07 AM CDT Pulse 78 03/25/2017 10:07 AM CDT Temperature 36.9 ??C (98.4 ??F) 10/10/2014 8:53 AM CD T Respiratory Rate 14 03/25/2017 10:07 AM CDT Oxygen Saturation 97% 10/10/2014 8:53 AM CDT Inhaled Oxygen Concentration - - Weight 119.9 kg (264 lb 5 oz) 10/24/2014 4:39 PM CDT Height 195.6 cm (6' 5) 10/03/2014 9:26 AM CDT Body Mass Index 31.34 10/03/2014 9:26 AM CDT Plan of Treatment Health Maintenance Due Date Last Done Comments Colon Cancer Screening Plan Due 1968 Hep C Screening (Preventive Services) 1968 PSA Screening Discussion 1968 HIV Screening (Preventive Services) 1984 Adult Preventive Visit 1986 HepB (1) 1987 Zoster/Shingles (1 of 2) 2018 Cholesterol 07/20/2019 07/20/2014, 03/20/2013 COVID-19 Vaccine (1 - 2022-24 season) 2023 DTaP/Tdap/Td (3 - Tdap) 03/20/2023 03/20/20 13, 03/20/2013 (Completed), 09/03/2010 Influenza (Season Ended) 2024 015, 05/07/2015 (Completed), 03/20/2013, Additional history exists HepA Aged Out No longer eligi ble based on patient's age to complete this topic Hib Aged Out No longer eligi ble based on patient's age to complete this topic IPV (Polio) Aged Out No longer eligi ble based on patient's age to complete this topic MCV4 Aged Out No longer eligi ble based on patient's age to complete this topic Pneumococcal Aged Out No longer eligi ble based on patient's age to complete this topic Procedures Procedure Name Priority Date/Time Associated Diagnosis Comments LIPID PANEL & DIRECT LDL (IF NEEDED) Routine 07/20/2014 7:47 AM CONTRACT CLERK AUTOMOBILE Screening cholesterol level from Last 3 Months or Most Recently Relevant to Health Maintenance Results * Lipid Panel and Direct LDL(If Needed) (07/20/2014 7:47 AM CONTRACT CLERK AUTOMOBILE) Cholesterol 189 0 - 200 mg/dL HP CONVERSION Triglycerides 113 0 - 149 mg/dL HP CONVERSION HDL Cholesterol 58 >39 mg/dL HP CONVERSION Cholesterol/HDL Ratio Screen 3.3 HP CONVERSION LDL Calculated 108 19 - 130 mg/dL HP CONVERSION Hours Fasting 12.0 HP CONVERSION 07/20/2014 7:47 AM CONTRACT CLERK [employer]LE 07/20/2014 7:47 AM CONTRACT CLERK [employer]BILE Narrative HP CONVERSION - 07/20/2014 9:21 AM CONTRACT CLERK AUTOMOBILE Performed at [facility], [address] [place] [address] Konstantin Milian MD LAB_1 HP CONVERSION from Last 3 Months or Most Recently Relevant to Health Maintenance Care Teams Cotton Candy Maker Relationship Specialty [place] [address] [place] [address] PCP - General 08/03/13
--- OUTSIDE RECORDS SUMMARY | 2023-12-14 12:39 | XMS_ITS | Encounter Summary ---
Author Organization [facility] Address [address] [place] [address] Care Team Providers Care Skin Carver Name Role Phone Koby Hill MD Primary Care Provider CreaganEloisa APRN PRACTICE REPRESENTATIVE Unavailable + [phone] Umer, Eloisa Das APRN PRACTICE REPRESENTATIVE Unavailable + [phone] Koby Hill MD Unavailable [phone] Trae Clayton PA-C Unavailable + [phone] Koby Hill MD Unavailable [phone] CreaganEloisa APRN PRACTICE REPRESENTATIVE Unavailable + [phone] Encounter Details Date Type Department Care Team (Late st Contact Info) Description 06/21/2017 MyC Medical Advice [address] [place] [address] Ashley Batista RN Social History Tobacco Use Types Packs/Day [...] documented as of this encounter Care Teams Skin Carver Relationship Specialty Start Date End Date Koby Hill MD [address] [address] PCP - General Internal Medicine 10/14/15 Eloisa Owusu APRN PRACTICE REPRESENTATIVE [address] [place] [address] PCP - Assigned PCP 01/16/18 09/13/18 Eloisa Owusu APRN PRACTICE REPRESENTATIVE [address] [place] [address] Assigned PCP 01/16/18 01/07/19 Koby Hill MD [address] [place] [address] Assigned PCP 01/08/19 02/18/19 Trae Clayton PA-C [address] [place] [address] Assigned PCP 02/19/19 04/01/19 Koby Hill MD [address] [place] [address] Assigned PCP 04/02/19 07/15/19 Eloisa Owusu APRN PRACTICE REPRESENTATIVE [address] [place] [address] Assigned PCP 07/16/19 01/11/21 documented as of this encounter
[2023-12-14 13:40] VITALS: BP 137/79; PULSE 105
--- NOTE | 2023-12-14 14:44 | W.PM.STED ---
Stress Test Note Date Date of test: 12/14/23 Providers Primary care provider: Erick Toledo Stress test physician: Pacheco Ayala Stress Test Note Stress test ordered: Stress Echo Indication for test: Shortness of breath Results discussion: Patient is a very nice 53-year-old gentleman who presents for the above test, after review of the cardiac stress test medical history form. Preliminary EKG shows normal sinus rhythm, with a ventricular rate of 83 in a blood pressure 135/80 . Discussion the risks benefits and side effects is undertaken. Patient accepts these on like to proceed. Standard Harpal protocol is employed over a time course of 10 minutes, he achieved a metabolic equivalent of 11.5 Mets with a maximum heart rate of 160, which is 114% of the maximum. During this test he did not have any chest pain shortness of breath or any anginal equivalent symptoms, test is terminated because of fulfillment of protocol. Condition was felt to be good Impression: Negative electrographic portion of stress echo, subjectively and objectively negative Follow up suggested: Await echo images clinical correlation with these will be needed, patient will be discharged from the hospital, once he is at baseline, there is no complications,
== END 2023-12-14 12:37 | disposition home or self-care (01) ==
LOC: STRESS 12:37
PROVIDERS: PCP Family Medicine; Visit Provider Family Medicine
DX: R06.09 Other forms of dyspnea (principal); R07.89 Other chest pain
CPT/HCPCS: 93016; 93325; 93351

== ENCOUNTER 2024-04-13 14:13 | Outpatient (CLI) | payer OTHER, SELFPAY ==
--- OUTSIDE RECORDS SUMMARY | 2024-04-13 14:17 | XMS_ITS | Encounter Summary ---
Author Organization [facility] Address [address], [place] [address] Care Team Providers Care Occupational Ther Name Role Phone Konstantin Milian MD Primary Care Provider [phone] Encounter Details Date Type Department Care Team (Latest Contact Info) Description 11/12/2015 Correspondence Occupational and Environmental Medicine [address] [place] [address] Rachelle Tang MD [address] [place] [address] [phone] [place] [address] RESPIRATOR CLEARANCE EVALUATION FOR DOC Social History [...] on filedocumented in this encounter Care Teams Occupational Ther Relationship Specialty Start [place] [address] [address] PCP - General 08/03/13 documented as of this encounter
--- OUTSIDE RECORDS SUMMARY | 2024-04-13 14:17 | XMS_ITS | Referral Summary ---
Author Organization [facility] Address [address] [place] [address] Care Team Providers Care Call Or Contact Centre Team Leader Name Role Phone Koby Hill MD Primary Care Provider [phone] Allergies Active Allergy Reactions Criticality Noted Date [...] Major depressive disorder, recurrent episode, mi ld 10/14/2015 Essential hypertension 10/14/2015 Gastroesophageal reflux disease [...] includes age and gender (Nahum et al., NE, DOI: 10.1056/PLXWez3973838) Blood STRUCTURE OF LEFT UPPER LIMB / Unknown Venipuncture / Unknown 05/03/2022 5:58 AM CDT 05/03/2022 6:14 AM CDT Teja Adam MD LAB - BLOOD [facility] [address] Lab (1st floor, no room number) [place] [address], [facility] [phone] * TSH with free T4 reflex (10/18/2015 8:56 AM CDT) TSH 2.32 0.40 - 4.00 mU/L [facility] Blood specimen (specimen) 10/18/2015 8:56 AM CDT 10/18/2015 9:02 AM CDT Koby Hill MD LAB - BLOOD ORDERAB LES [facility] [address] [place] [address] * (ABNORMAL) Lipid panel reflex to direct LDL (10/18/2015 8:56 AM CDT) Cholesterol 180 <200 mg/dL [facility] Triglycerides 182(H) <150 mg/dL [facility] Comment: Borderline high: ??150-199 mg/dl High: ? 200-499 mg/dl Very high: ? >499 mg/dl Fasting specimen HDL Cholesterol 59 >39 mg/dL [facility] LDL Cholesterol Calculated 85 <100 mg/dL [facility] Comment:Desirable: <100 mg/d l Non HDL Cholesterol 121 <130 mg/dL [facility] Blood specimen (specimen) 10/18/2015 8:56 AM CDT 10/18/2015 9:02 AM CDT Koby Hill MD LAB - BLOOD ORDERAB LES [facility] [address] [place] [address] from Last 3 Months or Most Recently Relevant to Health Maintenance Advance Directives For more information, please contact: [phone] * Full Code (Latest Code Status on File) Date Activated Date Inactivated Comments 05/03/2022 1:09 PM Question Answer Comments Code status determined by: Discussion with jesu nt/ legal decision maker Care Teams Call Or Contact Centre Team Leader Relationship Specialty Start Date End Date Koby Hill MD [address] [place] [address] PCP - General Internal Medicine 10/14/15
--- OUTSIDE RECORDS SUMMARY | 2024-04-13 14:17 | XMS_ITS | Clinical Summary ---
Author Organization [facility] Address [address] [place] [address] Care Team Providers Care Pneumatic Tool Repairer Name Role Phone Koby Hill MD Primary [...] (1 of 2) 2018 LIPID 10/17/2020 10/18/2015 DTAP/TDAP/TD IMMUNIZATION (6 - Td or Tdap) 03/20/2023 03/20/2013, 09/03/2010, 09/03/2010, Additional history exists BMP 05/03/2023 05/03/2022, 04/12, 04/14/2022, Additional history exists COVID-19 Vaccine ( season) 2024 INFLUENZA VACCINE (#1) 2024 8, 04/16/2016, 05/07/2015, Additional history exists GLUCOSE 05/03/2025 05/03/2022, 04/12, 04/14/2022, Additional history exists RSV VACCINE (1 - 1-dose 75+ series) 2043 DEPRESSION ACTION PLAN Completed 02/18/2016 HPV IMMUNIZATION [...] 0.3 <=1.2 mg/dL 05/03/2022 6:38 AM CDT LABORATORY GFR Estimate 74 >60 mL/min/1.7 3m2 05/03/2022 6:38 AM CDT LABORATORY Comment:Effective June 122020 eGFRcr in adults is calculated using the 2020 CKD-EPI creatinine equation which includes age and gender (Nahum et al., NE, DOI: 10.1056/YQSAif5339412) Blood STRUCTURE OF LEFT UPPER LIMB / Unknown Venipuncture / Unknown 05/03/2022 5:58 AM CDT 05/03/2022 6:14 AM CDT Teja Adam MD LAB - BLOOD [facility] [address] Lab (1st floor, no room number) [place] [address], [facility] [phone] * TSH with free T4 reflex (10/18/2015 8:56 AM CDT) TSH 2.32 0.40 - 4.00 mU/L [facility] Blood specimen (specimen) 10/18/2015 8:56 AM CDT 10/18/2015 9:02 AM CDT Koby Hill MD LAB - BLOOD ORDERAB LES [facility] [address] [place] [address] * (ABNORMAL) Lipid panel reflex to direct LDL (10/18/2015 8:56 AM CDT) Cholesterol 180 <200 mg/dL [facility] Triglycerides 182(H) <150 mg/dL [facility] Comment: Borderline high: ??150-199 mg/dl High: ? 200-499 mg/dl Very high: ? >499 mg/dl Fasting specimen HDL Cholesterol 59 >39 mg/dL [facility] LDL Cholesterol Calculated 85 <100 mg/dL [facility] Comment:Desirable: <100 mg/d l Non HDL Cholesterol 121 <130 mg/dL [facility] Blood specimen (specimen) 10/18/2015 8:56 AM CDT 10/18/2015 9:02 AM CDT Koby Hill MD LAB - BLOOD ORDERAB LES [facility] [address] [place] [address] from Last 3 Months or Most Recently Relevant to Health Maintenance Advance Directives For more information, please contact: [phone] * Full Code (Latest Code Status on File) Date Activated Date Inactivated Comments 05/03/2022 1:09 PM Question Answer Comments Code status determined by: Discussion with jesu nt/ legal decision maker Care Teams Pneumatic Tool Repairer Relationship Specialty Start Date End Date Koby Hill MD [address] [place] [address] PCP - General Internal Medicine 10/14/15
--- OUTSIDE RECORDS SUMMARY | 2024-04-13 14:17 | XMS_ITS | Clinical Summary ---
Author Organization [facility] Address [address] [address] Care Team Providers Care Family Development Extension Specialist Name Role Phone Konstantin Milian MD Primary Care Provider [phone] Source Comments You are receiving this document as you are listed as the primary care provider,follow-up provider, or the patient has been referred to you for consultation.This is in compliance with the Medicare and[facility] Incentive [facility],which states Providers who transition their patient to another setting of careor provider of care or refers their patient to another provider of care shouldprovide summary care record for each transition of care or referral. [employer] [facility] Allergies Active Allergy Reactions Criticality Noted Date [...] WedMar 06, 2016 1:37 PM Received from: [facility] Take 250 mg by mouth. 01/07/2016 Active clonazePAM (KLONOPIN) 1 MG tabletIndications: KATIA MOSER WedMar 06, 2016 1:37 PM Received from: [facility] Take 1 mg by mouth. 03/06/2016 Activ e amphetamine-dextro amphetamine (ADDERALLXR) 30 MG 24 hour release capsuleIndications :KATIA MOSER WedMar 06, 2016 1:38 PM Received from: [facility] Take 30 mg by mouth. 01/07/2016 Acti ve ARIPiprazole (ABILIFY) 5 MG tabletIndications: KATIA MOSER WedMar 06, 2016 1:38 PM Received from: [facility] Take 2.5-5 mg by mouth. 01/07/2016 Active [...] 03/20/2013 Mixed anxiety and depressive disorder 03/20/2013 Overview (03/03/2017): Mixed anxiety and depressive disorder (ACG) Chews tobacco 03/20/2013 Immunizations Name Administration Dates Next Due Influenza IIV4 (Quadrivalent) 0.5mL (23031) 03/2013 Influenza, Unspecified Formulation 05/07/2015 TDAP (BOOSTRIX) [...] of 2) 2018 Cholesterol 07/20/2019 07/20/2014, 03/20/2013 DTaP/Tdap/Td (3 - Tdap) 03/20/2023 03/20/20 13, 03/20/2013 (Completed), 09/03/2010 COVID-19 Vaccine (2023- season) 2024 Influenza (#1) 2024 05/07/2015, 04/12 (Completed), 03/20/2013, Additional history exists HepA Aged Out No longer eligi ble based on patient's age to complete this topic Hib Aged Out No longer eligi ble based on patient's age to complete this topic IPV (Polio) Aged Out No longer eligi ble based on patient's age to complete this topic RSV Aged Out No longer eligi ble based on patient's age to complete this topic MCV4 Aged Out No longer eligi ble based on patient's age to complete this topic Pneumococcal Aged Out No longer eligi ble based on patient's age to complete this topic Procedures Procedure Name Priority Date/Time Associated Diagnosis Comments LIPID PANEL & DIRECT LDL (IF NEEDED) Routine 07/20/2014 7:47 AM HELIOTHERAPIST Screening cholesterol level from Last 3 Months or Most Recently Relevant to Health Maintenance Results * Lipid Panel and Direct LDL(If Needed) (07/20/2014 7:47 AM HELIOTHERAPIST) Cholesterol 189 0 - 200 mg/dL [facility] CON[facility] Triglycerides 113 0 - 149 mg/dL [facility] HDL Cholesterol 58 >39 mg/dL [facility] Cholesterol/HDL Ratio Screen 3.3 [facility] LDL Calculated 108 19 - 130 mg/dL [facility] CON[facility] Hours Fasting 12.0 HP CONVERSION 07/20/2014 7:47 AM HELIOTHERAPIST 07/20/2014 7:47 AM HELIOTHERAPIST Narrative HP CONVERSION - 07/20/2014 9:21 AM HELIOTHERAPIST Performed at [facility], [address] [place] [address] Konstantin Milian MD LAB_1 HP CONVERSION from Last 3 Months or Most Recently Relevant to Health Maintenance Care Teams Family Development Extension Specialist Relationship Specialty [place] [address] [address] PCP - General 08/03/13
--- OUTSIDE RECORDS SUMMARY | 2024-04-13 14:17 | XMS_ITS | Clinical Summary ---
Author Organization [facility] Address [place], [place] [address] Care Team Providers Care Nurse Chemical Dependency Name Role Phone Konstantin Milian MD Primary Care Provider [phone] Service, Claudia Prieto MD Unavailable [phone] Allergies Active Allergy Reactions Criticality Noted Date [...] EVERY 8 HOURS NEEDED FOR VERTIGO Active meloxicam 15 mg tablet Take 1 tablet every day by oral route. Active multivitamins with minerals tablet Take 1 Tablet by mouth once daily. Active Ozempic 1 mg/dose (4 mg/3 mL) pen 10/24/2023 Active tamsulosin (FLOMAX) 0.4 mg capsule TAKE 1 CAPSULE BY MOUTH EVERY DAY AT BEDTIME 10/12/2023 Active buPROPion (WELLBUTRIN XL) 300 mg Extended-Release tablet Take 1 Tablet by mouth once daily. 02/08/2022 Active dextroamphetamine-a mphetamine (Adderall XR) 30 mg [...] for Sleep. 30 Tablet 5 10/27/2023 Active dextroamphetamine-a mphetamine (AdderalL) 10 mg tabletIndications:A ttention deficit hyperactivity disorder (ADHD), unspecified ADHD type Take 1 Tablet (10 mg) by mouth two times daily. 60 Tablet 04/03/2024 Active dextroamphetamine-a mphetamine (Adderall XR) 30 mg Extended-Release capsuleIndications: Attention deficit hyperactivity disorder (ADHD), unspecified ADHD type Take 1 Capsule (30 mg) by mouth once daily. 30 Capsule 04/03/2024 Active eszopiclone (LUNESTA) 1 mg tabletIndications:I nsomnia due to other mental disorder Take 2 tablets (2mg) nightly for two weeks, decrease to 1 tablet (1mg) nightly for two weeks and stop. 45 Tablet 05/01/2024 Active ramelteon (ROZEREM) 8 mg tabletIndications:I nsomnia due to other mental disorder Take 1 Tablet (8 mg) by mouth at bedtime. 30 Tablet 2 04/04/2024 Active dextroamphetamine-a mphetamine (Adderall XR) 30 mg Extended-Release capsuleIndications: Attention deficit hyperactivity disorder (ADHD), unspecified ADHD type Take 1 Capsule (30 mg) by mouth once daily. 30 Capsule 04/11/2024 4 Active dextroamphetamine-a mphetamine (Adderall XR) 30 mg Extended-Release capsuleIndications: Attention deficit hyperactivity disorder (ADHD), unspecified ADHD type Take 1 Capsule (30 mg) by mouth once daily. 30 Capsule 05/11/2024 4 Active dextroamphetamine-a mphetamine (Adderall XR) 30 mg Extended-Release capsuleIndications: Attention deficit hyperactivity disorder (ADHD), unspecified ADHD type Take 1 Capsule (30 mg) by mouth once daily. 30 Capsule 06/10/2024 Active dextroamphetamine-a mphetamine (AdderalL) 10 mg tabletIndications:A ttention deficit hyperactivity disorder (ADHD), unspecified ADHD type Take 1 Tablet (10 mg) by mouth two times daily. 60 Tablet 04/11/2024 4 Active dextroamphetamine-a mphetamine (AdderalL) 10 mg tabletIndications:A ttention deficit hyperactivity disorder (ADHD), unspecified ADHD type Take 1 Tablet (10 mg) by mouth two times daily. 60 Tablet 05/11/2024 4 Active dextroamphetamine-a mphetamine (AdderalL) 10 mg tabletIndications:A ttention deficit hyperactivity disorder (ADHD), unspecified ADHD type Take 1 Tablet (10 mg) by mouth two times daily. 60 Tablet 06/10/2024 Active brexpiprazole (Rexulti) 2 mg tablet Take 1 Tablet by mouth once daily. 4 Discontinued (*Med complete/Reg imen complete/Lev el of care change) brexpiprazole (Rexulti) 4 mg tablet Take 1 Tablet by mouth once daily. 4 Discontinued (*Med complete/Reg imen complete/Lev el of care change) eszopiclone (LUNESTA) 3 mg tablet Take 1 Tablet by mouth at bedtime. 4 Discontinued (*Med complete/Reg imen complete/Lev el of care change) topiramate (TOPAMAX) 25 mg tablet TAKE 1 TABLET BY MOUTH IN THE MORNING AND 1 IN THE EVENING 4 Discontinued (*Med complete/Reg imen complete/Lev el of care change) buPROPion (Wellbutrin XL) 150 mg Extended-Release tabletIndications:D epression, unspecified depression type Take 1 Tablet (150 mg) by mouth once daily. 30 Tablet 5 10/27/2023 4 Discontinued (*Med complete/Reg imen complete/Lev el of care change) dextroamphetamine-a mphetamine (AdderalL) 10 mg tabletIndications:A ttention deficit hyperactivity disorder (ADHD), unspecified ADHD type Take 1 Tablet (10 mg) by mouth two times daily. 60 Tablet 03/04/2024 4 dextroamphetamine-a mphetamine (Adderall XR) 30 mg Extended-Release capsuleIndications: Attention deficit hyperactivity disorder (ADHD), unspecified ADHD type Take 1 Capsule (30 mg) by mouth once daily. 30 Capsule 03/04/2024 4 Active Problems Problem Noted Date Diagnosed Date Situational anxiety 04/04/2024 Insomnia due to other mental disorder 04/04/2024 Depression 04/04/2024 Chronic right shoulder pain 09/13/2018 Encounter for long-term (current) use of other m edications 12/14/2014 Overview (12/14/2014): Controlled substance agreement for Clonazepam, Adderall, and Lunesta on file and signed 12/14/14. Designated pharmacy: [facility] Prescribing physician: Dr. Prather. Diagnosis: Anxiety, [...] (current) use of other m edications 10/21/2012 Overview (10/21/2012): Controlled substance agreement for Adderall 10mg daily, quantity 30 tabs per month on file and signed 10/21/12. Designated pharmacy: [facility]. Prescribing physician: Dr Prather. Diagnosis: ADD Depression with anxiety 02/10/2012 Erectile dysfunction 11/24/2011 Hypercholesterolemia 08/31/2011 Hypertension 08/11/2011 Anxiety Overview (11/05/2011): Dr. Duncan. Resolved Problems Problem Noted Date Diagnosed Date Resolved Date ADD (attention deficit disorder) 02/09/2017 06/23/2018 Encounters Date Type Department Care Team Description 03/31/2024 8:15 AM CDT Telemedicine [facility] [address] [place], [place] [address], [place] [address] Shirley Carbone NP Mental Health Intake; Medication Management; Telehealth 03/31/2024 Travel 03/30/2024 Telephone [facility] [address] [place] [address] [place] [address] Shirley Carbone NP Appointment (Scheduling Error - Todays appointment w/Tona - Patient scheduled as Follow up when this should be an Intake.) 02/03/2024 Orders Only [facility] [address] [place] [address] [place] [address] Shirley Carbone NP <No scans attached> from Last 3 Months Immunizations Name Administration [...] PHQ-2 Answer Date Recorded PHQ-2 TOTAL SCORE 1 03/31/2024 Alcohol Use Answer Date Recorded How often [...] Comments Blood Pressure 129/78 06/01/2019 3:31 PM TRIPE COOKER Pulse 94 06/01/2019 3:31 PM TRIPE COOKER Temperature 36.3 ??C (97.4 ??F) 09/05/2018 2:37 PM CS T Respiratory Rate 16 07/02/2018 7:45 AM TRIPE COOKER Oxygen Saturation 96% 07/02/2018 7:45 AM TRIPE COOKER Inhaled Oxygen Concentration - - Weight 111.1 [...] 01/20/2023 01/20/2022, 10/09/2021, 09/05/2018, Additional history exists Lipids for age 45-75 03/30/2023 03/30/2018, 09/20/2017, 04/20/2017, Additional history exists COVID-19 vaccine series ( season) 2024 Influenza for age 50-64 03/12/2024 03/29/20 18, 04/16/2016, 05/07/2015, Additional history exists Depression screening for age 12+ 03/31/2025 03/31/2024, 10/27/2023, 06/16/2023, Additional history exists Tetanus booster 08/16/2032 08/16/2022, 03/2013, 09/03/2010, Additional history exists Tdap Completed 08/16/2022, 03/2013, 09/03/2010, Additional history exists Pneumococcal series for age 6-64 Aged Out No longer eligible based on patient's age to complete this topic Medical Devices Implanted Type Area Metal Sprayer Production Device Identifier Shelf Expiration Date Model / Serial / Lot Cmnt Bone 40g Simplex Hv Gentamicin - [id number] Implanted:Qty: 1 on 10/16/2014 by Chace Zimmerman MD at [facility] Left: Knee [employer] 05/18/2016 [id number]# / / [id number] Cmnt Bone Simplex Hv - [id number] Implanted:Qty: 1 on 10/16/2014 by Chace Zimmerman MD at [facility] Left: Knee [employer] 04/17/2015 [id number]# / / [id number] Fem Lt Sz8 Journey Ii Bcs Oxin - [id number] Implanted:Qty: 1 on 10/16/2014 by Chace Zimmerman MD at [facility] Left: Knee [employer] 02/15/2023 [id number]# / / [id number] Insert Knee Lt Sz7-8 11mm Journey Ii Bcs Bi Cruc Stbz - [id number] Implanted:Qty: 1 on 10/16/2014 by Chace Zimmerman MD at [facility] Left: Knee [employer] 10/16/2022 [id number]# / / [id number] Patella 38mm Donna Ii Resurf - [id number] Implanted:Qty: 1 on 10/16/2014 by Chace Zimmerman MD at [facility] Left: Knee [employer] 01/16/2024 [id number]# / / [id number] Baseplate Tib Lt Sz 7 Protection [employer] Journey - [id number] Implanted:Qty: 1 on 10/16/2014 by Chace Zimmerman MD at [facility] Left: Knee [employer] 08/18/2022 [id number]# / / [id number] Kit Accsry Implnt Penile Implanted:Qty: 1 on 07/01/2018 by Malachi Mahoney MD at [facility] Penis 04/24/2023 [id number] / / [id number] Description:KIT ACCSRY IMPLN T PENILE Implnt Rte Snapcone C./Lgx3.0cm - [id number] Implanted:Qty: 1 on 07/01/2018 by Malachi Mahoney MD at [facility] Penis [employer] 04/19/2023 [id number]# / / [id number] Implnt Cavalero 100ml Conccile Iz Implanted:Qty: 1 on 07/01/2018 by Malachi Mahoney MD at [facility] Penis [employer] 05/30/2020 [id number] / / [id number] Description:IMPLNT RESERVOIR 100ML CONCCILE IZ Ams 700 Lgx Ms Pump 15 X12 Implanted:Qty: 1 on 07/01/2018 by Malachi Mahoney MD at [facility] 05/23/2020 [id number] / / [id number] Description:AMS 700 LGX MS P UMP 15 [...] - 199 mg/dL 03/30/2018 11:08 AM CDT [facility] TRIGLYCERIDES 241(H) <150 mg/dL 03/30/2018 11:08 AM CDT [facility] HDL CHOLESTEROL 41 >40 mg/dL 8 11:08 AM CDT [facility] NON-HDL CHOLESTEROL 123 <145 mg/dl 03/30/2018 11:08 AM CDT [facility] CHOL/HDL RATIO 4.00 <4.50 03/30/2018 11:08 AM CDT [facility] LDL CHOLESTEROL 75 <=130 mg/dL 03/30/2018 11:08 AM CDT [facility] PROVIDER ORDERED STATUS RANDOM 03/30/2018 11:08 AM CDT [facility] Blood BLOOD SPECIMEN / Unknown Venipuncture / Unknown 03/30/2018 10:29 AM CDT 03/30/2018 10:29 AM CDT Claudia Prather MD CHEMISTRY [facility] [address] [place] [address] from Last 3 Months or Most Recently Relevant to Health Maintenance Advance Directives * Full Code (Latest Code Status on File) Date Activated Date Inactivated Comments 07/01/2018 1:46 PM 07/02/2018 1:16 PM * Full Code Date Activated Date Inactivated Comments 10/16/2014 9:24 AM 10/18/2014 6:27 PM Care Teams Nurse Chemical Dependency Relationship Specialty Start [place] [address] [place] [address] PCP - General Family Practice 10/17/19 Service, Claudia Prieto MD [address] [facility] [address] [place] [address] Psychiatry 10/15/21
--- OUTSIDE RECORDS SUMMARY | 2024-04-13 14:18 | XMS_ITS | Encounter Summary ---
Author Organization [facility] Address [address] [place] [address] Care Team Providers Care Social Insurance Analyst Name Role Phone Koby Hill MD Primary Care Provider [phone] Encounter Details Date Type Department Care Team (Late st Contact Info) Description 04/24/2022 Orders Only [facility] Centralized Scheduling [address] [place] [id number] Quinn Brown MD [address] [place] [address] Encounter for laboratory testing for COVID-19 virus [...] the chelsie SARS-CoV-2 assay on the chelsie [employer]0 System. This test should be ordered for [...] COVID-19. This test was validated by the [facility]. This laboratory is certified under the Clinical Laboratory Improvement Amendments of 1988 (CLIA-88) as qualified to perform high and/or moderate complexity laboratory testing. Quinn Brown MD LAB - MICRO GENERAL ORDERABLES [facility] Inf. Diseases Diag. Lab [address] [facility][1], [address] [place] [address], [facility] [phone] documented in this encounter Visit Diagnoses Diagnosis Encounter for laboratory testing for COVID-19 virus documented in this encounter Additional Health Concerns Infection Onset Date Last Indicated Resolved Time Rule Out COVID-19 05/02/2022 05/02/2022 05/02/2022 10:22 PM CDT Assessment Noted Time PHQ-9 Depression Total Score: 2 04/17/20 16 7:19 AM CDT documented as of this encounter Care Teams Social Insurance Analyst Relationship Specialty Start Date End Date Koby Hill MD [address] [place] [address] PCP - General Internal Medicine 10/14/15 documented as of this encounter
--- OUTSIDE RECORDS SUMMARY | 2024-04-13 14:18 | XMS_ITS | Continuity of Care Document ---
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 [id number] [facility] [address], [place] [phone] Self [employer] Conner [address] [place] [address] Problems Condition ICD9 code ICD10 code [...] uncomplicated F10.20 Final Hypothyroidism, unspecified E03.9 Final Gastro-esophageal reflux disease without esophagitis K21.9 Final Cough, unspecified R05.9 Final Acute pharyngitis, unspecified J02.9 Final Urgency of urination R39.15 Adm itting Urgency of urination R39.15 Fin al Type 2 diabetes mellitus without complications E11.9 Final Benign prostatic hyperplasia with lower urinary tract symptoms N40.1 Fi nal Nocturia R35.1 Final Alcohol dependence, uncomplicated F10.20 Final Hypothyroidism, unspecified E03.9 Final Essential (primary) hypertension I10 Final Acute prostatitis N41.0 Final Dizziness and [...] F10.20 Admitting Essential (primary) hypertension I10 Admitting Benign prostatic hyperplasia with lower urinary tract symptoms N40.1 Ad mitting Nocturia R35.1 Admitting Pure hypercholesterolemia, unspecified E78.00 Admitting Essential (primary) [...] Other forms of dyspnea R06.09 F inal Essential (primary) hypertension I10 Admitting Type 2 diabetes mellitus without complications E11.9 Admitting Other forms of dyspnea R06.09 A dmitting Type 2 diabetes mellitus without complications E11.9 Final Essential (primary) hypertension I10 Final Other forms of dyspnea R06.09 F inal Results No Results Allergies, adverse reactions, alerts No known allergies and adverse reactions Medications No administered medications reported Vital Signs No vital signs reported Social History No smoking Hx information available
--- OUTSIDE RECORDS SUMMARY | 2024-04-13 14:18 | XMS_ITS | Encounter Summary ---
Author Organization [facility] Address [address] [place] [address] Care Team Providers Care Employee Services Manager Name Role Phone Koby Hill MD Primary Care Provider CreaganEloisa APRN PREPRESS TECHNICIAN Unavailable + [phone] Umer, Eloisa Das APRN PREPRESS TECHNICIAN Unavailable + [phone] Koby Hill MD Unavailable [phone] Trae Clayton PA-C Unavailable + [phone] Koby Hill MD Unavailable [phone] CreaganEloisa APRN PREPRESS TECHNICIAN Unavailable + [phone] Encounter Details Date Type Department Care Team (Late st Contact Info) Description 06/21/2017 MyC Medical Advice [address] [place] [address] Ashley Batista RN Social History Tobacco Use [...] documented as of this encounter Care Teams Employee Services Manager Relationship Specialty Start Date End Date Koby Hill MD [address] [address] PCP - General Internal Medicine 10/14/15 Eloisa Owusu APRN PREPRESS TECHNICIAN [address] [place] [address] PCP - Assigned PCP 01/16/18 09/13/18 Eloisa Owusu APRN PREPRESS TECHNICIAN [address] [place] [address] Assigned PCP 01/16/18 01/07/19 Koby Hill MD [address] [place] [address] Assigned PCP 01/08/19 02/18/19 Trae Clayton PA-C [address] [place] [address] Assigned PCP 02/19/19 04/01/19 Koby Hill MD [address] [place] [address] Assigned PCP 04/02/19 07/15/19 Eloisa Owusu APRN PREPRESS TECHNICIAN [address] [place] [address] Assigned PCP 07/16/19 01/11/21 documented as of this encounter
--- OUTSIDE RECORDS SUMMARY | 2024-04-13 14:18 | XMS_ITS | Encounter Summary ---
Author Organization [facility] Address [address] [place] [address] Care Team Providers Care Counter Tender Name Role Phone Koby Hill MD Primary Care Provider CreaganEloisa APRN MODELER Unavailable + [phone] Creabraham, Eloisa Das APRN MODELER Unavailable + [phone] Koby Hill MD Unavailable [phone] Trae Clayton PA-C Unavailable + [phone] Koby Hill MD Unavailable [phone] Creagan, Eloisa Das APRN MODELER Unavailable + [phone] Encounter Details Date Type Department Care Team (Late st Contact Info) Description 05/17/2017 MyC Medical Advice [address] [place] [address] Susu Grider RN Social History Tobacco Use [...] documented as of this encounter Care Teams Counter Tender Relationship Specialty Start Date End Date Koby Hill MD [address] [address] PCP - General Internal Medicine 10/14/15 Eloisa Owusu APRN MODELER [address] [place] [address] PCP - Assigned PCP 01/16/18 09/13/18 Eloisa Owusu APRN MODELER [address] [place] [address] Assigned PCP 01/16/18 01/07/19 Koby Hill MD [address] [place] [address] Assigned PCP 01/08/19 02/18/19 Trae Clayton PA-C [address] [place] [address] Assigned PCP 02/19/19 04/01/19 Koby Hill MD [address] [place] [address] Assigned PCP 04/02/19 07/15/19 Eloisa Owusu APRN MODELER [address] [place] [address] Assigned PCP 07/16/19 01/11/21 documented as of this encounter
== END 2024-04-13 14:14 | disposition home or self-care (01) ==
LOC: LKVREF 14:14
PROVIDERS: PCP Family Medicine; Visit Provider Family Medicine
DX: F10.20 Alcohol dependence, uncomplicated (principal)
CPT/HCPCS: 80076

== ENCOUNTER 2024-10-07 09:05 | Outpatient (CLI) | payer OTHER, SELFPAY | END 2024-10-07 09:06 | disposition home or self-care (01) | LOC: NFLDREF 10-08 23:19 | PROVIDERS: PCP Family Medicine; Referring Provider Family Medicine; Visit Provider Family Medicine | DX: E11.9 Type 2 diabetes mellitus without complications (principal); E03.9 Hypothyroidism, unspecified; I10 Essential (primary) hypertension; N40.1 Benign prostatic hyperplasia with lower urinary tract symptoms; R35.1 Nocturia; R53.83 Other fatigue; Z12.5 Encounter for screening for malignant neoplasm of prostate; Z13.220 Encounter for screening for lipoid disorders | CPT/HCPCS: 80053; 80061; 82043; 82570; 84443; G0103 ==

== ENCOUNTER 2024-10-30 06:19 | Outpatient (CLI) | payer OTHER, SELFPAY ==
--- NOTE | 2024-10-30 07:56 | P.ANES_ITS ---
Anesthesia Charges Start Date/Time Anesthesia Start Date: 10/30/24 Anesthesia Start Time: 07:38 Stop Date/Time Anesthesia Stop Date: 10/30/24 Anesthesia Stop Time: 07:53 Coding CPT Codes CPT Codes: ANES UPR GI NDSC PX NOS - 11469 ([id number]) P3 - PATIENT W/SEVERE SYS DISEASE, QX - PROBATE LAWYER SVC W/ MD MED DIRECTION, QK - RUMPER 2-4 CNCRNT ANES PROC
--- NOTE | 2024-10-30 07:56 | W.ANESCHARGE ---
Anesthesia Charges Start Date/Time Anesthesia Start Date: 10/30/24 Anesthesia Start Time: 07:38 Stop Date/Time Anesthesia Stop Date: 10/30/24 Anesthesia Stop Time: 07:53 Coding CPT Codes CPT Codes: ANES UPR GI NDSC PX NOS - 94430 ([id number]) P3 - PATIENT W/SEVERE SYS DISEASE, QX - EMBROIDERY CUTTER SVC W/ MD MED DIRECTION, QK - CUT OFF SAW GRADER 2-4 CNCRNT ANES PROC
--- NOTE | 2024-10-30 09:13 | P.ANES_ITS ---
Anesthesia Charges Start Date/Time Anesthesia Start Date: 10/30/24 Anesthesia Start Time: 07:38 Stop Date/Time Anesthesia Stop Date: 10/30/24 Anesthesia Stop Time: 07:53 Coding CPT Codes CPT Codes: ANES UPR GI NDSC PX NOS - 07498 ([id number]) P3 - PATIENT W/SEVERE SYS DISEASE, QK - RIVETER HAND 2-4 CNCRNT ANES PROC, QX - EMBEDDED SOFTWARE ENGINEER SVC W/ MD MED DIRECTION
--- NOTE | 2024-10-30 09:13 | W.ANESCHARGE ---
Anesthesia Charges Start Date/Time Anesthesia Start Date: 10/30/24 Anesthesia Start Time: 07:38 Stop Date/Time Anesthesia Stop Date: 10/30/24 Anesthesia Stop Time: 07:53 Coding CPT Codes CPT Codes: ANES UPR GI NDSC PX NOS - 47028 ([id number]) P3 - PATIENT W/SEVERE SYS DISEASE, QK - FLARE BREAKER 2-4 CNCRNT ANES PROC, QX - STEAM TABLE ASSOCIATE SVC W/ MD MED DIRECTION
== END 2024-10-30 06:20 | disposition home or self-care (01) ==
LOC: OP CLINIC 06:19
PROVIDERS: PCP Family Medicine; Visit Provider Surgery
DX: K21.9 Gastro-esophageal reflux disease without esophagitis (principal); K44.9 Diaphragmatic hernia without obstruction or gangrene; K31.7 Polyp of stomach and duodenum
CPT/HCPCS: 00731; 43239; 88305; J2704; J3010